=== PATIENT | male | born 1935 | race Caucasian/White ===

== ENCOUNTER → 2016-05-27 | Outpatient (CLI) | payer MEDICARE, OTHER ==
[2016-05-27 10:09] LABS: ABSOLUTE BASOPHILS # (AUTO) 0.1 10^3/uL (0.0-0.2); ABSOLUTE EOSINOPHILS # (AUTO) 0.2 10^3/uL (0.0-0.6); ABSOLUTE LYMPHOCYTES (AUTO) 1.8 10^3/uL (0.5-4.7); ABSOLUTE MONOCYTES (AUTO) 0.6 10^3/uL (0.1-1.4); ABSOLUTE NEUT (AUTO) 5.4 10^3/uL (1.7-8.2); BASOPHILS % (AUTO) 0.9 % (0-2); EOSINOPHILS % (AUTO) 2.8 % (0-6); HEMATOCRIT 51.5 % (37.9-51.0); HEMOGLOBIN 16.8 g/dL (13.5-17.0); HGB HCT DIFFERENCE -1.1; LYMPHOCYTES % (AUTO) 22.7 % (13-45); MEAN CORPUSCULAR HGB CONC 32.5 g/dL (32.0-36.0); MEAN CORPUSCULAR VOLUME 89 fl (80-97); MONOCYTES % (AUTO) 7.1 % (3-13); RED BLOOD COUNT 5.79 10^6/uL (4.35-5.55); RED CELL DISTRIBUTION WIDTH 16.8 % (11.5-14.0); SEGMENTED NEUTROPHILS % (AUTO) 66.5 % (42-78); WHITE BLOOD COUNT 8.1 10^3/uL (4.0-10.5)
[2016-05-27 10:13] LABS: APPEARANCE,URINE CLEAR; BILIRUBIN,URINE NEGATIVE (NEGATIVE); GLUCOSE, URINE NEGATIVE (NEGATIVE); KETONES,URINE NEGATIVE (NEGATIVE); LEUKOCYTE ESTERASE,URINE NEGATIVE (NEGATIVE); NITRITE,URINE NEGATIVE (NEGATIVE); PROTEIN,URINE NEGATIVE (NEGATIVE); URINE SPECIFIC GRAVITY 1.005; UROBILINOGEN,URINE NEGATIVE mg/dL (<2.0)
[2016-05-27 10:32] LABS: ALBUMIN 4.1 g/dL (3.5-5.0); ANION GAP 14 (5-19); BLOOD UREA NITROGEN 11 mg/dL (7-20); CALCIUM 9.7 mg/dL (8.4-10.2); CARBON DIOXIDE 23 mmol/L (22-30); CHLORIDE 101 mmol/L (98-107); CREATININE RESULT 1.17 mg/dL (0.52-1.25); GLUCOSE 161 mg/dL (75-110); PHOSPHORUS 3.8 mg/dL (2.5-4.5); POTASSIUM 4.3 mmol/L (3.6-5.0); SODIUM 138.3 mmol/L (137-145)
[2016-05-28 11:40] LABS: CREATININE URINE 42.6 mg/dL (Not Estab.); MICROALBUMIN URINE 31.2 ug/mL (Not Estab.)
== END ==
LOC: OD 09:24
PROVIDERS: ATTEND Internal Medicine Nephrology
DX: N18.3 Chronic kidney disease, stage 3 (moderate) (principal); R80.9 Proteinuria, unspecified
CPT/HCPCS: 36415; 80048; 81001; 82040; 82043; 82306; 82570; 83970; 84100; 85025

== ENCOUNTER 2016-08-13 01:16 | Inpatient (IN) | payer MEDICARE, OTHER ==
[2016-08-13] MEDS ORDERED: NITROGLYCERIN 0.4 MG/TAB 25 TAB/BOTTLE ONE (01:28)
[2016-08-13] MEDS: NITROGLYCERIN 0.4 MG/TAB 25 TAB/BOTTLE SL PRN ×4 (01:28→03:37)
[2016-08-13] MEDS ORDERED: IPRATROPIUM/ALBUTEROL 0.5-2.5 MG/3 ML AMPUL NEB ONE (01:30)
--- NOTE | 2016-08-13 01:35 | ER Document Report ---
ED Respiratory Problem - General Chief Complaint: Shortness Of Breath Stated Complaint: DIFFICULTY BREATHING Notes: The patient is a 80-year-old male, past medical history COPD, CHF, CAD status post three-vessel CABG in 2010, pacemaker defibrillator placement, presents with 2 hours of increasing shortness of breath and respiratory distress. He tried his CPAP mask for his sleep apnea, but it was not working. His room air O2 sat was 71% when EMS arrived. He says he wears oxygen at night, but not during the day. He was given 125 mg IV Solumedrol and a DuoNeb by EMS. Patient denies chest pain, fevers, edema, nausea, vomiting, abdominal pain or cough. TRAVEL OUTSIDE OF THE [place] IN LAST 30 DAYS: No - Related Data Allergies/Adverse Reactions: No Known Allergies Allergy (Verified 04/17/14 20:52) Past Medical History - General Information source: Patient - Social History Smoking Status: Former Smoker Family History: Reviewed & Not Pertinent - Past Medical History Cardiac Medical History: Reports: Hx Atrial Fibrillation, Hx Congestive Heart Failure, Hx Coronary Artery Disease, Hx Heart Attack, Hx Hypercholesterolemia, Hx Hypertension Denies: Hx Peripheral Vascular Disease, Hx Pulmonary Embolism, Hx Heart Murmur Pulmonary Medical History: Reports: Hx COPD, Hx Pneumonia Denies: Hx Asthma, Hx Bronchitis, Hx Respiratory Failure, Hx Sleep Apnea, Hx Tuberculosis Neurological Medical History: Denies: Hx Cerebrovascular Accident, Hx Seizures Endocrine Medical History: Denies: Hx Graves' Disease, Hx Hyperthyroidism, Hx Hypothyroidism Renal/ Medical History: Denies: Hx Benign Prostatic Hyperplasia, Hx End Stage Renal Disease, Hx Kidney Stones, Hx Peritoneal Dialysis Malignancy Medical History: Denies Hx Leukemia, Denies Hx Lung Cancer GI Medical History: Denies: Hx Crohn's Disease, Hx Gastroesophageal Reflux Disease, Hx Hiatal Hernia, Hx Irritable Bowel, Hx Liver Failure, Hx Ulcer Musculoskeltal Medical History: Reports Hx Arthritis, Denies Hx Fibromyalgia, Denies Hx Multiple Sclerosis, Denies Hx Muscular Dystrophy Psychiatric Medical History: Denies: Hx Bipolar Disorder, Hx Dementia, Hx Depression, Hx Post Traumatic Stress Disorder, Hx Schizophrenia Traumatic Medical History: Denies: Hx Fractures Infectious Medical History: Denies: Hx HIV Past Surgical History: Reports: Hx Abdominal Surgery - aaa stent, Hx Cardiac Catheterization, Hx Cholecystectomy, Hx Coronary Artery Bypass Graft - 3 ways. Denies: Hx Appendectomy, Hx Bowel Surgery, Hx Colostomy, Hx Gastric Bypass Surgery, Hx Herniorrhaphy, Hx Pacemaker, Hx Tonsillectomy - Immunizations Immunizations up to date: Yes Hx Diphtheria, Pertussis, Tetanus Vaccination: Yes Hx Pneumococcal Vaccination: 03/05/11 Review of Systems - Review of Systems Notes: REVIEW OF SYSTEMS: CONSTITUTIONAL: -fevers, -chills EENT: -eye pain, -difficulty swallowing, -nasal congestion CARDIOVASCULAR: -chest pain, -syncope. RESPIRATORY: -cough, +SOB GASTROINTESTINAL: -abdominal pain, -nausea, -vomiting, -diarrhea GENITOURINARY: -dysuria, -hematuria MUSCULOSKELETAL: -back pain, -neck pain SKIN: -rash or skin lesions. HEMATOLOGIC: -easy bruising or bleeding. LYMPHATIC: -swollen, enlarged glands. NEUROLOGICAL: -altered mental status or loss of consciousness, -headache, - neurologic symptoms ALL OTHER SYSTEMS REVIEWED AND NEGATIVE. Physical Exam - Vital signs Vitals: Resp 36 H 08/13/16 01:22 - Notes Notes: PHYSICAL EXAMINATION: GENERAL: Moderate respiratory distress, is nodding to answers, but unable to speak HEAD: Atraumatic, normocephalic. EYES: Pupils equal round and reactive to light, extraocular movements intact, sclera anicteric, conjunctiva are normal. ENT: nares patent, oropharynx clear without exudates. Moist mucous membranes. NECK: Normal range of motion, supple without lymphadenopathy LUNGS: Moderate respiratory distress, tachypnea, wheezing, B/L bibasilar rales HEART: Regular rate and irregular rhythm ABDOMEN: Soft, nontender, normoactive bowel sounds. No guarding, no rebound. No masses appreciated. EXTREMITIES: Normal range of motion, no pitting or edema. No cyanosis. NEUROLOGICAL: Cranial nerves grossly intact. Normal sensory and motor exams. SKIN: Warm, Dry, normal turgor, no rashes or lesions noted. Course - Re-evaluation Re-evalutation: Patient seen immediately on arrival and due to hypoxia and respiratory distress , patient placed on BiPAP. He has wheezes and rales at the bases. DuoNeb and steroids were given for COPD exacerbation and sublingual nitros for flash pulmonary edema. Patient much more comfortable on BiPAP. Chest x-ray shows worsening of his interstitial lung disease and possible pulmonary edema. Patient provided with IV Lasix. Rest of labs are unremarkable other than leukocytosis of 14 and a lactate of 2.4, which may be a stress response from his respiratory distress. No fevers and no signs of infection at this time. Patient requires inpatient admission for further evaluation and treatment of his hypoxic respiratory failure. 08/13/16 05:[address] Servin and will admit patient as Inpatient to [facility]. Patient resting comfortably on BiPAP and is in no respiratory distress at this time. - Vital Signs Vital signs: Temp Pulse Resp BP Pulse Ox 26 H 140/59 H 92 08/13/16 04:50 08/13/16 04:16 08/13/16 04:50 - Laboratory Result Diagrams: 08/13/16 01:27 08/13/16 01:27 Laboratory results interpreted by me: 08/13/16 08/13/16 08/13/16 01:27 01:27 01:27 WBC 14.7 H RBC 5.93 H Hgb 18.7 H Hct 54.9 H RDW 16.0 H Absolute Neutrophils 10.4 H PT 15.7 H APTT 59.7 H Carbonic Acid ABG pH ABG pCO2 ABG pO2 ABG O2 Saturation Carbon Dioxide 21 L Est GFR (Non-Af Amer) 59 L Glucose 137 H Lactic Acid Direct Bilirubin 0.6 H NT-Pro-B Natriuret Pep 08/13/16 08/13/16 08/13/16 01:27 01:27 01:33 WBC RBC Hgb Hct RDW Absolute Neutrophils PT APTT Carbonic Acid 1.37 H ABG pH 7.33 L ABG pCO2 45.6 H ABG pO2 135.2 H ABG O2 Saturation 98.5 H Carbon Dioxide Est GFR (Non-Af Amer) Glucose Lactic Acid 2.4 H Direct Bilirubin NT-Pro-B Natriuret Pep 5390 H - Diagnostic Test Radiology reviewed: Image reviewed, Reports reviewed - EKG Interpretation by Me EKG shows normal: Sinus rhythm, [place], Intervals, QRS Complexes, ST-T Waves Rhythm: Other - Ventricular Bigeminy When compared to previous EKG there are: Changes noted - Ventricular bigeminy Critical Care Note - Critical Care Note Total time excluding time spent on procedures (mins): 45 Discharge - Discharge Clinical Impression: Acute respiratory failure with hypoxia, Flash pulmonary edema, COPD exacerbation Condition: Serious Disposition: ADMITTED INPATIENT Admitting Provider: Terese Servin Unit Admitted: IMCU Referrals: DENIS ROWLAND MD [Primary Care Provider] - Follow up as needed
[2016-08-13 01:46] LABS: ABSOLUTE BASOPHILS # (AUTO) 0.1 10^3/uL (0.0-0.2); ABSOLUTE EOSINOPHILS # (AUTO) 0.2 10^3/uL (0.0-0.6); ABSOLUTE LYMPHOCYTES (AUTO) 2.8 10^3/uL (0.5-4.7); ABSOLUTE MONOCYTES (AUTO) 1.3 10^3/uL (0.1-1.4); ABSOLUTE NEUT (AUTO) 10.4 10^3/uL (1.7-8.2); BASOPHILS % (AUTO) 0.7 % (0-2); EOSINOPHILS % (AUTO) 1.5 % (0-6); HEMATOCRIT 54.9 % (37.9-51.0); HEMOGLOBIN 18.7 g/dL (13.5-17.0); HGB HCT DIFFERENCE 1.2; LYMPHOCYTES % (AUTO) 18.7 % (13-45); MEAN CORPUSCULAR HEMOGLOBIN 31.5 pg (27.0-33.4); MEAN CORPUSCULAR HGB CONC 34.1 g/dL (32.0-36.0); MEAN CORPUSCULAR VOLUME 93 fl (80-97); MONOCYTES % (AUTO) 8.7 % (3-13); RED BLOOD COUNT 5.93 10^6/uL (4.35-5.55); SEGMENTED NEUTROPHILS % (AUTO) 70.4 % (42-78); WHITE BLOOD COUNT 14.7 10^3/uL (4.0-10.5)
[2016-08-13 01:52] LABS: ARTERIAL BLOOD O2 SATURATION 98.5 % (94-98)
[2016-08-13 01:58] LABS: PROTHROMBIN TIME 15.7 SEC (11.4-15.4)
[2016-08-13 01:59] LABS: PARTIAL THROMBOPLASTIN TIME 59.7 SEC (23.5-35.8)
[2016-08-13 02:04] LABS: ALANINE AMINOTRANSFERASE 23 U/L (21-72); ALBUMIN 4.4 g/dL (3.5-5.0); ALKALINE PHOSPHATASE 78 U/L (38-126); ANION GAP 16 (5-19); ASPARTATE AMINO TRANSFERASE 30 U/L (17-59); BILIRUBIN,DIRECT 0.6 mg/dL (0.0-0.4); BILIRUBIN,TOTAL 1.2 mg/dL (0.2-1.3); BLOOD UREA NITROGEN 12 mg/dL (7-20); CALCIUM 9.9 mg/dL (8.4-10.2); CARBON DIOXIDE 21 mmol/L (22-30); CHLORIDE 104 mmol/L (98-107); CREATINE KINASE 68 U/L (55-170); CREATININE RESULT 1.19 mg/dL (0.52-1.25); GLUCOSE 137 mg/dL (75-110); POTASSIUM 4.5 mmol/L (3.6-5.0); SODIUM 141.3 mmol/L (137-145); TOTAL PROTEIN 7.9 g/dL (6.3-8.2)
[2016-08-13 02:20] LABS: TROPONIN I 0.026 ng/mL
[2016-08-13] MEDS ORDERED: FUROSEMIDE INJ/PF 40 MG/4 ML SDV IV ONE (03:10)
[2016-08-13] MEDS ORDERED: ASPIRIN 81 MG TABLET, CHEWABLE PO ONE (05:36)
[2016-08-13] MEDS ORDERED: ALBUTEROL SULFATE 0.083% NEB 2.5 MG/3 ML AMPUL NEB PRN (08:08)
[2016-08-13] MEDS ORDERED: ACETAMINOPHEN 325 MG TABLET PO PRN (08:08)
[2016-08-13] MEDS ORDERED: NORMAL SALINE 1000 ML 1,000 ML IV PRN (08:12)
[2016-08-13] MEDS ORDERED: GLUCAGON,HUMAN RECOMB 1 MG INJ IM PRN (08:16)
[2016-08-13] MEDS ORDERED: DEXTROSE 50%-WATER 25 GM/50 ML DISP.SYRIN IV PRN ×2 (08:16)
[2016-08-13] MEDS ORDERED: DEXTROSE 40% GEL 15 GM TUBE PO PRN ×2 (08:16)
[2016-08-13] MEDS ORDERED: INSULIN LISPRO 100 UNIT/ML 3 ML VIAL SUBCUT PRN (08:16)
[2016-08-13 09:06] LABS: VENOUS BLOOD BASE EXCESS -2.3 mmol/L; VENOUS BLOOD HCO3 21.6 mmol/L (20-32); VENOUS BLOOD PCO2 35.4 mmHg (35-63); VENOUS BLOOD PH 7.4 (7.30-7.42)
[2016-08-13] MEDS ORDERED: NICOTINE 14 MG/24 HR PATCH.TD24 TD PRN (09:24)
[2016-08-13] MEDS: CEFTRIAXONE 1 GM/D5W RTU 1 GM/50 ML RTUPB IV SCH (09:29)
--- NOTE | 2016-08-13 09:38 | PDOC H&P ---
History of Present Illness Admission Date/PCP: 08/13/16 05:26 DENIS ROWLAND MD Cards Dr. Kruger [place] History of Present Illness: EARNEST CASTELLANO is a 80 year old male with underlying severe systolic congestive heart failure, status post AICD implant, along with nonhome O2 dependent COPD who presents to the emergency room with a 2 hour history of increasing shortness of breath and respiratory distress. Was so short of breath that he could not tolerate his home CPAP mask which he normally wears at night. Shortness of breath worsened with any movement or activity. Room air saturation was 71% upon EMS arrival. Was given 125 mg of IV Solu-Medrol and a DuoNeb treatment en route by EMS. Currently is on BiPAP, breathing much more comfortably. Denies chest pain, fever or chills, nausea vomiting, chest or abdominal pain or cough. No ankle swelling. No subjective recent weight gain. Does not weigh himself very often. Denies dietary indiscretion. States he is compliant with his medications. Patient has been discussed with emergency room physician who evaluated the patient. Patient himself is somewhat fatigued, and appears to be a rather stoic individual. is present at his side with his approval, and both of them together to provide some history, although in general they are both poor historians concerning recent events. Possibly 2 new recent medications, but I can't be sure. No hospitalization for the past 3 months. No antibiotic use for the past 3 months. Hospitalized on our service August 29 through the 2013 with final diagnoses including basilar pneumonia, with COPD exacerbation. Ejection fraction at that time was 25%, systolic heart failure. Discharge summary reviewed. Laboratory results are listed in [address] and are reviewed. X-ray summary results are listed below, with full report(s) reviewed. . EKG reviewed. And compared to a tracing from 08/30/2013. Social history/personal habits: . 3 sons. On disability due to combination of pulmonary and cardiac disease. Half-pack of cigarettes per day. No alcohol or illicit drug use. Allergies/adverse reactions NKDA. Home medications Home medications initially autopopulated into [facility] may not accurately reflect patient's true medications, dosages, and/or frequencies. interactive video technician to reconcile medications. Unfortunately, patient uncertain of medications/dosages/frequencies. REVIEW OF SYSTEMS: Constitutional: No fever or chills. Eyes: Wears glasses. ENT: No swallowing problems or complaints. Partial hearing loss. Pulmonary: See history and present illness. Cardiovascular: No current complaints, including chest pain. Gastrointestinal: No current complaints, including nausea or vomiting. Skin: No current complaints, including rashes. Hematologic: No unusual easy bruising or bleeding. Neurologic: No current complaints, including numbness or tingling. Musculoskeletal: Joint pain from arthritis. Psychiatric: Mild depression; denies suicidal or homicidal ideation. Endocrine: No current complaints, including polyuria. Genitourinary: No current complaints, including dysuria. PHYSICAL EXAMINATION: 5 feet 11 inches tall. 82.6 kg. BMI 25.4 kg/m. Blood pressure 145/63. Pulse 81 and regular. 95% saturation on BiPAP 12/6, FiO2 50%. Respirations are 25 and unlabored. Temperature not recorded on the chart; skin feels normothermic. Slightly overweight otherwise well-nourished well-developed male appearing approximately his stated age. Somewhat fatigued. Rather stoic individual. Answers most questions with only one or 2 words, typically only yes or no. is present at his side; patient approves. Skin is warm and dry. No grossly obvious evidence of rash in areas of skin examined. No subcutaneous nodule palpated. ENT: Mildly hard of hearing to normal conversation. Tongue midline on protrusion pink and slightly tacky. Exam slightly limited by BiPAP mask with attaching straps. Eyes: No scleral icterus. Pupils equal and reactive to light at 4 mm. [place] conjunctivae. Neck is supple and nontender to gentle active range of motion and palpation. Midline trachea. No palpable thyroid nodule mass enlargement or tenderness. Lymphatic: No palpable cervical or clavicular nodes. Neck and lymphatic exams limited by patient body habitus. Exam slightly limited by BiPAP mask with attaching straps. Psychiatric: Fair to reasonable insight into acute and chronic medical issues. Somewhat of a poor historian; see history and present illness. Lungs: Auscultation reveals clear and equal breath sounds bilaterally. No use of accessory respiratory muscles. Cardiovascular: Heart regular rate and rhythm, without gallop murmur or rub. No abdominal aortic bruits. No ankle or pedal edema. Faintly palpable dorsalis pedis pulses. Difficult to evaluate for carotid bruit due to airway sounds from BiPAP device. Abdomen: soft, slightly distended nontender with positive bowel sounds. Unable to adequately evaluate abdomen for masses or organomegaly due to distention. Extremities: Feet are cool and dry, with quite acceptable capillary refill. states patient always has "cold feet." No calf tenderness to compression. No grossly obvious visual evidence of calf swelling. Gentle manipulation of lower extremities fails to reveal any obvious evidence of injury or instability to knees hips or ankles. Neurologic: Patellar reflexes absent. Absent Babinski. Light touch is intact at feet. Dorsiflexion and plantarflexion of feet 5 / 5 and symmetric. Past Medical History Cardiac Medical History: Reports: Atrial Fibrillation, Congestive Heart Failure - Systolic, Coronary Artery Disease, Myocardial Infarction, Hyperlipidema, Hypertension Denies: DVT, Peripheral Vascular Disease, Pulmonary Embolism Pulmonary Medical History: Reports: Chronic Obstructive Pulmonary Disease (COPD) , Pneumonia, Sleep Apnea - Uncertain settings for the CPAP. No home oxygen. Denies: Asthma, Bronchitis, Tuberculosis EENT Medical History: Reports: Ears - Partial hearing loss Neurological Medical History: Denies: Hemorrhagic CVA, Ischemic CVA, Seizures Endocrine Medical History: Denies: Diabetes Mellitus Type 1, Diabetes Mellitus Type 2, Hyperthyroidism, Hypothyroidism Renal/ Medical History: Denies: End Stage Renal Disease Malignancy Medical History: Denies: Leukemia, Lung Cancer GI Medical History: Denies: Cirrhosis, Crohn's Disease, Gastroesophageal Reflux Disease, Hepatitis, Hiatal Hernia, Peptic Ulcer Disease Musculoskeltal Medical History: Reports: Arthritis Denies: Fibromyalgia Skin Medical History: Reports: None Psychiatric Medical History: Reports: Depression - Mild, Tobacco Dependency Denies: Alcohol Dependency, General Anxiety Disorder, Substance Abuse Hematology: Denies: Anemia, Hemophilia, Sickle Cell Disease Infectious Medical History: Denies: Hepatitis B, Hepatitis C, HIV Past Surgical History Past Surgical History: Reports: Cardiac Catheterization, Cholecystectomy, Coronary Artery Bypass Graft - 3 ways, Pacemaker - Pacemaker defibrillator Denies: Appendectomy, Herniorrhaphy, Tonsillectomy Social History Information Source: Patient, Emergency Med Personnel, [facility] Records Smoking Status: Current Every Day Smoker Frequency of Alcohol Use: None Hx Recreational Drug Use: No Drugs: None Hx Prescription Drug Abuse: No - Advance Directive Resuscitation Status: Full Code Surrogate healthcare decision maker:: Family History Family History: Reviewed & Not Pertinent Parental Family History Reviewed: Yes - mother of dementia. Uncertain cause of father's . Children Family History Reviewed: Yes - Children are healthy Sibling(s) Family History Reviewed.: Yes - Sister with cancer. Medication/Allergy Home Medications: Budesonide/Formoterol Fumarate [Symbicort HFA 160-4.5 mcg Inhaler 6 gm] 2 puff IH BID 08/13/16 Calcium/Mag Oxide/Vitamin D3 [Coral Calcium Capsule] 1 tab PO DAILY 08/13/16 Dabigatran Etexilate Mesylate [Pradaxa] 150 mg PO Q12 08/13/16 Dofetilide [Tikosyn] 250 mg PO Q12 08/13/16 Multivit-Min/FA/Lycopen/Lutein [Centrum Silver Men Tablet] 1 tab PO DAILY RX: Aspirin [Ecotrin 81 mg EC Tablet] 81 mg PO DAILY 08/13/16 RX: Digoxin [Lanoxin 0.125 mg Tablet] 0.125 mg PO DAILY 08/13/16 RX: Furosemide [Lasix] 20 mg PO DAILY 08/13/16 RX: Metoprolol Succinate [Toprol Xl 25 mg Tab.sr] 25 mg PO QHS 08/13/16 RX: Metoprolol Succinate [Toprol Xl 25 mg Tab.sr] 50 mg PO QAM 08/13/16 RX: Montelukast Sodium [Singulair 10 mg Tablet] 10 mg PO DAILY 08/13/16 RX: Omeprazole 20 mg PO DAILY 08/13/16 RX: Simvastatin [Zocor 20 mg Tablet] 20 mg PO QPM 08/13/16 Sacubitril/Valsartan [Entresto 49 mg-51 mg Tablet] 1 tab PO DAILY 08/13/16 Tiotropium [place] [Spiriva Respimat] 2 puff IH DAILY 08/13/16 Allergies/Adverse Reactions: No Known Allergies Allergy (Verified 04/17/14 20:52) Physical Exam Vital Signs: Temp Pulse Resp BP Pulse Ox 60 24 H 143/61 H 94 08/13/16 01:20 08/13/16 07:31 08/13/16 07:31 08/13/16 07:31 Results Laboratory Results: 08/13/16 06:09 Lactic Acid 3.0 H Impressions: Chest X-Ray 08/13/16 01:30 IMPRESSION: Likely worsened chronic interstitial lung disease. Cannot exclude superimposed pulmonary edema. Assessment & Plan - Diagnosis (1) Acute on chronic respiratory failure with hypoxia and hypercapnia Is this a current diagnosis for this admission?: YesPlan: Patient will be admitted under COPD exacerbation protocol. Incentive spirometry twice a day. Scheduled DuoNeb's. PRN albuterol nebs daily prednisone. Prevacid for gastritis prophylaxis. Antibiotics will consist of Rocephin and intravenous doxycycline.. I strongly encouraged patient to notify staff should patient feel that his breathing is worsening. Patient is a full code. I have strongly encouraged patient not to get out of bed without notifying staff , , to avoid a fall with injury. Knee high SCDs for DVT prophylaxis; with patient on systemic anticoagulation, no need for Lovenox or heparin at this point in time. Impression and plans were discussed with patient, and , both of whom concur. Time spent in evaluation and management of patient: 68 minutes. (2) Acute on chronic systolic (congestive) heart failure Is this a current diagnosis for this admission?: YesPlan: Cardiology consult. Repeat troponin. Lipid panel. (3) COPD exacerbation Is this a current diagnosis for this admission?: Yes (4) Elevated troponin Is this a current diagnosis for this admission?: Yes (5) Anticoagulated Is this a current diagnosis for this admission?: YesPlan: Resume home medications as appropriate once these have been determined and reviewed. (6) Atrial fibrillation Qualifiers: Atrial fibrillation type: unspecified Qualified Code(s): I48.91 - Unspecified atrial fibrillation Is this a current diagnosis for this admission?: YesPlan: Hemodynamically stable. Resume home medications as appropriate once these have been determined and reviewed. (7) HLD (hyperlipidemia) Qualifiers: Hyperlipidemia type: unspecified Qualified Code(s): E78.5 - Hyperlipidemia, unspecified Is this a current diagnosis for this admission?: YesPlan: Resume home medications as appropriate once these have been determined and reviewed. (8) HECTOR (obstructive sleep apnea) Is this a current diagnosis for this admission?: YesPlan: Currently on BiPAP. - Inpatient Certification Based on my medical assessment, after consideration of the patient's comorbidities, presenting symptoms, or acuity I expect that the services needed warrant INPATIENT care.: Yes I certify that my determination is in accordance with my understanding of Medicare's requirements for reasonable and necessary INPATIENT services [42 CFR 412.3e].: Yes Medical Necessity: Significant Comorbidiites Make Outpatient Treatment Too Risky , Need Close Monitoring Due to Risk of Patient Decompensation, Need For Continuous Telemetry Monitoring, Need for Nebulizer Therapy and Monitoring of Response, Need for IV Antibiotics, Risk of Diagnosis Which Will Require Inpatient Eval/Care/Monitoring Post Hospital Care: D/C or Transfer Summary
[2016-08-13 10:06] LABS: ANION GAP 15 (5-19); BLOOD UREA NITROGEN 14 mg/dL (7-20); CALCIUM 9.4 mg/dL (8.4-10.2); CARBON DIOXIDE 21 mmol/L (22-30); CHLORIDE 103 mmol/L (98-107); CHOLESTEROL 101.83 mg/dL (0-200); CREATININE RESULT 1.21 mg/dL (0.52-1.25); Direct HDL 24 mg/dL (>40); GLUCOSE 172 mg/dL (75-110); MAGNESIUM 1.9 mg/dL (1.6-2.3); POTASSIUM 4.4 mmol/L (3.6-5.0); SODIUM 139.2 mmol/L (137-145); TRIGLYCERIDES 98 mg/dL (<150)
[2016-08-13] MEDS: PREDNISONE 20 MG TABLET PO SCH (10:10)
[2016-08-13 10:16] LABS: DIRECT LDL 57 mg/dL (<100)
--- NOTE | 2016-08-13 11:21 | EKG REPORT ---
SEVERITY:- ABNORMAL ECG - SINUS RHYTHM VENTRICULAR BIGEMINY LOW VOLTAGE IN FRONTAL LEADS CONSIDER ANTEROSEPTAL INFARCT NONSPECIFIC REPOL ABNORMALITY, DIFFUSE LEADS : Confirmed by: Major Encarnacion 13-Aug-2016 11:20:21
[2016-08-13] MEDS: DOXYCYCLINE HYCLATE 100 MG in DEXTROSE 5%-WATER 250 ML IV SCH ×2 (11:57→23:33)
[2016-08-13] MEDS: IPRATROPIUM/ALBUTEROL 0.5-2.5 MG/3 ML AMPUL NEB SCH ×2 (14:00→19:44)
--- NOTE | 2016-08-13 17:14 | XCELERA REPORT ---
[address] [address] Transthoracic Echocardiogram Report Name: EARNEST CASTELLANO Age: 80 yrs Gender: Male : 1935 Patient Status: Inpatient Patient Location: 3W\S\325\S\A Study Date: 08/13/2016 02:24 PM Height: 71 in Weight: 182 lb BSA: 2.0 m2 Procedure: A complete two-dimensional transthoracic echocardiogram was performed (2D, M-mode, spectral and color flow Doppler). The study was technically difficult with many images being suboptimal in quality. Reason For Study: CHF exacerbation Ordering Physician: MAJOR XIAO Performed By: Yenny Caraballo Interpretation Summary LV EF is 35% Doppler measurements suggest pseudonormalized left ventricular relaxation, which is associated with grade II/IV or mild to moderate diastolic dysfunction There is distal anterior wall akinesis There is apical wall akinesis There is moderate global hypokinesis of the left ventricle. The right ventricular systolic function is normal. The left atrium is mildly dilated. The right atrium is normal in size There is a trace amount of mitral regurgitation There is no mitral valve stenosis. No aortic regurgitation is present. There is no aortic valve stenosis There is a trace to mild amount of tricuspid regurgitation There is mild pulmonary hypertension by echo Right ventricular systolic pressure is estimated to be elevated at 30- 40mmHg. The aortic root is not well visualized but is probably normal size. The inferior vena cava was not visualized There is no pericardial effusion. MMode/2D Measurements \T\ Calculations RVDd: 1.2 cm LVIDd: 6.2 cm FS: 19.1 % Ao root diam: IVSd: 0.89 cm LVIDs: 5.1 cm EDV(Teich): 3.0 cm LVPWd: 0.93 cm 197.2 ml Ao root area: ESV(Teich): 121.2 ml 7.2 cm2 EF(Teich): 38.6 % LA dimension: 4.2 cm LVLd ap4: 9.6 cm SV(MOD-sp4): EDV(MOD-sp4): 81.0 ml 198.0 ml LVLs ap4: 8.7 cm ESV(MOD-sp4): 117.0 ml EF(MOD-sp4): 40.9 % Doppler Measurements \T\ Calculations MV E max bobby: MV P1/2t max bobby: Ao V2 max: LV V1 max P.9 cm/sec 84.4 cm/sec 213.3 cm/sec 4.9 mmHg MV A max bobby: MV P1/2t: 77.3 msec Ao max PG: LV V1 max: 52.3 cm/sec MVA(P1/2t): 2.8 cm2 18.2 mmHg 110.6 cm/sec MV E/A: 1.7 MV dec slope: 319.6 cm/sec2 MV dec time: 0.26 sec PA V2 max: TR max bobby: 143.1 cm/sec 282.2 cm/sec PA max PG: TR max P.8 mmHg 8.2 mmHg Left Ventricle The left ventricle is mildly dilated. There is mild concentric left ventricular hypertrophy. LV EF is 35%. Doppler measurements suggest pseudonormalized left ventricular relaxation, which is associated with grade II/IV or mild to moderate diastolic dysfunction. There is distal anterior wall akinesis. There is apical wall akinesis. There is moderate global hypokinesis of the left ventricle. Right Ventricle The right ventricle is grossly normal size. There is normal right ventricular wall thickness. The right ventricular systolic function is normal. Atria The right atrium is normal in size. The left atrium is mildly dilated. Interarterial septum not well visualized and not well dopplered. Cannot comment on ASD/PFO presence. Mitral Valve The mitral valve is grossly normal. There is no mitral valve stenosis. There is a trace amount of mitral regurgitation. Aortic Valve The aortic valve is not well visualized secondary to technical limitations. There is no aortic valve stenosis. No aortic regurgitation is present. Tricuspid Valve The tricuspid valve is not well visualized, but is grossly normal. There is no tricuspid stenosis. There is a trace to mild amount of tricuspid regurgitation. There is mild pulmonary hypertension by echo. Right ventricular systolic pressure is estimated to be elevated at 30-40mmHg. Pulmonic Valve The pulmonic valve is not well visualized. Great Vessels The aortic root is not well visualized but is probably normal size. The inferior vena cava was not visualized. Effusions There is no pericardial effusion. : MAJOR XIAO > Major Xiao
[2016-08-13] MEDS: LANSOPRAZOLE 30 MG TAB.RAP.DR PO SCH (18:33)
--- NOTE | 2016-08-13 19:11 | PDOC PROGRESS REPORT ---
Subjective Progress Note for:: 08/13/16 Subjective:: Patient was on a BiPAP and reports that his breathing is doing better than it was last night. Physical Exam Vital Signs: Temp Pulse Resp BP Pulse Ox 97.4 F 37 L 27 H 129/50 H 98 08/13/16 16:27 08/13/16 16:27 08/13/16 16:27 08/13/16 16:27 08/13/16 16:27 Intake & Output 08/12/16 08/13/16 08/14/16 06:59 06:59 06:59 Intake Total 950 Balance 950 General appearance: PRESENT: no acute distress Eye exam: PRESENT: conjunctiva pink. ABSENT: scleral icterus Mouth exam: PRESENT: moist, tongue midline Neck exam: ABSENT: carotid bruit, JVD, lymphadenopathy, thyromegaly Respiratory exam: PRESENT: rhonchi - Coarse rhonchi bilaterally.. ABSENT: rales , wheezes Cardiovascular exam: PRESENT: RRR. ABSENT: diastolic murmur, rubs, systolic murmur GI/Abdominal exam: PRESENT: normal bowel sounds, soft. ABSENT: distended, guarding, mass, organolmegaly, rebound, tenderness Extremities exam: ABSENT: calf tenderness, clubbing, pedal edema Neurological exam: PRESENT: alert, awake, oriented to person, oriented to place , oriented to time, oriented to situation, CN II-XII grossly intact. ABSENT: motor sensory deficit Psychiatric exam: PRESENT: appropriate affect Skin exam: PRESENT: dry, intact, warm. ABSENT: cyanosis, rash Results Laboratory Results: 08/13/16 08:52 08/13/16 08/13/16 08:52 08:52 VBG pH 7.40 VBG pCO2 35.4 VBG HCO3 21.6 VBG Base Excess -2.3 Sodium 139.2 Potassium 4.4 Chloride 103 Carbon Dioxide 21 L Anion Gap 15 BUN 14 Creatinine 1.21 Est GFR ( Amer) > 60 Est GFR (Non-Af Amer) 58 L Glucose 172 H Calcium 9.4 Magnesium 1.9 Triglycerides 98 Cholesterol 101.83 LDL Cholesterol Direct 57 VLDL Cholesterol 20.0 HDL Cholesterol 24 L 08/13/16 11:22 Troponin I 0.038 Impressions: Chest X-Ray 08/13/16 01:30 IMPRESSION: Likely worsened chronic interstitial lung disease. Cannot exclude superimposed pulmonary edema. Assessment & Plan - Diagnosis (1) Acute on chronic respiratory failure with hypoxia and hypercapnia Is this a current diagnosis for this admission?: YesPlan: Patient is improving with with BiPAP and Lasix. (2) Acute on chronic systolic (congestive) heart failure Is this a current diagnosis for this admission?: YesPlan: Continue BiPAP and IV Lasix. (3) COPD exacerbation Is this a current diagnosis for this admission?: YesPlan: Continue with nebulizers and BiPAP. (4) Elevated troponin Is this a current diagnosis for this admission?: YesPlan: Most likely secondary to underlying congestive heart failure. (5) Anticoagulated Is this a current diagnosis for this admission?: Yes (6) Atrial fibrillation Qualifiers: Atrial fibrillation type: unspecified Qualified Code(s): I48.91 - Unspecified atrial fibrillation Is this a current diagnosis for this admission?: YesPlan: Patient is rate control. (7) HLD (hyperlipidemia) Qualifiers: Hyperlipidemia type: unspecified Qualified Code(s): E78.5 - Hyperlipidemia, unspecified Is this a current diagnosis for this admission?: Yes (8) HECTOR (obstructive sleep apnea) Is this a current diagnosis for this admission?: YesPlan: Continue BiPAP. - Time Time Spent with patient: 25-34 minutes - Inpatient Certification Medical Necessity: Need Close Monitoring Due to Risk of Patient Decompensation - Plan Summary Plan Summary: Patient has diuresed well.
--- NOTE | 2016-08-13 21:06 | PDOC CONSULTATION ---
Consultation Consult Date: 08/13/16 Attending physician:: MARIANNA NEWMAN Consult reason:: Cardiomyopathy, CHF History of Present Illness Admission Date/PCP: 08/13/16 08:10 DENIS ROWLAND MD Patient complains of: Shortness of breath History of Present Illness: EARNEST CASTELLANO is a 80 year old male with underlying severe systolic congestive heart failure, status post AICD implant, along with home O2 dependent COPD who presents to the emergency room with a 2 hour history of increasing shortness of breath and respiratory distress. Was so short of breath that he could not tolerate his CPAP mask which he normally wears at night. Shortness of breath worsened with any movement or activity. Room air saturation was 71% upon EMS arrival. Was given 125 mg of IV Solu-Medrol and a DuoNeb treatment in route by EMS. Currently is on BiPAP, his breathing much more comfortably. Patient subsequently received IV Lasix. Patient has significant cardiac history and is status post CABG and also has a defibrillator placement. I was therefore asked to follow along. Patient did have a 2-D echocardiogram which showed severe LV systolic dysfunction with wall motion abnormalities but no significant valvular abnormalities noted. Patient is however noted to have moderate pulmonary hypertension. Past Medical History Cardiac Medical History: Reports: Atrial Fibrillation, Congestive Heart Failure - Systolic, Coronary Artery Disease, Myocardial Infarction, Hyperlipidema, Hypertension Denies: DVT, Peripheral Vascular Disease, Pulmonary Embolism, Heart Murmur Pulmonary Medical History: Reports: Chronic Obstructive Pulmonary Disease (COPD) , Pneumonia, Sleep Apnea - Uncertain settings for the CPAP. No home oxygen. Denies: Asthma, Bronchitis, Respiratory Failure, Tuberculosis EENT Medical History: Reports: Ears - Partial hearing loss Neurological Medical History: Denies: Hemorrhagic CVA, Ischemic CVA, Seizures Endocrine Medical History: Denies: Diabetes Mellitus Type 1, Diabetes Mellitus Type 2, Hyperthyroidism, Hypothyroidism Renal/ Medical History: Denies: End Stage Renal Disease Malignancy Medical History: Denies: Breast Cancer, Cervical Cancer, Leukemia, Lung Cancer, Ovarian Cancer GI Medical History: Denies: Cirrhosis, Crohn's Disease, Gastroesophageal Reflux Disease, Hepatitis, Hiatal Hernia, Peptic Ulcer Disease Musculoskeltal Medical History: Reports: Arthritis Denies: Fibromyalgia Skin Medical History: Reports: None Psychiatric Medical History: Reports: Depression - Mild, Tobacco Dependency Denies: Alcohol Dependency, Bipolar Disorder, Dementia, General Anxiety Disorder, Post Traumatic Stress Disorder, Substance Abuse Hematology: Denies: Anemia, Hemophilia, Sickle Cell Disease Infectious Medical History: Denies: Hepatitis B, Hepatitis C, HIV Past Surgical History Past Surgical History: Reports: Cardiac Catheterization, Cholecystectomy, Coronary Artery Bypass Graft - 3 ways, Internal Defibrillator, Pacemaker - Pacemaker defibrillator Denies: Appendectomy, Colostomy, Gastric Bypass Surgery, Herniorrhaphy, Tonsillectomy Social History Information Source: Patient Smoking Status: Current Every Day Smoker Cigarettes Packs Per Day: 6 Number of Years Smokin Frequency of Alcohol Use: Rare Hx Recreational Drug Use: No Drugs: None Hx Prescription Drug Abuse: No - Advance Directive Resuscitation Status: Full Code Surrogate healthcare decision maker:: Patient is the surrogate decision maker Family History Family History: CAD Parental Family History Reviewed: Yes Children Family History Reviewed: Yes Sibling(s) Family History Reviewed.: Yes Medication/Allergy Home Medications: Aspirin [Ecotrin 81 mg EC Tablet] 81 mg PO DAILY 08/13/16 Budesonide/Formoterol Fumarate [Symbicort HFA 160-4.5 mcg Inhaler 6 gm] 2 puff IH BID 08/13/16 Calcium/Mag Oxide/Vitamin D3 [Coral Calcium Capsule] 1 tab PO DAILY 08/13/16 Dabigatran Etexilate Mesylate [Pradaxa] 150 mg PO Q12 08/13/16 Digoxin [Lanoxin 0.125 mg Tablet] 0.125 mg PO DAILY 08/13/16 Dofetilide [Tikosyn] 250 mg PO Q12 08/13/16 Furosemide [Lasix] 20 mg PO DAILY 08/13/16 Metoprolol Succinate [Toprol Xl 25 mg Tab.sr] 25 mg PO QHS 08/13/16 Metoprolol Succinate [Toprol Xl 25 mg Tab.sr] 50 mg PO QAM 08/13/16 Montelukast Sodium [Singulair 10 mg Tablet] 10 mg PO DAILY 08/13/16 Multivit-Min/FA/Lycopen/Lutein [Centrum Silver Men Tablet] 1 tab PO DAILY Omeprazole 20 mg PO DAILY 08/13/16 Sacubitril/Valsartan [Entresto 49 mg-51 mg Tablet] 1 tab PO DAILY 08/13/16 Simvastatin [Zocor 20 mg Tablet] 20 mg PO QPM 08/13/16 Tiotropium [place] [Spiriva Respimat] 2 puff IH DAILY 08/13/16 Allergies/Adverse Reactions: No Known Allergies Allergy (Verified 04/17/14 20:52) Review of Systems Review of Systems: Please see history of present illness and past medical history as wall. Constitutional: No fever or chills reported. Head : No recent chronic headaches, recent head injury. Eyes: No recent eye pain, diplopia, redness, discharge, acute visual changes. Ears: No recent chronic ear pain, acute hearing loss, ear discharge. Oral cavity: No recent ulcerations, bleeding, oral cavity discomfort. Neck: No recent acute neck pain reported. Hematologic: No recent easy bruising or bleeding or hematologic malignancy reported. Lymphatic: No recent lymphatic malignancy, chronic lymphadenopathy reported yet Cardiovascular system review: See history of present illness. He denied any recent defibrillator discharges, sustained palpitations, syncope, near syncope. Respiratory system review: Recent cough noted but no recent hemoptysis, blood clots in the lungs reported. Mild Shortness of breath on exertion Gastrointestinal system review: Negative for any recent acute or chronic abdominal pain, hematemesis, melena, recent change in bowel habits. Genitourinary system review: No recent acute or chronic hematuria, flank pain, UTI etc. reported. Skin system review: Negative for any recent abnormal bruising, no rash, no pruritus reported. Neurologic: No prior history of strokes, mini strokes, seizure disorder. Psychologic: No history of major psychosis or major depression reported. Musculoskeletal: Minor aches and pains reported. No acute joint swelling reported. Endocrine: No recent polyuria, polydipsia, recent heat or cold intolerance. Physical Exam Vital Signs: Temp Pulse Resp BP Pulse Ox 97.4 F 37 L 27 H 129/50 H 98 08/13/16 16:27 08/13/16 16:27 08/13/16 16:27 08/13/16 16:27 08/13/16 16:27 Intake & Output 08/12/16 08/13/16 08/14/16 06:59 06:59 06:59 Intake Total 1622 Balance 1622 Exam: GENERAL: well-nourished and in no acute distress. Alert and oriented x3 HEAD: Atraumatic, normocephalic. EYES: Pupils equal round and reactive to light, extraocular movements intact, sclera anicteric, conjunctiva are normal. ENT: TMs normal, nares patent, oropharynx clear without exudates. Moist mucous membranes. No oral ulcerations or bleeding gums noted NECK: supple without lymphadenopathy. Trachea is central. No cervical or axillary lymphadenopathy noted. Carotids are 2+, JVD 8-10 CM LUNGS: Respiration seems nonlabored, no significant accessory muscle action noted. Breath sounds clear to auscultation bilaterally and equal noted. No wheezes rales or rhonchi noted. No significant dullness noted on percussion. CHEST: Palpation of the chest wall shows no significant chest wall tenderness. No other significant abnormalities noted. Defibrillator noted on the left side chest. 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 ABDOMEN: Soft, no significant tenderness appreciated, normoactive bowel sounds. No guarding, no rebound. No rigidity noted . No masses appreciated. EXTREMITIES: Pedal pulses are 1-2+, no calf tenderness noted. No clubbing or cyanosis.1-2 + pedal edema noted NEUROLOGICAL: Focused neurological exam showed no significant neurologic deficit. Normal speech, no focal weakness appreciated. PSYCH: Normal mood, normal affect. Judgment and insight within normal limits. SKIN: No significant ecchymosis, rash, ulcerations or signs of pruritus noted. MUSCULOSKELETAL EXAM: No significant joint swelling noted. Results Laboratory Results: 08/13/16 08:52 08/13/16 08/13/16 08:52 08:52 VBG pH 7.40 VBG pCO2 35.4 VBG HCO3 21.6 VBG Base Excess -2.3 Sodium 139.2 Potassium 4.4 Chloride 103 Carbon Dioxide 21 L Anion Gap 15 BUN 14 Creatinine 1.21 Est GFR ( Amer) > 60 Est GFR (Non-Af Amer) 58 L Glucose 172 H Calcium 9.4 Magnesium 1.9 Triglycerides 98 Cholesterol 101.83 LDL Cholesterol Direct 57 VLDL Cholesterol 20.0 HDL Cholesterol 24 L 08/13/16 11:22 Troponin I 0.038 EKG Comments: Showed sinus rhythm, ventricular bigeminy pattern. Nonspecific ST segment changes noted. Impressions: Chest X-Ray 08/13/16 01:30 IMPRESSION: Likely worsened chronic interstitial lung disease. Cannot exclude superimposed pulmonary edema. Assessment & Plan - Diagnosis (1) Acute on chronic respiratory failure with hypoxia and hypercapnia Is this a current diagnosis for this admission?: Yes (2) Acute on chronic systolic (congestive) heart failure Is this a current diagnosis for this admission?: Yes (3) COPD exacerbation Is this a current diagnosis for this admission?: Yes (4) Atrial fibrillation Qualifiers: Atrial fibrillation type: unspecified Qualified Code(s): I48.91 - Unspecified atrial fibrillation Is this a current diagnosis for this admission?: Yes (5) HLD (hyperlipidemia) Qualifiers: Hyperlipidemia type: unspecified Qualified Code(s): E78.5 - Hyperlipidemia, unspecified Is this a current diagnosis for this admission?: Yes (6) HECTOR (obstructive sleep apnea) Is this a current diagnosis for this admission?: Yes - Notes Notes: Acute on chronic respiratory failure: Related to COPD and CHF exacerbation. Continue with bronchodilator, steroid therapy and also diuretic therapy. Acute on chronic systolic heart failure: Will optimize therapy. Increase beta wilbert, Tong/ARB, his spironolactone therapy etc. COPD with exacerbation: Continue current management plan Atrial fibrillation: Patient currently in sinus rhythm. Most likely paroxysmal atrial fibrillation history. Continue with chronic anticoagulation and draped seems well controlled. Hyperlipidemia: Recommend high potency statin therapy. Sleep apnea syndrome: Patient to continue nightly bilevel therapy. Patient medications reviewed. Regimen is being optimized. - Time Time Spent: 30 to 50 Minutes - CODE STATUS was discussed, patient remains full code. Surrogate decision-maker unchanged. Multiple medical problems were addressed.More than 50% of the time spent coordinating care, discussing management plans with involved caregivers. Management plans discussed with involved personnels. Medical decision making was of moderate to high complexity , patient's has multiple severe comorbidities. Medications reviewed and adjusted accordingly: Yes
[2016-08-14] MEDS: LANSOPRAZOLE 30 MG TAB.RAP.DR PO SCH ×2 (05:27→19:06)
[2016-08-14] MEDS: GUAIFENESIN SYRP 200 MG/10 ML UDC PO PRN ×2 (05:30→22:58)
[2016-08-14 07:03] LABS: HEMATOCRIT 47.7 % (37.9-51.0); MEAN CORPUSCULAR HEMOGLOBIN 30.8 pg (27.0-33.4); MEAN CORPUSCULAR HGB CONC 33.4 g/dL (32.0-36.0); MEAN CORPUSCULAR VOLUME 92 fl (80-97); RED BLOOD COUNT 5.18 10^6/uL (4.35-5.55); RED CELL DISTRIBUTION WIDTH 15.9 % (11.5-14.0); WHITE BLOOD COUNT 21.7 10^3/uL (4.0-10.5)
[2016-08-14 07:22] LABS: ANION GAP 14 (5-19); BLOOD UREA NITROGEN 25 mg/dL (7-20); CALCIUM 9.1 mg/dL (8.4-10.2); CARBON DIOXIDE 22 mmol/L (22-30); CHLORIDE 102 mmol/L (98-107); CREATININE RESULT 1.26 mg/dL (0.52-1.25); GLUCOSE 132 mg/dL (75-110); POTASSIUM 4.3 mmol/L (3.6-5.0); SODIUM 137.8 mmol/L (137-145)
--- NOTE | 2016-08-14 07:48 | EKG REPORT ---
SEVERITY:- ABNORMAL ECG - SINUS RHYTHM VENTRICULAR BIGEMINY CONSIDER ANTEROSEPTAL INFARCT : Confirmed by: Major Encarnacion 14-Aug-2016 07:46:52
[2016-08-14] MEDS: IPRATROPIUM/ALBUTEROL 0.5-2.5 MG/3 ML AMPUL NEB SCH ×3 (07:55→20:26)
[2016-08-14 08:10] LABS: HEMOGLOBIN 15.9 g/dL (13.5-17.0)
[2016-08-14 08:12] LABS: BAND NEUTROPHILS % (MANUAL) 3 % (3-5); BASOPHILS % (MANUAL) 0 % (0-2); EOSINOPHILS % (MANUAL) 0 % (0-6); LYMPHOCYTES % (MANUAL) 1 % (13-45); TOTAL CELLS COUNTED 100
[2016-08-14 08:14] LABS: ANISOCYTOSIS SLIGHT
[2016-08-14] MEDS: TORSEMIDE 20 MG TABLET PO SCH (11:07)
[2016-08-14] MEDS: PREDNISONE 20 MG TABLET PO SCH (11:08)
[2016-08-14] MEDS: SPIRONOLACTONE 25 MG TABLET PO SCH (11:08)
[2016-08-14] MEDS: CEFTRIAXONE 1 GM/D5W RTU 1 GM/50 ML RTUPB IV SCH (12:25)
[2016-08-14] MEDS: DOXYCYCLINE HYCLATE 100 MG in DEXTROSE 5%-WATER 250 ML IV SCH ×2 (12:26→22:56)
--- NOTE | 2016-08-14 13:57 | PDOC PROGRESS REPORT ---
Subjective Progress Note for:: 08/14/16 Subjective:: Reports feeling much less short of breath. Physical Exam Vital Signs: Temp Pulse Resp BP Pulse Ox 98.0 F 51 L 16 138/56 H 92 08/14/16 11:58 08/14/16 11:58 08/14/16 11:58 08/14/16 11:58 08/14/16 11:58 Intake & Output 08/13/16 08/14/16 08/15/16 06:59 06:59 06:59 Intake Total 3222 880 Output Total 1100 Balance 3222 -220 Weight 87.4 kg General appearance: PRESENT: no acute distress Eye exam: PRESENT: conjunctiva pink. ABSENT: scleral icterus Ear exam: PRESENT: normal external ear exam Mouth exam: PRESENT: moist, tongue midline Neck exam: ABSENT: JVD Respiratory exam: PRESENT: clear to auscultation bruna. ABSENT: rales, rhonchi, wheezes Cardiovascular exam: PRESENT: RRR. ABSENT: diastolic murmur, rubs, systolic murmur GI/Abdominal exam: PRESENT: normal bowel sounds, soft. ABSENT: distended, guarding, mass, organolmegaly, rebound, tenderness Extremities exam: ABSENT: calf tenderness, clubbing, pedal edema Neurological exam: PRESENT: alert, awake, oriented to person, oriented to place , oriented to time, oriented to situation, CN II-XII grossly intact. ABSENT: motor sensory deficit Psychiatric exam: PRESENT: appropriate affect Skin exam: PRESENT: dry, intact, warm. ABSENT: cyanosis, rash Results Laboratory Results: 08/14/16 06:20 08/14/16 06:20 08/14/16 08/14/16 06:20 06:20 WBC 21.7 H RBC 5.18 Hgb 15.9 D Hct 47.7 MCV 92 MCH 30.8 MCHC 33.4 RDW 15.9 H Plt Count 186 Seg Neutrophils % Not Reportable Lymphocytes % Not Reportable Monocytes % Not Reportable Eosinophils % Not Reportable Basophils % Not Reportable Absolute Neutrophils Not Reportable Absolute Lymphocytes Not Reportable Absolute Monocytes Not Reportable Absolute Eosinophils Not Reportable Absolute Basophils Not Reportable Sodium 137.8 Potassium 4.3 Chloride 102 Carbon Dioxide 22 Anion Gap 14 BUN 25 H Creatinine 1.26 H Est GFR ( Amer) > 60 Est GFR (Non-Af Amer) 55 L Glucose 132 H Calcium 9.1 08/13/16 11:22 Troponin I 0.038 Impressions: Chest X-Ray 08/13/16 01:30 IMPRESSION: Likely worsened chronic interstitial lung disease. Cannot exclude superimposed pulmonary edema. Assessment & Plan - Diagnosis (1) Acute on chronic respiratory failure with hypoxia and hypercapnia Is this a current diagnosis for this admission?: YesPlan: Patient is improving with with BiPAP and Lasix. The patient had room air saturations 88% that decreased when he ambulated on room air. We'll continue with IV Lasix for one more day and hopefully discharge home tomorrow. (2) Acute on chronic systolic (congestive) heart failure Is this a current diagnosis for this admission?: YesPlan: Continue BiPAP and IV Lasix. (3) COPD exacerbation Is this a current diagnosis for this admission?: YesPlan: Continue with nebulizers, steroids and BiPAP when necessary. (4) Elevated troponin Is this a current diagnosis for this admission?: YesPlan: Most likely secondary to underlying congestive heart failure. (5) Anticoagulated Is this a current diagnosis for this admission?: Yes (6) Atrial fibrillation Qualifiers: Atrial fibrillation type: unspecified Qualified Code(s): I48.91 - Unspecified atrial fibrillation Is this a current diagnosis for this admission?: YesPlan: Patient is rate controlled. (7) HLD (hyperlipidemia) Qualifiers: Hyperlipidemia type: unspecified Qualified Code(s): E78.5 - Hyperlipidemia, unspecified Is this a current diagnosis for this admission?: Yes (8) HECTOR (obstructive sleep apnea) Is this a current diagnosis for this admission?: YesPlan: Continue BiPAP. - Time Time Spent with patient: 25-34 minutes - Inpatient Certification Medical Necessity: Need Close Monitoring Due to Risk of Patient Decompensation - Plan Summary Plan Summary: Continue IV Lasix for another day and hopefully discharge home tomorrow if he continues to improve.
[2016-08-14] MEDS ORDERED: FUROSEMIDE INJ/PF 20 MG/2 ML SDV IV ONE (14:00)
[2016-08-14] MEDS ORDERED: FUROSEMIDE INJ/PF 20 MG/2 ML SDV IV SCH (22:00)
--- NOTE | 2016-08-14 22:28 | PROGRESS NOTE E ---
Progress Note NAME: EARNEST CASTELLANO : 1935 AGE: 80Y DATE: 08/14/2016 ROOM: 325 SUBJECTIVE: Note the patient was seen from 8:10 a.m. to 8:40 a.m. His medications were reviewed. The patient denies any chest pain or discomfort. There is no PND, orthopnea. There is no leg edema. There is no firing of his AICD. The patient is in sinus rhythm with ventricular bigeminy. No recurrence of atrial fibrillation. Note that the patient at home was on Tikosyn and metoprolol and digoxin. These need to be restarted once COPD exacerbation is improved, which the patient has improved. OBJECTIVE: GENERAL: On examination the patient is well built and well nourished, in no acute distress. VITAL SIGNS: His pulse is 51 beats per minute. His temperature is 98 degrees Fahrenheit. His blood pressure 138/56. His respirations are 16 per minute on room air. His O2 saturation is 92%. HEENT: Head is atraumatic, normocephalic. Eyes: Pupils are equal, round and regular, reactive to light and accommodation. Extraocular movements are normal. There is no conjunctival pallor. There is no scleral icterus. Ears: Tympanic membranes are intact. External auditory canals are clear. Nose: There is no deviated nasal septum. No there is inflammation of the nasal mucous membrane. Mouth: Mucous membranes of the mouth are moist, tongue is moist. There are no ulcers. There is no bleeding from gums. Throat: There is no redness of the oropharynx. There are no exudates. SKIN: There are no skin rashes. There is no petechiae or ecchymosis. NECK: Supple. At present there is no JVD. There is no lymphadenopathy. There is no goiter. Carotids are equal. There is no bruit. LUNGS: Clear to auscultation and percussion. HEART: S1 and S2 is heard. There is no S3 gallop. There is no S4 gallop. There is a systolic murmur in the left sternal border and apex. There is no rub. ABDOMEN: Soft, nontender. There is no hepatosplenomegaly. Bowel sounds are well heard. There are no tender areas or masses. EXTREMITIES: Femorals are diminished. There are femoral bruits. Leg pulses are diminished. There is no pedal edema. There is no cyanosis or clubbing. CENTRAL NERVOUS SYSTEM: The patient is conscious, awake, alert and oriented x3 with no focal deficits. PSYCHIATRIC: The patient's judgment and insight are intact. His affect is normal. LABORATORY DATA: Shows a white count of 21,700; hemoglobin is 15.9; hematocrit is 47.7; platelet count is 186,000. The patient's sodium is 137.8, potassium 4.3, chloride is 102, CO2 is 22. The patient's BUN is 25, creatinine is 1.26, GFR is reduced to 25 which is chronic kidney disease stage 3. The patient's EKG shows sinus rhythm with ventricular bigeminy and poor R-wave progression. Lead test placement versus old anteroseptal VA. IMPRESSION: 1. ACUTE ON CHRONIC RESPIRATORY FAILURE WITH HYPOXEMIA, HYPERCAPNIA; THIS IS MUCH IMPROVED. The patient's o2 saturations are 92% on room air. 2. ACUTE ON CHRONIC SYSTOLIC HEART FAILURE. Continue Lasix, continue spironolactone. The patient once his congestive heart failure is controlled needs to be started on an MICHEAL inhibitor and metoprolol and digoxin and also Tikosyn. 3. ATRIAL FIBRILLATION. The patient at home was on Tikosyn and metoprolol and digoxin, these need to be restarted. 4. HYPERLIPIDEMIA. Continue Zocor. 5. CARDIOMYOPATHY. 6. CORONARY ARTERY DISEASE. The patient has no anginal symptoms. 7. HYPERTENSION. 8. MODERATE PULMONARY HYPERTENSION BY ECHOCARDIOGRAPHY AND LEFT VENTRICULAR EJECTION FRACTION OF 25%. Need to restart the patient on MICHEAL inhibitors, continue spironolactone and restart the patient on digoxin. We will give the digoxin every other day in view of the patient's *------* most likely. CODE STATUS: The patient is a full code. Surrogate healthcare decision maker is unchanged. TIME: Not 30 minutes spent on this patient with more than 50% of the time spent on direct patient care and also discussions with the other providers on the case. We will follow with you. Most likely the patient will be discharged in the a.m. Would *------* that the patient be started back on Tikosyn, metoprolol, and start an MICHEAL inhibitor in view of this patient's systolic dysfunction. DICTATING PHYSICIAN: TY CHANEL M.D. [id number] PHY#: [id number] ID: [id number] JOB#: [id number] ACCT: [id number] cc: >
[2016-08-15] MEDS: GUAIFENESIN SYRP 200 MG/10 ML UDC PO PRN ×3 (06:01→16:15)
[2016-08-15] MEDS: LANSOPRAZOLE 30 MG TAB.RAP.DR PO SCH ×2 (06:01→16:15)
[2016-08-15 06:04] LABS: HEMOGLOBIN 16.5 g/dL (13.5-17.0); HGB HCT DIFFERENCE 0.5; MEAN CORPUSCULAR HEMOGLOBIN 31.1 pg (27.0-33.4); MEAN CORPUSCULAR HGB CONC 33.6 g/dL (32.0-36.0); MEAN CORPUSCULAR VOLUME 93 fl (80-97); RED CELL DISTRIBUTION WIDTH 16.1 % (11.5-14.0); WHITE BLOOD COUNT 22.8 10^3/uL (4.0-10.5)
[2016-08-15 06:12] LABS: ANION GAP 15 (5-19); BLOOD UREA NITROGEN 37 mg/dL (7-20); CALCIUM 9.6 mg/dL (8.4-10.2); CARBON DIOXIDE 24 mmol/L (22-30); CHLORIDE 101 mmol/L (98-107); CREATININE RESULT 1.29 mg/dL (0.52-1.25); GLUCOSE 122 mg/dL (75-110); POTASSIUM 4.5 mmol/L (3.6-5.0)
[2016-08-15 06:45] LABS: BASOPHILS % (MANUAL) 0 % (0-2); EOSINOPHILS % (MANUAL) 0 % (0-6); LYMPHOCYTES % (MANUAL) 11 % (13-45); TOTAL CELLS COUNTED 100
[2016-08-15 06:47] LABS: ANISOCYTOSIS 1+; OVALOCYTES SLIGHT; TOXIC GRANULATION SLIGHT; TOXIC VACUOLATION PRESENT
[2016-08-15] MEDS: IPRATROPIUM/ALBUTEROL 0.5-2.5 MG/3 ML AMPUL NEB SCH ×3 (08:20→20:47)
[2016-08-15] MEDS: TORSEMIDE 20 MG TABLET PO SCH (09:00)
[2016-08-15] MEDS ORDERED: DIGOXIN INJ 0.5 MG/2 ML AMPULE IV ONE ×2 (09:45→10:00)
[2016-08-15] MEDS: PREDNISONE 20 MG TABLET PO SCH (09:56)
[2016-08-15] MEDS: SPIRONOLACTONE 25 MG TABLET PO SCH (10:00)
[2016-08-15] MEDS ORDERED: METOPROLOL TARTRATE PF/INJ 5 MG/5 ML SDV IV ONE ×5 (10:00→14:45)
[2016-08-15] MEDS: DOFETILIDE 125 MCG CAPSULE PO SCH ×2 (10:00→22:12)
[2016-08-15] MEDS: DABIGATRAN ETEXILATE 150 MG CAPSULE PO SCH ×2 (10:00→22:01)
[2016-08-15] MEDS: SACUBITRIL/VALSARTAN 49 MG/51 MG TABLET PO SCH (11:00)
[2016-08-15] MEDS: CEFTRIAXONE 1 GM/D5W RTU 1 GM/50 ML RTUPB IV SCH (11:06)
[2016-08-15] MEDS: DOXYCYCLINE HYCLATE 100 MG in DEXTROSE 5%-WATER 250 ML IV SCH ×2 (12:19→22:04)
--- NOTE | 2016-08-15 13:29 | PDOC PROGRESS REPORT ---
Subjective Progress Note for:: 08/15/16 Subjective:: Complains of a nonproductive cough. Physical Exam Vital Signs: Temp Pulse Resp BP Pulse Ox 97.5 F 99 18 119/65 96 08/15/16 10:00 08/15/16 10:00 08/15/16 10:00 08/15/16 10:00 08/15/16 10:00 Intake & Output 08/14/16 08/15/16 08/16/16 06:59 06:59 06:59 Intake Total 3222 2825 Output Total 7050 Balance 3222 -4225 Weight 87.4 kg 85.2 kg General appearance: PRESENT: no acute distress Eye exam: PRESENT: conjunctiva pink. ABSENT: scleral icterus Mouth exam: PRESENT: moist, tongue midline Neck exam: ABSENT: JVD Respiratory exam: PRESENT: clear to auscultation bruna. ABSENT: rales, rhonchi, wheezes Cardiovascular exam: PRESENT: RRR. ABSENT: diastolic murmur, rubs, systolic murmur GI/Abdominal exam: PRESENT: normal bowel sounds, soft. ABSENT: distended, guarding, mass, organolmegaly, rebound, tenderness Extremities exam: ABSENT: calf tenderness, clubbing, pedal edema Neurological exam: PRESENT: alert, awake, oriented to person, oriented to place , oriented to time, oriented to situation, CN II-XII grossly intact. ABSENT: motor sensory deficit Psychiatric exam: PRESENT: appropriate affect Results Laboratory Results: 08/15/16 05:23 08/15/16 05:23 08/15/16 08/15/16 05:23 05:23 WBC 22.8 H RBC 5.30 Hgb 16.5 Hct 49.0 MCV 93 MCH 31.1 MCHC 33.6 RDW 16.1 H Plt Count 206 Seg Neutrophils % Not Reportable Lymphocytes % Not Reportable Monocytes % Not Reportable Eosinophils % Not Reportable Basophils % Not Reportable Absolute Neutrophils Not Reportable Absolute Lymphocytes Not Reportable Absolute Monocytes Not Reportable Absolute Eosinophils Not Reportable Absolute Basophils Not Reportable Sodium 140.0 Potassium 4.5 Chloride 101 Carbon Dioxide 24 Anion Gap 15 BUN 37 H Creatinine 1.29 H Est GFR ( Amer) > 60 Est GFR (Non-Af Amer) 54 L Glucose 122 H Calcium 9.6 08/13/16 11:22 Troponin I 0.038 Impressions: Chest X-Ray 08/13/16 01:30 IMPRESSION: Likely worsened chronic interstitial lung disease. Cannot exclude superimposed pulmonary edema. Assessment & Plan - Diagnosis (1) Acute on chronic respiratory failure with hypoxia and hypercapnia Is this a current diagnosis for this admission?: YesPlan: Patient has had improvement however his creatinine has started to increase with diuresis. His Lasix has been stopped. (2) Acute on chronic systolic (congestive) heart failure Is this a current diagnosis for this admission?: YesPlan: The patient's Lasix has been stopped because of worsening renal function. (3) COPD exacerbation Is this a current diagnosis for this admission?: YesPlan: Continue with nebulizers, steroids and BiPAP when necessary. (4) Elevated troponin Is this a current diagnosis for this admission?: YesPlan: Most likely secondary to underlying congestive heart failure. (5) Anticoagulated Is this a current diagnosis for this admission?: Yes (6) Atrial fibrillation Qualifiers: Atrial fibrillation type: unspecified Qualified Code(s): I48.91 - Unspecified atrial fibrillation Is this a current diagnosis for this admission?: YesPlan: Patient is sinus tachycardia currently. Cardiology is recommending restarting the tikosyn (7) HLD (hyperlipidemia) Qualifiers: Hyperlipidemia type: unspecified Qualified Code(s): E78.5 - Hyperlipidemia, unspecified Is this a current diagnosis for this admission?: Yes (8) HECTOR (obstructive sleep apnea) Is this a current diagnosis for this admission?: YesPlan: Continue BiPAP. (9) Acute renal failure Is this a current diagnosis for this admission?: YesPlan: We'll stop the IV Lasix and monitor his creatinine. - Time Time Spent with patient: 25-34 minutes - Inpatient Certification Medical Necessity: Need Close Monitoring Due to Risk of Patient Decompensation - Plan Summary Plan Summary: Patient cannot be discharged because of the worsening creatinine. We'll need to make certain that it is stabilized prior to discharging.
--- NOTE | 2016-08-15 14:27 | EKG REPORT ---
SEVERITY:- ABNORMAL ECG - ATRIAL FLUTTER WITH VARIABLE CONDUCTION VENTRICULAR PREMATURE COMPLEXES INCOMPLETE LEFT BUNDLE BRANCH BLOCK : Confirmed by: Major Encarnacion 15-Aug-2016 14:26:04
--- NOTE | 2016-08-15 16:00 | Physician Advisory Note ---
Physician Advisor ProgressNote .: Pursuant to the plan for [facility], I have reviewed the medical record for this patient. Physician Advisor Statement: Possible documentation opportunities if attending agrees: 1. "____ type Afib" [paroxysmal? persistent?] 2. "Acute Kidney Injury likely due to " [ATN, Acute cortical necrosis, medullary necrosis, post-procedural, post-traumatic, SPECIFY other type ]" 3. "SIRS, present on admission, due to acute resp failure/ac syst HF/COPD exac " As always, if concerned about any unstable VS or abnormal labs, please comment on them & note what doing about them, & please document each day the potential clinical problems you are concerned could occur if pt not kept in hospital for tx at this time. Thanks for your help with documentation accuracy/specificity improvement! Brandi Kendall MD [facility] Physician Advisor, Fellow of Hospital Medicine
[2016-08-15] MEDS ORDERED: DILTIAZEM HCL/D5W 125 MG/125 ML RTUINJ IV PRN (16:15)
--- NOTE | 2016-08-15 23:28 | PROGRESS NOTE E ---
Progress Note NAME: EARNEST CASTELLANO : 1935 AGE: 80Y DATE: 08/15/2016 ROOM: 325 SUBJECTIVE: Note: I was with the patient from 9:50 to 10:45 due to the patient going back into atrial flutter with rapid ventricular response. The patient on questioning, denies palpitations. He denies any shortness of breath. There are no chest pain or discomfort. There is no PND or orthopnea. There are no TIA or CVA symptoms. Note that the patient's Tikosyn has been held, also his metoprolol and also his Pradaxa. He has no palpitations. On examination earlier, his heart rate was 136 beats per minute. After I gave him 0.125 digoxin and 2.5 metoprolol, his heart rate came down to 99. OBJECTIVE: GENERAL: On examination, he is well built and well nourished, in no acute distress. VITAL SIGNS: He is afebrile with a temperature of 97.5 degrees Fahrenheit. His pulse is 99 beats per minute. His blood pressure is 119/65. The patient is still in atrial flutter. HEENT: Head is atraumatic, normocephalic. Eyes: Pupils are equal, round and regular, reactive to light and accommodation. Extraocular movements are normal. There is no conjunctival pallor. There is no scleral icterus. Ears: Tympanic membranes are intact. External auditory canals are clear. Nose: There is no deviated nasal septum. There is no inflammation of the nasal mucous membrane. Mouth: Mucous membranes of the mouth are moist, tongue is moist. There are no ulcers. There is no bleeding from gums. Throat: There is no redness of the oropharynx. There are no exudates. SKIN: There are no skin rashes. There is no petechiae or ecchymosis. NECK: Supple. At present there is no JVD. There is no lymphadenopathy. There is no goiter. Carotids are equal. There is no bruit. LUNGS: Clear to auscultation and percussion. HEART: S1 and S2 heard. There is no S3 gallop. There is a variable S1 in intensity. There is a systolic murmur in the left sternal border and apex. There is no rub. ABDOMEN: Soft, nontender. There is no hepatosplenomegaly. Bowel sounds are well heard. There are no tender areas or masses. EXTREMITIES: Femorals are diminished. There are femoral bruits. Leg pulses are diminished. There is no pedal edema. There is no cyanosis or clubbing. CENTRAL NERVOUS SYSTEM: The patient is conscious, awake, alert and oriented x3 with no focal deficits. PSYCHIATRIC: The patient's judgment and insight are intact. His affect is normal. Note that the patient is slightly hard of hearing. LABORATORY DATA: The patient's EKG shows atrial flutter with variable conduction. Rate is 130 and premature complex is seen. Incomplete left bundle branch block pattern. The patient's white count is 22,800, hemoglobin is 16.5, hematocrit is 49, platelet count is 206,000. The patient's sodium is 140, potassium is 4.5, chloride is 101, CO2 is 24. The patient's BUN is 37 and creatinine is 1.29. GFR is reduced at 52, which is chronic kidney disease stage 3. His glucose is 122 and his calcium is 9.6. IMPRESSION: 1. RECURRENCE OF ATRIAL FLUTTER WITH RAPID VENTRICULAR RESPONSE. I have started him back on his Tikosyn and dabigatran. We will give boluses of metoprolol and if the heart rate still continues to be fast, we will start the patient on Cardizem drip. Also continue digoxin 0.125 mg every other day. 2. ACUTE ON CHRONIC SYSTOLIC HEART FAILURE. Continue Lasix, continue spironolactone. In view of the patient's cardiomyopathy, would start the patient back on Entresto. Later we will start the patient on metoprolol also. 3. RECURRENCE OF ATRIAL FLUTTER. No Tikosyn has been started and the patient also is on digoxin and also will get boluses of metoprolol until we control the heart rate and he can go back on p.o. metoprolol. The patient is already on chronic anticoagulation. 4. HYPERLIPIDEMIA. 5. CARDIOMYOPATHY WITH SEVERELY REDUCED LV EJECTION FRACTION. 6. CORONARY ARTERY DISEASE. The patient has no anginal symptoms. 7. HYPERTENSION. Well controlled. 8. MODERATE PULMONARY HYPERTENSION BY ECHOCARDIOGRAPHY AND LEFT VENTRICULAR EJECTION FRACTION OF 25%. The patient has been started on Entresto and will start the patient on beta-wilbert and continue Lasix. Will also start the patient on Tikosyn because it prevents ventricular arrhythmia and atrial arrhythmias. PLAN: Discussed with the patient and the patient's . Discussed with the hospitalist taking care of the patient. We will continue to monitor the patient's heart rate. TIME: Note: 35 minutes spent on this patient with more than 50% of the time spent on direct patient care and instructing the nurses to give medications and reviewing the patient's medications and discussion with the hospitalist taking care of the patient. We will follow with you. Thanking you. DICTATING PHYSICIAN: TY CHANEL M.D. [id number] PHY#: [id number] ID: [id number] JOB#: [id number] ACCT: [id number] cc: >
[2016-08-16 05:38] LABS: HEMATOCRIT 49.7 % (37.9-51.0); HEMOGLOBIN 16.6 g/dL (13.5-17.0); HGB HCT DIFFERENCE 0.1; MEAN CORPUSCULAR HGB CONC 33.4 g/dL (32.0-36.0); MEAN CORPUSCULAR VOLUME 93 fl (80-97); RED BLOOD COUNT 5.36 10^6/uL (4.35-5.55); RED CELL DISTRIBUTION WIDTH 16.3 % (11.5-14.0); WHITE BLOOD COUNT 20.2 10^3/uL (4.0-10.5)
[2016-08-16 05:49] LABS: ANION GAP 12 (5-19); BLOOD UREA NITROGEN 37 mg/dL (7-20); CALCIUM 9.3 mg/dL (8.4-10.2); CARBON DIOXIDE 25 mmol/L (22-30); CHLORIDE 101 mmol/L (98-107); CREATININE RESULT 1.22 mg/dL (0.52-1.25); GLUCOSE 113 mg/dL (75-110); POTASSIUM 4.8 mmol/L (3.6-5.0)
[2016-08-16 05:54] LABS: BASOPHILS % (MANUAL) 0 % (0-2); EOSINOPHILS % (MANUAL) 0 % (0-6); LYMPHOCYTES % (MANUAL) 7 % (13-45); TOTAL CELLS COUNTED 100
[2016-08-16 05:55] LABS: ANISOCYTOSIS 1+; TOXIC VACUOLATION PRESENT
[2016-08-16] MEDS: LANSOPRAZOLE 30 MG TAB.RAP.DR PO SCH ×2 (05:55→18:14)
[2016-08-16] MEDS: IPRATROPIUM/ALBUTEROL 0.5-2.5 MG/3 ML AMPUL NEB SCH ×3 (09:10→21:06)
[2016-08-16] MEDS: DOFETILIDE 125 MCG CAPSULE PO SCH ×2 (10:00→21:40)
[2016-08-16] MEDS: CEFTRIAXONE 1 GM/D5W RTU 1 GM/50 ML RTUPB IV SCH (10:47)
[2016-08-16] MEDS: DABIGATRAN ETEXILATE 150 MG CAPSULE PO SCH ×2 (10:48→21:30)
[2016-08-16] MEDS: TORSEMIDE 20 MG TABLET PO SCH (10:53)
[2016-08-16] MEDS: SACUBITRIL/VALSARTAN 49 MG/51 MG TABLET PO SCH (10:53)
[2016-08-16] MEDS: PREDNISONE 20 MG TABLET PO SCH (10:53)
[2016-08-16] MEDS: SPIRONOLACTONE 25 MG TABLET PO SCH (10:53)
[2016-08-16] MEDS: DOXYCYCLINE HYCLATE 100 MG in DEXTROSE 5%-WATER 250 ML IV SCH ×2 (11:36→21:34)
[2016-08-16] MEDS ORDERED: METOPROLOL SUCCINATE 25 MG TAB.SR.24H PO ONE (12:00)
--- NOTE | 2016-08-16 14:36 | PDOC PROGRESS REPORT ---
Subjective Progress Note for:: 08/16/16 Subjective:: Denies any complains. Was put on diltiazem drip yesterday. Physical Exam Vital Signs: Temp Pulse Resp BP Pulse Ox 97.6 F 45 L 22 H 118/59 L 94 08/16/16 12:11 08/16/16 12:11 08/16/16 12:11 08/16/16 12:11 08/16/16 12:11 Intake & Output 08/15/16 08/16/16 08/17/16 06:59 06:59 06:59 Intake Total 2825 2027 710 Output Total 7042 3400 450 Balance -4225 -1373 260 Weight 85.2 kg 85.6 kg General appearance: PRESENT: no acute distress Eye exam: PRESENT: conjunctiva pink. ABSENT: scleral icterus Ear exam: PRESENT: normal external ear exam Mouth exam: PRESENT: moist, tongue midline Neck exam: ABSENT: carotid bruit, JVD, lymphadenopathy, thyromegaly Respiratory exam: PRESENT: clear to auscultation bruna. ABSENT: rales, rhonchi, wheezes Cardiovascular exam: PRESENT: irregular rhythm. ABSENT: diastolic murmur, rubs , systolic murmur GI/Abdominal exam: PRESENT: normal bowel sounds, soft. ABSENT: distended, guarding, mass, organolmegaly, rebound, tenderness Extremities exam: ABSENT: calf tenderness, clubbing, pedal edema Neurological exam: PRESENT: alert, awake, oriented to person, oriented to place , oriented to time, oriented to situation, CN II-XII grossly intact. ABSENT: motor sensory deficit Psychiatric exam: PRESENT: appropriate affect Skin exam: PRESENT: dry, intact, warm. ABSENT: cyanosis, rash Results Laboratory Results: 08/16/16 04:42 08/16/16 04:42 08/16/16 08/16/16 04:42 04:42 WBC 20.2 H RBC 5.36 Hgb 16.6 Hct 49.7 MCV 93 MCH 31.0 MCHC 33.4 RDW 16.3 H Plt Count 211 Seg Neutrophils % Not Reportable Lymphocytes % Not Reportable Monocytes % Not Reportable Eosinophils % Not Reportable Basophils % Not Reportable Absolute Neutrophils Not Reportable Absolute Lymphocytes Not Reportable Absolute Monocytes Not Reportable Absolute Eosinophils Not Reportable Absolute Basophils Not Reportable Sodium 138.0 Potassium 4.8 Chloride 101 Carbon Dioxide 25 Anion Gap 12 BUN 37 H Creatinine 1.22 Est GFR ( Amer) > 60 Est GFR (Non-Af Amer) 57 L Glucose 113 H Calcium 9.3 08/13/16 11:22 Troponin I 0.038 Impressions: Chest X-Ray 08/13/16 01:30 IMPRESSION: Likely worsened chronic interstitial lung disease. Cannot exclude superimposed pulmonary edema. Assessment & Plan - Diagnosis (1) Acute on chronic respiratory failure with hypoxia and hypercapnia Is this a current diagnosis for this admission?: YesPlan: Patient has had improvement. We'll continue the BiPAP at night. (2) Acute on chronic systolic (congestive) heart failure Is this a current diagnosis for this admission?: YesPlan: Diuretics were held because of renal failure but they have improved after holding the diuretics since yesterday. He appears to be euvolemic at this time. (3) COPD exacerbation Is this a current diagnosis for this admission?: YesPlan: Continue with nebulizers, steroids and BiPAP when necessary. (4) Elevated troponin Is this a current diagnosis for this admission?: YesPlan: Most likely secondary to underlying congestive heart failure. (5) Anticoagulated Is this a current diagnosis for this admission?: Yes (6) Atrial fibrillation Qualifiers: Atrial fibrillation type: unspecified Qualified Code(s): I48.91 - Unspecified atrial fibrillation Is this a current diagnosis for this admission?: YesPlan: She was put on diltiazem drip yesterday. He is having atrial flutter at this time. Cardiology is following in their help is appreciated. (7) HLD (hyperlipidemia) Qualifiers: Hyperlipidemia type: unspecified Qualified Code(s): E78.5 - Hyperlipidemia, unspecified Is this a current diagnosis for this admission?: Yes (8) HECTOR (obstructive sleep apnea) Is this a current diagnosis for this admission?: YesPlan: Continue BiPAP. (9) Acute renal failure Is this a current diagnosis for this admission?: YesPlan: Diuretics were held yesterday and his creatinine has returned to normal. - Time Time Spent with patient: 25-34 minutes - Inpatient Certification Medical Necessity: Need Close Monitoring Due to Risk of Patient Decompensation
[2016-08-16] MEDS ORDERED: DILTIAZEM HCL/D5W 125 MG/125 ML RTUINJ IV PRN (17:05)
[2016-08-16] MEDS ORDERED: METOPROLOL SUCCINATE 25 MG TAB.SR.24H PO SCH (22:00)
--- NOTE | 2016-08-16 22:28 | PROGRESS NOTE E ---
Progress Note NAME: EARNEST CASTELLANO : 1935 AGE: 80Y DATE: 08/16/2016 ROOM: 325 SUBJECTIVE: The patient was seen from 11:35 a.m. to 12:05 p.m. A total of 30 minutes spent on this patient on 08/16/2016. The patient's heart rate is much better but the patient is still with atrial flutter with a ventricular response of 98 beats per minute. He denies any chest pain or discomfort. There is no PND. The patient has frequent PVCs. The patient denies any leg edema. There are no TIA or CVA symptoms. There is no bleeding dabigatran. OBJECTIVE: GENERAL: On examination, the patient is in no acute distress. He is well built and well nourished, in no acute distress. VITAL SIGNS: He is afebrile with a temperature of 97.6 degrees Fahrenheit. His pulse is 94 beats per minute. Respirations 18 per minute. O2 sats are 93% on 2 L nasal cannula. The patient's blood pressure is 113/57. HEENT: Head is atraumatic, normocephalic. Eyes: Pupils are equal, round and regular, reactive to light and accommodation. Extraocular movements are normal. There is no conjunctival pallor. There is no scleral icterus. ENT is negative. NECK: Supple. There is no JVD. Carotids are equal. There is no bruit. There is no lymphadenopathy. There is no goiter. Trachea is central. SKIN: There are no skin rashes. There is no petechiae or ecchymosis. LUNGS: There are a few scattered rhonchi. There is diminished air entry with prolonged expiration. There is no wheezing or rales. HEART: S1 and S2 heard. There is no S3 gallop. There is no S4 gallop. There is a variable S1 in intensity. There is a systolic murmur in the left sternal border and apex. There is no rub. ABDOMEN: Soft, nontender. There is no hepatosplenomegaly. Bowel sounds are well heard. EXTREMITIES: Femorals are diminished. There are femoral bruits. Leg pulses are diminished. There is no pedal edema. There is no cyanosis or clubbing. CENTRAL NERVOUS SYSTEM: The patient is conscious, awake, alert and oriented x3 with no focal deficits. PSYCHIATRIC: The patient's judgment and insight are intact. His affect is normal. Note that the patient is slightly hard of hearing. The patient's 24-hour oral intake is 2,027 mL, output is 3,400 mL. LABORATORY DATA: The patient's white count is 20,200, hemoglobin is 16.6, hematocrit is 49.7, platelet count is 211,000. The patient's sodium is 138, potassium 4.8, chloride is 101, CO2 is 25. The patient's BUN is 37 and creatinine is 1.22. GFR is slightly reduced at 57 but is much better than yesterday but still is stage 3 chronic kidney disease. Glucose is 118 and his calcium is 9.3. IMPRESSION: 1. RECURRENCE OF ATRIAL FLUTTER AT PRESENT VENTRICULAR RESPONSE SEEMS TO BE MUCH IMPROVED. The patient is back on Tikosyn and dabigatran. At present patient is on Cardizem drip. Will stop the Cardizem and start the patient on metoprolol extended release 25 mg p.o. b.i.d. 2. ACUTE ON CHRONIC SYSTOLIC HEART FAILURE. Continue Lasix, continue spironolactone. The patient was restarted on Entresto and also the patient is on a beta wilbert now. This seems to be compensated. 3. RECURRENCE OF ATRIAL FIBRILLATION. Note that the patient is also on digoxin and the patient's Cardizem drip has been stopped and the patient has been started on a beta wilbert. 4. HYPERLIPIDEMIA. 5. CARDIOMYOPATHY WITH SEVERELY REDUCED LV EJECTION FRACTION. The patient is on Entresto, Lasix and digoxin and beta wilbert. 6. CORONARY ARTERY DISEASE. The patient has no anginal symptoms. 7. HYPERTENSION. Well controlled. 8. MODERATE PULMONARY HYPERTENSION BY ECHOCARDIOGRAPHY AND LEFT VENTRICULAR EJECTION FRACTION OF 25%. As mentioned earlier, the patient is being appropriately treated for his cardiomyopathy. 9. HISTORY OF *------* new finding. PLAN: Discussed with the patient and the patient's . Will continue the patient on current treatment including dabigatran, beta wilbert, Entresto and Lasix and also digoxin. Will convert the patient to beta wilbert as mentioned earlier and stop the patient's Cardizem drip. If the patient reverts back into rapid atrial flutter, then will start him on the Cardizem drip in the a.m. Will increase the patient's Tikosyn. TIME: Note 30 minutes spent on this patient with more than 50% of the time spent on direct patient care and review of the patient's medication and adjusting the patient's medications and discussion with the patient and patient's and also with the hospitalist taking care of the patient. This is a highly complicated case with multiple comorbidities intermittent atrial flutter and frequent PVCs with danger of the patient having *------*. Will follow with you. Thanking you. DICTATING PHYSICIAN: TY CHANEL M.D. [id number] PHY#: [id number] ID: [id number] JOB#: [id number] ACCT: [id number] cc: >
[2016-08-16] MEDS ORDERED: LACTULOSE SYRUP 20 GM/30 ML UDCUP PO ONE (23:42)
[2016-08-16] MEDS ORDERED: SODIUM POLYSTYRENE SULFONATE 15 GM/60 ML PO ONE (23:42)
[2016-08-17 00:36] LABS: CREATINE KINASE MB 3.34 ng/mL (<4.55); TROPONIN I 0.031 ng/mL
[2016-08-17 01:01] LABS: ANION GAP 13 (5-19); BLOOD UREA NITROGEN 44 mg/dL (7-20); CALCIUM 9.2 mg/dL (8.4-10.2); CARBON DIOXIDE 24 mmol/L (22-30); CHLORIDE 99 mmol/L (98-107); CREATINE KINASE 210 U/L (55-170); CREATININE RESULT 1.34 mg/dL (0.52-1.25); GLUCOSE 155 mg/dL (75-110); POTASSIUM 4.7 mmol/L (3.6-5.0); SODIUM 135.8 mmol/L (137-145)
[2016-08-17] MEDS: LANSOPRAZOLE 30 MG TAB.RAP.DR PO SCH ×2 (05:03→18:29)
[2016-08-17 06:20] LABS: ABSOLUTE LYMPHOCYTES (AUTO) 1.5 10^3/uL (0.5-4.7); ABSOLUTE MONOCYTES (AUTO) 1.2 10^3/uL (0.1-1.4); ABSOLUTE NEUT (AUTO) 14.4 10^3/uL (1.7-8.2); BASOPHILS % (AUTO) 0.3 % (0-2); HEMATOCRIT 51.8 % (37.9-51.0); HGB HCT DIFFERENCE -0.8; LYMPHOCYTES % (AUTO) 8.9 % (13-45); MEAN CORPUSCULAR HEMOGLOBIN 30.5 pg (27.0-33.4); MEAN CORPUSCULAR HGB CONC 32.9 g/dL (32.0-36.0); MEAN CORPUSCULAR VOLUME 93 fl (80-97); MONOCYTES % (AUTO) 7.1 % (3-13); RED BLOOD COUNT 5.58 10^6/uL (4.35-5.55); RED CELL DISTRIBUTION WIDTH 15.8 % (11.5-14.0); SEGMENTED NEUTROPHILS % (AUTO) 83.7 % (42-78); WHITE BLOOD COUNT 17.2 10^3/uL (4.0-10.5)
[2016-08-17 07:01] LABS: ANION GAP 13 (5-19); BLOOD UREA NITROGEN 43 mg/dL (7-20); CALCIUM 9.3 mg/dL (8.4-10.2); CARBON DIOXIDE 23 mmol/L (22-30); CHLORIDE 102 mmol/L (98-107); CREATINE KINASE 209 U/L (55-170); CREATINE KINASE MB 3.17 ng/mL (<4.55); CREATININE RESULT 1.31 mg/dL (0.52-1.25); GLUCOSE 108 mg/dL (75-110); POTASSIUM 4.5 mmol/L (3.6-5.0); SODIUM 137.7 mmol/L (137-145); TROPONIN I 0.041 ng/mL
[2016-08-17] MEDS: IPRATROPIUM/ALBUTEROL 0.5-2.5 MG/3 ML AMPUL NEB SCH ×3 (08:01→20:39)
[2016-08-17] MEDS: DOFETILIDE 125 MCG CAPSULE PO SCH ×2 (10:00→21:19)
--- NOTE | 2016-08-17 10:54 | PDOC PROGRESS REPORT ---
Subjective Progress Note for:: 08/17/16 Subjective:: Denies any complains. Has been continued on the diltiazem drip. Physical Exam Vital Signs: Temp Pulse Resp BP Pulse Ox 97.5 F 69 20 118/63 100 08/17/16 08:37 08/17/16 06:00 08/17/16 08:37 08/17/16 08:14 08/17/16 08:37 Intake & Output 08/16/16 08/17/16 08/18/16 06:59 06:59 06:59 Intake Total 2026 1800 Output Total 3400 4050 Balance -1373 -2250 Weight 85.6 kg 81.9 kg General appearance: PRESENT: no acute distress Eye exam: PRESENT: conjunctiva pink. ABSENT: scleral icterus Ear exam: PRESENT: normal external ear exam Mouth exam: PRESENT: moist, tongue midline Neck exam: ABSENT: JVD Respiratory exam: PRESENT: rhonchi - Coarse rhonchi in the left base.. ABSENT: rales, wheezes Cardiovascular exam: PRESENT: irregular rhythm. ABSENT: diastolic murmur, rubs , systolic murmur GI/Abdominal exam: PRESENT: normal bowel sounds, soft. ABSENT: distended, guarding, mass, organolmegaly, rebound, tenderness Extremities exam: ABSENT: calf tenderness, clubbing, pedal edema Neurological exam: PRESENT: alert, awake, oriented to person, oriented to place , oriented to time, oriented to situation, CN II-XII grossly intact. ABSENT: motor sensory deficit Psychiatric exam: PRESENT: appropriate affect Skin exam: PRESENT: dry, intact, warm. ABSENT: cyanosis, rash Results Laboratory Results: 08/17/16 05:53 08/17/16 05:53 08/16/16 08/17/16 08/17/16 23:53 05:53 05:53 WBC 17.2 H RBC 5.58 H Hgb 17.0 Hct 51.8 H MCV 93 MCH 30.5 MCHC 32.9 RDW 15.8 H Plt Count 230 Seg Neutrophils % 83.7 H Lymphocytes % 8.9 L Monocytes % 7.1 Eosinophils % 0.0 Basophils % 0.3 Absolute Neutrophils 14.4 H Absolute Lymphocytes 1.5 Absolute Monocytes 1.2 Absolute Eosinophils 0.0 Absolute Basophils 0.0 Sodium 135.8 L 137.7 Potassium 4.7 4.5 Chloride 99 102 Carbon Dioxide 24 23 Anion Gap 13 13 BUN 44 H 43 H Creatinine 1.34 H 1.31 H Est GFR ( Amer) > 60 > 60 Est GFR (Non-Af Amer) 51 L 53 L Glucose 155 H 108 Calcium 9.2 9.3 08/13/16 08/16/16 08/16/16 11:22 23:53 23:53 Creatine Kinase 210 H CK-MB (CK-2) 3.34 Troponin I 0.038 0.031 08/17/16 08/17/16 05:53 05:53 Creatine Kinase 209 H CK-MB (CK-2) 3.17 Troponin I 0.041 Impressions: Chest X-Ray 08/13/16 01:30 IMPRESSION: Likely worsened chronic interstitial lung disease. Cannot exclude superimposed pulmonary edema. Assessment & Plan - Diagnosis (1) Acute on chronic respiratory failure with hypoxia and hypercapnia Is this a current diagnosis for this admission?: YesPlan: Patient has had improvement. We'll continue the BiPAP at night. (2) Acute on chronic systolic (congestive) heart failure Is this a current diagnosis for this admission?: YesPlan: He appears to be euvolemic at this time. (3) COPD exacerbation Is this a current diagnosis for this admission?: YesPlan: Continue with nebulizers, steroids and BiPAP when necessary. (4) Elevated troponin Is this a current diagnosis for this admission?: YesPlan: Most likely secondary to underlying congestive heart failure. (5) Anticoagulated Is this a current diagnosis for this admission?: Yes (6) Atrial fibrillation Qualifiers: Atrial fibrillation type: unspecified Qualified Code(s): I48.91 - Unspecified atrial fibrillation Is this a current diagnosis for this admission?: YesPlan: Patient is on a diltiazem drip. Cardiology is following. their help is appreciated. (7) HLD (hyperlipidemia) Qualifiers: Hyperlipidemia type: unspecified Qualified Code(s): E78.5 - Hyperlipidemia, unspecified Is this a current diagnosis for this admission?: Yes (8) HECTOR (obstructive sleep apnea) Is this a current diagnosis for this admission?: YesPlan: Continue BiPAP. (9) Acute renal failure Is this a current diagnosis for this admission?: YesPlan: Secondary to diuretic therapy. The patient's creatinine has increased slightly. - Time Time Spent with patient: 25-34 minutes - Inpatient Certification Medical Necessity: Need Close Monitoring Due to Risk of Patient Decompensation
[2016-08-17] MEDS: CEFTRIAXONE 1 GM/D5W RTU 1 GM/50 ML RTUPB IV SCH (10:57)
[2016-08-17] MEDS: DABIGATRAN ETEXILATE 150 MG CAPSULE PO SCH ×2 (10:58→21:18)
[2016-08-17] MEDS: PREDNISONE 20 MG TABLET PO SCH (10:59)
[2016-08-17] MEDS: SPIRONOLACTONE 25 MG TABLET PO SCH (10:59)
[2016-08-17] MEDS ORDERED: METOPROLOL SUCCINATE 50 MG TAB.SR.24H PO ONE (11:00)
[2016-08-17] MEDS: TORSEMIDE 20 MG TABLET PO SCH (11:03)
[2016-08-17] MEDS: SACUBITRIL/VALSARTAN 49 MG/51 MG TABLET PO SCH (11:07)
[2016-08-17] MEDS: DOXYCYCLINE HYCLATE 100 MG in DEXTROSE 5%-WATER 250 ML IV SCH ×2 (12:44→21:16)
[2016-08-17 17:07] LABS: CREATINE KINASE MB 3.07 ng/mL (<4.55); TROPONIN I 0.043 ng/mL
[2016-08-17] MEDS: METOPROLOL SUCCINATE 50 MG TAB.SR.24H PO SCH (21:18)
--- NOTE | 2016-08-18 00:33 | PROGRESS NOTE E ---
Progress Note NAME: EARNEST CASTELLANO : 1935 AGE: 80Y DATE: 08/17/2016 ROOM: 325 SUBJECTIVE: Note I was seeing the patient from 12:30 p.m. to 1 p.m. Note that his Cardizem last night was increased to 7.5 mg/hr and at present he is atrial paced with ventricular capture also frequent PVCs. The patient is asymptomatic from that. He denies any shortness of breath. There is no PND, orthopnea, or leg edema but his left lung still sounds a little junky with some rhonchi. There is no chest pain or discomfort. There is no firing of the AICD. There are no TIA or CVA symptoms. There is no bleeding on current Pradaxa. OBJECTIVE: GENERAL: On examination the patient is well built and well nourished, at present in no acute distress. He is slightly hard of hearing. VITAL SIGNS: He is afebrile with a temperature of 97.4 degrees Fahrenheit. Pulse is 85 beats per minute, as mentioned earlier on the monitor there is atrial paced and ventricular capture with frequent PVCs. The patient is asymptomatic from his PVCs. Blood pressure is 108/52. Respirations 20 per minute. O2 saturations are 96% on 3 L nasal cannula. HEENT: Head is atraumatic, normocephalic. Eyes: Pupils are equal, round and regular, reactive to light and accommodation. Extraocular movements are normal. There is no conjunctival pallor. There is no scleral icterus. ENT is negative. NECK: Supple. There is no JVD. Carotids are equal. There is no bruit. There is no lymphadenopathy. There is no goiter. Trachea is central. SKIN: There are no skin rashes. There is no petechiae or ecchymosis. LUNGS: There are a few scattered areas of rhonchi, especially on the left side. There is diminished air entry with prolonged expiration on auscultation on both sides of the lung. There is no wheezing or rales. On percussion there is hyperresonance throughout. HEART: S1 and S2 heard. There is no S3 gallop. There is no S4 gallop. S1 seems to be of normal intensity. There is a systolic murmur in the left sternal border and the apex. There is no rub. ABDOMEN: Soft, nontender. There is no hepatosplenomegaly. Bowel sounds are well heard. EXTREMITIES: Femorals are diminished. There are femoral bruits. Leg pulses are diminished. There is no pedal edema. There is no cyanosis or clubbing. There is no DVT or cellulitis. CENTRAL NERVOUS SYSTEM: The patient is conscious, awake, alert and oriented x3 with no focal deficits. PSYCHIATRIC: The patient's judgment and insight are intact. His affect is normal. INTAKE/OUTPUT: The patient's 24 hour intake is 1800 mL, output is 4050 mL. LABORATORY DATA: His white count is 17,200; hemoglobin is 17; hematocrit is 51.8; and his platelet count is 230,000. The patient's sodium is 137.7, potassium is 4.5, chloride is 102, CO2 is 23. The patient's BUN is 43, creatinine is 1.31, GFR is reduced at 53 which is still chronic kidney disease stage A. The GFR is improved compared to yesterday. The patient's CPK-MB is negative. His troponin I is 0.041. His glucose is 117. His calcium is 9.3. IMPRESSION: 1. AT PRESENT THE PATIENT'S ATRIAL FLUTTER HAS RESOLVED. THE PATIENT IS ATRIAL PACED WITH THE VENTRICULAR RESPONSE BEING MUCH IMPROVED. The patient is on Tikosyn and dabigatran. The patient is on a Tikosyn dose of 50 mcg p.o. q.12 hours which is the dosage for a creatinine clearance between 30-60, hence there is no room to increase his Tikosyn. The plan is to gradually every hour now reduce the dose of IV Cardizem and the patient's metoprolol will be increased to 50 mg p.o. b.i.d.. 2. ACUTE ON CHRONIC SYSTOLIC HEART FAILURE. Continue Lasix, continue spironolactone. The patient restarted on Entresto and also the patient is on a beta wlibert. It seems to be compensated. The kidney function improved with increase dialysis. 3. HYPERLIPIDEMIA. 4. CARDIOMYOPATHY WITH SEVERELY REDUCED LEFT VENTRICULAR EJECTION FRACTION. The patient as per Medicare and ACCP guidelines is on beta wilbert and a combination of MICHEAL inhibitor and ARB. He is also on digoxin and Lasix. 5. CORONARY ARTERY DISEASE. The patient has no anginal symptoms. 6. HYPERTENSION. Blood pressure well controlled. 7. MODERATE PULMONARY HYPERTENSION BY ECHOCARDIOGRAPHY AND SEVERE SYSTOLIC DYSFUNCTION BY LEFT VENTRICULAR EJECTION FRACTION OF 25%. PLAN: Medications were reviewed and medications have been adjusted as mentioned earlier. Discussed with the patient and patient's . We will continue the patient's current treatment on dabigatran, beta wilbert, Entresto, Lasix, and digoxin. Note that we will recheck the patient's digoxin level in the a.m. We will stop the patient's Cardizem drip in an empiric manner as mentioned earlier. Note 30 minutes spent on this patient, more than 50% of the time spent on patient's direct care, review of his medication, adjust of the medication, and discussions with the hospitalist taking care of the patient and also discussed with the nurse taking care of the patient. They will call me if the patient's heart rate gets higher. We will recheck the patient's EKG in the a.m. and also get a digoxin level in the a.m. We will follow with you. DICTATING PHYSICIAN: TY CHANEL M.D. [id number] DIANA#: [id number] ID: [id number] JOB#: [id number] ACCT: [id number] cc: >
[2016-08-18] MEDS: LANSOPRAZOLE 30 MG TAB.RAP.DR PO SCH (05:32)
[2016-08-18 06:45] LABS: ABSOLUTE MONOCYTES (AUTO) 1.1 10^3/uL (0.1-1.4); ABSOLUTE NEUT (AUTO) 16.1 10^3/uL (1.7-8.2); BASOPHILS % (AUTO) 0.2 % (0-2); EOSINOPHILS % (AUTO) 0.1 % (0-6); HEMATOCRIT 52.6 % (37.9-51.0); HEMOGLOBIN 17.8 g/dL (13.5-17.0); HGB HCT DIFFERENCE 0.8; LYMPHOCYTES % (AUTO) 5.7 % (13-45); MEAN CORPUSCULAR HEMOGLOBIN 31.6 pg (27.0-33.4); MEAN CORPUSCULAR HGB CONC 33.9 g/dL (32.0-36.0); MEAN CORPUSCULAR VOLUME 93 fl (80-97); MONOCYTES % (AUTO) 5.8 % (3-13); RED BLOOD COUNT 5.65 10^6/uL (4.35-5.55); SEGMENTED NEUTROPHILS % (AUTO) 88.2 % (42-78); WHITE BLOOD COUNT 18.3 10^3/uL (4.0-10.5)
[2016-08-18 07:00] LABS: ANION GAP 14 (5-19); BLOOD UREA NITROGEN 47 mg/dL (7-20); CALCIUM 9.2 mg/dL (8.4-10.2); CARBON DIOXIDE 23 mmol/L (22-30); CHLORIDE 101 mmol/L (98-107); CREATININE RESULT 1.34 mg/dL (0.52-1.25); DIGOXIN 0.75 ng/mL (0.8-2.0); GLUCOSE 110 mg/dL (75-110); POTASSIUM 4.5 mmol/L (3.6-5.0); SODIUM 137.8 mmol/L (137-145)
[2016-08-18] MEDS: IPRATROPIUM/ALBUTEROL 0.5-2.5 MG/3 ML AMPUL NEB SCH (08:32)
[2016-08-18 09:15] VITALS: BP 126/64
--- NOTE | 2016-08-18 10:21 | EKG REPORT ---
SEVERITY:- ABNORMAL ECG - ATRIAL-VENTRICULAR DUAL-PACED COMPLEXES FIRST DEGREE AV BLOCK PROLONGED QT INTERVAL VPC : Confirmed by: Major Encarnacion 18-Aug-2016 10:20:49
[2016-08-18] MEDS: METOPROLOL SUCCINATE 50 MG TAB.SR.24H PO SCH (10:41)
[2016-08-18] MEDS: SPIRONOLACTONE 25 MG TABLET PO SCH (10:43)
[2016-08-18] MEDS: TORSEMIDE 20 MG TABLET PO SCH (10:43)
[2016-08-18] MEDS: DABIGATRAN ETEXILATE 150 MG CAPSULE PO SCH (10:44)
[2016-08-18] MEDS: DOFETILIDE 125 MCG CAPSULE PO SCH (10:45)
[2016-08-18] MEDS: SACUBITRIL/VALSARTAN 49 MG/51 MG TABLET PO SCH (10:45)
[2016-08-18] MEDS: PREDNISONE 20 MG TABLET PO SCH (10:47)
[2016-08-18] MEDS: CEFTRIAXONE 1 GM/D5W RTU 1 GM/50 ML RTUPB IV SCH (11:09)
[2016-08-18] MEDS: DOXYCYCLINE HYCLATE 100 MG in DEXTROSE 5%-WATER 250 ML IV SCH (11:09)
--- NOTE | 2016-08-18 12:05 | PDOC DISCHARGE SUMMARY ---
General - Admit/Disc Date/PCP Admission Date/Primary Care Provider: 08/13/16 08:10 DENIS ROWLAND MD Discharge Date: 08/18/16 - Discharge Diagnosis (1) Acute on chronic respiratory failure with hypoxia and hypercapnia Is this a current diagnosis for this admission?: YesSummary: Secondary to COPD exacerbation as well as acute on chronic congestive heart failure. (2) Acute on chronic systolic (congestive) heart failure Is this a current diagnosis for this admission?: YesSummary: Treated with IV Lasix. (3) COPD exacerbation Is this a current diagnosis for this admission?: YesSummary: Treated with steroids and BiPAP. (4) Elevated troponin Is this a current diagnosis for this admission?: YesSummary: [place] to be secondary to underlying respiratory failure. Patient was seen by cardiology while hospitalized. (5) Anticoagulated Is this a current diagnosis for this admission?: Yes (6) Atrial fibrillation Is this a current diagnosis for this admission?: YesSummary: Agent had episodes of atrial fibrillation and flutter during this hospitalization and required IV diltiazem at one point. The patient's metoprolol dose has been increased. (7) HLD (hyperlipidemia) Is this a current diagnosis for this admission?: Yes (8) HECTOR (obstructive sleep apnea) Is this a current diagnosis for this admission?: Yes (9) Acute renal failure Is this a current diagnosis for this admission?: YesSummary: The patient had worsening of his renal failure with IV diuretic use. This was held and then restarted at a lower dose and his renal function has remained stable. - Additional Information Resuscitation Status: Full Code Discharge Diet: Cardiac Discharge Activity: Activity As Tolerated, Balance Activity w/Rest, Weigh Daily Home Medications: Aspirin [Ecotrin 81 mg EC Tablet] 81 mg PO DAILY 08/13/16 Budesonide/Formoterol Fumarate [Symbicort HFA 160-4.5 mcg Inhaler 6 gm] 2 puff IH BID 08/13/16 Calcium/Mag Oxide/Vitamin D3 [Coral Calcium Capsule] 1 tab PO DAILY 08/13/16 Dabigatran Etexilate Mesylate [Pradaxa] 150 mg PO Q12 08/13/16 Digoxin [Lanoxin 0.125 mg Tablet] 0.125 mg PO DAILY 08/13/16 Dofetilide [Tikosyn] 250 mg PO Q12 08/13/16 Montelukast Sodium [Singulair 10 mg Tablet] 10 mg PO DAILY 08/13/16 Multivit-Min/FA/Lycopen/Lutein [Centrum Silver Men Tablet] 1 tab PO DAILY Omeprazole 20 mg PO DAILY 08/13/16 Sacubitril/Valsartan [Entresto 49 mg-51 mg Tablet] 1 tab PO DAILY 08/13/16 Simvastatin [Zocor 20 mg Tablet] 20 mg PO QPM 08/13/16 Tiotropium [place] [Spiriva Respimat] 2 puff IH DAILY 08/13/16 Doxycycline Hyclate [Vibramycin Inj 100 mg Vial] 100 mg IV Q12 #10 vial Ipratropium/Albuterol Sulfate [Duoneb 3 ml Ampul] 3 ml NEB [id number] vial.neb Metoprolol Succinate [Toprol Xl 50 mg Tab.sr] 50 mg PO Q12 #60 tab.sr.24h Prednisone [Deltasone 20 mg Tablet] 10 mg PO DAILY #39 tablet 08/18/16 Spironolactone [Aldactone 25 mg Tablet] 25 mg PO DAILY #30 tablet 08/18/16 Torsemide [Demadex 20 mg Tablet] 20 mg PO DAILY #30 tablet 08/18/16 History of Present Illness History of Present Illness: EARNEST CASTELLANO is a 80 year old male who presented with acute shortness of breath. Patient has had orthopnea and PND as well as expiratory wheezes. Patient is admitted for an acute COPD exacerbation as well as acute congestive heart failure. Hospital Course Hospital Course: 80-year-old gentleman with history of COPD and congestive heart failure presented with an acute exacerbation of both COPD and CHF. Patient was treated with IV Lasix for treatment of the congestive heart failure and his lung status improved. Patient actually had worsening of his creatinine and his IV Lasix was held for 1 day and then he was restarted back on his oral diuretics. Patient had elevated cardiac enzymes however they were flat and was felt most likely secondary to his underlying congestive heart failure. The patient did require BiPAP initially [id number] however his respiratory status improved healing reported that night. The patient also had an acute COPD exacerbation treated with steroids. While hospitalized the patient did have problems with his cardiac rhythms. The patient has a pacemaker in place and this functioned appropriately. Patient developed both fibrillation and flutter that required IV diltiazem. Patient was seen by cardiology who increased the metoprolol dose. He was continued on with his tikosyn. The patient was rate controlled and it was felt that he was stable for discharge to home. Physical Exam Vital Signs: Temp Pulse Resp BP Pulse Ox 97.1 F 95 22 H 126/64 H 98 08/18/16 11:18 08/18/16 11:18 08/18/16 11:18 08/18/16 11:18 08/18/16 11:18 Intake & Output 08/17/16 08/18/16 08/19/16 06:59 06:59 06:59 Intake Total 1800 1830 Output Total 4050 4875 Balance -2250 -3045 Weight 81.9 kg 81.8 kg General appearance: PRESENT: no acute distress Eye exam: PRESENT: conjunctiva pink. ABSENT: scleral icterus Ear exam: PRESENT: normal external ear exam Mouth exam: PRESENT: moist, tongue midline Neck exam: ABSENT: JVD Respiratory exam: PRESENT: clear to auscultation bruna. ABSENT: rales, rhonchi, wheezes Cardiovascular exam: PRESENT: irregular rhythm. ABSENT: diastolic murmur, rubs , systolic murmur Vascular exam: PRESENT: normal capillary refill GI/Abdominal exam: PRESENT: normal bowel sounds, soft. ABSENT: distended, guarding, mass, organolmegaly, rebound, tenderness Extremities exam: ABSENT: calf tenderness, clubbing, pedal edema Neurological exam: PRESENT: alert, awake, oriented to person, oriented to place , oriented to time, oriented to situation, CN II-XII grossly intact. ABSENT: motor sensory deficit Psychiatric exam: PRESENT: appropriate affect Skin exam: PRESENT: dry, intact, warm. ABSENT: cyanosis, rash Results Laboratory Results: 08/18/16 05:35 08/18/16 05:35 08/18/16 08/18/16 05:35 05:35 WBC 18.3 H RBC 5.65 H Hgb 17.8 H Hct 52.6 H MCV 93 MCH 31.6 MCHC 33.9 RDW 16.0 H Plt Count 280 Seg Neutrophils % 88.2 H Lymphocytes % 5.7 L Monocytes % 5.8 Eosinophils % 0.1 Basophils % 0.2 Absolute Neutrophils 16.1 H Absolute Lymphocytes 1.0 Absolute Monocytes 1.1 Absolute Eosinophils 0.0 Absolute Basophils 0.0 Sodium 137.8 Potassium 4.5 Chloride 101 Carbon Dioxide 23 Anion Gap 14 BUN 47 H Creatinine 1.34 H Est GFR ( Amer) > 60 Est GFR (Non-Af Amer) 51 L Glucose 110 Calcium 9.2 08/13/16 08/16/16 08/16/16 11:22 23:53 23:53 Creatine Kinase 210 H CK-MB (CK-2) 3.34 Troponin I 0.038 0.031 08/17/16 08/17/16 08/17/16 05:53 05:53 16:10 Creatine Kinase 209 H 228 H CK-MB (CK-2) 3.17 Troponin I 0.041 08/17/16 16:10 Creatine Kinase CK-MB (CK-2) 3.07 Troponin I 0.043 Impressions: Chest X-Ray 08/13/16 01:30 IMPRESSION: Likely worsened chronic interstitial lung disease. Cannot exclude superimposed pulmonary edema. 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 Time Spent: Greater than 30 Minutes
--- NOTE | 2016-08-18 18:34 | PROGRESS NOTE E ---
Progress Note NAME: EARNEST CASTELLANO : 1935 AGE: 80Y DATE: 08/18/2016 ROOM: 325 SUBJECTIVE: The patient is seen between 8 and 8:30 a.m. Note, a little later yesterday his Cardizem was discontinued *------* and patient was put on Lopressor extended release 50 mg p.o. b.i.d. The patient is tolerating this well. He now remains in intermittent A pace *------* sinus rhythm with intermittent V paced and V capture and also PVCs. There are no runs of ventricular tachycardia on the monitor since the firing of the AICD. The patient denies any chest pain or discomfort. The patient has no shortness of breath. There is no cough or sputum production. There is no PND or orthopnea. There are no TIA or CVA symptoms. There is no firing of his AICD. There is no bleeding on Pradaxa. OBJECTIVE: GENERAL: On examination the patient is well built and well nourished, at present in no acute distress. VITAL SIGNS: He is afebrile with a temperature of 97.1 degrees Fahrenheit. Pulse is 66 beats per minute. Blood pressure is 126/64. Respirations are 20 per minute. O2 saturations are 95% on 3 L nasal cannula. HEENT: Head is atraumatic, normocephalic. Eyes: Pupils are equal, round and regular, reactive to light and accommodation. Extraocular movements are normal. There is no conjunctival pallor. There is no scleral icterus. ENT is negative. NECK: Supple. There is no JVD. Carotids are equal. There is no bruit. There is no lymphadenopathy. There is no goiter. Trachea is central. SKIN: There are no skin rashes. There is no petechia or ecchymosis. LUNGS: Show diminished air entry and prolonged expiration. There are no accessory muscles of respiration in use. There is no rhonchi, rales or wheezing. On percussion, there is hyperresonance throughout. HEART: S1 and S2 heard. There is no S3 gallop. There is no S4 gallop. S1 is of normal intensity. There is a systolic murmur in the left sternal border and the apex. There is no rub. ABDOMEN: Soft. There is no hepatosplenomegaly. Bowel sounds are well heard. There are no tender areas or masses. EXTREMITIES: Femorals are diminished. There are femoral bruits. Leg pulses are diminished. There is no pedal edema. There is no cyanosis or clubbing. There is no DVT or cellulitis. CENTRAL NERVOUS SYSTEM: The patient is conscious, awake, alert and oriented x3 with no focal deficits. PSYCHIATRIC: The patient's judgment and insight are intact. His affect is normal. LABORATORY DATA: The patient's EKG *------* intermittent A paced and V capture and also intermittent sinus rhythm *------* V paced and PVCs present. There are no acute changes. The patient's white count is 18,300, most likely secondary to him being on steroids; hemoglobin is 17.8, hematocrit is 52.6 and platelet count is 280,000. The patient's sodium is 137.8, potassium is 4.5, chloride is 101, CO2 is 23. The patient's BUN is 47, creatinine is 1.34, GFR is reduced at 51, which is still stage 3. His glucose is 110 and his calcium is 9.2. Yesterday afternoon around 1610, his troponin I was 0.043. IMPRESSION: 1. PAROXYSMAL ATRIAL FLUTTER/FIBRILLATION. At present in intermittent A paced and sinus rhythm as mentioned earlier. Note that patient is on Tikosyn at 250 mcg b.i.d. and dabigatran 150 mg p.o. b.i.d. His Cardizem yesterday was tapered off and the patient is tolerating metoprolol extended release 50 mg p.o. b.i.d. 2. ACUTE ON CHRONIC SYSTOLIC HEART FAILURE. Continue Lasix and spironolactone. The patient is on Entresto and also beta wilbert; it seems to be compensated. The patient's kidney function improved with increase in diuresis. 3. HYPERLIPIDEMIA. 4. CARDIOMYOPATHY WITH SEVERELY REDUCED LEFT VENTRICULAR EJECTION FRACTION. The patient as per Medicare and ACCP guidelines is on beta wilbert and a combination of MICHEAL inhibitor and ARB. He is also on digoxin and Lasix. 5. CORONARY ARTERY DISEASE. The patient has no anginal symptoms. 6. HYPERTENSION. Blood pressure well controlled. 7. MODERATE PULMONARY HYPERTENSION BY ECHOCARDIOGRAPHY AND SEVERE SYSTOLIC DYSFUNCTION WITH LEFT VENTRICULAR EJECTION FRACTION OF 25%. 8. DEFIBRILLATOR *------* firing. PLAN: The patient is stable and he wants to go home. Would recommend discharging him on the current medications including antibiotics and tapering steroids. Continue his dabigatran, *------*, Entresto, Lasix and digoxin. The patient's digoxin level was 0.75, but I believe will continue to rise with him taking digoxin every day. The patient is stable for discharge. He will follow up with Dr. Kruger from [facility]. Discussed all this with patient and patient's and also with the *------* taking care of the patient. I agree with the patient's discharge. I reviewed the patient's discharge medications. Note: All this involved more than 50% of the time with direct patient care. Will sign off. Thank you for allowing me to see this patient. DICTATING PHYSICIAN: TY CHANEL M.D. [id number] DT: [id number] PHY#: [id number] ID: [id number] JOB#: [id number] ACCT: [id number] cc: >
== END 2016-08-18 12:57 | disposition home or self-care (01) | DRG 291 ==
LOC: ER 01:16 → EH 05:26 → UNDOADMIN 05:26 → EH 08:10 → 3W 10:28
PROVIDERS: ADMIT Family Medicine; ATTEND Family Medicine
PROC: 5A09457 Assistance with Respiratory Ventilation, 24-96 Consecutive Hours, Continuous Positive Airway Pressure (ICD-10-PCS; principal; 2016-08-13)
DX: I50.23 Acute on chronic systolic (congestive) heart failure (principal); J96.21 Acute and chronic respiratory failure with hypoxia; J96.22 Acute and chronic respiratory failure with hypercapnia; J44.1 Chronic obstructive pulmonary disease with (acute) exacerbation; I48.92 Unspecified atrial flutter; N17.9 Acute kidney failure, unspecified; I42.9 Cardiomyopathy, unspecified; I48.0 Paroxysmal atrial fibrillation; R74.8 Abnormal levels of other serum enzymes; E78.5 Hyperlipidemia, unspecified; I27.2 Other secondary pulmonary hypertension; G47.33 Obstructive sleep apnea (adult) (pediatric); F17.210 Nicotine dependence, cigarettes, uncomplicated; M19.90 Unspecified osteoarthritis, unspecified site; I25.10 Atherosclerotic heart disease of native coronary artery without angina pectoris; Z79.52 Long term (current) use of systemic steroids; Z99.81 Dependence on supplemental oxygen; Z90.49 Acquired absence of other specified parts of digestive tract; Z95.1 Presence of aortocoronary bypass graft; Z95.810 Presence of automatic (implantable) cardiac defibrillator; Z82.49 Family history of ischemic heart disease and other diseases of the circulatory system; Z79.899 Other long term (current) drug therapy; Z80.9 Family history of malignant neoplasm, unspecified
CPT/HCPCS: 36415; 71010; 80048; 80061; 80076; 80162; 82550; 82553; 82803; 82962; 83605; 83690; 83735; 83880; 84484; 85025; 85610; 85730; 87040; 93005; 93010; 93306; 94640; 94660; 94799; 96374; 99291; J0696; J1160; J1940; J3490; J7030; J7060; J7512; J7620

== ENCOUNTER → 2016-11-25 | Outpatient (CLI) | payer MEDICARE, OTHER ==
[2016-11-25 09:36] LABS: ANION GAP 12 (5-19); BLOOD UREA NITROGEN 11 mg/dL (7-20); CALCIUM 8.9 mg/dL (8.4-10.2); CARBON DIOXIDE 21 mmol/L (22-30); CHLORIDE 106 mmol/L (98-107); CREATININE RESULT 1.03 mg/dL (0.52-1.25); GLUCOSE 115 mg/dL (75-110); POTASSIUM 4.1 mmol/L (3.6-5.0); SODIUM 138.9 mmol/L (137-145)
[2016-11-26 12:38] LABS: CREATININE URINE 56.7 mg/dL (Not Estab.); MICROALBUMIN URINE 74.9 ug/mL (Not Estab.)
== END ==
LOC: OD 08:19
PROVIDERS: ATTEND Internal Medicine Nephrology
DX: N18.3 Chronic kidney disease, stage 3 (moderate) (principal); R80.9 Proteinuria, unspecified
CPT/HCPCS: 36415; 80048; 82043; 82570

== ENCOUNTER 2016-12-29 22:14 | Inpatient (IN) | payer MEDICARE, OTHER ==
[2016-12-29] MEDS ORDERED: ASPIRIN 81 MG TABLET, CHEWABLE PO ONE (22:29)
--- NOTE | 2016-12-29 22:36 | ER Document Report ---
ED Respiratory Problem - General Chief Complaint: Shortness Of Breath Stated Complaint: SHORTNESS OF BREATH Time Seen by Provider: 12/29/16 22:19 Notes: The patient is an 81-year-old male, past medical history COPD, CHF w/ defibrillator, CAD, HECTOR (on nighttime CPAP), presents with several hours of worsening shortness of breath. He was given 3 DuoNeb's and 125 mg Solu-Medrol by EMS prior to arrival because his oxygen was 80% on room air. He does not wear oxygen at home, other than at night on his CPAP machine. Patient denies fevers, chest pain, leg swelling, abdominal pain, nausea, vomiting, numbness, tingling, cough or new back pain. His PMD is Dr. Sheppard and his Safety Professional is Dr. Miranda at [place]. TRAVEL OUTSIDE OF THE [place] IN LAST 30 DAYS: No - Related Data Allergies/Adverse Reactions: No Known Allergies Allergy (Verified 12/29/16 23:09) Home Medications: Current Home Medications Furosemide [Lasix 40 mg Tablet] 40 mg PO DAILY 12/29/16 [History] Sacubitril/Valsartan [Entresto 97 mg-103 mg Tablet] 1 tab PO BID 12/29/16 [ History] Past Medical History - General Information source: Patient, Relative, Emergency Med Personnel - Social History Smoking Status: Former Smoker Family History: Reviewed & Not Pertinent - Past Medical History Cardiac Medical History: Reports: Hx Atrial Fibrillation, Hx Congestive Heart Failure - Systolic, Hx Coronary Artery Disease, Hx Heart Attack, Hx Hypercholesterolemia, Hx Hypertension Denies: Hx DVT, Hx Peripheral Vascular Disease, Hx Pulmonary Embolism, Hx Heart Murmur Pulmonary Medical History: Reports: Hx COPD, Hx Pneumonia, Hx Sleep Apnea - Uncertain settings for the CPAP. No home oxygen. Denies: Hx Asthma, Hx Bronchitis, Hx Respiratory Failure, Hx Tuberculosis Neurological Medical History: Denies: Hx Cerebrovascular Accident, Hx Seizures Endocrine Medical History: Denies: Hx Diabetes Mellitus Type 1, Hx Diabetes Mellitus Type 2, Hx Graves' Disease, Hx Hyperthyroidism, Hx Hypothyroidism Renal/ Medical History: Denies: Hx Benign Prostatic Hyperplasia, Hx End Stage Renal Disease, Hx Kidney Stones, Hx Peritoneal Dialysis Malignancy Medical History: Denies Hx Leukemia, Denies Hx Lung Cancer GI Medical History: Denies: Hx Cirrhosis, Hx Crohn's Disease, Hx Gastroesophageal Reflux Disease, Hx Hepatitis, Hx Hiatal Hernia, Hx Irritable Bowel, Hx Liver Failure, Hx Ulcer Musculoskeltal Medical History: Reports Hx Arthritis, Denies Hx Fibromyalgia, Denies Hx Multiple Sclerosis, Denies Hx Muscular Dystrophy Psychiatric Medical History: Reports: Hx Depression - Mild Denies: Hx Bipolar Disorder, Hx Dementia, Hx Post Traumatic Stress Disorder, Hx Schizophrenia Traumatic Medical History: Denies: Hx Fractures Infectious Medical History: Denies: Hx Hepatitis, Hx HIV Past Surgical History: Reports: Hx Abdominal Surgery - aaa stent, Hx Cardiac Catheterization, Hx Cholecystectomy, Hx Coronary Artery Bypass Graft - 3 ways, Hx Internal Defibrillator, Hx Pacemaker - Pacemaker defibrillator. Denies: Hx Appendectomy, Hx Bowel Surgery, Hx Colostomy, Hx Gastric Bypass Surgery, Hx Herniorrhaphy, Hx Tonsillectomy - Immunizations Immunizations up to date: Yes Hx Diphtheria, Pertussis, Tetanus Vaccination: Yes Hx Pneumococcal Vaccination: 03/05/11 Review of Systems - Review of Systems Notes: REVIEW OF SYSTEMS: CONSTITUTIONAL: -fevers, -chills EENT: -eye pain, -difficulty swallowing, -nasal congestion CARDIOVASCULAR: -chest pain, -syncope. RESPIRATORY: -cough, +SOB GASTROINTESTINAL: -abdominal pain, -nausea, -vomiting, -diarrhea GENITOURINARY: -dysuria, -hematuria MUSCULOSKELETAL: -back pain, -neck pain SKIN: -rash or skin lesions. HEMATOLOGIC: -easy bruising or bleeding. LYMPHATIC: -swollen, enlarged glands. NEUROLOGICAL: -altered mental status or loss of consciousness, -headache, - neurologic symptoms PSYCHIATRIC: -anxiety, -depression. ALL OTHER SYSTEMS REVIEWED AND NEGATIVE. Physical Exam - Vital signs Vitals: BP Pulse Ox 162/92 H 83 L 12/29/16 22:18 12/29/16 22:18 - Notes Notes: PHYSICAL EXAMINATION: GENERAL: Well-appearing, well-nourished. In moderate respiratory distress. HEAD: Atraumatic, normocephalic. EYES: Pupils equal round and reactive to light, extraocular movements intact, sclera anicteric, conjunctiva are normal. ENT: nares patent, oropharynx clear without exudates. Moist mucous membranes. NECK: Normal range of motion, supple without lymphadenopathy LUNGS: Tachypnea. Mild end-expiratory wheezing. HEART: Regular rate and rhythm without murmurs ABDOMEN: Soft, nontender, normoactive bowel sounds. No guarding, no rebound. No masses appreciated. EXTREMITIES: Normal range of motion, no pitting or edema. No cyanosis. NEUROLOGICAL: Cranial nerves grossly intact. Normal speech, normal gait. Normal sensory and motor exams. PSYCH: Normal mood, normal affect. SKIN: Warm, Dry, normal turgor, no rashes or lesions noted. Course - Re-evaluation Re-evalutation: On arrival to the ER, the patient is hypoxic to 80% on room air (no home O2) and tachypneic. He was placed on 4 L nasal cannula with improvement of his oxygen sats to 92%, but he remained tachypneic. At night, he wears CPAP, so the decision was made to start patient on BiPAP to help with work of breathing. Patient already received Solu-Medrol and duo nebs by EMS, but slight wheeze is still present. Chest x-ray does not show any acute findings. EKG shows ventricular bigeminy without ST changes, which he has had in the past and has an AICD in place. His troponin is 0.03, which is below his prior values and he is not having any chest pain to suggest ACS. He does not appear to be fluid overloaded and has no rales on exam or pulmonary edema on chest x-ray. Due to the hypoxia and normal lung exam, other than a slight wheeze, decision was made to obtain CTA for possible PE. CTA does not show any PEs. It does show evidence of small bibasilar atelectasis/pneumonia with moderate bilateral pleural effusions and moderate mediastinal lymphadenopathy. With a leukocytosis and hypoxia, will begin CAP antibiotics (last hospitalization 5 months ago). Pt requires inpatient admission for further monitoring and treatment of his hypoxia and tachypnea. 12/30/16 01:[address] Servin and he will admit patient as Inpatient to [facility]. - Vital Signs Vital signs: Temp Pulse Resp BP Pulse Ox 25 H 138/93 H 91 L 12/30/16 01:31 12/30/16 01:31 12/30/16 01:31 - Laboratory Result Diagrams: 12/29/16 22:25 12/29/16 22:25 Laboratory results interpreted by me: 12/29/16 12/29/16 12/29/16 22:25 22:25 22:25 WBC 12.3 H Absolute Neutrophils 9.0 H VBG pCO2 Potassium 3.3 L Glucose 133 H ALT 20 L NT-Pro-B Natriuret Pep 5480 H 12/29/16 22:25 WBC Absolute Neutrophils VBG pCO2 33.9 L Potassium Glucose ALT NT-Pro-B Natriuret Pep - Diagnostic Test Radiology reviewed: Image reviewed, Reports reviewed Radiology results interpreted by me: CXR: NAD CTA: small bibasilar atelectasis/pneumonia. Moderate pleural effusions, moderate lymphadenopathy in the mediastinum. No pulmonary embolism. - EKG Interpretation by Me EKG shows normal: ST-T Waves Rate: Normal Rhythm: NSR, Other - Ventricular Bigeminy When compared to previous EKG there are: No significant change Critical Care Note - Critical Care Note Total time excluding time spent on procedures (mins): 35 Discharge - Discharge Clinical Impression: COPD exacerbation Respiratory failure with hypoxia Qualifiers: Chronicity: acute Qualified Code(s): J96.01 - Acute respiratory failure with hypoxia Pneumonia Qualifiers: Pneumonia type: due to unspecified organism Laterality: bilateral Lung location : unspecified part of lung Qualified Code(s): J18.9 - Pneumonia, unspecified organism Condition: Stable Disposition: ADMITTED INPATIENT Admitting Provider: [facility] Admitted: [facility]
[2016-12-29 22:48] LABS: ABSOLUTE BASOPHILS # (AUTO) 0.1 10^3/uL (0.0-0.2); ABSOLUTE EOSINOPHILS # (AUTO) 0.1 10^3/uL (0.0-0.6); ABSOLUTE LYMPHOCYTES (AUTO) 2.2 10^3/uL (0.5-4.7); ABSOLUTE MONOCYTES (AUTO) 0.9 10^3/uL (0.1-1.4); BASOPHILS % (AUTO) 0.9 % (0-2); EOSINOPHILS % (AUTO) 1.2 % (0-6); HEMATOCRIT 50.1 % (37.9-51.0); HEMOGLOBIN 16.8 g/dL (13.5-17.0); HGB HCT DIFFERENCE 0.3; LYMPHOCYTES % (AUTO) 17.5 % (13-45); MEAN CORPUSCULAR HEMOGLOBIN 32.6 pg (27.0-33.4); MEAN CORPUSCULAR HGB CONC 33.6 g/dL (32.0-36.0); MEAN CORPUSCULAR VOLUME 97 fl (80-97); MONOCYTES % (AUTO) 7.6 % (3-13); RED BLOOD COUNT 5.16 10^6/uL (4.35-5.55); SEGMENTED NEUTROPHILS % (AUTO) 72.8 % (42-78); VENOUS BLOOD BASE EXCESS -2.9 mmol/L; VENOUS BLOOD HCO3 20.8 mmol/L (20-32); VENOUS BLOOD PCO2 33.9 mmHg (35-63); VENOUS BLOOD PH 7.41 (7.30-7.42); WHITE BLOOD COUNT 12.3 10^3/uL (4.0-10.5)
[2016-12-29 23:02] LABS: ALANINE AMINOTRANSFERASE 20 U/L (21-72); ALBUMIN 3.8 g/dL (3.5-5.0); ALKALINE PHOSPHATASE 81 U/L (38-126); ANION GAP 13 (5-19); ASPARTATE AMINO TRANSFERASE 19 U/L (17-59); BILIRUBIN,DIRECT 0.4 mg/dL (0.0-0.4); BILIRUBIN,TOTAL 0.7 mg/dL (0.2-1.3); BLOOD UREA NITROGEN 9 mg/dL (7-20); CALCIUM 9.5 mg/dL (8.4-10.2); CARBON DIOXIDE 24 mmol/L (22-30); CHLORIDE 101 mmol/L (98-107); CREATINE KINASE 60 U/L (55-170); GLUCOSE 133 mg/dL (75-110); LIPASE 71.9 U/L (23-300); POTASSIUM 3.3 mmol/L (3.6-5.0); SODIUM 138.4 mmol/L (137-145); TOTAL PROTEIN 6.5 g/dL (6.3-8.2)
[2016-12-29 23:17] LABS: TROPONIN I 0.033 ng/mL
--- NOTE | 2016-12-29 23:53 | RADIOLOGY REPORT (SQ) ---
EXAM DESCRIPTION: CHEST SINGLE VIEW COMPLETED DATE/TIME: 12/29/2016 11:34 pm REASON FOR STUDY: SOB COMPARISON: 08/13/2016 EXAM PARAMETERS: NUMBER OF VIEWS: One view. TECHNIQUE: Single frontal radiographic view of the chest acquired. RADIATION DOSE: NA LIMITATIONS: None. FINDINGS: LUNGS AND PLEURA: No acute opacities, masses or pneumothorax. Similar chronic interstitia l changes. No significant pleural effusion. Similar chronic scarring at the left costophrenic angle . MEDIASTINUM AND HILAR STRUCTURES: Stable. HEART AND VASCULAR STRUCTURES: Stable. BONES: No acute findings. HARDWARE: CABG. Cardiac defibrillator. OTHER: No other significant finding. IMPRESSION: NO ACUTE RADIOGRAPHIC FINDING IN THE CHEST. TECHNICAL DOCUMENTATION: JOB ID: [id number]
[2016-12-30] MEDS ORDERED: IPRATROPIUM/ALBUTEROL 0.5-2.5 MG/3 ML AMPUL NEB ONE (01:01)
--- NOTE | 2016-12-30 01:13 | RADIOLOGY REPORT (SQ) ---
EXAM DESCRIPTION: CTA CHEST COMPLETED DATE/TIME: 12/30/2016 12:18 am REASON FOR STUDY: SOB, hypoxia, lungs clear COMPARISON: None. TECHNIQUE: CT scan of the chest performed using helical scanning technique with dynamic intravenous contrast injection. Images reviewed with lung, soft tissue and bone windows. Reconstructed coronal and sagittal MPR images reviewed. Additional 3 dimensional post-processing performed to develop Maximal Intensity Projection images (GA P). All images stored on PACS. All CT scanners at this facility use dose modulation, iterative reconstruction, and/or weight based d osing when appropriate to reduce radiation dose to as low as reasonably achievable (ALARA). [facility]: Dose Right [facility]: CareDose [facility]: Dose Right [facility]: Teradose 4D [facility]: SDI-Solution CONTRAST TYPE AND DOSE: contrast/concentration: Isovue 370.00 mg/ml; Total Contrast Delivered: 73.0 ml; Total Saline Delivered: 110.0 ml Contrast bolus optimized for the pulmonary arteries. Not diagnostic for the aorta. RENAL FUNCTION: Creatinine 1.0 RADIATION DOSE: Up-to-date CT equipment and radiation dose reduction techniques were employed. CTDIv ol: 16.5 - 16.5 mGy. DLP: 637 mGy-cm. . LIMITATIONS: None. FINDINGS: LUNGS AND PLEURA: Small -minimal bilateral basilar atelectasis/consolidation, right more t souza left. Moderate bilateral all pleural effusion. AORTA AND GREAT VESSELS: No aneurysm. Contrast bolus not optimized for the aorta. HEART: No pericardial effusion. No significant coronary artery calcifications. Mild left atrial enla rgement. No right ventricular strain. Moderate to severe coronary arterial calcification. Moderate dilation of the left ventricle. PULMONARY ARTERIES: No emboli visualized in the main pulmonary arteries or the segmental branches. HILAR AND MEDIASTINAL STRUCTURES: Moderate mediastinal lymphadenopathy measures up to 2.2 cm, image 4 3 of 135. Mild right perihilar lymphadenopathy. HARDWARE: Abdominal aortic graft repair partially imaged. Sternotomy. Left cardiac stimulation sarah ce/leads. UPPER ABDOMEN: Small intra biliary gas predominately of the left hepatic lobe. Cholecystectomy clips . Gas distention of the common duct measuring up to 1.1 cm. With moderate left renal volume loss. Likely benign 1.1 cm low-attenuation left renal lesion not definitively characterized. THYROID AND OTHER SOFT TISSUES: No masses. No adenopathy. BONES: [id number] disc desiccation. Mild deformity of left anterior ribs. 3D MIPS: Confirm above findings. OTHER: Possible 2.8 cm lesion of the right thyroid lobe partially imaged. IMPRESSION: 1. Small bi basilar atelectasis/pneumonia. Moderate bilateral pleural effusions. Mode rate mediastinal lymphadenopathy. 2. No evidence of pulmonary embolus. COMMENT: Quality ID # [id number]: Final reports with documentation of one or more dose reduction techniques (e.g., Automated exposure control, adjustment of the mA and/or kV according to patient size, use of iterative reconstruction technique) TECHNICAL DOCUMENTATION: JOB ID: [id number] [employer]- All Rights Reserved
[2016-12-30] MEDS ORDERED: CEFTRIAXONE 1 GM/D5W RTU 1 GM/50 ML RTUPB IV ONE (01:18)
[2016-12-30] MEDS ORDERED: AZITHROMYCIN INJ 500 MG VIAL IV ONE (01:18)
[2016-12-30] MEDS ORDERED: POTASSI CL 20 MEQ/50 ML RIDER 20 MEQ/50 ML RTUPB IV SCH (01:47)
[2016-12-30] MEDS ORDERED: ASPIRIN 81 MG TABLET, CHEWABLE ONE (01:55)
[2016-12-30 03:34] LABS: ADD ON TESTING BLD IN LAB ACKNOWLEDGE
[2016-12-30] MEDS ORDERED: GLUCAGON,HUMAN RECOMB 1 MG INJ IM PRN (03:34)
[2016-12-30] MEDS ORDERED: ACETAMINOPHEN 325 MG TABLET PO PRN (03:34)
[2016-12-30] MEDS ORDERED: INSULIN LISPRO 100 UNIT/ML 3 ML VIAL SUBCUT PRN (03:34)
[2016-12-30] MEDS ORDERED: NORMAL SALINE 1000 ML 1,000 ML IV PRN (03:34)
[2016-12-30] MEDS ORDERED: DEXTROSE 50%-WATER 25 GM/50 ML DISP.SYRIN IV PRN ×2 (03:34)
[2016-12-30] MEDS ORDERED: ALBUTEROL SULFATE 0.083% NEB 2.5 MG/3 ML AMPUL NEB PRN (03:34)
[2016-12-30] MEDS ORDERED: DEXTROSE 40% GEL 15 GM TUBE PO PRN ×2 (03:34)
[2016-12-30] MEDS ORDERED: GUAIFENESIN SYRP 200 MG/10 ML UDC PO PRN (03:34)
[2016-12-30 04:05] LABS: DIGOXIN 0.97 ng/mL (0.8-2.0); MAGNESIUM 1.9 mg/dL (1.6-2.3)
[2016-12-30] MEDS: POTASSIUM CHLORIDE 20 MEQ/15 ML UDCUP PO SCH ×2 (04:05→06:31)
[2016-12-30 04:08] LABS: VENOUS BLOOD HCO3 26.3 mmol/L (20-32); VENOUS BLOOD PCO2 43.9 mmHg (35-63); VENOUS BLOOD PH 7.4 (7.30-7.42)
[2016-12-30] MEDS ORDERED: NICOTINE 14 MG/24 HR PATCH.TD24 TD PRN (04:08)
--- NOTE | 2016-12-30 04:10 | PDOC H&P ---
History of Present Illness Admission Date/PCP: 12/30/16 03:[address] Re[address] Miranda Pulmonology Patient complains of: Difficulty breathing History of Present Illness: EARNEST CASTELLANO is a 81 year old male with known known home O2 dependent COPD, also with obstructive sleep apnea, on CPAP at night, wearing oxygen only at that time, and with ongoing tobacco use, one half pack a day, who presents to the emergency room for evaluation of a several hour history of worsening shortness of breath. Subjective fever. However, no abdominal or chest pain, diarrhea or dysuria. No nausea vomiting. Upon EMS arrival, 80% saturation on room air. Received 3 DuoNeb's in the 125 mg of Solu-Medrol in route to the emergency room. Was still hypoxic upon arrival in the emergency room, but improved nicely with continued further treatment, including application of BiPAP. Currently resting quietly, without specific complaint. Patient has been discussed with emergency room physician who evaluated the patient. Hospitalized on our service August 13- of this year with final diagnoses including COPD exacerbation, and acute on chronic respiratory failure with hypoxia and hypercapnia. Problems during that hospital stay with atrial fibrillation and flutter with rapid ventricular response, requiring intravenous diltiazem. Metoprolol dose was increased. History and physical and discharge summary have been reviewed. No hospital stay since then. Dictation via voice recognition software. Laboratory results are listed in [employer] and are reviewed. X-ray summary results are listed below, with full report(s) reviewed. . EKG reviewed and compared to prior tracing from August 18 of this year. Social history/personal habits: . 3 sons. On disability due to combination of pulmonary and cardiac disease. Half pack of cigarettes a day. No alcohol or illicit drug use. No known drug allergies. Home medications initially autopopulated into [employer] may not accurately reflect patient's true medications, dosages, and/or frequencies. mri technologist has reconciled medications. REVIEW OF SYSTEMS: Constitutional: See history and present illness. Eyes: Wears glasses ENT: No swallowing problems or complaints. Partial hearing loss. Pulmonary: See history and present illness. Cardiovascular: No current complaints, including chest pain. Gastrointestinal: No current complaints, including nausea or vomiting. Skin: No current complaints, including rashes. Hematologic: Easy bruising. Neurologic: No current complaints, including numbness or tingling. Musculoskeletal: Joint pain from arthritis. Psychiatric: Mild depression. Denies suicidal or homicidal ideation. Endocrine: No current complaints, including polyuria. Genitourinary: No current complaints, including dysuria. PHYSICAL EXAMINATION: 5 feet 11 inches tall. 81.6 kg. BMI 25.1 kg/m. Blood pressure 136/61. Pulse 73 and regular. 92% saturation on BiPAP 10/5, 30% FiO2. Temperature listed as 96.9; skin feels warmer than that. Well-nourished well-developed elderly male appearing approximately his stated age. Slightly fatigued, but otherwise awake alert and cooperative. No other obvious distress other than mildly anxious. No agitation. Skin is warm and dry. No grossly obvious evidence of rash in areas of skin examined. No subcutaneous nodules palpated. ENT: Slightly hard of hearing to normal conversation. Tongue midline on protrusion pink and slightly tacky. Exam slightly limited by BiPAP mask with attaching straps. Eyes: No scleral icterus. Pupils equal and reactive to light at 4 mm. [place] conjunctivae. Neck is nontender to palpation. Midline trachea. No palpable thyroid nodule mass enlargement or tenderness. Lymphatic: No palpable cervical or clavicular nodes. Neck and lymphatic exams limited by patient body habitus. Exam slightly limited by BiPAP mask with attaching straps. Psychiatric: Reasonable insight into acute and chronic medical issues. Oriented to time location and why here. Lungs: Auscultation reveals clear and equal breath sounds bilaterally. No use of accessory respiratory muscles. Cardiovascular: Heart regular rate and rhythm, without gallop murmur or rub. No abdominal aortic bruits. No ankle or pedal edema. Faintly palpable dorsalis pedis pulses. Difficult to evaluate for carotid bruit due to airway sounds from BiPAP device. Abdomen:soft slightly distended nontender with positive bowel sounds. Unable to adequately evaluate abdomen for masses or organomegaly due to distention. Extremities: Feet are warm and dry. No calf tenderness to compression. No grossly obvious visual evidence of calf swelling. Gentle manipulation of lower extremities fails to reveal any obvious evidence of injury or instability to knees hips or ankles. Neurologic: Moves upper extremities grossly normally. Patellar reflexes absent. Absent Babinski. Light touch is intact at feet. Dorsiflexion and plantarflexion of feet 5 / 5 and symmetric. Past Medical History Cardiac Medical History: Reports: Atrial Fibrillation, Congestive Heart Failure - Systolic, Coronary Artery Disease, Myocardial Infarction, Hyperlipidema, Hypertension Denies: DVT, Peripheral Vascular Disease, Pulmonary Embolism, Heart Murmur Pulmonary Medical History: Reports: Chronic Obstructive Pulmonary Disease (COPD) , Pneumonia, Sleep Apnea - Uncertain settings for the CPAP. No home oxygen. Denies: Asthma, Bronchitis, Respiratory Failure, Tuberculosis Neurological Medical History: Denies: Hemorrhagic CVA, Ischemic CVA, Seizures Endocrine Medical History: Denies: Diabetes Mellitus Type 1, Diabetes Mellitus Type 2, Hyperthyroidism, Hypothyroidism Renal/ Medical History: Denies: End Stage Renal Disease Malignancy Medical History: Denies: Breast Cancer, Cervical Cancer, Leukemia, Lung Cancer, Ovarian Cancer GI Medical History: Denies: Cirrhosis, Crohn's Disease, Gastroesophageal Reflux Disease, Hepatitis, Hiatal Hernia Musculoskeltal Medical History: Reports: Arthritis Skin Medical History: Reports: None Psychiatric Medical History: Reports: Depression - Mild, Tobacco Dependency Denies: Alcohol Dependency, Bipolar Disorder, Dementia, General Anxiety Disorder, Post Traumatic Stress Disorder, Substance Abuse Infectious Medical History: Denies: Hepatitis B, Hepatitis C Past Surgical History Past Surgical History: Reports: Cardiac Catheterization, Cholecystectomy, Coronary Artery Bypass Graft - Three-vessel, Internal Defibrillator Social History Information Source: Patient, Emergency Med Personnel, [facility] Records Lives with: Spouse/Significant other Smoking Status: Current Every Day Smoker Frequency of Alcohol Use: None Hx Recreational Drug Use: No Drugs: None Hx Prescription Drug Abuse: No - Advance Directive Resuscitation Status: Full Code Surrogate healthcare decision maker:: Family History Family History: Reviewed & Not Pertinent Parental Family History Reviewed: Yes - Mother of dementia. Uncertain cause of father's . Children Family History Reviewed: Yes - Healthy Sibling(s) Family History Reviewed.: Yes - Sister with cancer Medication/Allergy Home Medications: Aspirin [Ecotrin 81 mg EC Tablet] 81 mg PO DAILY 08/13/16 Budesonide/Formoterol Fumarate [Symbicort HFA 160-4.5 mcg Inhaler 6 gm] 2 puff IH BID 08/13/16 Calcium/Mag Oxide/Vitamin D3 [Coral Calcium Capsule] 1 tab PO DAILY 08/13/16 Dabigatran Etexilate Mesylate [Pradaxa] 150 mg PO Q12 08/13/16 Digoxin [Lanoxin 0.125 mg Tablet] 0.125 mg PO DAILY 08/13/16 Dofetilide [Tikosyn] 250 mg PO Q12 08/13/16 Montelukast Sodium [Singulair 10 mg Tablet] 10 mg PO DAILY 08/13/16 Multivit-Min/FA/Lycopen/Lutein [Centrum Silver Men Tablet] 1 tab PO DAILY Omeprazole 20 mg PO DAILY 08/13/16 Simvastatin [Zocor 20 mg Tablet] 20 mg PO QPM 08/13/16 Ipratropium/Albuterol Sulfate [Duoneb 3 ml Ampul] 3 ml [facility] [id number] vial.neb Metoprolol Succinate [Toprol Xl 50 mg Tab.sr] 50 mg PO Q12 #60 tab.sr.24h Furosemide [Lasix 40 mg Tablet] 40 mg PO DAILY 12/29/16 Sacubitril/Valsartan [Entresto 97 mg-103 mg Tablet] 1 tab PO BID 12/29/16 Allergies/Adverse Reactions: No Known Allergies Allergy (Verified 12/29/16 23:09) Physical Exam Vital Signs: Temp Pulse Resp BP Pulse Ox 96.9 F L 29 H 132/65 H 93 12/30/16 03:01 12/30/16 03:02 12/30/16 03:02 12/30/16 03:02 Results Impressions: Chest X-Ray 12/29/16 22:20 IMPRESSION: NO ACUTE RADIOGRAPHIC FINDING IN THE CHEST. Chest/Abdomen CTA 12/29/16 23:26 IMPRESSION: 1. Small bi basilar atelectasis/pneumonia. Moderate bilateral pleural effusions. Moderate mediastinal lymphadenopathy. 2. No evidence of pulmonary embolus. Assessment & Plan - Diagnosis (1) Abnormal CT of the abdomen Is this a current diagnosis for this admission?: Yes Plan: Gas in biliary tree. Status post cholecystectomy 40+ years ago. Uncertain significance of CT findings. Abdomen soft and completely nontender. Follow clinically at this point in time. (2) Abnormal CT scan, kidney Is this a current diagnosis for this admission?: Yes Plan: Radiology report suggest benign lesion. Strongly encouraged patient to follow- up with this as outpatient with primary care provider, to ensure this is not cancer. Discussed in layperson's terms. (3) Acute on chronic respiratory failure with hypoxemia Is this a current diagnosis for this admission?: Yes Plan: Patient will be admitted under COPD exacerbation and pneumonia protocol. Incentive spirometry twice a day. Scheduled DuoNeb's. As needed albuterol nebs. Prednisone. Antibiotics will consist of Rocephin and intravenous doxycycline. We will forego Zithromax due to interaction with Tikosyn. I strongly encouraged patient to notify staff should patient feel that breathing is worsening. Patient is a full code. I have strongly encouraged patient not to get out of bed without notifying staff , to avoid a fall with injury. Knee high SCDs for DVT prophylaxis; with patient on Pradaxa, no need for Lovenox or heparin. Impression and plans were discussed with patient who concurs. Time spent in evaluation and management of patient: 80 critical-care minutes. (4) Basal pneumonia of both lungs Is this a current diagnosis for this admission?: Yes (5) COPD exacerbation Is this a current diagnosis for this admission?: Yes (6) Hypokalemia Is this a current diagnosis for this admission?: Yes Plan: Potassium replacement with follow-up chemistry. (7) Mediastinal lymphadenopathy Is this a current diagnosis for this admission?: Yes Plan: Strongly encouraged patient to follow-up with this as outpatient with primary care provider, to ensure this is not cancer. Discussed in layperson's terms. (8) Tobacco dependency Is this a current diagnosis for this admission?: Yes Plan: As needed nicotine patch. (9) Anticoagulated Is this a current diagnosis for this admission?: Yes Plan: Resume home medications as appropriate once these have been determined and reviewed. (10) Atrial fibrillation Qualifiers: Atrial fibrillation type: unspecified Qualified Code(s): I48.91 - Unspecified atrial fibrillation Is this a current diagnosis for this admission?: Yes Plan: Resume home medications as appropriate once these have been determined and reviewed. 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 (12) HLD (hyperlipidemia) Qualifiers: Hyperlipidemia type: unspecified Qualified Code(s): E78.5 - Hyperlipidemia , unspecified Is this a current diagnosis for this admission?: Yes Plan: Resume home medications as appropriate once these have been determined and reviewed. (13) HECTOR (obstructive sleep apnea) Is this a current diagnosis for this admission?: Yes Plan: CPAP nightly once the acute component of his respiratory issues have resolved or improved. - Time Critical Time spent with patient: 35 or more minutes Medications reviewed and adjusted accordingly: Yes Anticipated discharge: Home Within: Other - Inpatient Certification Based on my medical assessment, after consideration of the patient's comorbidities, presenting symptoms, or acuity I expect that the services needed warrant INPATIENT care.: Yes I certify that my determination is in accordance with my understanding of Medicare's requirements for reasonable and necessary INPATIENT services [42 CFR 412.3e].: Yes Medical Necessity: Need Close Monitoring Due to Risk of Patient Decompensation, Need For IV Fluids, Need For Continuous Telemetry Monitoring, Need for Nebulizer Therapy and Monitoring of Response, Need for IV Antibiotics, Risk of Diagnosis Which Will Require Inpatient Eval/Care/Monitoring Post Hospital Care: D/C or Transfer Summary
[2016-12-30 04:13] LABS: PROTHROMBIN TIME 16.5 SEC (11.4-15.4)
[2016-12-30 04:14] LABS: PARTIAL THROMBOPLASTIN TIME 58.9 SEC (23.5-35.8)
[2016-12-30] MEDS ORDERED: DOXYCYCLINE HYCLATE INJ 100 MG VIAL ONE (06:34)
[2016-12-30] MEDS: DOXYCYCLINE HYCLATE 100 MG in DEXTROSE 5%-WATER 250 ML IV SCH ×2 (06:37→18:31)
--- NOTE | 2016-12-30 07:01 | EKG REPORT ---
SEVERITY:- ABNORMAL ECG - SINUS RHYTHM VENTRICULAR BIGEMINY BIATRIAL ABNORMALITIES INFERIOR INFARCT, AGE INDETERMINATE CONSIDER ANTEROSEPTAL INFARCT LATERAL LEADS ARE ALSO INVOLVED : Confirmed by: Major Encarnacion 30-Dec-2016 07:00:51
[2016-12-30 07:40] LABS: VENOUS BLOOD BASE EXCESS 1.9 mmol/L; VENOUS BLOOD HCO3 26.9 mmol/L (20-32); VENOUS BLOOD PCO2 43.1 mmHg (35-63); VENOUS BLOOD PH 7.41 (7.30-7.42)
[2016-12-30] MEDS: IPRATROPIUM/ALBUTEROL 0.5-2.5 MG/3 ML AMPUL NEB SCH ×3 (07:56→20:19)
[2016-12-30 08:03] LABS: ANION GAP 12 (5-19); BLOOD UREA NITROGEN 9 mg/dL (7-20); CALCIUM 9.2 mg/dL (8.4-10.2); CARBON DIOXIDE 24 mmol/L (22-30); CHLORIDE 103 mmol/L (98-107); CREATININE RESULT 0.96 mg/dL (0.52-1.25); GLUCOSE 180 mg/dL (75-110); POTASSIUM 3.7 mmol/L (3.6-5.0); SODIUM 138.8 mmol/L (137-145)
[2016-12-30 08:06] LABS: ABSOLUTE LYMPHOCYTES (AUTO) 0.5 10^3/uL (0.5-4.7); ABSOLUTE NEUT (AUTO) 4.5 10^3/uL (1.7-8.2); BASOPHILS % (AUTO) 0.1 % (0-2); HEMATOCRIT 49.1 % (37.9-51.0); HEMOGLOBIN 16.2 g/dL (13.5-17.0); HGB HCT DIFFERENCE -0.5; LYMPHOCYTES % (AUTO) 9.8 % (13-45); MEAN CORPUSCULAR HEMOGLOBIN 32.2 pg (27.0-33.4); MEAN CORPUSCULAR HGB CONC 33.1 g/dL (32.0-36.0); MEAN CORPUSCULAR VOLUME 98 fl (80-97); MONOCYTES % (AUTO) 0.9 % (3-13); RED BLOOD COUNT 5.04 10^6/uL (4.35-5.55); SEGMENTED NEUTROPHILS % (AUTO) 89.2 % (42-78); WHITE BLOOD COUNT 5.1 10^3/uL (4.0-10.5)
[2016-12-30] MEDS ORDERED: PREDNISONE 20 MG TABLET PO SCH (10:00)
[2016-12-30] MEDS ORDERED: (PENDING PHARMACY ID) (Multivit-Min/Fa/Lycopen/Lutein [Centrum Silver Men Tablet] 1 TAB) PO SCH (10:00)
[2016-12-30] MEDS ORDERED: FUROSEMIDE 40 MG TABLET PO SCH (10:00)
[2016-12-30] MEDS ORDERED: DABIGATRAN ETEXILATE 150 MG CAPSULE PO SCH (10:00)
[2016-12-30] MEDS ORDERED: DOFETILIDE 250 MG PO SCH (10:00)
[2016-12-30] MEDS: DOFETILIDE 125 MCG CAPSULE PO SCH ×2 (10:13→21:43)
[2016-12-30] MEDS: METOPROLOL SUCCINATE 50 MG TAB.SR.24H PO SCH ×2 (10:16→21:43)
[2016-12-30] MEDS: BUDESONIDE/FORMOTEROL 160-4.5 MCG 60 PUFF/6 GM MDI IH SCH ×2 (10:16→21:43)
[2016-12-30] MEDS: DIGOXIN 0.125 MG TABLET PO SCH (10:18)
[2016-12-30] MEDS: MULTIVITAMIN TABLET PO SCH (10:19)
[2016-12-30] MEDS: ASPIRIN 81 MG TABLET, ENT COATED PO SCH (10:19)
[2016-12-30] MEDS: MONTELUKAST SODIUM 10 MG TABLET PO SCH (10:19)
[2016-12-30] MEDS: SACUBITRIL/VALSARTAN 97 MG/103 MG TABLET PO SCH ×2 (10:20→18:31)
--- NOTE | 2016-12-30 16:39 | PDOC PROGRESS REPORT ---
Subjective Progress Note for:: 12/30/16 Subjective:: Patient states that he has been short of breath for the last few days. states that patient has been not very active at home due to shortness of breath. states that patient was told that he had fluid on his lungs in the past and he was given Lasix to diurese fluid off. States that she has noticed that patient has become more short of breath with light activities. reports that patient normally just sits around. Patient denies wheezing at time of presentation. Patient states that he just noted that he was short of breath and that is what brought him to the hospital. Physical Exam Vital Signs: Temp Pulse Resp BP Pulse Ox 97.6 F 68 16 130/67 H 94 12/30/16 08:39 12/30/16 13:45 12/30/16 13:45 12/30/16 08:39 12/30/16 08:39 Intake & Output 12/29/16 12/30/16 12/31/16 06:59 06:59 06:59 Intake Total 375 Balance 375 Weight 84.3 kg General appearance: PRESENT: no acute distress, well-developed, well-nourished Head exam: PRESENT: atraumatic, normocephalic Eye exam: PRESENT: conjunctiva pink, EOMI, PERRLA. ABSENT: scleral icterus Ear exam: PRESENT: normal external ear exam Mouth exam: PRESENT: moist, tongue midline Neck exam: ABSENT: carotid bruit, JVD, lymphadenopathy, thyromegaly Respiratory exam: PRESENT: other - Bilateral crackles, fair air movement Cardiovascular exam: PRESENT: RRR. ABSENT: diastolic murmur, rubs, systolic murmur Pulses: PRESENT: normal dorsalis pedis pul Vascular exam: PRESENT: normal capillary refill GI/Abdominal exam: PRESENT: normal bowel sounds, soft. ABSENT: distended, guarding, mass, organolmegaly, rebound, tenderness Rectal exam: PRESENT: deferred Extremities exam: PRESENT: full ROM. ABSENT: calf tenderness, clubbing, pedal edema Neurological exam: PRESENT: alert, awake, oriented to person, oriented to place , oriented to time, oriented to situation, CN II-XII grossly intact. ABSENT: motor sensory deficit Psychiatric exam: PRESENT: appropriate affect, normal mood. ABSENT: homicidal ideation, suicidal ideation Skin exam: PRESENT: dry, intact, warm. ABSENT: cyanosis, rash Results Laboratory Results: 12/30/16 07:27 12/30/16 07:27 12/30/16 12/30/16 12/30/16 03:53 07:27 07:27 WBC 5.1 RBC 5.04 Hgb 16.2 Hct 49.1 MCV 98 H MCH 32.2 MCHC 33.1 RDW 14.0 Plt Count 219 Seg Neutrophils % 89.2 H Lymphocytes % 9.8 L Monocytes % 0.9 L Eosinophils % 0.0 Basophils % 0.1 Absolute Neutrophils 4.5 Absolute Lymphocytes 0.5 Absolute Monocytes 0.0 L Absolute Eosinophils 0.0 Absolute Basophils 0.0 VBG pH 7.40 VBG pCO2 43.9 VBG HCO3 26.3 VBG Base Excess 1.0 Sodium 138.8 Potassium 3.7 Chloride 103 Carbon Dioxide 24 Anion Gap 12 BUN 9 Creatinine 0.96 Est GFR ( Amer) > 60 Est GFR (Non-Af Amer) > 60 Glucose 180 H Calcium 9.2 12/30/16 07:27 WBC RBC Hgb Hct MCV MCH MCHC RDW Plt Count Seg Neutrophils % Lymphocytes % Monocytes % Eosinophils % Basophils % Absolute Neutrophils Absolute Lymphocytes Absolute Monocytes Absolute Eosinophils Absolute Basophils VBG pH 7.41 VBG pCO2 43.1 VBG HCO3 26.9 VBG Base Excess 1.9 Sodium Potassium Chloride Carbon Dioxide Anion Gap BUN Creatinine Est GFR ( Amer) Est GFR (Non-Af Amer) Glucose Calcium 12/30/16 03:53 Troponin I 0.043 Impressions: Chest X-Ray 12/29/16 22:20 IMPRESSION: NO ACUTE RADIOGRAPHIC FINDING IN THE CHEST. Chest/Abdomen CTA 12/29/16 23:26 IMPRESSION: 1. Small bi basilar atelectasis/pneumonia. Moderate bilateral pleural effusions. Moderate mediastinal lymphadenopathy. 2. No evidence of pulmonary embolus. Assessment & Plan - Diagnosis (1) Acute on chronic systolic and diastolic heart failure, NYHA class 3 Is this a current diagnosis for this admission?: Yes Plan: Patient noted on CT to have bilateral moderate pleural effusions which I believe is the cause of patient's shortness of breath. Will place patient on IV Lasix for diuresis. Will obtain 2D echo to evaluate if patient's heart function has changed. (2) Pleural effusion, bilateral Is this a current diagnosis for this admission?: Yes Plan: Secondary to systolic and diastolic congestive heart failure: We will place patient on IV Lasix for diuresis. Will obtain 2D echo. We will place consult for paracentesis. Patient's Pradaxa will most likely need to be held for at least 48 hours. (3) Acute on chronic respiratory failure with hypoxemia Is this a current diagnosis for this admission?: Yes Plan: We will give IV Lasix for diuresis. We will see if patient's respiratory function improves. Orders have been placed for paracentesis. (4) Atrial fibrillation Qualifiers: Atrial fibrillation type: unspecified Qualified Code(s): I48.91 - Unspecified atrial fibrillation Is this a current diagnosis for this admission?: Yes Plan: Continue home medications.. (5) HLD (hyperlipidemia) Qualifiers: Hyperlipidemia type: unspecified Qualified Code(s): E78.5 - Hyperlipidemia , unspecified Is this a current diagnosis for this admission?: Yes Plan: Statin (6) COPD exacerbation Is this a current diagnosis for this admission?: Yes Plan: Patient not wheezing on exam. Patient CTA demonstrates moderate bilateral pleural effusions which most likely explains patient's shortness of breath. Will continue breathing treatments but stop steroids. Feel that patient's breathing will improve once pleural effusions have decreased in size. (7) HECTOR (obstructive sleep apnea) Is this a current diagnosis for this admission?: Yes Plan: CPAP - Time Time Spent with patient: 15-24 minutes
[2016-12-30] MEDS: SIMVASTATIN 10 MG TABLET PO SCH (21:43)
[2016-12-30] MEDS ORDERED: CEFTRIAXONE 1 GM/D5W RTU 1 GM/50 ML RTUPB IV SCH (22:00)
[2016-12-30] MEDS ORDERED: FUROSEMIDE INJ/PF 40 MG/4 ML SDV IV SCH (22:00)
[2016-12-31 05:01] LABS: HEMATOCRIT 46.7 % (37.9-51.0); HEMOGLOBIN 15.8 g/dL (13.5-17.0); HGB HCT DIFFERENCE 0.7; MEAN CORPUSCULAR HEMOGLOBIN 32.8 pg (27.0-33.4); MEAN CORPUSCULAR HGB CONC 33.7 g/dL (32.0-36.0); MEAN CORPUSCULAR VOLUME 97 fl (80-97); RED CELL DISTRIBUTION WIDTH 13.9 % (11.5-14.0)
[2016-12-31 05:03] LABS: PROTHROMBIN TIME 15.5 SEC (11.4-15.4)
[2016-12-31 05:09] LABS: BLOOD UREA NITROGEN 16 mg/dL (7-20); CALCIUM 9.1 mg/dL (8.4-10.2); CARBON DIOXIDE 26 mmol/L (22-30); CREATININE RESULT 1.11 mg/dL (0.52-1.25); GLUCOSE 154 mg/dL (75-110); POTASSIUM 3.4 mmol/L (3.6-5.0)
[2016-12-31 05:12] LABS: ANION GAP 12 (5-19); CHLORIDE 101 mmol/L (98-107)
[2016-12-31 05:29] LABS: BAND NEUTROPHILS % (MANUAL) 3 % (3-5); BASOPHILS % (MANUAL) 0 % (0-2); EOSINOPHILS % (MANUAL) 0 % (0-6); LYMPHOCYTES % (MANUAL) 6 % (13-45); TOTAL CELLS COUNTED 100
[2016-12-31] MEDS: DOXYCYCLINE HYCLATE 100 MG in DEXTROSE 5%-WATER 250 ML IV SCH (05:29)
[2016-12-31 05:31] LABS: OVALOCYTES SLIGHT; POIKILOCYTOSIS SLIGHT; SCHISTOCYTES SLIGHT; TEAR DROP CELLS SLIGHT; TOXIC GRANULATION SLIGHT
[2016-12-31 05:32] LABS: WHITE BLOOD COUNT 19.1 10^3/uL (4.0-10.5)
[2016-12-31] MEDS ORDERED: POTASSIUM CHLORIDE 10 MEQ TABLET.SA PO ONE (07:59)
[2016-12-31] MEDS: IPRATROPIUM/ALBUTEROL 0.5-2.5 MG/3 ML AMPUL NEB SCH ×3 (08:22→19:54)
[2016-12-31] MEDS ORDERED: BENZONATATE 100 MG CAPSULE PO PRN (10:27)
[2016-12-31] MEDS ORDERED: PHARMACY COMMUNICATION ORDER MC NR (10:30)
[2016-12-31] MEDS: BUDESONIDE/FORMOTEROL 160-4.5 MCG 60 PUFF/6 GM MDI IH SCH ×2 (11:50→21:38)
[2016-12-31] MEDS: DIGOXIN 0.125 MG TABLET PO SCH (11:51)
[2016-12-31] MEDS: MONTELUKAST SODIUM 10 MG TABLET PO SCH (11:51)
[2016-12-31] MEDS: SACUBITRIL/VALSARTAN 97 MG/103 MG TABLET PO SCH ×2 (11:52→17:17)
[2016-12-31] MEDS: MULTIVITAMIN TABLET PO SCH (11:53)
[2016-12-31] MEDS: METOPROLOL SUCCINATE 50 MG TAB.SR.24H PO SCH ×2 (11:53→21:38)
[2016-12-31] MEDS: DOFETILIDE 125 MCG CAPSULE PO SCH ×2 (11:54→21:38)
[2016-12-31] MEDS: ASPIRIN 81 MG TABLET, ENT COATED PO SCH (11:57)
[2016-12-31] MEDS: FUROSEMIDE INJ/PF 40 MG/4 ML SDV IV SCH ×2 (14:09→21:38)
[2016-12-31] MEDS: LACTOBACILLUS ACIDOPHILUS 250 MG TAB PO SCH (17:17)
[2016-12-31] MEDS: PREDNISONE 20 MG TABLET PO SCH (17:17)
--- NOTE | 2016-12-31 19:22 | PDOC PROGRESS REPORT ---
Subjective Progress Note for:: 12/31/16 Subjective:: Patient is still significantly short of breath with exertion. Patient denies any purulent sputum or fevers prior to admission. His reports that he continues to smoke and does not follow salt restriction. Patient denies chest pain, abdominal pain, nausea, vomiting, fevers, chills, diarrhea, constipation, headache, new onset weakness. Physical Exam Vital Signs: Temp Pulse Resp BP Pulse Ox 97.6 F 78 18 127/82 H 91 L 12/31/16 11:59 12/31/16 14:00 12/31/16 14:00 12/31/16 11:59 12/31/16 11:59 Intake & Output 12/30/16 12/31/16 01/01/17 06:59 06:59 06:59 Intake Total 375 1968 Output Total 0 Balance 375 1967 Weight 84.3 kg 83.5 kg Exam: General: Awake alert and oriented x3, mild respiratory distress HEENT: AT/NC, PERRL, EOMI, oropharynx is moist, pink, no scleral icterus, no conjunctival injection Neck: + JVD, trachea midline Chest: Significant tachypnea with moving, decreased right middle lobe CV: Regular rate and rhythm, normal S1 and S2, no murmur, rub Abdomen: Soft, nontender to palpation, nondistended, active bowel sounds; no rebound, rigidity, or guarding Extremities: No cyanosis: +clubbing; trace edema Neuro: Cranial nerves II through XII are grossly intact without focal deficits; awake alert and oriented x3 Psych: Normal mood and affect Results Laboratory Results: 12/31/16 04:22 12/31/16 04:22 12/31/16 12/31/16 12/31/16 04:22 04:22 11:22 WBC 19.1 H D RBC 4.80 Hgb 15.8 Hct 46.7 MCV 97 MCH 32.8 MCHC 33.7 RDW 13.9 Plt Count 222 Seg Neutrophils % Not Reportable Lymphocytes % Not Reportable Monocytes % Not Reportable Eosinophils % Not Reportable Basophils % Not Reportable Absolute Neutrophils Not Reportable Absolute Lymphocytes Not Reportable Absolute Monocytes Not Reportable Absolute Eosinophils Not Reportable Absolute Basophils Not Reportable Sodium 139.0 Potassium 3.4 L Chloride 101 Carbon Dioxide 26 Anion Gap 12 BUN 16 Creatinine 1.11 Est GFR ( Amer) > 60 Est GFR (Non-Af Amer) > 60 Glucose 154 H Calcium 9.1 Magnesium 1.9 12/30/16 03:53 Troponin I 0.043 Impressions: Chest X-Ray 12/29/16 22:20 IMPRESSION: NO ACUTE RADIOGRAPHIC FINDING IN THE CHEST. Chest/Abdomen CTA 12/29/16 23:26 IMPRESSION: 1. Small bi basilar atelectasis/pneumonia. Moderate bilateral pleural effusions. Moderate mediastinal lymphadenopathy. 2. No evidence of pulmonary embolus. Assessment & Plan - Diagnosis (1) Acute on chronic respiratory failure with hypoxemia Is this a current diagnosis for this admission?: Yes (2) Acute on chronic systolic and diastolic heart failure, NYHA class 3 Is this a current diagnosis for this admission?: Yes (3) COPD exacerbation Is this a current diagnosis for this admission?: Yes (4) Hypokalemia Is this a current diagnosis for this admission?: Yes (5) Mediastinal lymphadenopathy Is this a current diagnosis for this admission?: Yes (6) Pleural effusion, bilateral Is this a current diagnosis for this admission?: Yes (7) Tobacco dependency Is this a current diagnosis for this admission?: Yes (8) Anticoagulated Is this a current diagnosis for this admission?: Yes (9) Atrial fibrillation Qualifiers: Atrial fibrillation type: unspecified Qualified Code(s): I48.91 - Unspecified atrial fibrillation Is this a current diagnosis for this admission?: Yes (10) Combined systolic and diastolic congestive heart failure Qualifiers: Congestive heart failure chronicity: acute Qualified Code(s): I50.41 - Acute combined systolic (congestive) and diastolic (congestive) heart failure Is this a current diagnosis for this admission?: Yes (11) HLD (hyperlipidemia) Qualifiers: Hyperlipidemia type: unspecified Qualified Code(s): E78.5 - Hyperlipidemia , unspecified Is this a current diagnosis for this admission?: Yes (12) History of prostate cancer Is this a current diagnosis for this admission?: Yes (13) HECTOR (obstructive sleep apnea) Is this a current diagnosis for this admission?: Yes - Time Time Spent with patient: 35 or more minutes Medications reviewed and adjusted accordingly: Yes Anticipated discharge: Home with Homehealth Within: within 72 hours - Plan Summary Plan Summary: Continue diuresis for his acute on chronic congestive heart failure. Patient had an echo done on 08/05 which revealed an EF of 35%, grade 2 diastolic dysfunction, moderate mild to moderate pulmonary hypertension. Continue steroids for COPD exacerbation. Sputum culture pending. Have encouraged compliance with diet and to stop smoking. reports recent shock from AICD. Will check and replete electrolytes as needed.
[2016-12-31] MEDS: MAGNESIUM SULFATE/D5W 1 GM/100 ML RTUPB IV SCH ×2 (20:01→21:40)
[2016-12-31] MEDS: SIMVASTATIN 10 MG TABLET PO SCH (21:39)
[2016-12-31] MEDS: DOXYCYCLINE HYCLATE 100 MG TABLET PO SCH (21:39)
[2017-01-01] MEDS: FUROSEMIDE INJ/PF 40 MG/4 ML SDV IV SCH (06:18)
[2017-01-01] MEDS: IPRATROPIUM/ALBUTEROL 0.5-2.5 MG/3 ML AMPUL NEB SCH ×3 (08:14→20:13)
[2017-01-01 08:58] LABS: ABSOLUTE LYMPHOCYTES (AUTO) 1.6 10^3/uL (0.5-4.7); ABSOLUTE MONOCYTES (AUTO) 0.8 10^3/uL (0.1-1.4); ABSOLUTE NEUT (AUTO) 15.6 10^3/uL (1.7-8.2); BASOPHILS % (AUTO) 0.2 % (0-2); HEMATOCRIT 53.6 % (37.9-51.0); HEMOGLOBIN 17.4 g/dL (13.5-17.0); HGB HCT DIFFERENCE -1.4; LYMPHOCYTES % (AUTO) 9.1 % (13-45); MEAN CORPUSCULAR HGB CONC 32.5 g/dL (32.0-36.0); MEAN CORPUSCULAR VOLUME 99 fl (80-97); MONOCYTES % (AUTO) 4.4 % (3-13); RED BLOOD COUNT 5.44 10^6/uL (4.35-5.55); RED CELL DISTRIBUTION WIDTH 14.5 % (11.5-14.0); SEGMENTED NEUTROPHILS % (AUTO) 86.3 % (42-78)
[2017-01-01 09:23] LABS: ANION GAP 15 (5-19); BLOOD UREA NITROGEN 25 mg/dL (7-20); CALCIUM 9.8 mg/dL (8.4-10.2); CARBON DIOXIDE 29 mmol/L (22-30); CHLORIDE 100 mmol/L (98-107); CREATININE RESULT 1.21 mg/dL (0.52-1.25); GLUCOSE 134 mg/dL (75-110); POTASSIUM 4.2 mmol/L (3.6-5.0); SODIUM 144.2 mmol/L (137-145)
--- NOTE | 2017-01-01 09:31 | RADIOLOGY REPORT (SQ) ---
EXAM DESCRIPTION: CHEST PA/LAT COMPLETED DATE/TIME: 01/01/2017 8:42 am REASON FOR STUDY: chf, copd COMPARISON: Chest films 04/17/2014, 12/03/2014, 08/13/2016, 12/29/2016 CT angio chest 12/30/2016 EXAM PARAMETERS: NUMBER OF VIEWS: two views TECHNIQUE: Digital Frontal and Lateral radiographic views of the chest acquired. RADIATION DOSE: NA LIMITATIONS: none FINDINGS: LUNGS AND PLEURA: Trace bilateral pleural effusions, new compared to July 2016, decreased compared to CT 12/30/2016. There are alveolar and interstitial opacities in the mid and lower lungs, likely residual pulmonary e bakari. Pneumonia could not entirely be excluded. This is improved compared to 12/29/2016 No pneumothorax. MEDIASTINUM AND HILAR STRUCTURES: No masses or contour abnormalities. HEART AND VASCULAR STRUCTURES: Heart normal size. Old sternotomy and CABG. BONES: No acute findings. HARDWARE: Left-sided dual lead pacemaker OTHER: No other significant finding. IMPRESSION: Trace bilateral pleural effusions. Mild persistent alveolar and interstitial opacities likely resolving pulmonary edema. This is improv ed compared to 12/29/2016 TECHNICAL DOCUMENTATION: JOB ID: [id number] [employer]- All Rights Reserved
[2017-01-01] MEDS ORDERED: FUROSEMIDE 40 MG TABLET PO SCH (10:00)
[2017-01-01] MEDS ORDERED: CEFEPIME 2 GM/D5W RTU 2 GM/50 ML RTUPB IV SCH (10:00)
[2017-01-01] MEDS: DIGOXIN 0.125 MG TABLET PO SCH (10:49)
[2017-01-01] MEDS: PREDNISONE 20 MG TABLET PO SCH ×2 (10:51→18:01)
[2017-01-01] MEDS: METOPROLOL SUCCINATE 50 MG TAB.SR.24H PO SCH ×2 (10:51→21:54)
[2017-01-01] MEDS: ASPIRIN 81 MG TABLET, ENT COATED PO SCH (10:52)
[2017-01-01] MEDS: LACTOBACILLUS ACIDOPHILUS 250 MG TAB PO SCH ×2 (10:52→18:02)
[2017-01-01] MEDS: DOFETILIDE 125 MCG CAPSULE PO SCH ×2 (10:52→21:53)
[2017-01-01] MEDS: DOXYCYCLINE HYCLATE 100 MG TABLET PO SCH ×2 (10:52→21:55)
[2017-01-01] MEDS: SACUBITRIL/VALSARTAN 97 MG/103 MG TABLET PO SCH ×2 (10:53→18:01)
[2017-01-01] MEDS: MONTELUKAST SODIUM 10 MG TABLET PO SCH (10:53)
[2017-01-01] MEDS: MULTIVITAMIN TABLET PO SCH (10:53)
[2017-01-01] MEDS ORDERED: PREDNISONE 20 MG TABLET PO ONE (11:26)
[2017-01-01] MEDS: FUROSEMIDE 40 MG TABLET PO SCH ×2 (14:50→18:01)
--- NOTE | 2017-01-01 17:13 | PDOC PROGRESS REPORT ---
Subjective Progress Note for:: 01/01/17 Subjective:: Patient reports that his breathing is much better. He feels like he is nearing his baseline. Patient is however still requiring approximately 3 L of oxygen. Patient denies chest pain, abdominal pain, nausea, vomiting, fevers, chills, diarrhea, constipation, headache, new onset weakness. Physical Exam Vital Signs: Temp Pulse Resp BP Pulse Ox 97.5 F 40 L 22 H 150/69 H 90 L 01/01/17 04:02 01/01/17 04:02 01/01/17 04:02 01/01/17 04:02 01/01/17 04:02 Intake & Output 12/31/16 01/01/17 01/02/17 06:59 06:59 06:59 Intake Total 1967 1324 Output Total 0 Balance 1967 1324 Weight 83.5 kg 80.7 kg Exam: General: Awake alert and oriented x3, no acute respiratory distress HEENT: AT/NC, PERRL, EOMI, oropharynx is moist, pink, no scleral icterus, no conjunctival injection Neck: no JVD, trachea midline Chest: Occasional end expiratory wheezing, mild tachypnea CV: Regular rate and rhythm, normal S1 and S2, no rub, gallop; 2/6 sm rusb Abdomen: Soft, nontender to palpation, nondistended, active bowel sounds; no rebound, rigidity, or guarding Extremities: No cyanosis: +clubbing; no edema Neuro: Cranial nerves II through XII are grossly intact without focal deficits; awake alert and oriented x3 Psych: Normal mood and affect Results Laboratory Results: 12/31/16 04:22 12/31/16 04:22 12/31/16 11:22 Magnesium 1.9 12/30/16 03:53 Troponin I 0.043 Impressions: Chest X-Ray 12/29/16 22:20 IMPRESSION: NO ACUTE RADIOGRAPHIC FINDING IN THE CHEST. Chest/Abdomen CTA 12/29/16 23:26 IMPRESSION: 1. Small bi basilar atelectasis/pneumonia. Moderate bilateral pleural effusions. Moderate mediastinal lymphadenopathy. 2. No evidence of pulmonary embolus. Assessment & Plan - Diagnosis (1) Acute on chronic respiratory failure with hypoxemia Is this a current diagnosis for this admission?: Yes Plan: ambulate and see if pt meets criteria for home o2 has been on this in the past (2) Acute on chronic systolic and diastolic heart failure, NYHA class 3 Is this a current diagnosis for this admission?: Yes Plan: Patient had an echo done on 08/05 which revealed an EF of 35%, grade 2 diastolic dysfunction, moderate mild to moderate pulmonary hypertension. Generic Name Dose Route Start Last Admin Trade Name Freq PRN Reason Stop Dose Admin Furosemide 40 mg 01/01/17 14:00 01/01/17 14:50 Lasix 40 Mg Tablet PO 01/31/17 13:59 40 mg TID BRY Digoxin 0.125 mg 12/30/16 10:00 01/01/17 10:49 Lanoxin 0.125 Mg Tablet PO 01/29/17 09:59 0.125 mg DAILY BRY Metoprolol Succinate 50 mg 12/30/16 10:00 01/01/17 10:51 Toprol Xl 50 Mg Tab.Sr PO 01/29/17 09:59 50 mg Q12 BRY Simvastatin 20 mg 12/30/16 22:00 12/31/16 21:39 Zocor 10 Mg Tablet PO 01/29/17 21:59 20 mg QHS BRY Sacubitril/Valsartan 1 tab 12/30/16 10:00 01/01/17 10:53 Entresto 97 Mg/103 Mg Tablet PO 01/29/17 09:59 1 tab BID [facility] (3) COPD exacerbation Is this a current diagnosis for this admission?: Yes Plan: Increase patient's oral prednisone today and continue doxycycline Generic Name Dose Route Start Last Admin Trade Name Freq PRN Reason Stop Dose Admin Prednisone 40 mg 01/01/17 18:00 Deltasone 20 Mg Tablet PO 01/31/17 17:59 BID [facility] Nicotine 1 each 12/30/16 04:08 Nicoderm 14 Mg/24 Hr Transdermal Patch TD 01/29/17 04:07 DAILYP PRN Budesonide/Formoterol Fumarate 2 puff 12/30/16 10:00 12/31/16 21:38 Symbicort Hfa 160-4.5 Mcg Inhaler 6 Gm IH 01/29/17 09:59 2 puff Q12 BRY Benzonatate 100 mg 12/31/16 10:27 Tessalon Perles 100 Mg Capsule PO 01/30/17 10:26 Q8HP PRN Albuterol 2.5 mg 12/30/16 03:34 Ventolin 0.083% Neb 2.5 Mg/3 Ml Ampul NEB 01/29/17 03:33 RTQ4HP PRN SHORTNESS OF BREATH Albuterol/Ipratropium 3 ml 12/30/16 08:00 01/01/17 14:02 Duoneb 3 Ml Ampul NEB 01/29/17 07:59 3 ml [id number] BRY (4) Hypokalemia Is this a current diagnosis for this admission?: Yes Plan: Repleted and recheck patient's magnesium (5) Mediastinal lymphadenopathy Is this a current diagnosis for this admission?: Yes (6) Pleural effusion, bilateral Is this a current diagnosis for this admission?: Yes Plan: Improved with diuresis. Will hold on pleural effusion (7) Tobacco dependency Is this a current diagnosis for this admission?: Yes Plan: Strongly encouraged to stop and offered nicotine patch (8) Anticoagulated Is this a current diagnosis for this admission?: Yes Plan: Continue Pradaxa (9) Atrial fibrillation Qualifiers: Atrial fibrillation type: unspecified Qualified Code(s): I48.91 - Unspecified atrial fibrillation Is this a current diagnosis for this admission?: Yes (10) HLD (hyperlipidemia) Qualifiers: Hyperlipidemia type: unspecified Qualified Code(s): E78.5 - Hyperlipidemia , unspecified Is this a current diagnosis for this admission?: Yes (11) History of prostate cancer Is this a current diagnosis for this admission?: Yes (12) HECOTR (obstructive sleep apnea) Is this a current diagnosis for this admission?: Yes Plan: May use home CPAP - Time Time Spent with patient: 25-34 minutes Medications reviewed and adjusted accordingly: Yes Anticipated discharge: Home with Homehealth Within: within 24 hours - Inpatient Certification Based on my medical assessment, after consideration of the patient's comorbidities, presenting symptoms, or acuity I expect that the services needed warrant INPATIENT care.: Yes I certify that my determination is in accordance with my understanding of Medicare's requirements for reasonable and necessary INPATIENT services [42 CFR 412.3e].: Yes Medical Necessity: Need For Continuous Telemetry Monitoring, Need for Nebulizer Therapy and Monitoring of Response Post Hospital Care: D/C Assembly Technician Documentation
[2017-01-01] MEDS: BUDESONIDE/FORMOTEROL 160-4.5 MCG 60 PUFF/6 GM MDI IH SCH ×2 (18:03→21:52)
[2017-01-01] MEDS: SIMVASTATIN 10 MG TABLET PO SCH (21:55)
[2017-01-01] MEDS: DABIGATRAN ETEXILATE 75 MG CAPSULE PO SCH (21:56)
--- NOTE | 2017-01-01 22:54 | EKG REPORT ---
SEVERITY:- ABNORMAL ECG - ATRIAL-PACED COMPLEXES VENTRICULAR BIGEMINY PROBABLE INFERIOR INFARCT, AGE INDETERMINATE CONSIDER ANTEROSEPTAL INFARCT : Confirmed by: Major Encarnacion 01-Jan-2017 22:53:54
[2017-01-02] MEDS: IPRATROPIUM/ALBUTEROL 0.5-2.5 MG/3 ML AMPUL NEB SCH (08:24)
[2017-01-02 09:55] VITALS: BP 144/69
[2017-01-02] MEDS: DABIGATRAN ETEXILATE 75 MG CAPSULE PO SCH (10:11)
[2017-01-02] MEDS: DIGOXIN 0.125 MG TABLET PO SCH (10:12)
[2017-01-02] MEDS: MONTELUKAST SODIUM 10 MG TABLET PO SCH (10:13)
[2017-01-02] MEDS: DOFETILIDE 125 MCG CAPSULE PO SCH (10:13)
[2017-01-02] MEDS: MULTIVITAMIN TABLET PO SCH (10:14)
[2017-01-02] MEDS: METOPROLOL SUCCINATE 50 MG TAB.SR.24H PO SCH (10:14)
[2017-01-02] MEDS: SACUBITRIL/VALSARTAN 97 MG/103 MG TABLET PO SCH (10:14)
[2017-01-02] MEDS: PREDNISONE 20 MG TABLET PO SCH (10:14)
[2017-01-02] MEDS: DOXYCYCLINE HYCLATE 100 MG TABLET PO SCH (10:14)
[2017-01-02] MEDS: FUROSEMIDE 40 MG TABLET PO SCH (10:14)
[2017-01-02] MEDS: BUDESONIDE/FORMOTEROL 160-4.5 MCG 60 PUFF/6 GM MDI IH SCH (10:15)
[2017-01-02] MEDS: LACTOBACILLUS ACIDOPHILUS 250 MG TAB PO SCH (10:15)
[2017-01-02] MEDS: ASPIRIN 81 MG TABLET, ENT COATED PO SCH (10:15)
--- NOTE | 2017-01-02 20:19 | PDOC DISCHARGE SUMMARY ---
General - Admit/Disc Date/PCP Admission Date/Primary Care Provider: 12/30/16 03:34 Discharge Date: 01/02/17 - Discharge Diagnosis (1) Acute on chronic respiratory failure with hypoxemia Is this a current diagnosis for this admission?: Yes (2) Acute on chronic systolic and diastolic heart failure, NYHA class 3 Is this a current diagnosis for this admission?: Yes (3) COPD exacerbation Is this a current diagnosis for this admission?: Yes (4) Hypokalemia Is this a current diagnosis for this admission?: Yes (5) Mediastinal lymphadenopathy Is this a current diagnosis for this admission?: Yes (6) Pleural effusion, bilateral Is this a current diagnosis for this admission?: Yes (7) Tobacco dependency Is this a current diagnosis for this admission?: Yes (8) Anticoagulated Is this a current diagnosis for this admission?: Yes (9) Atrial fibrillation Is this a current diagnosis for this admission?: Yes (10) HLD (hyperlipidemia) Is this a current diagnosis for this admission?: Yes (11) History of prostate cancer Is this a current diagnosis for this admission?: Yes (12) HECTOR (obstructive sleep apnea) Is this a current diagnosis for this admission?: Yes - Additional Information Resuscitation Status: Full Code Discharge Diet: Cardiac, Diabetic Discharge Activity: Activity As Tolerated, Balance Activity w/Rest, Slowly Increase Activity, Weigh Daily Home Medications: Aspirin [Ecotrin 81 mg EC Tablet] 81 mg PO DAILY 08/13/16 Budesonide/Formoterol Fumarate [Symbicort HFA 160-4.5 mcg Inhaler 6 gm] 2 puff IH BID 08/13/16 Calcium/Mag Oxide/Vitamin D3 [Coral Calcium Capsule] 1 tab PO DAILY 08/13/16 Dabigatran Etexilate Mesylate [Pradaxa] 150 mg PO Q12 08/13/16 Digoxin [Lanoxin 0.125 mg Tablet] 0.125 mg PO DAILY 08/13/16 Dofetilide [Tikosyn] 250 mg PO Q12 08/13/16 Montelukast Sodium [Singulair 10 mg Tablet] 10 mg PO DAILY 08/13/16 Multivit-Min/FA/Lycopen/Lutein [Centrum Silver Men Tablet] 1 tab PO DAILY Simvastatin [Zocor 20 mg Tablet] 20 mg PO QPM 08/13/16 Sacubitril/Valsartan [Entresto 97 mg-103 mg Tablet] 1 tab PO BID 12/29/16 Fluticasone Propionate [Flonase Nasal [place] 50 Mcg/[place] 16 gm] 2 spray NASL DAILY 12/30/16 Metoprolol Succinate [Toprol Xl 25 mg Tab.sr] 50 mg PO DAILY 12/30/16 Doxycycline Hyclate [Vibramycin 100 mg Tablet] 100 mg PO Q12 #14 tablet Furosemide [Lasix 40 mg Tablet] 40 mg PO BID #60 tablet 01/02/17 Prednisone [Deltasone 20 mg Tablet] 40 mg PO BID #30 tablet 01/02/17 History of Present Illness History of Present Illness: EARNEST CASTELLANO is a 81 year old male with known known home O2 dependent COPD, also with obstructive sleep apnea, on CPAP at night, wearing oxygen only at that time, and with ongoing tobacco use, one half pack a day, who presents to the emergency room for evaluation of a several hour history of worsening shortness of breath. Subjective fever. However, no abdominal or chest pain, diarrhea or dysuria. No nausea vomiting. Upon EMS arrival, 80% saturation on room air. Received 3 DuoNeb's in the 125 mg of Solu-Medrol in route to the emergency room. Was still hypoxic upon arrival in the emergency room, but improved nicely with continued further treatment, including application of BiPAP. Currently resting quietly, without specific complaint. Patient has been discussed with emergency room physician who evaluated the patient. Hospitalized on our service August 13- of this year with final diagnoses including COPD exacerbation, and acute on chronic respiratory failure with hypoxia and hypercapnia. Problems during that hospital stay with atrial fibrillation and flutter with rapid ventricular response, requiring intravenous diltiazem. Metoprolol dose was increased. History and physical and discharge summary have been reviewed. No hospital stay since then. Hospital Course Hospital Course: Patient improved significantly with diuresis and BiPAP. Patient also significantly improved with steroids and doxycycline. Patient was felt to have an exacerbation of acute on chronic congestive heart failure which is systolic and diastolic in nature due to his noncompliance. His reports that he will only eat salted food. He does report that his weight had stayed the same. Patient also continues to smoke despite admonitions against this. His breathing did improve significantly with steroids and his need for oxygen was absent at the time of discharge. Although currently documented to be bradycardic, patient was in fact not bradycardic during his stay with his heart rate being in the 50s-70s. Patient is advised to keep his follow-up appointment tomorrow with his car conditioner. Physical Exam Vital Signs: Temp Pulse Resp BP Pulse Ox 97.4 F 39 L 18 144/69 H 92 01/02/17 09:50 01/02/17 09:50 01/02/17 09:50 01/02/17 09:50 01/02/17 09:50 Intake & Output 01/01/17 01/02/17 01/03/17 06:59 06:59 06:59 Intake Total 1325 1705 Balance 1325 1705 Weight 80.7 kg Exam: General: Awake alert and oriented x3, no acute respiratory distress HEENT: AT/NC, PERRL, EOMI, oropharynx is moist, pink, no scleral icterus, no conjunctival injection Neck: no JVD, trachea midline Chest: Occasional end expiratory wheezing, mild tachypnea CV: Regular rate and rhythm, normal S1 and S2, no rub, gallop; 2/6 sm rusb Abdomen: Soft, nontender to palpation, nondistended, active bowel sounds; no rebound, rigidity, or guarding Extremities: No cyanosis: +clubbing; no edema Neuro: Cranial nerves II through XII are grossly intact without focal deficits; awake alert and oriented x3 Psych: Normal mood and affect Results Laboratory Results: 01/01/17 08:45 01/01/17 08:45 12/30/16 03:53 Troponin I 0.043 Impressions: Chest/Abdomen CTA 12/29/16 23:26 IMPRESSION: 1. Small bi basilar atelectasis/pneumonia. Moderate bilateral pleural effusions. Moderate mediastinal lymphadenopathy. 2. No evidence of pulmonary embolus. Chest X-Ray 01/01/17 00:00 IMPRESSION: Trace bilateral pleural effusions. Mild persistent alveolar and interstitial opacities likely resolving pulmonary edema. This is improved compared to 12/29/2016 Qualifiers PATEINT BEING DISCHARGED WITH ANY OF THE FOLLOWING DIAGNOSIS?: Heart Failure HF Pt being discharged on ACEI for LVEF less than 40%?: Yes HF Pt being discharged on ARBS for LVEF less than 40%?: No Reason(s) for not prescribing ARBS:: Not indicated - on matt HF Pt with Afib discharged with Warfarin?: No Reason(s) for not prescribing Warfarin:: Not indicated - on pradaxa HF Pt discharged on evidence-based Beta Murtaza:: Yes
== END 2017-01-02 10:43 | disposition home or self-care (01) | DRG 189 ==
LOC: ER 22:14 → EH 12-30 01:55 → UNDOADMIN 12-30 01:55 → EH 12-30 03:34 → 3W 12-30 03:47 → EH 12-30 03:47
PROVIDERS: ADMIT Family Medicine; ATTEND Family Medicine
PROC: 5A09357 Assistance with Respiratory Ventilation, Less than 24 Consecutive Hours, Continuous Positive Airway Pressure (ICD-10-PCS; principal; 2016-12-30)
DX: J96.21 Acute and chronic respiratory failure with hypoxia (principal); I50.43 Acute on chronic combined systolic (congestive) and diastolic (congestive) heart failure; J44.1 Chronic obstructive pulmonary disease with (acute) exacerbation; E87.6 Hypokalemia; R59.1 Generalized enlarged lymph nodes; I48.91 Unspecified atrial fibrillation; E78.5 Hyperlipidemia, unspecified; G47.33 Obstructive sleep apnea (adult) (pediatric); Z79.82 Long term (current) use of aspirin; Z79.01 Long term (current) use of anticoagulants; Z79.899 Other long term (current) drug therapy; Z85.46 Personal history of malignant neoplasm of prostate; Z99.81 Dependence on supplemental oxygen; F17.210 Nicotine dependence, cigarettes, uncomplicated; Z95.810 Presence of automatic (implantable) cardiac defibrillator
CPT/HCPCS: 36415; 71010; 71020; 71275; 80048; 80053; 80162; 82550; 82803; 82962; 83605; 83690; 83735; 83880; 84484; 85025; 85610; 85730; 87040; 93005; 93010; 94640; 94660; 94799; 99291; J0456; J0696; J1815; J1940; J3475; J3490; J7030; J7060; J7512; J7620

== ENCOUNTER 2017-04-23 00:46 | Inpatient (IN) | payer MEDICARE, OTHER ==
[2017-04-23] MEDS ORDERED: METHYLPREDNISOLONE INJ 125 MG/2 ML SDV IV ONE (01:02)
[2017-04-23] MEDS: MAGNESIUM SULFATE/D5W 1 GM/100 ML RTUPB IV SCH ×2 (01:17→02:16)
[2017-04-23 01:21] LABS: ABSOLUTE BASOPHILS # (AUTO) 0.1 10^3/uL (0.0-0.2); ABSOLUTE EOSINOPHILS # (AUTO) 0.2 10^3/uL (0.0-0.6); ABSOLUTE LYMPHOCYTES (AUTO) 1.2 10^3/uL (0.5-4.7); ABSOLUTE NEUT (AUTO) 7.1 10^3/uL (1.7-8.2); BASOPHILS % (AUTO) 0.8 % (0-2); EOSINOPHILS % (AUTO) 1.8 % (0-6); HEMATOCRIT 49.2 % (37.9-51.0); HEMOGLOBIN 16.7 g/dL (13.5-17.0); LYMPHOCYTES % (AUTO) 12.6 % (13-45); MEAN CORPUSCULAR HEMOGLOBIN 31.5 pg (27.0-33.4); MEAN CORPUSCULAR HGB CONC 33.9 g/dL (32.0-36.0); MEAN CORPUSCULAR VOLUME 93 fl (80-97); MONOCYTES % (AUTO) 10.1 % (3-13); PLATELET COUNT 210 10^3/uL (150-450); RED BLOOD COUNT 5.28 10^6/uL (4.35-5.55); RED CELL DISTRIBUTION WIDTH 14.6 % (11.5-14.0); SEGMENTED NEUTROPHILS % (AUTO) 74.7 % (42-78); TOTAL CELLS COUNTED % (AUTO) 100 %; WHITE BLOOD COUNT 9.5 10^3/uL (4.0-10.5)
[2017-04-23 01:35] LABS: ALANINE AMINOTRANSFERASE 27 U/L (21-72); ALBUMIN 3.9 g/dL (3.5-5.0); ALKALINE PHOSPHATASE 82 U/L (38-126); ANION GAP 13 (5-19); ASPARTATE AMINO TRANSFERASE 27 U/L (17-59); BILIRUBIN,DIRECT 0.3 mg/dL (0.0-0.4); BILIRUBIN,TOTAL 0.6 mg/dL (0.2-1.3); BLOOD UREA NITROGEN 10 mg/dL (7-20); CALCIUM 9.5 mg/dL (8.4-10.2); CARBON DIOXIDE 23 mmol/L (22-30); CHLORIDE 102 mmol/L (98-107); GLUCOSE 107 mg/dL (75-110); POTASSIUM 3.7 mmol/L (3.6-5.0); SODIUM 138.1 mmol/L (137-145); TOTAL PROTEIN 6.6 g/dL (6.3-8.2)
--- NOTE | 2017-04-23 02:05 | RADIOLOGY REPORT (SQ) ---
EXAM DESCRIPTION: CHEST SINGLE VIEW CLINICAL HISTORY: 81 years, Male, dyspnea COMPARISON: 9.13.17 NUMBER OF VIEWS: 1 LIMITATIONS: None. FINDINGS: Mild-moderate interstitial markings, normal cardiac silhouette, left cardiac stimulation device and leads, and sternotomy. IMPRESSION: Moderate interstitial markings. Interval improvement. 2011 [facility] [employer]- All Rights Reserved
--- NOTE | 2017-04-23 02:31 | ER Document Report ---
ED General - General Chief Complaint: Shortness Of Breath Stated Complaint: SHORTNESS OF BREATH Time Seen by Provider: 04/23/17 00:57 Notes: Patient is a 81-year-old male presents with complaint of difficulty breathing. His history of COPD and continues to smoke. No chest pain. He says only pain he has is when he coughs. No vomiting. No diarrhea. No fevers. No other complaints this time. He said he started feeling bad 3 days ago but became much worse tonight. He has been admitted several times in the past for COPD exacerbations. He also has a pacemaker for bladder complaints. He has not been shocked by his defibrillator recently. TRAVEL OUTSIDE OF THE [place] IN LAST 30 DAYS: No - Related Data Allergies/Adverse Reactions: No Known Allergies Allergy (Verified 12/29/16 23:09) Past Medical History - Social History Smoking Status: Current Every Day Smoker Frequency of alcohol use: None Drug Abuse: None Family History: Reviewed & Not Pertinent Patient has suicidal ideation: No Patient has homicidal ideation: No - Past Medical History Cardiac Medical History: Reports: Hx Atrial Fibrillation, Hx Congestive Heart Failure - Systolic, Hx Coronary Artery Disease, Hx Heart Attack, Hx Hypercholesterolemia, Hx Hypertension Denies: Hx DVT, Hx Peripheral Vascular Disease, Hx Pulmonary Embolism, Hx Heart Murmur Pulmonary Medical History: Reports: Hx COPD, Hx Pneumonia, Hx Sleep Apnea - Uncertain settings for the CPAP. No home oxygen. Denies: Hx Asthma, Hx Bronchitis, Hx Respiratory Failure, Hx Tuberculosis Neurological Medical History: Denies: Hx Cerebrovascular Accident, Hx Seizures Endocrine Medical History: Denies: Hx Diabetes Mellitus Type 1, Hx Diabetes Mellitus Type 2, Hx Graves' Disease, Hx Hyperthyroidism, Hx Hypothyroidism Renal/ Medical History: Denies: Hx Benign Prostatic Hyperplasia, Hx End Stage Renal Disease, Hx Kidney Stones, Hx Peritoneal Dialysis Malignancy Medical History: Denies Hx Leukemia, Denies Hx Lung Cancer GI Medical History: Denies: Hx Cirrhosis, Hx Crohn's Disease, Hx Gastroesophageal Reflux Disease, Hx Hepatitis, Hx Hiatal Hernia, Hx Irritable Bowel, Hx Liver Failure, Hx Pancreatitis, Hx Ulcer Musculoskeltal Medical History: Reports Hx Arthritis, Denies Hx Fibromyalgia, Denies Hx Multiple Sclerosis, Denies Hx Muscular Dystrophy Psychiatric Medical History: Reports: Hx Depression - Mild Denies: Hx Bipolar Disorder, Hx Dementia, Hx Post Traumatic Stress Disorder, Hx Schizophrenia Traumatic Medical History: Denies: Hx Fractures Infectious Medical History: Denies: Hx Hepatitis, Hx HIV Past Surgical History: Reports: Hx Abdominal Surgery - aaa stent, Hx Cardiac Catheterization, Hx Cardiac Surgery - AICD, Hx Cholecystectomy, Hx Coronary Artery Bypass Graft - Three-vessel, Hx Internal Defibrillator, Hx Pacemaker - Pacemaker defibrillator. Denies: Hx Appendectomy, Hx Bowel Surgery, Hx Colostomy, Hx Gastric Bypass Surgery, Hx Herniorrhaphy, Hx Tonsillectomy - Immunizations Immunizations up to date: Yes Hx Diphtheria, Pertussis, Tetanus Vaccination: Yes Hx Pneumococcal Vaccination: 03/05/11 Review of Systems - Review of Systems Notes: My Normal Review Basic REVIEW OF SYSTEMS: CONSTITUTIONAL : Denies fever, chills, or sweats. Denies recent illness. EENT: Denies eye, ear, throat, or mouth pain or symptoms. Denies nasal or sinus congestion. CARDIOVASCULAR: Denies chest pain. RESPIRATORY: Wheezing and difficulty breathing. GASTROINTESTINAL: Denies abdominal pain. Denies nausea, vomiting, or diarrhea. Denies constipation. Last BM: MUSCULOSKELETAL: Denies neck or back pain or joint pain or swelling. SKIN: Denies rash or skin lesions. NEUROLOGICAL: Denies altered mental status or loss of consciousness. Denies headache. Denies weakness or paralysis or loss of use of either side. Denies problems with gait or speech. Denies sensory or motor loss. ALL OTHER SYSTEMS REVIEWED AND NEGATIVE. Physical Exam - Vital signs Vitals: Resp Pulse Ox 19 92 04/23/17 01:01 18 01:01 - Notes Notes: General Appearance: Well nourished, alert, cooperative, moderate acute distress , no obvious discomfort. Vitals: reviewed, See vital signs table. Head: no swelling or tenderness to the head Eyes: PERRL, EOMI, Conjuctiva clear Mouth: No decreasd moisture Neck: Supple, no neck tenderness Lungs: Diffuse wheezing, No rales, No rhonci, mild to moderate accessory muscle use, fair air exchange bilaterally. Heart: Normal rate, Regular rythm, No murmur, no rub Abdomen: Normal BS, soft, No rigidity, No abdominal tenderness, No guarding, no rebound, no abdominal masses, no organomegaly Extremities: strength 5/5 in all extremities, good pulses in all extremities, no swelling or tenderness in the extremities, no edema. Skin: warm, dry, appropriate color, no rash Neuro: speech clear, oriented x 3, normal affect, responds appropriately to questions. Course - Re-evaluation Re-evalutation: 04/23/17 03:02 She looks and feels much improved. With the BiPAP he is feeling better. His lung zhang still have some wheezing but are improved comparison when he first arrives. His work of breathing is much improved. He seems very relaxed. With the BiPAP at 45% his oxygen saturation was 91-92%. I have increase it to 50% and his oxygen saturation is now holding steady around 94%. Due to him still requiring significant supplemental oxygen I think is appropriate to admit him for at least observation. I have attempted to contact the hospitalist but he is unable to answer his phone at this time. We will try to call him again later. 04/23/17 03:31 I did speak with the hospitalist, Krzysztof Linda, he agrees to accept the patient for admission. Dictation of this chart was performed using voice recognition software; therefore, there may be some unintended grammatical errors. - Vital Signs Vital signs: Temp Pulse Resp BP Pulse Ox 98.0 F 88 20 122/57 L 92 04/23/17 02:45 04/23/17 02:45 04/23/17 02:41 04/23/17 02:41 04/23/17 02:41 - Laboratory Result Diagrams: 04/23/17 01:05 04/23/17 01:05 Laboratory results interpreted by me: 04/23/17 01:05 RDW 14.6 H Lymphocytes % 12.6 L - EKG Interpretation by Me Additional EKG results interpreted by me: 04/23/17 02:31 EKG is reviewed and interpreted by me. EKG shows sinus rhythm with a rate of [address] segment depression in lateral precordial leads which is chronic in comparison to his old EKG from January 01, 2017. Occasional PVC. There are interval, QRS duration are within normal range. QTc interval slightly prolonged. 04/23/17 02:31 Discharge - Discharge Clinical Impression: COPD exacerbation Condition: Stable Disposition: ADMITTED OBSERVATION Admitting Provider: Hospitalist Unit Admitted: Telemetry
[2017-04-23 03:17] LABS: VENOUS BLOOD BASE EXCESS 1.3 mmol/L; VENOUS BLOOD HCO3 25.9 mmol/L (20-32); VENOUS BLOOD PCO2 41.3 mmHg (35-63); VENOUS BLOOD PH 7.42 (7.30-7.42)
[2017-04-23] MEDS ORDERED: ACETAMINOPHEN 325 MG TABLET PO PRN (03:34)
[2017-04-23] MEDS ORDERED: MAG HYDROX/AL HYDROX/SIMETH SUSP 30 ML UDCUP PO PRN (03:34)
[2017-04-23] MEDS ORDERED: IPRATROPIUM/ALBUTEROL 0.5-2.5 MG/3 ML AMPUL NEB PRN (03:34)
[2017-04-23] MEDS ORDERED: FUROSEMIDE 40 MG TABLET PO ONE (03:45)
[2017-04-23 03:59] LABS: ANION GAP 11 (5-19); BLOOD UREA NITROGEN 10 mg/dL (7-20); CALCIUM 9.4 mg/dL (8.4-10.2); CARBON DIOXIDE 26 mmol/L (22-30); CHLORIDE 101 mmol/L (98-107); GLUCOSE 140 mg/dL (75-110); POTASSIUM 3.8 mmol/L (3.6-5.0); SODIUM 138.4 mmol/L (137-145)
[2017-04-23 04:11] LABS: CREATINE KINASE MB 1.59 ng/mL (<4.55)
[2017-04-23 04:15] LABS: TROPONIN I 0.034 ng/mL
[2017-04-23 05:18] LABS: HEMATOCRIT 48.5 % (37.9-51.0); HEMOGLOBIN 16.4 g/dL (13.5-17.0); MEAN CORPUSCULAR HEMOGLOBIN 31.5 pg (27.0-33.4); MEAN CORPUSCULAR HGB CONC 33.8 g/dL (32.0-36.0); MEAN CORPUSCULAR VOLUME 93 fl (80-97); PLATELET COUNT 205 10^3/uL (150-450); RED CELL DISTRIBUTION WIDTH 14.4 % (11.5-14.0); WHITE BLOOD COUNT 8.7 10^3/uL (4.0-10.5)
[2017-04-23] MEDS: LANSOPRAZOLE 30 MG TAB.RAP.DR PO SCH ×2 (05:31→17:34)
[2017-04-23] MEDS: HEPARIN SOD (PORCINE) 5,000 UNIT/ML 1 ML SYRINGE SUBCUT SCH ×3 (05:31→22:10)
[2017-04-23 05:42] LABS: ABSOLUTE LYMPHOCYTES# (MANUAL) 0.1 10^3/uL (0.5-4.7); ABSOLUTE MONOCYTES # (MANUAL) 0.2 10^3/uL (0.1-1.4); ABSOLUTE NEUTROPHILS# (MANUAL) 8.4 10^3/uL (1.7-8.2); BAND NEUTROPHILS % (MANUAL) 3 % (3-5); BASOPHILS % (MANUAL) 0 % (0-2); EOSINOPHILS % (MANUAL) 0 % (0-6); LYMPHOCYTES % (MANUAL) 1 % (13-45); MONOCYTES % (MANUAL) 2 % (3-13); SEGMENTED NEUTROPHILS % (MAN) 94 % (42-78); TOTAL CELLS COUNTED 100
[2017-04-23 05:44] LABS: ANISOCYTOSIS SLIGHT; OVALOCYTES SLIGHT; PLATELET COMMENT ADEQUATE; POIKILOCYTOSIS SLIGHT; TEAR DROP CELLS SLIGHT
[2017-04-23] MEDS ORDERED: BUDESONIDE/FORMOTEROL 160-4.5 MCG 60 PUFF/6 GM MDI IH SCH ×2 (06:00→08:00)
--- NOTE | 2017-04-23 07:38 | PDOC H&P ---
History of Present Illness Admission Date/PCP: 04/23/17 03:34 DENIS ROWLAND MD Patient complains of: Shortness of breath nonproductive cough History of Present Illness: EARNEST CASTELLANO is a 81 year old male with past medical history of atrial fibrillation, diastolic heart failure, permanent pacemaker, obstructive sleep apnea, prostate cancer, COPD and ongoing tobacco dependence. Patient presents with 72 hours of nonproductive cough and shortness of breath in the emergency room is found to be hypoxic with pulse oximetry of 88% and referred to the hospitalist for admission. Patient denies recent antibiotic use Past Medical History Cardiac Medical History: Reports: Atrial Fibrillation, Congestive Heart Failure - Systolic, Coronary Artery Disease, Myocardial Infarction, Hyperlipidema, Hypertension Denies: DVT, Peripheral Vascular Disease, Pulmonary Embolism, Heart Murmur Pulmonary Medical History: Reports: Chronic Obstructive Pulmonary Disease (COPD) , Pneumonia, Sleep Apnea - Uncertain settings for the CPAP. No home oxygen. Denies: Asthma, Bronchitis, Respiratory Failure, Tuberculosis Neurological Medical History: Denies: Seizures Endocrine Medical History: Denies: Diabetes Mellitus Type 1, Diabetes Mellitus Type 2, Hyperthyroidism, Hypothyroidism Renal/ Medical History: Denies: End Stage Renal Disease Malignancy Medical History: Denies: Breast Cancer, Cervical Cancer, Leukemia, Lung Cancer, Ovarian Cancer GI Medical History: Denies: Cirrhosis, Crohn's Disease, Gastroesophageal Reflux Disease, Hepatitis, Hiatal Hernia Musculoskeltal Medical History: Reports: Arthritis Denies: Fibromyalgia Psychiatric Medical History: Reports: Depression - Mild, Tobacco Dependency Denies: Bipolar Disorder, Dementia, Post Traumatic Stress Disorder Hematology: Denies: Anemia, Hemophilia, Sickle Cell Disease Infectious Medical History: Denies: HIV Past Surgical History Past Surgical History: Reports: Cardiac Catheterization, Cholecystectomy, Coronary Artery Bypass Graft - Three-vessel, Internal Defibrillator, Pacemaker - Pacemaker defibrillator Denies: Appendectomy, Colostomy, Gastric Bypass Surgery, Herniorrhaphy, Tonsillectomy Social History Information Source: Patient, Relative Smoking Status: Current Every Day Smoker Frequency of Alcohol Use: None Hx Recreational Drug Use: No Drugs: None Hx Prescription Drug Abuse: No - Advance Directive Resuscitation Status: Full Code Family History Family History: COPD Parental Family History Reviewed: Yes Children Family History Reviewed: Yes Sibling(s) Family History Reviewed.: Yes Medication/Allergy Home Medications: Aspirin [Ecotrin 81 mg EC Tablet] 81 mg PO DAILY 08/13/16 Budesonide/Formoterol Fumarate [Symbicort HFA 160-4.5 mcg Inhaler 6 gm] 2 puff IH BID 08/13/16 Calcium/Mag Oxide/Vitamin D3 [Coral Calcium Capsule] 1 tab PO DAILY 08/13/16 Dabigatran Etexilate Mesylate [Pradaxa] 150 mg PO Q12 08/13/16 Digoxin [Lanoxin 0.125 mg Tablet] 0.125 mg PO DAILY 08/13/16 Dofetilide [Tikosyn] 250 mg PO Q12 08/13/16 Montelukast Sodium [Singulair 10 mg Tablet] 10 mg PO DAILY 08/13/16 Multivit-Min/FA/Lycopen/Lutein [Centrum Silver Men Tablet] 1 tab PO DAILY Simvastatin [Zocor 20 mg Tablet] 20 mg PO QPM 08/13/16 Sacubitril/Valsartan [Entresto 97 mg-103 mg Tablet] 1 tab PO BID 12/29/16 Fluticasone Propionate [Flonase Nasal [place] 50 Mcg/[place] 16 gm] 2 spray NASL DAILY 12/30/16 Metoprolol Succinate [Toprol Xl 25 mg Tab.sr] 50 mg PO DAILY 12/30/16 Doxycycline Hyclate [Vibramycin 100 mg Tablet] 100 mg PO Q12 #14 tablet Furosemide [Lasix 40 mg Tablet] 40 mg PO BID #60 tablet 01/02/17 Prednisone [Deltasone 20 mg Tablet] 40 mg PO BID #30 tablet 01/02/17 Allergies/Adverse Reactions: No Known Allergies Allergy (Verified 12/29/16 23:09) Review of Systems Constitutional: ABSENT: chills, fever(s), headache(s), weight gain, weight loss Eyes: ABSENT: visual disturbances Ears: ABSENT: hearing changes Cardiovascular: ABSENT: chest pain, dyspnea on exertion, edema, orthropnea, palpitations Respiratory: ABSENT: cough, hemoptysis Gastrointestinal: ABSENT: abdominal pain, constipation, diarrhea, hematemesis, hematochezia, nausea, vomiting Genitourinary: ABSENT: dysuria, hematuria Musculoskeletal: ABSENT: joint swelling Integumentary: ABSENT: rash, wounds Neurological: ABSENT: abnormal gait, abnormal speech, confusion, dizziness, focal weakness, syncope Psychiatric: ABSENT: anxiety, depression, homidical ideation, suicidal ideation Endocrine: ABSENT: cold intolerance, heat intolerance, polydipsia, polyuria Hematologic/Lymphatic: ABSENT: easy bleeding, easy bruising Physical Exam Vital Signs: Temp Pulse Resp BP Pulse Ox 98.0 F 88 27 H 106/55 L 94 04/23/17 02:45 04/23/17 02:45 04/23/17 07:01 04/23/17 07:01 04/23/17 07:01 General appearance: PRESENT: cooperative, mild distress Head exam: PRESENT: atraumatic, normocephalic Eye exam: PRESENT: conjunctiva pink, EOMI, PERRLA. ABSENT: scleral icterus Ear exam: PRESENT: normal external ear exam Mouth exam: PRESENT: moist, tongue midline Neck exam: ABSENT: carotid bruit, JVD, lymphadenopathy, thyromegaly Respiratory exam: PRESENT: accessory muscle use, crackles, decreased breath sounds, prolonged expiratory phas, symmetrical, tachypnea. ABSENT: rhonchi, wheezes Cardiovascular exam: PRESENT: RRR. ABSENT: diastolic murmur, rubs, systolic murmur Pulses: PRESENT: normal dorsalis pedis pul Vascular exam: PRESENT: normal capillary refill GI/Abdominal exam: PRESENT: normal bowel sounds, soft. ABSENT: distended, guarding, mass, organolmegaly, rebound, tenderness Rectal exam: PRESENT: deferred Extremities exam: PRESENT: full ROM. ABSENT: calf tenderness, clubbing, pedal edema Neurological exam: PRESENT: alert, awake, oriented to person, oriented to place , oriented to time, oriented to situation, CN II-XII grossly intact. ABSENT: motor sensory deficit Psychiatric exam: PRESENT: appropriate affect, normal mood. ABSENT: homicidal ideation, suicidal ideation Skin exam: PRESENT: dry, intact, warm. ABSENT: cyanosis, rash Results Laboratory Results: 04/23/17 04:55 04/23/17 04:55 WBC 8.7 RBC 5.20 Hgb 16.4 Hct 48.5 MCV 93 MCH 31.5 MCHC 33.8 RDW 14.4 H Plt Count 205 Seg Neutrophils % Not Reportable Lymphocytes % Not Reportable Monocytes % Not Reportable Eosinophils % Not Reportable Basophils % Not Reportable Absolute Neutrophils Not Reportable Absolute Lymphocytes Not Reportable Absolute Monocytes Not Reportable Absolute Eosinophils Not Reportable Absolute Basophils Not Reportable Impressions: Chest X-Ray 04/23/17 01:03 IMPRESSION: Moderate interstitial markings. Interval improvement. 2010 [employer]- All Rights Reserved Assessment & Plan - Diagnosis (1) COPD exacerbation Is this a current diagnosis for this admission?: Yes Plan: Secondary to acute bronchitis, albuterol and Atrovent, tobacco cessation, flutter valve and supplemental oxygen. (2) Acute bronchitis Is this a current diagnosis for this admission?: Yes Plan: Empiric antibiotics, flutter valve and incentive spirometry (3) HECTOR (obstructive sleep apnea) Is this a current diagnosis for this admission?: Yes Plan: BiPAP (4) Tobacco dependency Is this a current diagnosis for this admission?: Yes Plan: Tobacco Dependence patient received tobacco cessation counseling and offered nicotine replacement options - Time Time Spent: 30 to 50 Minutes
[2017-04-23] MEDS ORDERED: SACUBITRIL/VALSARTAN 97 MG/103 MG TABLET PO SCH ×2 (10:00)
[2017-04-23] MEDS ORDERED: DOFETILIDE 250 MG PO SCH (10:00)
[2017-04-23] MEDS ORDERED: PREDNISONE 20 MG TABLET PO SCH (10:00)
[2017-04-23] MEDS: DIGOXIN 0.125 MG TABLET PO SCH (10:01)
[2017-04-23] MEDS: DOCUSATE SODIUM 100 MG CAPSULE PO SCH ×2 (10:02→17:42)
[2017-04-23] MEDS: MONTELUKAST SODIUM 10 MG TABLET PO SCH (10:02)
[2017-04-23] MEDS: ASPIRIN 81 MG TABLET, ENT COATED PO SCH (10:03)
[2017-04-23] MEDS: FUROSEMIDE 40 MG TABLET PO SCH ×2 (10:03→17:34)
[2017-04-23] MEDS: METOPROLOL SUCCINATE 25 MG TAB.SR.24H PO SCH (10:04)
[2017-04-23 10:11] LABS: CREATINE KINASE MB 1.45 ng/mL (<4.55); TROPONIN I 0.023 ng/mL
[2017-04-23] MEDS: DABIGATRAN ETEXILATE 150 MG CAPSULE PO SCH ×2 (10:27→22:10)
[2017-04-23] MEDS: DOFETILIDE 125 MCG CAPSULE PO SCH ×2 (10:28→22:10)
[2017-04-23] MEDS: FLUTICASONE NASAL SPRAY 50 MCG/SPRY 120 SPRAY/16 GM NASL SCH (10:29)
[2017-04-23] MEDS: BUDESONIDE/FORMOTEROL 160-4.5 MCG 60 PUFF/6 GM MDI IH SCH ×2 (10:29→22:10)
--- NOTE | 2017-04-23 10:34 | EKG REPORT ---
SEVERITY:- ABNORMAL ECG - SINUS RHYTHM VENTRICULAR PREMATURE COMPLEX LOW VOLTAGE IN FRONTAL LEADS CONSIDER ANTEROSEPTAL INFARCT BORDERLINE PROLONGED QT INTERVAL : Confirmed by: Major Encarnacion 23-Apr-2017 10:33:33
[2017-04-23] MEDS ORDERED: SACUBITRIL/VALSARTAN 97 MG/103 MG TABLET PO ONE (12:00)
[2017-04-23 15:59] LABS: CREATINE KINASE MB 1.66 ng/mL (<4.55); TROPONIN I 0.019 ng/mL
--- NOTE | 2017-04-23 16:31 | PDOC PROGRESS REPORT ---
Subjective Progress Note for:: 04/23/17 Reason For Visit: COPD EXACERBATION HECTOR AFIB CAD DCHF The patient is an 81-year-old male with past medical history of Atrial fibrillation Diastolic CHF Permanent pacemaker Obstructive sleep apnea Prostate cancer COPD Ongoing tobacco use He presented to the hospital with 4 day history of shortness of breath and nonproductive cough and was found to be hypoxic with sats in the 80s in the emergency room. Patient was diagnosed with acute bronchitis and COPD exacerbation and started on duo nebs, steroids antibiotics flutter valve incentive spirometry. Physical Exam Vital Signs: Temp Pulse Resp BP Pulse Ox 98.0 F 88 26 H 105/71 96 04/23/17 02:45 04/23/17 02:45 04/23/17 07:21 04/23/17 07:21 04/23/17 07:21 Intake & Output 04/22/17 04/23/17 04/24/17 06:59 06:59 06:59 Output Total 200 Balance -200 General appearance: PRESENT: no acute distress Eye exam: PRESENT: EOMI Ear exam: PRESENT: normal external ear exam Mouth exam: PRESENT: moist Throat exam: ABSENT: post pharyngeal erythema Respiratory exam: PRESENT: accessory muscle use, rhonchi, symmetrical, wheezes Cardiovascular exam: PRESENT: RRR GI/Abdominal exam: PRESENT: normal bowel sounds, soft. ABSENT: tenderness Rectal exam: PRESENT: deferred Extremities exam: ABSENT: calf tenderness, pedal edema Neurological exam: PRESENT: alert, awake, oriented to person, oriented to time Results Laboratory Results: 04/23/17 04:55 04/23/17 04:55 WBC 8.7 RBC 5.20 Hgb 16.4 Hct 48.5 MCV 93 MCH 31.5 MCHC 33.8 RDW 14.4 H Plt Count 205 Seg Neutrophils % Not Reportable Lymphocytes % Not Reportable Monocytes % Not Reportable Eosinophils % Not Reportable Basophils % Not Reportable Absolute Neutrophils Not Reportable Absolute Lymphocytes Not Reportable Absolute Monocytes Not Reportable Absolute Eosinophils Not Reportable Absolute Basophils Not Reportable Impressions: Chest X-Ray 04/23/17 01:03 IMPRESSION: Moderate interstitial markings. Interval improvement. 2010 [employer]- All Rights Reserved Assessment & Plan - Diagnosis (1) Acute bronchitis Is this a current diagnosis for this admission?: Yes Plan: Continue antibiotics neb treatments steroids. (2) COPD exacerbation Is this a current diagnosis for this admission?: Yes Plan: As above (3) Acute respiratory failure with hypoxia Is this a current diagnosis for this admission?: Yes Plan: As above (4) Atrial fibrillation Qualifiers: Atrial fibrillation type: unspecified Qualified Code(s): I48.91 - Unspecified atrial fibrillation Is this a current diagnosis for this admission?: Yes Plan: On Tikosyn, digoxin, Pradaxa. (5) HLD (hyperlipidemia) Qualifiers: Hyperlipidemia type: unspecified Qualified Code(s): E78.5 - Hyperlipidemia , unspecified (6) HECTOR (obstructive sleep apnea) Is this a current diagnosis for this admission?: Yes (7) Tobacco dependency Is this a current diagnosis for this admission?: Yes (8) Diastolic CHF Qualifiers: Congestive heart failure chronicity: chronic Qualified Code(s): I50.32 - Chronic diastolic (congestive) heart failure Plan: Continue outpatient doses of metoprolol, Entresto, simvastatin, furosemide. - Time Time Spent with patient: 25-34 minutes - Plan Summary Plan Summary: Cont meds for Afib and hypertension Cont nebs. Add Doxycycline, change PO steroids to IV Solumedrol since he has extensive wheezing Cont O2 and nebs Smoking cessation was advised
[2017-04-23] MEDS: SIMVASTATIN 10 MG TABLET PO SCH (17:34)
[2017-04-23] MEDS: METHYLPREDNISOLONE INJ 125 MG/2 ML SDV IV SCH (17:57)
[2017-04-23] MEDS ORDERED: METOPROLOL TARTRATE PF/INJ 5 MG/5 ML SDV IV ONE (17:58)
[2017-04-23] MEDS ORDERED: METHYLPREDNISOLONE INJ 125 MG/2 ML SDV IV SCH (18:00)
[2017-04-23] MEDS ORDERED: DILTIAZEM HCL 60 MG TABLET ONE (19:50)
[2017-04-24] MEDS: LEVALBUTEROL HCL NEB 1.25 MG/3 ML AMPUL NEB SCH ×3 (00:25→16:00)
[2017-04-24] MEDS: DOXYCYCLINE HYCLATE 100 MG TABLET PO SCH ×3 (02:13→19:56)
[2017-04-24] MEDS: METHYLPREDNISOLONE INJ 125 MG/2 ML SDV IV SCH ×3 (02:13→17:55)
[2017-04-24] MEDS ORDERED: LEVALBUTEROL HCL NEB 1.25 MG/3 ML AMPUL NEB PRN (04:49)
[2017-04-24] MEDS ORDERED: IPRATROPIUM BROMIDE 0.02% NEB 0.5 MG/2.5 ML AMPUL NEB PRN (04:53)
[2017-04-24 05:58] LABS: HEMATOCRIT 47.5 % (37.9-51.0); MEAN CORPUSCULAR HEMOGLOBIN 31.4 pg (27.0-33.4); MEAN CORPUSCULAR HGB CONC 33.6 g/dL (32.0-36.0); MEAN CORPUSCULAR VOLUME 93 fl (80-97); PLATELET COUNT 181 10^3/uL (150-450); RED BLOOD COUNT 5.08 10^6/uL (4.35-5.55); RED CELL DISTRIBUTION WIDTH 14.5 % (11.5-14.0)
[2017-04-24] MEDS: LANSOPRAZOLE 30 MG TAB.RAP.DR PO SCH ×2 (05:59→17:56)
[2017-04-24] MEDS: HEPARIN SOD (PORCINE) 5,000 UNIT/ML 1 ML SYRINGE SUBCUT SCH (05:59)
[2017-04-24 06:06] LABS: ANION GAP 14 (5-19); BLOOD UREA NITROGEN 29 mg/dL (7-20); CALCIUM 9.4 mg/dL (8.4-10.2); CARBON DIOXIDE 22 mmol/L (22-30); CHLORIDE 97 mmol/L (98-107); GLUCOSE 171 mg/dL (75-110); POTASSIUM 4.3 mmol/L (3.6-5.0)
[2017-04-24 06:20] LABS: ABSOLUTE LYMPHOCYTES# (MANUAL) 1.1 10^3/uL (0.5-4.7); ABSOLUTE MONOCYTES # (MANUAL) 0.2 10^3/uL (0.1-1.4); ABSOLUTE NEUTROPHILS# (MANUAL) 17.7 10^3/uL (1.7-8.2); BASOPHILS % (MANUAL) 0 % (0-2); EOSINOPHILS % (MANUAL) 0 % (0-6); LYMPHOCYTES % (MANUAL) 6 % (13-45); MONOCYTES % (MANUAL) 1 % (3-13); SEGMENTED NEUTROPHILS % (MAN) 93 % (42-78); TOTAL CELLS COUNTED 100
[2017-04-24 06:22] LABS: ANISOCYTOSIS SLIGHT; PLATELET COMMENT ADEQUATE; TOXIC VACUOLATION PRESENT
[2017-04-24] MEDS: DABIGATRAN ETEXILATE 150 MG CAPSULE PO SCH ×2 (10:35→22:01)
[2017-04-24] MEDS: MONTELUKAST SODIUM 10 MG TABLET PO SCH (10:35)
[2017-04-24] MEDS: ASPIRIN 81 MG TABLET, ENT COATED PO SCH (10:35)
[2017-04-24] MEDS: METOPROLOL SUCCINATE 25 MG TAB.SR.24H PO SCH (10:35)
[2017-04-24] MEDS: FUROSEMIDE 40 MG TABLET PO SCH ×2 (10:35→17:56)
[2017-04-24] MEDS: DOFETILIDE 125 MCG CAPSULE PO SCH ×2 (10:36→22:00)
[2017-04-24] MEDS: BUDESONIDE/FORMOTEROL 160-4.5 MCG 60 PUFF/6 GM MDI IH SCH ×2 (10:36→21:59)
[2017-04-24] MEDS: DIGOXIN 0.125 MG TABLET PO SCH (10:36)
[2017-04-24] MEDS: DOCUSATE SODIUM 100 MG CAPSULE PO SCH ×2 (10:36→17:56)
[2017-04-24] MEDS: FLUTICASONE NASAL SPRAY 50 MCG/SPRY 120 SPRAY/16 GM NASL SCH (10:43)
[2017-04-24] MEDS ORDERED: LACTOBACILLUS ACIDOPHILUS 250 MG TAB PO ONE (12:30)
[2017-04-24] MEDS ORDERED: GUAIFENESIN 600 MG TABLET.SA PO ONE (12:30)
[2017-04-24] MEDS: SIMVASTATIN 10 MG TABLET PO SCH (17:55)
[2017-04-24] MEDS: LACTOBACILLUS ACIDOPHILUS 250 MG TAB PO SCH (17:56)
--- NOTE | 2017-04-24 18:01 | PDOC PROGRESS REPORT ---
Subjective Progress Note for:: 04/24/17 Reason For Visit: COPD EXACERBATION HECTOR AFIB CAD DCHF The patient is an 81-year-old male with past medical history of Atrial fibrillation Diastolic CHF Permanent pacemaker Obstructive sleep apnea Prostate cancer COPD Ongoing tobacco use He presented to the hospital with 4 day history of shortness of breath and nonproductive cough and was found to be hypoxic with sats in the 80s in the emergency room and was diagnosed with acute bronchitis and COPD exacerbation and started on duo nebs, steroids antibiotics flutter valve incentive spirometry. He continues to be short of breath and require BiPAP Physical Exam Vital Signs: Temp Pulse Resp BP Pulse Ox 97.7 F 74 20 115/59 L 96 04/24/17 15:14 04/24/17 16:00 04/24/17 16:00 04/24/17 15:14 04/24/17 16:00 Intake & Output 04/23/17 04/24/17 04/25/17 06:59 06:59 06:59 Intake Total 250 Output Total 675 Balance -425 Weight 80.2 kg 80.2 kg Additional comments: Elderly gentleman sitting up in bed not in acute distress BiPAP is in place Pupils equal reactive to light no icterus no conjunctival discharge normal external ears and nose Lungs: Extensive wheezing bilaterally positive use of accessory muscles Cardiac: S1-S2 regular, no peripheral edema no cyanosis no calf tenderness Abdomen: Soft, no focal tenderness normal bowel sounds Skin: Warm and dry Results Laboratory Results: 04/24/17 05:11 04/24/17 05:11 04/23/17 04/24/17 04/24/17 14:47 05:11 05:11 WBC 19.0 H D RBC 5.08 Hgb 16.0 Hct 47.5 MCV 93 MCH 31.4 MCHC 33.6 RDW 14.5 H Plt Count 181 Seg Neutrophils % Not Reportable Lymphocytes % Not Reportable Monocytes % Not Reportable Eosinophils % Not Reportable Basophils % Not Reportable Absolute Neutrophils Not Reportable Absolute Lymphocytes Not Reportable Absolute Monocytes Not Reportable Absolute Eosinophils Not Reportable Absolute Basophils Not Reportable Sodium 133.0 L Potassium 4.3 Chloride 97 L Carbon Dioxide 22 Anion Gap 14 BUN 29 H Creatinine 1.54 H Est GFR ( Amer) 53 L Est GFR (Non-Af Amer) 44 L Glucose 171 H Calcium 9.4 Magnesium 2.2 04/23/17 04/23/17 04/23/17 09:13 09:13 14:47 Creatine Kinase 61 60 CK-MB (CK-2) 1.45 Troponin I 0.023 04/23/17 14:47 Creatine Kinase CK-MB (CK-2) 1.66 Troponin I 0.019 Impressions: Chest X-Ray 04/23/17 01:03 IMPRESSION: Moderate interstitial markings. Interval improvement. 2010 [employer]- All Rights Reserved Assessment & Plan - Diagnosis (1) Acute bronchitis Is this a current diagnosis for this admission?: Yes (2) COPD exacerbation Is this a current diagnosis for this admission?: Yes (3) Acute respiratory failure with hypoxia Is this a current diagnosis for this admission?: Yes (4) Atrial fibrillation Qualifiers: Atrial fibrillation type: unspecified Qualified Code(s): I48.91 - Unspecified atrial fibrillation Is this a current diagnosis for this admission?: Yes (5) HLD (hyperlipidemia) Qualifiers: Hyperlipidemia type: unspecified Qualified Code(s): E78.5 - Hyperlipidemia , unspecified (6) HECTOR (obstructive sleep apnea) Is this a current diagnosis for this admission?: Yes (7) Tobacco dependency Is this a current diagnosis for this admission?: Yes (8) Diastolic CHF Qualifiers: Congestive heart failure chronicity: chronic Qualified Code(s): I50.32 - Chronic diastolic (congestive) heart failure - Plan Summary Plan Summary: Cont meds for Afib and hypertension Cont nebs. Continue Doxycycline, IV Solumedrol, nebs and BiPAP support.
[2017-04-24] MEDS: GUAIFENESIN 600 MG TABLET.SA PO SCH (22:00)
[2017-04-25] MEDS: LEVALBUTEROL HCL NEB 1.25 MG/3 ML AMPUL NEB SCH ×4 (00:22→23:55)
[2017-04-25] MEDS: METHYLPREDNISOLONE INJ 125 MG/2 ML SDV IV SCH ×3 (01:21→17:26)
[2017-04-25] MEDS: DOXYCYCLINE HYCLATE 100 MG TABLET PO SCH ×2 (05:07→17:25)
[2017-04-25] MEDS: LANSOPRAZOLE 30 MG TAB.RAP.DR PO SCH ×2 (05:07→17:25)
[2017-04-25] MEDS ORDERED: METOPROLOL TARTRATE 25 MG TABLET PO ONE (10:15)
[2017-04-25] MEDS: FLUTICASONE NASAL SPRAY 50 MCG/SPRY 120 SPRAY/16 GM NASL SCH (11:36)
[2017-04-25] MEDS: BUDESONIDE/FORMOTEROL 160-4.5 MCG 60 PUFF/6 GM MDI IH SCH ×2 (11:36→21:37)
[2017-04-25] MEDS: DOCUSATE SODIUM 100 MG CAPSULE PO SCH ×2 (11:37→17:25)
[2017-04-25] MEDS: DOFETILIDE 125 MCG CAPSULE PO SCH ×2 (11:37→21:37)
[2017-04-25] MEDS: DIGOXIN 0.125 MG TABLET PO SCH (11:38)
[2017-04-25] MEDS: GUAIFENESIN 600 MG TABLET.SA PO SCH ×2 (11:39→21:37)
[2017-04-25] MEDS: ASPIRIN 81 MG TABLET, ENT COATED PO SCH (11:39)
[2017-04-25] MEDS: LACTOBACILLUS ACIDOPHILUS 250 MG TAB PO SCH ×2 (11:40→17:25)
[2017-04-25] MEDS: DABIGATRAN ETEXILATE 150 MG CAPSULE PO SCH ×2 (11:40→21:37)
[2017-04-25] MEDS: MONTELUKAST SODIUM 10 MG TABLET PO SCH (11:40)
[2017-04-25] MEDS: METOPROLOL SUCCINATE 25 MG TAB.SR.24H PO SCH (11:59)
[2017-04-25] MEDS: FUROSEMIDE 40 MG TABLET PO SCH (12:01)
[2017-04-25 12:45] LABS: ANION GAP 15 (5-19); BLOOD UREA NITROGEN 45 mg/dL (7-20); CALCIUM 10.1 mg/dL (8.4-10.2); CARBON DIOXIDE 21 mmol/L (22-30); CHLORIDE 99 mmol/L (98-107); GLUCOSE 140 mg/dL (75-110); MAGNESIUM 2.3 mg/dL (1.6-2.3); PHOSPHORUS 4.5 mg/dL (2.5-4.5); POTASSIUM 4.3 mmol/L (3.6-5.0); SODIUM 134.8 mmol/L (137-145)
--- NOTE | 2017-04-25 12:49 | RADIOLOGY REPORT (SQ) ---
EXAM DESCRIPTION: CHEST SINGLE VIEW COMPLETED DATE/TIME: 04/25/2017 12:05 pm REASON FOR STUDY: Hypoxia COMPARISON: Chest films 04/23/2017, 01/01/2017, 12/29/2016 CT angio chest 12/30/2016 EXAM PARAMETERS: NUMBER OF VIEWS: One view. TECHNIQUE: Single frontal radiographic view of the chest acquired. RADIATION DOSE: NA LIMITATIONS: None. FINDINGS: LUNGS AND PLEURA: Lungs are hyperinflated and hyperlucent from obstructive disease. In the right mid and lower lung there are Tracey lines with mild pulmonary vascular prominence. Ques tion mild pulmonary edema superimposed on obstructive disease. Pneumonia could not be excluded. No pleural effusions. No pneumothorax MEDIASTINUM AND HILAR STRUCTURES: No masses. Contour normal. HEART AND VASCULAR STRUCTURES: No cardiomegaly. Old sternotomy and CABG BONES: No acute findings. HARDWARE: Aortic stent graft below the hemidiaphragms. Left-sided pacemaker/defibrillator OTHER: No other significant finding. IMPRESSION: Obstructive lung disease Few Tracey lines at the right lung base, question fluid overload or congestive failure superimposed o n obstructive lung disease TECHNICAL DOCUMENTATION: JOB ID: [id number]- All Rights Reserved
[2017-04-25] MEDS ORDERED: FUROSEMIDE INJ/PF 20 MG/2 ML SDV IV ONE (14:46)
--- NOTE | 2017-04-25 14:53 | PDOC PROGRESS REPORT ---
Subjective Progress Note for:: 04/25/17 Subjective:: The patient is an 81-year-old male with past medical history of Atrial fibrillation Diastolic CHF Permanent pacemaker Obstructive sleep apnea Prostate cancer COPD Ongoing tobacco use He presented to the hospital with 4 day history of shortness of breath and nonproductive cough and was found to be hypoxic with sats in the 80s in the emergency room and was diagnosed with acute bronchitis and COPD exacerbation and started on duo nebs, steroids antibiotics flutter valve incentive spirometry. Echocardiogram done in July 2016 showed a left ventricular ejection fraction of 35% with mild to moderate diastolic dysfunction, apical wall akinesis with moderate global hypokinesis of the left ventricle. Significant valvular abnormalities noted. He feels somewhat better today. He is off BiPAP. He uses CPAP at night. He is satting in the low 90s on 6 L but does become tachycardic and dyspneic when he gets up and moves. Reason For Visit: ACUTE HYPOXIC RESPIRATORY FAILURE DUE TO COPD Physical Exam Vital Signs: Temp Pulse Resp BP Pulse Ox 97.4 F 99 18 92/69 L 96 04/25/17 12:48 04/25/17 12:48 04/25/17 12:48 04/25/17 12:48 04/25/17 12:48 Intake & Output 04/24/17 04/25/17 04/26/17 06:59 06:59 06:59 Intake Total 250 636 Output Total 675 500 Balance -425 136 Weight 80.2 kg 79.9 kg Additional comments: Elderly gentleman sitting up in bed not in acute distress Pupils equal reactive to light no icterus no conjunctival discharge normal external ears and nose Lungs: positive use of accessory muscles, decreased air movement, wheezing and rhonchi present Cardiac: S1-S2 regular, no peripheral edema no cyanosis no calf tenderness Abdomen: Soft, no focal tenderness normal bowel sounds Skin: Warm and dry Results Laboratory Results: 04/24/17 05:11 04/25/17 12:15 04/25/17 12:15 Sodium 134.8 L Potassium 4.3 Chloride 99 Carbon Dioxide 21 L Anion Gap 15 BUN 45 H Creatinine 1.38 H Est GFR ( Amer) > 60 Est GFR (Non-Af Amer) 50 L Glucose 140 H Calcium 10.1 Phosphorus 4.5 Magnesium 2.3 04/23/17 04/23/17 04/23/17 09:13 09:13 14:47 Creatine Kinase 61 60 CK-MB (CK-2) 1.45 Troponin I 0.023 NT-Pro-B Natriuret Pep 04/23/17 04/25/17 14:47 12:15 Creatine Kinase CK-MB (CK-2) 1.66 Troponin I 0.019 NT-Pro-B Natriuret Pep 4440 H Impressions: Chest X-Ray 04/25/17 00:00 IMPRESSION: Obstructive lung disease Few Tracey lines at the right lung base, question fluid overload or congestive failure superimposed on obstructive lung disease Assessment & Plan - Diagnosis (1) Acute bronchitis Is this a current diagnosis for this admission?: Yes Plan: Continue antibiotics neb treatments steroids. (2) COPD exacerbation Is this a current diagnosis for this admission?: Yes (3) Acute respiratory failure with hypoxia Is this a current diagnosis for this admission?: Yes (4) Atrial fibrillation Qualifiers: Atrial fibrillation type: unspecified Qualified Code(s): I48.91 - Unspecified atrial fibrillation Is this a current diagnosis for this admission?: Yes (5) HLD (hyperlipidemia) Qualifiers: Hyperlipidemia type: unspecified Qualified Code(s): E78.5 - Hyperlipidemia , unspecified (6) HECTOR (obstructive sleep apnea) Is this a current diagnosis for this admission?: Yes (7) Tobacco dependency Is this a current diagnosis for this admission?: Yes (8) Systolic CHF, chronic Is this a current diagnosis for this admission?: Yes - Time Time Spent with patient: 25-34 minutes - Plan Summary Plan Summary: Slowly improving. Cont meds for Afib and hypertension Cont nebs. Continue Doxycycline, IV Solumedrol, nebs and BiPAP support as needed.
[2017-04-25] MEDS: SIMVASTATIN 10 MG TABLET PO SCH (17:25)
[2017-04-25] MEDS: METOPROLOL TARTRATE 25 MG TABLET PO SCH (21:38)
[2017-04-26] MEDS: METHYLPREDNISOLONE INJ 125 MG/2 ML SDV IV SCH ×3 (02:11→17:41)
[2017-04-26] MEDS: LANSOPRAZOLE 30 MG TAB.RAP.DR PO SCH ×2 (05:03→17:42)
[2017-04-26] MEDS: DOXYCYCLINE HYCLATE 100 MG TABLET PO SCH ×2 (05:03→17:41)
[2017-04-26] MEDS: BUDESONIDE/FORMOTEROL 160-4.5 MCG 60 PUFF/6 GM MDI IH SCH ×2 (09:09→21:46)
[2017-04-26] MEDS: ASPIRIN 81 MG TABLET, ENT COATED PO SCH (09:10)
[2017-04-26] MEDS: FLUTICASONE NASAL SPRAY 50 MCG/SPRY 120 SPRAY/16 GM NASL SCH (09:10)
[2017-04-26] MEDS: LACTOBACILLUS ACIDOPHILUS 250 MG TAB PO SCH ×2 (09:11→17:41)
[2017-04-26] MEDS: DIGOXIN 0.125 MG TABLET PO SCH (09:11)
[2017-04-26] MEDS: GUAIFENESIN 600 MG TABLET.SA PO SCH ×2 (09:12→21:46)
[2017-04-26] MEDS: DABIGATRAN ETEXILATE 150 MG CAPSULE PO SCH ×2 (09:19→21:45)
[2017-04-26] MEDS: METOPROLOL TARTRATE 25 MG TABLET PO SCH ×2 (09:19→21:45)
[2017-04-26] MEDS: DOFETILIDE 125 MCG CAPSULE PO SCH ×2 (09:19→21:46)
[2017-04-26] MEDS: MONTELUKAST SODIUM 10 MG TABLET PO SCH (09:19)
[2017-04-26] MEDS: DOCUSATE SODIUM 100 MG CAPSULE PO SCH ×2 (09:21→17:43)
[2017-04-26] MEDS: LEVALBUTEROL HCL NEB 1.25 MG/3 ML AMPUL NEB SCH ×2 (09:39→15:47)
[2017-04-26 09:56] LABS: ANION GAP 13 (5-19); BLOOD UREA NITROGEN 45 mg/dL (7-20); CALCIUM 9.6 mg/dL (8.4-10.2); CARBON DIOXIDE 21 mmol/L (22-30); CHLORIDE 102 mmol/L (98-107); GLUCOSE 196 mg/dL (75-110); MAGNESIUM 2.1 mg/dL (1.6-2.3); POTASSIUM 4.1 mmol/L (3.6-5.0); SODIUM 135.7 mmol/L (137-145)
--- NOTE | 2017-04-26 15:01 | PDOC PROGRESS REPORT ---
Subjective Progress Note for:: 04/26/17 Subjective:: The patient is an 81-year-old male with past medical history of Atrial fibrillation Diastolic CHF Permanent pacemaker Obstructive sleep apnea Prostate cancer COPD Ongoing tobacco use He presented to the hospital with 4 day history of shortness of breath and nonproductive cough and was found to be hypoxic with sats in the 80s in the emergency room and was diagnosed with acute bronchitis and COPD exacerbation and started on duo nebs, steroids antibiotics flutter valve incentive spirometry. Echocardiogram done in July 2016 showed a left ventricular ejection fraction of 35% with mild to moderate diastolic dysfunction, apical wall akinesis with moderate global hypokinesis of the left ventricle. No significant valvular abnormalities noted. Feels much better today. Continues to require oxygen at 5 L. Reason For Visit: ACUTE HYPOXIC RESPIRATORY FAILURE DUE TO COPD Physical Exam Vital Signs: Temp Pulse Resp BP Pulse Ox 97.7 F 65 23 H 114/84 96 04/26/17 11:43 04/26/17 12:32 04/26/17 12:32 04/26/17 11:43 04/26/17 12:32 Intake & Output 04/25/17 04/26/17 04/27/17 06:59 06:59 06:59 Intake Total 1290 483 Output Total 1700 Balance -410 483 Weight 79.6 kg Additional comments: Elderly gentleman sitting up in bed not in acute distress Pupils equal reactive to light no icterus no conjunctival discharge normal external ears and nose Lungs: Coarse breath sounds bilaterally, positive wheezing, no use of accessory muscles of respiration. Cardiac: S1-S2 regular, no peripheral edema no cyanosis no calf tenderness Abdomen: Soft, no focal tenderness normal bowel sounds Skin: Warm and dry Results Laboratory Results: 04/26/17 09:31 04/26/17 09:31 Sodium 135.7 L Potassium 4.1 Chloride 102 Carbon Dioxide 21 L Anion Gap 13 BUN 45 H Creatinine 1.27 H Est GFR ( Amer) > 60 Est GFR (Non-Af Amer) 55 L Glucose 196 H Calcium 9.6 Magnesium 2.1 04/25/17 04/26/17 12:15 09:31 NT-Pro-B Natriuret Pep 4440 H 5270 H Impressions: Chest X-Ray 04/25/17 00:00 IMPRESSION: Obstructive lung disease Few Tracey lines at the right lung base, question fluid overload or congestive failure superimposed on obstructive lung disease Assessment & Plan - Diagnosis (1) Acute bronchitis Is this a current diagnosis for this admission?: Yes (2) COPD exacerbation Is this a current diagnosis for this admission?: Yes (3) Acute respiratory failure with hypoxia Is this a current diagnosis for this admission?: Yes (4) Atrial fibrillation Qualifiers: Atrial fibrillation type: unspecified Qualified Code(s): I48.91 - Unspecified atrial fibrillation Is this a current diagnosis for this admission?: Yes (5) HLD (hyperlipidemia) Qualifiers: Hyperlipidemia type: unspecified Qualified Code(s): E78.5 - Hyperlipidemia , unspecified (6) HECTOR (obstructive sleep apnea) Is this a current diagnosis for this admission?: Yes (7) Tobacco dependency Is this a current diagnosis for this admission?: Yes (8) Systolic CHF, chronic Is this a current diagnosis for this admission?: Yes - Time Time Spent with patient: 25-34 minutes - Plan Summary Plan Summary: He is slowly making improve meant. Feels better today. Cont meds for Afib and hypertension Cont nebs. Continue Doxycycline, IV Solumedrol, nebs and BiPAP support as needed.
[2017-04-26] MEDS: SIMVASTATIN 10 MG TABLET PO SCH (17:42)
[2017-04-27] MEDS: LEVALBUTEROL HCL NEB 1.25 MG/3 ML AMPUL NEB SCH ×3 (00:38→15:59)
[2017-04-27] MEDS: METHYLPREDNISOLONE INJ 125 MG/2 ML SDV IV SCH ×3 (01:36→17:35)
[2017-04-27] MEDS ORDERED: METOPROLOL TARTRATE 25 MG TABLET PO ONE (02:45)
[2017-04-27] MEDS: LANSOPRAZOLE 30 MG TAB.RAP.DR PO SCH ×2 (05:24→17:34)
[2017-04-27] MEDS: DOXYCYCLINE HYCLATE 100 MG TABLET PO SCH ×2 (05:25→17:34)
[2017-04-27] MEDS ORDERED: FUROSEMIDE 40 MG TABLET PO SCH (10:00)
[2017-04-27] MEDS: METOPROLOL TARTRATE 25 MG TABLET PO SCH ×2 (10:20→21:26)
[2017-04-27] MEDS: MONTELUKAST SODIUM 10 MG TABLET PO SCH (10:21)
[2017-04-27] MEDS: ASPIRIN 81 MG TABLET, ENT COATED PO SCH (10:21)
[2017-04-27] MEDS: DOCUSATE SODIUM 100 MG CAPSULE PO SCH ×2 (10:21→17:34)
[2017-04-27] MEDS: DIGOXIN 0.125 MG TABLET PO SCH (10:21)
[2017-04-27] MEDS: BUDESONIDE/FORMOTEROL 160-4.5 MCG 60 PUFF/6 GM MDI IH SCH ×2 (10:22→21:28)
[2017-04-27] MEDS: LACTOBACILLUS ACIDOPHILUS 250 MG TAB PO SCH ×2 (10:22→17:34)
[2017-04-27] MEDS: GUAIFENESIN 600 MG TABLET.SA PO SCH ×2 (10:22→21:27)
[2017-04-27] MEDS: FLUTICASONE NASAL SPRAY 50 MCG/SPRY 120 SPRAY/16 GM NASL SCH (10:23)
[2017-04-27] MEDS: DOFETILIDE 125 MCG CAPSULE PO SCH ×2 (10:23→21:28)
[2017-04-27] MEDS: DABIGATRAN ETEXILATE 150 MG CAPSULE PO SCH ×2 (10:23→21:27)
[2017-04-27] MEDS ORDERED: DILTIAZEM HCL INJ 25 MG/5 ML VIAL ONE (16:33)
[2017-04-27] MEDS: SIMVASTATIN 10 MG TABLET PO SCH (17:34)
--- NOTE | 2017-04-27 20:04 | PROGRESS NOTE E ---
Progress Note NAME: EARNEST CASTELLANO : 1935 AGE: 81Y DATE: 04/27/2017 ROOM: 314 SUBJECTIVE: The patient is an 81-year-old gentleman with a history of atrial fibrillation on Pradaxa for anticoagulation. He also has COPD and continues to smoke. He presented to the hospital with shortness of breath, was found to have COPD exacerbation, and was started on IV steroids, antibiotics, supplemental oxygen, and boydr-lts-dqnys neb treatments. He was initially on BiPAP but has been slowly weaned and is currently on nasal cannula. He has had frequent PVCs and this afternoon, went into AFIB with heart rate in the 140s. OBJECTIVE: VITAL SIGNS: Latest heart rate per nursing report was in the 140s, blood pressure 137/76. He was afebrile this morning and was satting in the mid 90s on 2 L by nasal cannula. LUNGS: He has faint wheezing bilaterally in all lung zhang. CARDIAC: S1, S2 was regular this morning with no murmurs heard. No peripheral edema. No cyanosis. No calf tenderness. ABDOMEN: Soft, no focal tenderness, normal bowel sounds. SKIN: Warm and dry. ASSESSMENT/PLAN: 1. Acute hypoxic respiratory failure due to COPD exacerbation. Continue supplemental oxygen, antibiotics, steroids, and [id number] neb treatments. 2. Atrial fibrillation with RVR. Continue Pradaxa. He is also digoxin and metoprolol at home, which we shall continue. He was given 1 dose of 10 mg IV Cardizem push with plans to start a Cardizem drip if his heart rate remains high. DICTATING PHYSICIAN: JANA ADDISON M.D. [id number] PHY#: [id number] ID: [id number] JOB#: [id number] ACCT: [id number] cc: >
[2017-04-27] MEDS ORDERED: DILTIAZEM HCL 60 MG TABLET ONE (20:54)
[2017-04-27] MEDS ORDERED: NORMAL SALINE 1000 ML 1,000 ML IV PRN (22:30)
[2017-04-28] MEDS: LEVALBUTEROL HCL NEB 1.25 MG/3 ML AMPUL NEB SCH ×4 (00:09→23:58)
[2017-04-28] MEDS: METHYLPREDNISOLONE INJ 125 MG/2 ML SDV IV SCH (01:24)
[2017-04-28] MEDS ORDERED: LORAZEPAM INJ 2 MG/1 ML VIAL ONE ×2 (02:03→03:30)
[2017-04-28] MEDS ORDERED: LORAZEPAM INJ 2 MG/1 ML VIAL IV ONE ×2 (02:15→04:45)
[2017-04-28] MEDS ORDERED: DILTIAZEM HCL 60 MG TABLET PO ONE (02:15)
[2017-04-28] MEDS ORDERED: HALOPERIDOL LACTATE INJ 5 MG/1 ML VIAL ONE (03:44)
[2017-04-28] MEDS ORDERED: HALOPERIDOL LACTATE INJ 5 MG/1 ML VIAL IM ONE (04:45)
[2017-04-28] MEDS: LANSOPRAZOLE 30 MG TAB.RAP.DR PO SCH ×2 (05:39→17:18)
[2017-04-28] MEDS: DOXYCYCLINE HYCLATE 100 MG TABLET PO SCH ×2 (05:39→17:20)
[2017-04-28 08:38] LABS: ANION GAP 9 (5-19); BLOOD UREA NITROGEN 47 mg/dL (7-20); CALCIUM 9.1 mg/dL (8.4-10.2); CARBON DIOXIDE 25 mmol/L (22-30); CHLORIDE 102 mmol/L (98-107); GLUCOSE 141 mg/dL (75-110); MAGNESIUM 2.1 mg/dL (1.6-2.3); PHOSPHORUS 5.2 mg/dL (2.5-4.5); POTASSIUM 4.4 mmol/L (3.6-5.0); SODIUM 135.7 mmol/L (137-145)
[2017-04-28] MEDS: DOFETILIDE 125 MCG CAPSULE PO SCH ×2 (10:31→22:33)
[2017-04-28] MEDS: MONTELUKAST SODIUM 10 MG TABLET PO SCH (10:31)
[2017-04-28] MEDS: BUDESONIDE/FORMOTEROL 160-4.5 MCG 60 PUFF/6 GM MDI IH SCH ×2 (10:31→22:33)
[2017-04-28] MEDS: ASPIRIN 81 MG TABLET, ENT COATED PO SCH (10:31)
[2017-04-28] MEDS: DABIGATRAN ETEXILATE 150 MG CAPSULE PO SCH ×2 (10:31→22:27)
[2017-04-28] MEDS: GUAIFENESIN 600 MG TABLET.SA PO SCH ×2 (10:31→22:34)
[2017-04-28] MEDS: LACTOBACILLUS ACIDOPHILUS 250 MG TAB PO SCH ×2 (10:31→17:17)
[2017-04-28] MEDS: DOCUSATE SODIUM 100 MG CAPSULE PO SCH ×2 (10:31→17:17)
[2017-04-28] MEDS: FLUTICASONE NASAL SPRAY 50 MCG/SPRY 120 SPRAY/16 GM NASL SCH (10:31)
[2017-04-28] MEDS: DIGOXIN 0.125 MG TABLET PO SCH (10:33)
[2017-04-28] MEDS: METOPROLOL TARTRATE 25 MG TABLET PO SCH (10:33)
[2017-04-28] MEDS ORDERED: DIGOXIN INJ 0.5 MG/2 ML AMPULE IV ONE (11:30)
[2017-04-28] MEDS ORDERED: ACETAMINOPHEN 325 MG TABLET PO PRN (11:30)
[2017-04-28] MEDS ORDERED: MAG HYDROX/AL HYDROX/SIMETH SUSP 30 ML UDCUP PO PRN (12:00)
[2017-04-28] MEDS: METOPROLOL TARTRATE PF/INJ 5 MG/5 ML SDV IV SCH ×3 (12:05→23:35)
[2017-04-28] MEDS: SIMVASTATIN 10 MG TABLET PO SCH (17:17)
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
[2017-04-29] MEDS: LANSOPRAZOLE 30 MG TAB.RAP.DR PO SCH ×2 (05:34→18:37)
[2017-04-29] MEDS: METOPROLOL TARTRATE PF/INJ 5 MG/5 ML SDV IV SCH ×4 (05:34→23:33)
[2017-04-29] MEDS: DOXYCYCLINE HYCLATE 100 MG TABLET PO SCH ×2 (05:37→18:37)
[2017-04-29] MEDS: LEVALBUTEROL HCL NEB 1.25 MG/3 ML AMPUL NEB SCH ×2 (08:17→16:18)
[2017-04-29] MEDS: PREDNISONE 20 MG TABLET PO SCH (11:12)
[2017-04-29] MEDS: ASPIRIN 81 MG TABLET, ENT COATED PO SCH (11:12)
[2017-04-29] MEDS: MONTELUKAST SODIUM 10 MG TABLET PO SCH (11:12)
[2017-04-29] MEDS: LACTOBACILLUS ACIDOPHILUS 250 MG TAB PO SCH ×2 (11:12→18:37)
[2017-04-29] MEDS: DOCUSATE SODIUM 100 MG CAPSULE PO SCH ×2 (11:13→18:37)
[2017-04-29] MEDS: GUAIFENESIN 600 MG TABLET.SA PO SCH ×2 (11:13→21:24)
[2017-04-29] MEDS: DOFETILIDE 125 MCG CAPSULE PO SCH ×2 (11:14→21:26)
[2017-04-29] MEDS: BUDESONIDE/FORMOTEROL 160-4.5 MCG 60 PUFF/6 GM MDI IH SCH ×2 (11:14→21:26)
[2017-04-29] MEDS: FLUTICASONE NASAL SPRAY 50 MCG/SPRY 120 SPRAY/16 GM NASL SCH (11:15)
[2017-04-29] MEDS: DABIGATRAN ETEXILATE 150 MG CAPSULE PO SCH ×2 (11:19→21:25)
[2017-04-29] MEDS: DIGOXIN 0.125 MG TABLET PO SCH (12:00)
[2017-04-29] MEDS: METOPROLOL TARTRATE 25 MG TABLET PO SCH ×2 (12:00→21:25)
[2017-04-29] MEDS ORDERED: METOPROLOL TARTRATE 50 MG TABLET PO ONE (16:30)
--- NOTE | 2017-04-29 17:24 | PDOC PROGRESS REPORT ---
Subjective Progress Note for:: 04/29/17 Subjective:: Pt was trying to go home today. Pt stated that he wanted to walk outside. Pt' s states he remembers the events of the Apr. Pt states that his breathing is much better. Reason For Visit: ACUTE HYPOXIC RESPIRATORY FAILURE DUE TO COPD Physical Exam Vital Signs: Temp Pulse Resp BP Pulse Ox 97.7 F 146 H 18 128/87 H 93 04/29/17 12:14 04/29/17 14:00 04/29/17 12:14 04/29/17 12:14 04/29/17 12:14 Intake & Output 04/28/17 04/29/17 04/30/17 06:59 06:59 06:59 Intake Total 600 280 300 Output Total 3000 Balance 600 -9910 300 Weight 81.6 kg 80.1 kg General appearance: PRESENT: no acute distress, well-developed, well-nourished Head exam: PRESENT: atraumatic, normocephalic Eye exam: PRESENT: conjunctiva pink, EOMI, PERRLA. ABSENT: scleral icterus Ear exam: PRESENT: normal external ear exam Mouth exam: PRESENT: moist, tongue midline Neck exam: ABSENT: carotid bruit, JVD, lymphadenopathy, thyromegaly Respiratory exam: PRESENT: other - + Coarse breath sound but improving. Cardiovascular exam: PRESENT: RRR. ABSENT: diastolic murmur, rubs, systolic murmur Pulses: PRESENT: normal dorsalis pedis pul Vascular exam: PRESENT: normal capillary refill GI/Abdominal exam: PRESENT: normal bowel sounds, soft. ABSENT: distended, guarding, mass, organolmegaly, rebound, tenderness Rectal exam: PRESENT: deferred Extremities exam: PRESENT: full ROM. ABSENT: calf tenderness, clubbing, pedal edema Neurological exam: PRESENT: alert, awake, oriented to person, oriented to place. ABSENT: motor sensory deficit Psychiatric exam: PRESENT: agitated. ABSENT: homicidal ideation, suicidal ideation Skin exam: PRESENT: dry, intact, warm. ABSENT: cyanosis, rash Results Laboratory Results: 04/28/17 07:59 04/25/17 04/26/17 12:15 09:31 NT-Pro-B Natriuret Pep 4440 H 5270 H Impressions: Chest X-Ray 04/25/17 00:00 IMPRESSION: Obstructive lung disease Few Tracey lines at the right lung base, question fluid overload or congestive failure superimposed on obstructive lung disease Assessment & Plan - Diagnosis (1) Acute bronchitis Is this a current diagnosis for this admission?: Yes Plan: Pt placed on Doxycycline 100 PO Q12. Xopenex Q8 and prednisone. (2) COPD exacerbation Is this a current diagnosis for this admission?: Yes Plan: Will continue current treatment. (3) Systolic CHF, chronic Is this a current diagnosis for this admission?: Yes Plan: Will continue to monitor. (4) Acute on chronic respiratory failure with hypoxemia Is this a current diagnosis for this admission?: Yes Plan: Resolved. Pt on room air. Will increase Metoprolol 50mg PO BID, Tikosyn 125mcg Q12, and Digoxin 0.125 mg PO daily. (5) Atrial fibrillation Qualifiers: Atrial fibrillation type: unspecified Qualified Code(s): I48.91 - Unspecified atrial fibrillation Is this a current diagnosis for this admission?: Yes Plan: Dabigatran, digoxin, tikosyn, and increase metoprolol. (6) HLD (hyperlipidemia) Qualifiers: Hyperlipidemia type: unspecified Qualified Code(s): E78.5 - Hyperlipidemia , unspecified Is this a current diagnosis for this admission?: Yes Plan: Simvastatin (7) HECTOR (obstructive sleep apnea) Is this a current diagnosis for this admission?: Yes Plan: BiPAP whenever sleeping. (8) Tobacco dependency Is this a current diagnosis for this admission?: Yes Plan: Encourage discontinuation of Tobacco. (9) Delirium Is this a current diagnosis for this admission?: Yes Plan: Secondary to Steroids: Will use Ativan PRN. - Time Time Spent with patient: 15-24 minutes Anticipated discharge: Home
[2017-04-29] MEDS: SIMVASTATIN 10 MG TABLET PO SCH (18:37)
[2017-04-29] MEDS: LORAZEPAM INJ 2 MG/1 ML VIAL IV PRN (18:38)
[2017-04-29] MEDS ORDERED: METOPROLOL TARTRATE 25 MG TABLET PO SCH (22:00)
[2017-04-29] MEDS ORDERED: HALOPERIDOL LACTATE INJ 5 MG/1 ML VIAL ONE (22:34)
[2017-04-30] MEDS: LEVALBUTEROL HCL NEB 1.25 MG/3 ML AMPUL NEB SCH ×3 (00:15→19:57)
[2017-04-30] MEDS ORDERED: PREDNISONE 20 MG TABLET PO ONE (00:38)
[2017-04-30] MEDS ORDERED: LEVALBUTEROL HCL NEB 1.25 MG/3 ML AMPUL NEB ONE (00:40)
[2017-04-30] MEDS ORDERED: HALOPERIDOL LACTATE INJ 5 MG/1 ML VIAL IV PRN (00:41)
[2017-04-30] MEDS ORDERED: LORAZEPAM INJ 2 MG/1 ML VIAL IV ONE (00:42)
[2017-04-30 00:56] LABS: ARTERIAL BLOOD BASE EXCESS -1.6 mmol/L; ARTERIAL BLOOD H2CO3 1.03 mmol/L (1.05-1.35); ARTERIAL BLOOD HCO3 21.9 mmol/L (20-26); ARTERIAL BLOOD O2 SATURATION 92.9 % (94-98); ARTERIAL BLOOD PCO2 34.3 mmHg (35-45); ARTERIAL BLOOD PH 7.42 (7.35-7.45); ARTERIAL BLOOD PO2 63.4 mmHg (80-100)
[2017-04-30 00:57] LABS: ARTERIAL BLOOD FIO2 ROOM AIR
[2017-04-30] MEDS: METOPROLOL TARTRATE PF/INJ 5 MG/5 ML SDV IV SCH (05:16)
[2017-04-30] MEDS: LANSOPRAZOLE 30 MG TAB.RAP.DR PO SCH ×2 (05:16→17:32)
[2017-04-30] MEDS: DOXYCYCLINE HYCLATE 100 MG TABLET PO SCH (05:16)
[2017-04-30 06:53] LABS: HEMATOCRIT 52.3 % (37.9-51.0); HEMOGLOBIN 17.4 g/dL (13.5-17.0); MEAN CORPUSCULAR HEMOGLOBIN 31.1 pg (27.0-33.4); MEAN CORPUSCULAR HGB CONC 33.2 g/dL (32.0-36.0); MEAN CORPUSCULAR VOLUME 94 fl (80-97); PLATELET COUNT 263 10^3/uL (150-450); RED BLOOD COUNT 5.58 10^6/uL (4.35-5.55); RED CELL DISTRIBUTION WIDTH 14.6 % (11.5-14.0); WHITE BLOOD COUNT 20.3 10^3/uL (4.0-10.5)
[2017-04-30 07:06] LABS: ALANINE AMINOTRANSFERASE 55 U/L (21-72); ALBUMIN 3.5 g/dL (3.5-5.0); ALKALINE PHOSPHATASE 66 U/L (38-126); ANION GAP 13 (5-19); ASPARTATE AMINO TRANSFERASE 40 U/L (17-59); BILIRUBIN,DIRECT 0.5 mg/dL (0.0-0.4); BLOOD UREA NITROGEN 41 mg/dL (7-20); CALCIUM 9.7 mg/dL (8.4-10.2); CARBON DIOXIDE 21 mmol/L (22-30); CHLORIDE 106 mmol/L (98-107); GLUCOSE 117 mg/dL (75-110); POTASSIUM 4.6 mmol/L (3.6-5.0); SODIUM 140.1 mmol/L (137-145)
[2017-04-30 08:08] LABS: ABSOLUTE LYMPHOCYTES# (MANUAL) 0.2 10^3/uL (0.5-4.7); ABSOLUTE MONOCYTES # (MANUAL) 0.8 10^3/uL (0.1-1.4); ABSOLUTE NEUTROPHILS# (MANUAL) 19.3 10^3/uL (1.7-8.2); BASOPHILS % (MANUAL) 0 % (0-2); EOSINOPHILS % (MANUAL) 0 % (0-6); LYMPHOCYTES % (MANUAL) 1 % (13-45); MONOCYTES % (MANUAL) 4 % (3-13); PLATELET COMMENT ADEQUATE; RBC MORPHOLOGY COMMENT NORMO-CYTIC/CHROMIC; SEGMENTED NEUTROPHILS % (MAN) 95 % (42-78); TOTAL CELLS COUNTED 100; TOXIC GRANULATION SLIGHT; TOXIC VACUOLATION PRESENT
[2017-04-30] MEDS: DOFETILIDE 125 MCG CAPSULE PO SCH ×2 (10:07→22:51)
[2017-04-30] MEDS: LACTOBACILLUS ACIDOPHILUS 250 MG TAB PO SCH ×2 (10:08→17:32)
[2017-04-30] MEDS: METOPROLOL TARTRATE 25 MG TABLET PO SCH ×2 (10:08→22:51)
[2017-04-30] MEDS: PREDNISONE 20 MG TABLET PO SCH (10:08)
[2017-04-30] MEDS: DIGOXIN 0.125 MG TABLET PO SCH (10:08)
[2017-04-30] MEDS: MONTELUKAST SODIUM 10 MG TABLET PO SCH (10:08)
[2017-04-30] MEDS: DOCUSATE SODIUM 100 MG CAPSULE PO SCH ×2 (10:08→17:32)
[2017-04-30] MEDS: GUAIFENESIN 600 MG TABLET.SA PO SCH ×2 (10:08→22:51)
[2017-04-30] MEDS: BUDESONIDE/FORMOTEROL 160-4.5 MCG 60 PUFF/6 GM MDI IH SCH ×2 (10:09→22:51)
[2017-04-30] MEDS: ASPIRIN 81 MG TABLET, ENT COATED PO SCH (10:09)
[2017-04-30] MEDS: FLUTICASONE NASAL SPRAY 50 MCG/SPRY 120 SPRAY/16 GM NASL SCH (10:09)
[2017-04-30] MEDS: LORAZEPAM INJ 2 MG/1 ML VIAL IV PRN (10:09)
[2017-04-30] MEDS: DABIGATRAN ETEXILATE 150 MG CAPSULE PO SCH ×2 (10:09→22:51)
[2017-04-30] MEDS ORDERED: LORAZEPAM INJ 2 MG/1 ML VIAL IV PRN (14:12)
--- NOTE | 2017-04-30 14:12 | PDOC PROGRESS REPORT ---
Subjective Progress Note for:: 04/30/17 Subjective:: Pt was agitated overnight and was given Haldol and ativan. Family this afternoon upset about pt receiving Haldol. Family states the patient does have issues with being confused at home. also reports that the last time the patient acted this way was doing a prior hospitalization. Reason For Visit: ACUTE HYPOXIC RESPIRATORY FAILURE DUE TO COPD Physical Exam Vital Signs: Temp Pulse Resp BP Pulse Ox 97.7 F 32 L 18 147/65 H 94 04/30/17 10:51 04/30/17 10:51 04/30/17 10:51 04/30/17 10:51 04/30/17 10:51 Intake & Output 04/29/17 04/30/17 05/01/17 06:59 06:59 06:59 Intake Total 280 320 250 Output Total 3000 Balance -2720 320 250 Weight 80.1 kg 77.1 kg General appearance: PRESENT: no acute distress, other - sedated Head exam: PRESENT: atraumatic, normocephalic Eye exam: PRESENT: other - eyelids closed Ear exam: PRESENT: normal external ear exam Mouth exam: PRESENT: moist, tongue midline Neck exam: ABSENT: carotid bruit, JVD, lymphadenopathy, thyromegaly Respiratory exam: PRESENT: accessory muscle use, rhonchi, wheezes - scant wheezing. ABSENT: rales Cardiovascular exam: PRESENT: RRR. ABSENT: diastolic murmur, rubs, systolic murmur Pulses: PRESENT: normal dorsalis pedis pul Vascular exam: PRESENT: normal capillary refill GI/Abdominal exam: PRESENT: normal bowel sounds, soft. ABSENT: distended, guarding, mass, organolmegaly, rebound, tenderness Rectal exam: PRESENT: deferred Extremities exam: PRESENT: full ROM. ABSENT: calf tenderness, clubbing, pedal edema Neurological exam: PRESENT: alert, other - sedated. ABSENT: motor sensory deficit Psychiatric exam: PRESENT: appropriate affect, normal mood. ABSENT: homicidal ideation, suicidal ideation Skin exam: PRESENT: dry, intact, warm. ABSENT: cyanosis, rash Results Laboratory Results: 04/30/17 06:15 04/30/17 06:15 04/30/17 04/30/17 04/30/17 00:50 06:15 06:15 WBC 20.3 H RBC 5.58 H Hgb 17.4 H Hct 52.3 H MCV 94 MCH 31.1 MCHC 33.2 RDW 14.6 H Plt Count 263 Seg Neutrophils % Not Reportable Lymphocytes % Not Reportable Monocytes % Not Reportable Eosinophils % Not Reportable Basophils % Not Reportable Absolute Neutrophils Not Reportable Absolute Lymphocytes Not Reportable Absolute Monocytes Not Reportable Absolute Eosinophils Not Reportable Absolute Basophils Not Reportable Carbonic Acid 1.03 L HCO3/H2CO3 Ratio 21:1 ABG pH 7.42 ABG pCO2 34.3 L ABG pO2 63.4 L ABG HCO3 21.9 ABG O2 Saturation 92.9 L ABG Base Excess -1.6 FiO2 ROOM AIR Sodium 140.1 Potassium 4.6 Chloride 106 Carbon Dioxide 21 L Anion Gap 13 BUN 41 H Creatinine 1.31 H Est GFR ( Amer) > 60 Est GFR (Non-Af Amer) 53 L Glucose 117 H Calcium 9.7 Total Bilirubin 1.0 AST 40 ALT 55 Alkaline Phosphatase 66 Total Protein 6.0 L Albumin 3.5 04/25/17 04/26/17 12:15 09:31 NT-Pro-B Natriuret Pep 4440 H 5270 H Impressions: Chest X-Ray 04/25/17 00:00 IMPRESSION: Obstructive lung disease Few Tracey lines at the right lung base, question fluid overload or congestive failure superimposed on obstructive lung disease Assessment & Plan - Diagnosis (1) Acute bronchitis Is this a current diagnosis for this admission?: Yes Plan: Pt placed on Doxycycline 100 PO Q12. Xopenex Q6 and prednisone. (2) COPD exacerbation Is this a current diagnosis for this admission?: Yes Plan: Will change Xopenex to every 6 hours and continue prednisone at 40 mg daily (3) Systolic CHF, chronic Is this a current diagnosis for this admission?: Yes Plan: Will continue to monitor. (4) Acute on chronic respiratory failure with hypoxemia Is this a current diagnosis for this admission?: Yes Plan: Resolved. We will continue metoprolol 50mg PO BID, Tikosyn 125mcg Q12, and Digoxin 0.125 mg PO daily. (5) Atrial fibrillation Qualifiers: Atrial fibrillation type: unspecified Qualified Code(s): I48.91 - Unspecified atrial fibrillation Is this a current diagnosis for this admission?: Yes Plan: Dabigatran, digoxin, tikosyn, and metoprolol. Heart rate under better control with adjustment of metoprolol. (6) HLD (hyperlipidemia) Qualifiers: Hyperlipidemia type: unspecified Qualified Code(s): E78.5 - Hyperlipidemia , unspecified Is this a current diagnosis for this admission?: Yes Plan: Simvastatin (7) HECTOR (obstructive sleep apnea) Is this a current diagnosis for this admission?: Yes Plan: BiPAP whenever sleeping. (8) Tobacco dependency Is this a current diagnosis for this admission?: Yes Plan: Encourage discontinuation of Tobacco. Will write for nicotine patch (9) Delirium Is this a current diagnosis for this admission?: Yes Plan: Secondary to Steroids and suspected mild cognitive impairment: Will use Ativan PRN. Will increase Ativan to 2 mg as needed for agitation. Will try to avoid using Haldol - Time Time Spent with patient: 15-24 minutes Anticipated discharge: Home
[2017-04-30] MEDS: SIMVASTATIN 10 MG TABLET PO SCH (17:32)
[2017-04-30] MEDS: NICOTINE 21 MG/24 HR PATCH.TD24 TD SCH (17:32)
[2017-05-01] MEDS: LEVALBUTEROL HCL NEB 1.25 MG/3 ML AMPUL NEB SCH ×3 (01:58→13:57)
[2017-05-01 06:34] LABS: ABSOLUTE LYMPHOCYTES (AUTO) 1.5 10^3/uL (0.5-4.7); ABSOLUTE MONOCYTES (AUTO) 0.9 10^3/uL (0.1-1.4); ABSOLUTE NEUT (AUTO) 11.3 10^3/uL (1.7-8.2); BASOPHILS % (AUTO) 0.1 % (0-2); EOSINOPHILS % (AUTO) 0.1 % (0-6); HEMOGLOBIN 15.8 g/dL (13.5-17.0); LYMPHOCYTES % (AUTO) 10.8 % (13-45); MEAN CORPUSCULAR HEMOGLOBIN 30.7 pg (27.0-33.4); MEAN CORPUSCULAR VOLUME 93 fl (80-97); MONOCYTES % (AUTO) 6.3 % (3-13); PLATELET COUNT 221 10^3/uL (150-450); RED BLOOD COUNT 5.16 10^6/uL (4.35-5.55); RED CELL DISTRIBUTION WIDTH 14.7 % (11.5-14.0); SEGMENTED NEUTROPHILS % (AUTO) 82.7 % (42-78); TOTAL CELLS COUNTED % (AUTO) 100 %; WHITE BLOOD COUNT 13.7 10^3/uL (4.0-10.5)
[2017-05-01] MEDS: LANSOPRAZOLE 30 MG TAB.RAP.DR PO SCH ×2 (06:44→17:44)
[2017-05-01 06:54] LABS: ALANINE AMINOTRANSFERASE 46 U/L (21-72); ALKALINE PHOSPHATASE 49 U/L (38-126); ANION GAP 8 (5-19); ASPARTATE AMINO TRANSFERASE 29 U/L (17-59); BILIRUBIN,DIRECT 0.4 mg/dL (0.0-0.4); BILIRUBIN,TOTAL 0.7 mg/dL (0.2-1.3); BLOOD UREA NITROGEN 38 mg/dL (7-20); CALCIUM 9.1 mg/dL (8.4-10.2); CARBON DIOXIDE 26 mmol/L (22-30); CHLORIDE 105 mmol/L (98-107); GLUCOSE 92 mg/dL (75-110); MAGNESIUM 2.5 mg/dL (1.6-2.3); POTASSIUM 4.2 mmol/L (3.6-5.0); SODIUM 139.4 mmol/L (137-145); TOTAL PROTEIN 5.2 g/dL (6.3-8.2)
[2017-05-01] MEDS: BUDESONIDE/FORMOTEROL 160-4.5 MCG 60 PUFF/6 GM MDI IH SCH (09:10)
[2017-05-01] MEDS: PREDNISONE 20 MG TABLET PO SCH (09:10)
[2017-05-01] MEDS: FLUTICASONE NASAL SPRAY 50 MCG/SPRY 120 SPRAY/16 GM NASL SCH (09:10)
[2017-05-01] MEDS: ASPIRIN 81 MG TABLET, ENT COATED PO SCH (09:11)
[2017-05-01] MEDS: METOPROLOL TARTRATE 25 MG TABLET PO SCH (09:11)
[2017-05-01] MEDS: DIGOXIN 0.125 MG TABLET PO SCH (09:12)
[2017-05-01] MEDS: GUAIFENESIN 600 MG TABLET.SA PO SCH (09:12)
[2017-05-01] MEDS: LACTOBACILLUS ACIDOPHILUS 250 MG TAB PO SCH ×2 (09:12→17:44)
[2017-05-01] MEDS: DOCUSATE SODIUM 100 MG CAPSULE PO SCH ×2 (09:12→17:44)
[2017-05-01] MEDS: MONTELUKAST SODIUM 10 MG TABLET PO SCH (09:12)
[2017-05-01] MEDS: DOFETILIDE 125 MCG CAPSULE PO SCH (09:13)
[2017-05-01] MEDS: DABIGATRAN ETEXILATE 150 MG CAPSULE PO SCH (09:13)
--- NOTE | 2017-05-01 15:55 | PDOC DISCHARGE SUMMARY ---
General - Admit/Disc Date/PCP Admission Date/Primary Care Provider: 04/25/17 11:29 DENIS ROWLAND MD Discharge Date: 05/01/17 - Discharge Diagnosis (1) Acute bronchitis Is this a current diagnosis for this admission?: Yes Summary: Patient was on antibiotics here during hospitalization and completed treatment. (2) COPD exacerbation Is this a current diagnosis for this admission?: Yes Summary: Patient was placed on steroids breathing treatments and antibiotics. Patient's breathing has improved. Patient will go home with nebulizer machine and steroids. Patient completed antibiotic treatment here in hospital. (3) Systolic CHF, chronic Is this a current diagnosis for this admission?: Yes Summary: Supportive care (4) Acute on chronic respiratory failure with hypoxemia Is this a current diagnosis for this admission?: Yes Summary: Secondary to COPD exacerbation: Patient was placed on steroids breathing treatment and antibiotics. Patient currently doing much better. Patient will go home with home oxygen. (5) Atrial fibrillation Is this a current diagnosis for this admission?: Yes Summary: Patient placed on Tikosyn, dig and metoprolol. Heart rate has been under good control (6) HLD (hyperlipidemia) Is this a current diagnosis for this admission?: Yes Summary: Continue statin (7) HECTOR (obstructive sleep apnea) Is this a current diagnosis for this admission?: Yes Summary: CPAP (8) Tobacco dependency Is this a current diagnosis for this admission?: Yes Summary: Encourage discontinuation of tobacco use (9) Delirium Is this a current diagnosis for this admission?: Yes Summary: In setting of mild cognitive impairment: Supportive care - Additional Information Resuscitation Status: Full Code Home Medications: Dabigatran Etexilate Mesylate [Pradaxa 150 mg Capsule] 150 mg PO BID 04/23/17 Furosemide [Lasix 40 mg Tablet] 40 mg PO DAILY 04/23/17 Ipratropium/Albuterol Sulfate [Duoneb 3 ml Ampul] 1 vial NEB Q12 04/23/17 Lisinopril [Prinivil 5 mg Tablet] 5 mg PO DAILY 04/23/17 Metoprolol Succinate [Toprol Xl 50 mg Tab.sr] 50 mg PO Q12 04/23/17 Montelukast Sodium [Singulair 10 mg Tablet] 10 mg PO DAILY 04/23/17 Simvastatin [Zocor 40 mg Tablet] 40 mg PO QHS 04/23/17 Aspirin [Ecotrin 81 mg EC Tablet] 81 mg PO DAILY tabec 05/01/17 Budesonide/Formoterol Fumarate [Symbicort HFA 160-4.5 mcg Inhaler 6 gm] 2 puff IH Q12 inhaler 05/01/17 Dabigatran Etexilate Mesylate [Pradaxa 150 mg Capsule] 150 mg PO Q12 #0 capsule 05/01/17 Digoxin [Lanoxin 0.125 mg Tablet] 0.125 mg PO DAILY #30 tablet 05/01/17 Dofetilide [Tikosyn 125 Mcg Capsule] 250 mcg PO Q12 #60 capsule 05/01/17 Fluticasone Propionate [Flonase Nasal [place] 50 Mcg/[place] 16 gm] 2 spray NASL DAILY #1 spray.pump 05/01/17 Levalbuterol HCl [Xopenex Neb 1.25 mg/3 ml Ampul] 1.25 mg NEB RTQ6 #100 vial.neb 05/01/17 Metoprolol Tartrate [Lopressor 25 mg Tablet] 50 mg PO Q12 tablet 05/01/17 Montelukast Sodium [Singulair 10 mg Tablet] 10 mg PO DAILY tablet 05/01/17 Nicotine [Nicoderm 21 mg/24 Hr Transderm Patch] 1 each TD DAILY@1800 patch.td24 05/01/17 Prednisone 40 mg PO DAILY #8 tablet 05/01/17 History of Present Illness Patient complains of: Shortness of breath History of Present Illness: EARNEST CASTELLANO is a 81 year old male resented with complaint of shortness of breath. Patient was found to be hypoxic at time of admission and admitted to the hospital for COPD exacerbation Hospital Course Hospital Course: She is a 81-year-old gentleman was admitted to the hospital due to COPD exacerbation. Patient was placed on steroids breathing treatments and antibiotics. Patient did develop delirium during hospital stay but had improved at time of discharge. Patient did develop A. fib with RVR and therefore patient's home medications had been adjusted. Patient was started on Tikosyn and digoxin. Patient's heart rate has been under good control. Physical Exam Vital Signs: Temp Pulse Resp BP Pulse Ox 97.8 F 66 16 130/80 H 98 05/01/17 12:00 05/01/17 14:00 05/01/17 13:58 05/01/17 12:00 05/01/17 13:58 Intake & Output 04/30/17 05/01/17 05/02/17 06:59 06:59 06:59 Intake Total 320 450 Output Total 400 Balance 320 50 Weight 77.1 kg 77.5 kg General appearance: PRESENT: no acute distress, well-developed, well-nourished Head exam: PRESENT: atraumatic, normocephalic Eye exam: PRESENT: conjunctiva pink, EOMI. ABSENT: scleral icterus Ear exam: PRESENT: normal external ear exam Mouth exam: PRESENT: moist, tongue midline Neck exam: ABSENT: carotid bruit, JVD, lymphadenopathy, thyromegaly Respiratory exam: PRESENT: accessory muscle use, wheezes - Scant wheezing Cardiovascular exam: PRESENT: RRR. ABSENT: diastolic murmur, rubs, systolic murmur Pulses: PRESENT: normal dorsalis pedis pul Vascular exam: PRESENT: normal capillary refill GI/Abdominal exam: PRESENT: normal bowel sounds, soft. ABSENT: distended, guarding, mass, organolmegaly, rebound, tenderness Rectal exam: PRESENT: deferred Extremities exam: PRESENT: full ROM. ABSENT: calf tenderness, clubbing, pedal edema Neurological exam: PRESENT: alert, awake, oriented to person, CN II-XII grossly intact. ABSENT: motor sensory deficit Psychiatric exam: PRESENT: appropriate affect, normal mood. ABSENT: homicidal ideation, suicidal ideation Skin exam: PRESENT: dry, intact, warm. ABSENT: cyanosis, rash Results Laboratory Results: 05/01/17 05:27 05/01/17 05:27 05/01/17 05/01/17 05:27 05:27 WBC 13.7 H RBC 5.16 Hgb 15.8 Hct 48.0 MCV 93 MCH 30.7 MCHC 33.0 RDW 14.7 H Plt Count 221 Seg Neutrophils % 82.7 H Lymphocytes % 10.8 L Monocytes % 6.3 Eosinophils % 0.1 Basophils % 0.1 Absolute Neutrophils 11.3 H Absolute Lymphocytes 1.5 Absolute Monocytes 0.9 Absolute Eosinophils 0.0 Absolute Basophils 0.0 Sodium 139.4 Potassium 4.2 Chloride 105 Carbon Dioxide 26 Anion Gap 8 BUN 38 H Creatinine 1.22 Est GFR ( Amer) > 60 Est GFR (Non-Af Amer) 57 L Glucose 92 Calcium 9.1 Magnesium 2.5 H Total Bilirubin 0.7 AST 29 ALT 46 Alkaline Phosphatase 49 Total Protein 5.2 L Albumin 3.0 L 04/25/17 04/26/17 12:15 09:31 NT-Pro-B Natriuret Pep 4440 H 5270 H Impressions: Chest X-Ray 04/25/17 00:00 IMPRESSION: Obstructive lung disease Few Tracey lines at the right lung base, question fluid overload or congestive failure superimposed on obstructive lung disease Plan Time Spent: Greater than 30 Minutes
[2017-05-01 15:56] VITALS: BP 128/75
[2017-05-01] MEDS: SIMVASTATIN 10 MG TABLET PO SCH (17:44)
[2017-05-01] MEDS: NICOTINE 21 MG/24 HR PATCH.TD24 TD SCH (17:44)
== END 2017-05-01 18:19 | disposition home health service (06) | DRG 189 ==
LOC: ER 00:46 → EH 03:34 → 3W 13:51 → OBSVTOIN 04-25 11:29
PROVIDERS: ADMIT Internal Medicine; ATTEND Internal Medicine
DX: J96.21 Acute and chronic respiratory failure with hypoxia (principal); J44.0 Chronic obstructive pulmonary disease with (acute) lower respiratory infection; J44.1 Chronic obstructive pulmonary disease with (acute) exacerbation; I50.22 Chronic systolic (congestive) heart failure; I11.0 Hypertensive heart disease with heart failure; J20.9 Acute bronchitis, unspecified; I48.91 Unspecified atrial fibrillation; R41.0 Disorientation, unspecified; T38.0X5A Adverse effect of glucocorticoids and synthetic analogues, initial encounter; Y92.239 Unspecified place in hospital as the place of occurrence of the external cause; I25.10 Atherosclerotic heart disease of native coronary artery without angina pectoris; E78.5 Hyperlipidemia, unspecified; G47.33 Obstructive sleep apnea (adult) (pediatric); M19.90 Unspecified osteoarthritis, unspecified site; F32.9 Major depressive disorder, single episode, unspecified; Z79.82 Long term (current) use of aspirin; Z79.899 Other long term (current) drug therapy; Z95.1 Presence of aortocoronary bypass graft; Z90.49 Acquired absence of other specified parts of digestive tract; Z95.810 Presence of automatic (implantable) cardiac defibrillator; F17.200 Nicotine dependence, unspecified, uncomplicated; Z85.46 Personal history of malignant neoplasm of prostate; Z78.1 Physical restraint status
CPT/HCPCS: 36415; 71045; 80048; 80053; 80162; 82550; 82553; 82803; 83735; 83880; 84100; 84484; 85025; 93005; 93010; 94640; 94660; 94667; 94668; 94799; 96365; 96366; 96372; 99285; G0378; J1160; J1630; J1644; J1940; J2060; J2930; J3475; J3490; J7030; J7512; J7620

== ENCOUNTER → 2017-05-29 | Outpatient (CLI) | payer MEDICARE, OTHER ==
[2017-05-29 13:00] LABS: APPEARANCE,URINE CLEAR; BILIRUBIN,URINE NEGATIVE (NEGATIVE); COLOR,URINE STRAW; GLUCOSE, URINE NEGATIVE (NEGATIVE); KETONES,URINE NEGATIVE (NEGATIVE); LEUKOCYTE ESTERASE,URINE NEGATIVE (NEGATIVE); NITRITE,URINE NEGATIVE (NEGATIVE); PROTEIN,URINE NEGATIVE (NEGATIVE); URINE SPECIFIC GRAVITY 1.002; UROBILINOGEN,URINE NEGATIVE mg/dL (<2.0)
[2017-05-29 13:37] LABS: ANION GAP 11 (5-19); BLOOD UREA NITROGEN 8 mg/dL (7-20); CALCIUM 10.2 mg/dL (8.4-10.2); CARBON DIOXIDE 29 mmol/L (22-30); CHLORIDE 97 mmol/L (98-107); GLUCOSE 115 mg/dL (75-110); POTASSIUM 4.7 mmol/L (3.6-5.0); SODIUM 137.2 mmol/L (137-145)
[2017-05-30 09:39] LABS: CREATININE URINE 18.2 mg/dL (Not Estab.); MICROALBUMIN URINE 6.2 ug/mL (Not Estab.)
== END ==
LOC: OD 11:57
PROVIDERS: ATTEND Internal Medicine Nephrology
DX: N18.2 Chronic kidney disease, stage 2 (mild) (principal); R80.9 Proteinuria, unspecified
CPT/HCPCS: 36415; 80048; 81001; 82043; 82570

== ENCOUNTER → 2017-11-26 | Outpatient (CLI) | payer MEDICARE, OTHER ==
[2017-11-26 11:10] LABS: APPEARANCE,URINE CLEAR; BILIRUBIN,URINE NEGATIVE (NEGATIVE); COLOR,URINE YELLOW; GLUCOSE, URINE NEGATIVE (NEGATIVE); KETONES,URINE NEGATIVE (NEGATIVE); LEUKOCYTE ESTERASE,URINE NEGATIVE (NEGATIVE); NITRITE,URINE NEGATIVE (NEGATIVE); PROTEIN,URINE NEGATIVE (NEGATIVE); URINE SPECIFIC GRAVITY 1.006; UROBILINOGEN,URINE NEGATIVE mg/dL (<2.0)
[2017-11-26 11:48] LABS: ANION GAP 15 (5-19); BLOOD UREA NITROGEN 12 mg/dL (7-20); CALCIUM 9.7 mg/dL (8.4-10.2); CARBON DIOXIDE 25 mmol/L (22-30); CHLORIDE 99 mmol/L (98-107); GLUCOSE 99 mg/dL (75-110); POTASSIUM 4.3 mmol/L (3.6-5.0); SODIUM 139.2 mmol/L (137-145)
[2017-11-27 14:41] LABS: CREATININE URINE 59.4 mg/dL (Not Estab.)
== END ==
LOC: OD 10:05
PROVIDERS: ATTEND Internal Medicine Nephrology
DX: N18.2 Chronic kidney disease, stage 2 (mild) (principal); R80.9 Proteinuria, unspecified
CPT/HCPCS: 36415; 80048; 81001; 82043; 82570

== ENCOUNTER 2018-05-13 08:25 | Inpatient (IN) | payer MEDICARE, OTHER ==
[2018-05-13] MEDS ORDERED: VALACYCLOVIR HCL 500 MG TABLET PO ONE (09:54)
--- NOTE | 2018-05-13 09:58 | ER Document Report ---
ED Medical Screen (RME) - General Chief Complaint: Rash Stated Complaint: RASH Time Seen by Provider: 05/13/18 09:30 Primary Care Provider: AMARA MOCK MD [Primary Care Provider] - Follow up as needed Mode of Arrival: Ambulatory Information source: Patient Notes: Patient is an 82-year-old male presenting to the emergency department with an initial chief complaint of rash. He states he has had a rash to the left side of his chest from the sternum wrapping around to his spine, states this rash has been present for approximately 2-3 days and is painful and itchy. Patient denies history of shingles and has not had the shingles vaccine. Upon my interview patient is notably short of breath. Patient reports he has a history of shortness of breath, CHF and COPD. He states that his shortness of breath has been worsening significantly over the last several days. He states he wears home oxygen at 2.5 L nasal cannula on an as-needed basis. He states he has been using his oxygen much more lately. His primary care provider is Dr. Reaves. Exam: Vesicular rash noted to left chest wall from the sternum extending around the left flank to the thoracic spine. Patient tachypneic with a respiratory rate of 24 and notable shortness of breath, lung sounds clear but diminished. Patient upgraded from [facility] for to [facility] 3H. Orders placed. I have greeted and performed a rapid initial assessment of this patient. A comprehensive ED assessment and evaluation of the patient, analysis of test results and completion of the medical decision making process will be conducted by additional ED providers. Dictation of this chart was performed using voice recognition software; therefore, there may be some unintended grammatical errors. TRAVEL OUTSIDE OF THE [place] IN LAST 30 DAYS: No - Related Data Allergies/Adverse Reactions: No Known Allergies Allergy (Verified 05/13/18 08:27) Past Medical History - Past Medical History Cardiac Medical History: Reports: Hx Atrial Fibrillation, Hx Congestive Heart Failure - Systolic, Hx Coronary Artery Disease, Hx Heart Attack - 1 stent. triple bypass surgery, Hx Hypercholesterolemia, Hx Hypertension Denies: Hx DVT, Hx Peripheral Vascular Disease, Hx Pulmonary Embolism, Hx Heart Murmur Pulmonary Medical History: Reports: Hx COPD, Hx Pneumonia, Hx Sleep Apnea - Uncertain settings for the CPAP. No home oxygen. Denies: Hx Asthma, Hx Bronchitis, Hx Respiratory Failure, Hx Tuberculosis Neurological Medical History: Denies: Hx Cerebrovascular Accident, Hx Seizures Endocrine Medical History: Denies: Hx Diabetes Mellitus Type 1, Hx Diabetes Mellitus Type 2, Hx Graves' Disease, Hx Hyperthyroidism, Hx Hypothyroidism Renal/ Medical History: Denies: Hx Benign Prostatic Hyperplasia, Hx End Stage Renal Disease, Hx Kidney Stones, Hx Peritoneal Dialysis Malignancy Medical History: Denies Hx Leukemia, Denies Hx Lung Cancer GI Medical History: Denies: Hx Cirrhosis, Hx Crohn's Disease, Hx Gastroesophageal Reflux Disease, Hx Hepatitis, Hx Hiatal Hernia, Hx Irritable Bowel, Hx Liver Failure, Hx Pancreatitis, Hx Ulcer Musculoskeltal Medical History: Denies Hx Arthritis, Denies Hx Fibromyalgia, Denies Hx Multiple Sclerosis, Denies Hx Muscular Dystrophy Psychiatric Medical History: Reports: Hx Depression - Mild Denies: Hx Bipolar Disorder, Hx Dementia, Hx Post Traumatic Stress Disorder, Hx Schizophrenia Traumatic Medical History: Denies: Hx Fractures Infectious Medical History: Denies: Hx Hepatitis, Hx HIV Past Surgical History: Reports: Hx Abdominal Surgery - aaa stent, Hx Cardiac Catheterization, Hx Cardiac Surgery - AICD, Hx Cholecystectomy, Hx Coronary Artery Bypass Graft - Three-vessel, Hx Internal Defibrillator, Hx Pacemaker - Pacemaker defibrillator. Denies: Hx Appendectomy, Hx Bowel Surgery, Hx Colostomy, Hx Gastric Bypass Surgery, Hx Herniorrhaphy, Hx Tonsillectomy - Immunizations Immunizations up to date: Yes Hx Diphtheria, Pertussis, Tetanus Vaccination: Yes History of Influenza Vaccine for 01/2017 - 06/2017 Season: Yes Influenza Administration Date for 01/2017 - 06/2017 Season: 01/19/17 Physical Exam - Vital signs Vitals: Temp Pulse Resp BP Pulse Ox 97.9 F 81 16 126/71 H 90 L 05/13/18 08:33 05/13/18 08:33 05/13/18 08:33 05/13/18 08:33 05/13/18 08:33 Course - Vital Signs Vital signs: Temp Pulse Resp BP Pulse Ox 97.9 F 81 16 126/71 H 90 L 05/13/18 08:33 05/13/18 08:33 05/13/18 08:33 05/13/18 08:33 05/13/18 08:33 Doctor's Discharge - Discharge Referrals: AMARA MOCK MD [Primary Care Provider] - Follow up as needed
[2018-05-13] MEDS ORDERED: METHYLPREDNISOLONE INJ 125 MG/2 ML SDV IV ONE (10:25)
[2018-05-13] MEDS ORDERED: IPRATROPIUM/ALBUTEROL 0.5-2.5 MG/3 ML AMPUL NEB ONE (10:25)
--- NOTE | 2018-05-13 10:38 | ER Document Report ---
Addendum entered and electronically signed by CHIQUIS PERERA PA-C 05/13/18 14:10: Course - Re-evaluation Re-evalutation: 05/13/18 14:10 Pt does have shingles T5 as well. - Vital Signs Vital signs: Temp Pulse Resp BP Pulse Ox 97.9 F 81 35 H 125/75 89 L 05/13/18 08:33 05/13/18 08:33 05/13/18 12:01 05/13/18 12:01 05/13/18 12:01 - Laboratory Result Diagrams: 05/13/18 11:36 05/13/18 12:57 Laboratory results interpreted by me: 05/13/18 05/13/18 05/13/18 11:01 11:36 12:57 WBC 12.3 H Hgb 17.4 H RDW 14.1 H Seg Neutrophils % 79.4 H Lymphocytes % 7.8 L Absolute Neutrophils 9.8 H Absolute Monocytes 1.5 H Sodium 129.9 L Chloride 96 L Est GFR (Non-Af Amer) 58 L Glucose 120 H NT-Pro-B Natriuret Pep 93603 H Discharge - Discharge Clinical Impression: Hypoxia Shingles Qualifiers: Herpes zoster complications: without complications Qualified Code(s): B02.9 - Z jessi without complications Condition: Stable Disposition: ADMITTED INPATIENT Referrals: AMARA MOCK MD [Primary Care Provider] - Follow up as needed Original Note: ED General - General Chief Complaint: Rash Stated Complaint: RASH Time Seen by Provider: 05/13/18 09:30 Primary Care Provider: AMARA MOCK MD [Primary Care Provider] - Follow up as needed Mode of Arrival: Ambulatory TRAVEL OUTSIDE OF THE [place] IN LAST 30 DAYS: No - HPI Notes: Patient is an 82-year-old male with a history of hypertension, COPD, CHF, HECTOR and on CPAP, coronary artery disease with 1 stent placement and triple bypass performed, A. fib and on Pradaxa who presents to the emergency department primarily for complaint of a rash to the left side of his chest that wraps claudette und to his left mid back. Patient states that the rash started over the last 2- 3 days. Patient states that he has pain associated and some of the lesions are vesicular with clear fluid. Patient does not recall if he had chickenpox as a child. Patient states that he has had chronic issues with shortness of breath since he had his PR 5-6 years ago. Patient states that she began having a cough over the last several days which is exacerbated his shortness of breath. Patient states that on occasion he will feel wheezy as well. He is continuing to use his inhalers and medicines as directed at home. Patient states that he does have dyspnea on exertion, but that is not uncommon for him. He does not have any other chest pain. Denies drug allergies. Patient does continue to smoke. Denies any headache, fever, neck pain, changes in vision/speech/mentation/hearing, sore throat, chest pain, palpitations, syncope, abdominal pain, nausea/vomiting/diarrhea, urinary retention, dysuria, hematuria, back pain. - Related Data Allergies/Adverse Reactions: No Known Allergies Allergy (Verified 05/13/18 08:27) Past Medical History - General Information source: Patient - Social History Smoking Status: Current Every Day Smoker Family History: COPD - Past Medical History Cardiac Medical History: Reports: Hx Atrial Fibrillation, Hx Congestive Heart Failure - Systolic, Hx Coronary Artery Disease, Hx Heart Attack - 1 stent. triple bypass surgery, Hx Hypercholesterolemia, Hx Hypertension Denies: Hx DVT, Hx Peripheral Vascular Disease, Hx Pulmonary Embolism, Hx Heart Murmur Pulmonary Medical History: Reports: Hx COPD, Hx Pneumonia, Hx Sleep Apnea - Unc ertain settings for the CPAP. No home oxygen. Denies: Hx Asthma, Hx Bronchitis, Hx Respiratory Failure, Hx Tuberculosis Neurological Medical History: Denies: Hx Cerebrovascular Accident, Hx Seizures Endocrine Medical History: Denies: Hx Diabetes Mellitus Type 1, Hx Diabetes Mellitus Type 2, Hx Graves' Disease, Hx Hyperthyroidism, Hx Hypothyroidism Renal/ Medical History: Denies: Hx Benign Prostatic Hyperplasia, Hx End Stage Renal Disease, Hx Kidney Stones, Hx Peritoneal Dialysis Malignancy Medical History: Denies Hx Leukemia, Denies Hx Lung Cancer GI Medical History: Denies: Hx Cirrhosis, Hx Crohn's Disease, Hx Gastroesophageal Reflux Disease, Hx Hepatitis, Hx Hiatal Hernia, Hx Irritable Bowel, Hx Liver Failure, Hx Pancreatitis, Hx Ulcer Musculoskeletal Medical History: Denies Hx Arthritis, Denies Hx Fibromyalgia, Denies Hx Multiple Sclerosis, Denies Hx Muscular Dystrophy Psychiatric Medical History: Reports: Hx Depression - Mild Denies: Hx Bipolar Disorder, Hx Dementia, Hx Post Traumatic Stress Disorder, Hx Schizophrenia Traumatic Medical History: Denies: Hx Fractures Infectious Medical History: Denies: Hx Hepatitis, Hx HIV Past Surgical History: Reports: Hx Abdominal Surgery - aaa stent, Hx Cardiac Catheterization, Hx Cardiac Surgery - AICD, Hx Cholecystectomy, Hx Coronary Artery Bypass Graft - Three-vessel, Hx Internal Defibrillator, Hx Pacemaker - Pacemaker defibrillator. Denies: Hx Appendectomy, Hx Bowel Surgery, Hx Colostomy, Hx Gastric Bypass Surgery, Hx Herniorrhaphy, Hx Tonsillectomy - Immunizations Immunizations up to date: Yes Hx Diphtheria, Pertussis, Tetanus Vaccination: Yes Hx Pneumococcal Vaccination: 03/05/11 Review of Systems - Review of Systems -: Yes All other systems reviewed and negative Physical Exam - Vital signs Vitals: Temp Pulse Resp BP Pulse Ox 97.9 F 81 16 126/71 H 90 L 05/13/18 08:33 05/13/18 08:33 05/13/18 08:33 05/13/18 08:33 05/13/18 08:33 - Notes Notes: PHYSICAL EXAMINATION: GENERAL: Well-appearing, well-nourished and in no acute distress. A&Ox4. Answers questions appropriately. HEAD: Atraumatic, normocephalic. EYES: Pupils equal round and reactive to light, extraocular movements intact, sclera anicteric, conjunctiva are normal. ENT: Nares patent and without discharge. oropharynx clear without exudates. No tonsilar hypertrophy or erythema. Moist mucous membranes. NECK: Normal range of motion, supple without lymphadenopathy LUNGS: Scant wheezing primarily on the Rt side. No retractions or pursed lip breathing. No distress. HEART: Regular rate and rhythm without murmurs, rubs, gallops. ABDOMEN: Soft, nontender, nondistended abdomen. No guarding, no rebound. No masses appreciated. Normal bowel sounds present. No CVA tenderness bilaterally. Musculoskeletal: FROM to passive/active. Strength 5+/5. Rey neg. No asymmetry to LE's. Extremities: No cyanosis, clubbing, or edema b/l. Peripheral pulses 2+. Capillary refill less than 3 seconds. NEUROLOGICAL: Normal speech, normal gait. PSYCH: Normal mood, normal affect. SKIN: erythemic vesicular unilateral rash in the T5 (approx) dermatome. + tenderness. No purulence, abscess, or streaks otherwise. Course - Re-evaluation Re-evalutation: 05/13/18 12:06 Reevaluation of patient shows that he is currently tachypneic at 30 with an oxygen saturation at 89-90% on 3 L via nasal cannula. On room air he was at 85% approximately when the nurse called me to reevaluate. Patient has already received breathing treatments, steroid, and magnesium. Patient states that he is feeling somewhat better overall. Most of his labs hemolyzed, but his CBC shows elevated white count, troponin within normal limits, and an elevated BNP from baseline. Bipap has been called. 05/13/18 14:04 Patient is an afebrile, well-hydrated, 82-year-old male who presents the emergency department with hypoxia most likely in the setting of COPD. Vitals ar e currently acceptable on BiPAP. Pulse ox has improved to greater than 95% and patient's tachypnea has improved. PE is otherwise unremarkable. Labs were reviewed with the hospitalist. Chest x-ray unremarkable. Patient does not appear to be fluid overloaded at this time so no Lasix was given. Hospitalist, Dr. Sparrow, accepted patient for admission. - Vital Signs Vital signs: Temp Pulse Resp BP Pulse Ox 97.9 F 81 35 H 125/75 89 L 05/13/18 08:33 05/13/18 08:33 05/13/18 12:01 05/13/18 12:01 05/13/18 12:01 - Laboratory Result Diagrams: 05/13/18 11:36 05/13/18 12:57 Laboratory results interpreted by me: 05/13/18 05/13/18 05/13/18 11:01 11:36 12:57 WBC 12.3 H Hgb 17.4 H RDW 14.1 H Seg Neutrophils % 79.4 H Lymphocytes % 7.8 L Absolute Neutrophils 9.8 H Absolute Monocytes 1.5 H Sodium 129.9 L Chloride 96 L Est GFR (Non-Af Amer) 58 L Glucose 120 H NT-Pro-B Natriuret Pep 40121 H Discharge - Discharge Clinical Impression: Hypoxia Condition: Stable Disposition: ADMITTED INPATIENT Admitting Provider: Hospitalist - Dr. Sparrow Unit Admitted: Telemetry Referrals: AMARA MOCK MD [Primary Care Provider] - Follow up as needed
[2018-05-13] MEDS ORDERED: MAGNESIUM SULFATE/D5W 1 GM/100 ML RTUPB IV PRN (10:41)
[2018-05-13] MEDS ORDERED: MAGNESIUM SULFATE/D5W 1 GM/100 ML RTUPB IV ONE (10:42)
[2018-05-13 11:20] LABS: VENOUS BLOOD BASE EXCESS 4.5 mmol/L; VENOUS BLOOD HCO3 31.1 mmol/L (20-32); VENOUS BLOOD PCO2 52.5 mmHg (35-63); VENOUS BLOOD PH 7.39 (7.30-7.42)
[2018-05-13 11:47] LABS: ABSOLUTE BASOPHILS # (AUTO) 0.1 10^3/uL (0.0-0.2); ABSOLUTE MONOCYTES (AUTO) 1.5 10^3/uL (0.1-1.4); ABSOLUTE NEUT (AUTO) 9.8 10^3/uL (1.7-8.2); BASOPHILS % (AUTO) 0.4 % (0-2); EOSINOPHILS % (AUTO) 0.2 % (0-6); HEMATOCRIT 49.8 % (37.9-51.0); HEMOGLOBIN 17.4 g/dL (13.5-17.0); LYMPHOCYTES % (AUTO) 7.8 % (13-45); MEAN CORPUSCULAR HEMOGLOBIN 32.8 pg (27.0-33.4); MEAN CORPUSCULAR VOLUME 94 fl (80-97); MONOCYTES % (AUTO) 12.2 % (3-13); PLATELET COUNT 187 10^3/uL (150-450); RED BLOOD COUNT 5.32 10^6/uL (4.35-5.55); RED CELL DISTRIBUTION WIDTH 14.1 % (11.5-14.0); SEGMENTED NEUTROPHILS % (AUTO) 79.4 % (42-78); TOTAL CELLS COUNTED % (AUTO) 100 %; WHITE BLOOD COUNT 12.3 10^3/uL (4.0-10.5)
[2018-05-13 11:53] LABS: TROPONIN I 0.061 ng/mL
--- NOTE | 2018-05-13 12:17 | RADIOLOGY REPORT (SQ) ---
EXAM DESCRIPTION: CHEST SINGLE VIEW COMPLETED DATE/TIME: 05/13/2018 11:48 am REASON FOR STUDY: shortness of breath COMPARISON: CT chest 12/30/2016 chest films 04/25/2017, 04/23/2017, 08/13/2016 EXAM PARAMETERS: NUMBER OF VIEWS: One view. TECHNIQUE: Single frontal radiographic view of the chest acquired. RADIATION DOSE: NA LIMITATIONS: None. FINDINGS: LUNGS AND PLEURA: Upper lobes are hyperlucent from obstructive disease. Mild crowding of vascular structures in the mid and lower lungs. No acute infiltrates. No pleural effusion. No pneu mothorax. MEDIASTINUM AND HILAR STRUCTURES: No masses. Contour normal. HEART AND VASCULAR STRUCTURES: Post sternotomy and CABG without cardiomegaly. BONES: No acute findings. HARDWARE: Left-sided dual lead pacemaker OTHER: No other significant finding. IMPRESSION: NO ACUTE RADIOGRAPHIC FINDING IN THE CHEST. TECHNICAL DOCUMENTATION: JOB ID: [id number] [employer]- All Rights Reserved Reading location - IP/workstation name: [email or web address]
[2018-05-13 13:42] LABS: ALANINE AMINOTRANSFERASE 23 U/L (21-72); ALBUMIN 4.1 g/dL (3.5-5.0); ALKALINE PHOSPHATASE 77 U/L (38-126); ANION GAP 10 (5-19); ASPARTATE AMINO TRANSFERASE 38 U/L (17-59); BILIRUBIN,DIRECT 0.3 mg/dL (0.0-0.4); BLOOD UREA NITROGEN 13 mg/dL (7-20); CALCIUM 9.2 mg/dL (8.4-10.2); CARBON DIOXIDE 24 mmol/L (22-30); CHLORIDE 96 mmol/L (98-107); GLUCOSE 120 mg/dL (75-110); POTASSIUM 4.4 mmol/L (3.6-5.0); SODIUM 129.9 mmol/L (137-145); TOTAL PROTEIN 6.7 g/dL (6.3-8.2)
[2018-05-13] MEDS ORDERED: ACETAMINOPHEN 325 MG TABLET PO PRN (15:18)
[2018-05-13] MEDS ORDERED: PROMETHAZINE HCL 25 MG TABLET PO PRN (15:18)
[2018-05-13] MEDS ORDERED: HEPARIN SOD (PORCINE) 5,000 UNIT/ML 1 ML SYRINGE SUBCUT SCH (15:30)
[2018-05-13] MEDS: FAMOTIDINE 20 MG TABLET PO SCH ×2 (16:51→21:52)
[2018-05-13] MEDS: GABAPENTIN 100 MG CAPSULE PO SCH ×2 (16:52→21:51)
[2018-05-13] MEDS: IPRATROPIUM/ALBUTEROL 0.5-2.5 MG/3 ML AMPUL NEB SCH ×2 (17:25→21:02)
[2018-05-13] MEDS: NICOTINE 21 MG/24 HR PATCH.TD24 TD SCH (17:55)
[2018-05-13] MEDS: DABIGATRAN ETEXILATE 150 MG CAPSULE PO SCH (18:32)
--- NOTE | 2018-05-13 19:17 | PDOC H&P ---
History of Present Illness Admission Date/PCP: 05/13/18 15:29 AMARA MOCK MD History of Present Illness: EARNEST CASTELLANO is a 82 year old male past medical history of hypertension, COPD, CHF, CAD status post remote CABG and stent placement, obstructive sleep apnea who presented to ED complaining of painful vesicular rash on the left side of his torso for the last 3 days. Start on the left posterior torso extending to anterior chest. Denies any recent acute illness,, travel or sick contacts. Does not recall if he had chickenpox as a child or if he had shingles vaccine. Denies any headache, fever, neck pain, sore throat, chest pain, palpitation, syncope abdominal pain, nausea, vomiting, diarrhea or any urinary symptoms. Past Medical History Cardiac Medical History: Reports: Atrial Fibrillation, Congestive Heart Failure - Systolic, Coronary Artery Disease, Myocardial Infarction - 1 stent. triple bypass surgery, Hyperlipidema, Hypertension Denies: DVT, Peripheral Vascular Disease, Pulmonary Embolism, Heart Murmur Pulmonary Medical History: Reports: Chronic Obstructive Pulmonary Disease (COPD), Pneumonia, Sleep Apnea - Uncertain settings for the CPAP. No home oxygen. Denies: Asthma, Bronchitis, Respiratory Failure, Tuberculosis Neurological Medical History: Denies: Seizures Endocrine Medical History: Denies: Diabetes Mellitus Type 1, Diabetes Mellitus Type 2, Hyperthyroidism, Hypothyroidism Renal/ Medical History: Denies: End Stage Renal Disease Malignancy Medical History: Denies: Breast Cancer, Cervical Cancer, Leukemia, Lung Cancer, Ovarian Cancer GI Medical History: Denies: Cirrhosis, Crohn's Disease, Gastroesophageal Reflux Disease, Hepatitis, Hiatal Hernia Musculoskeltal Medical History: Denies: Arthritis, Fibromyalgia Psychiatric Medical History: Reports: Depression - Mild Denies: Bipolar Disorder, Dementia, Post Traumatic Stress Disorder Hematology: Denies: Anemia, Hemophilia, Sickle Cell Disease, Bleeding Tendencies Infectious Medical History: Denies: HIV Past Surgical History Past Surgical History: Reports: Cardiac Catheterization, Cholecystectomy, Coronary Artery Bypass Graft - Three-vessel, Internal Defibrillator, Pacemaker - Pacemaker defibrillator Denies: Appendectomy, Colostomy, Gastric Bypass Surgery, Herniorrhaphy, Tonsillectomy Social History Smoking Status: Unknown if Ever Smoked Frequency of Alcohol Use: None Hx Recreational Drug Use: No Drugs: None Hx Prescription Drug Abuse: No Family History Family History: COPD Parental Family History Reviewed: Yes Children Family History Reviewed: Yes Sibling(s) Family History Reviewed.: Yes Medication/Allergy Home Medications: Furosemide [Lasix 40 mg Tablet] 40 mg PO DAILY 04/23/17 Ipratropium/Albuterol Sulfate [Duoneb 3 ml Ampul] 1 vial NEB Q12 04/23/17 Aspirin [Ecotrin 81 mg EC Tablet] 81 mg PO DAILY tabec 05/01/17 Digoxin [Lanoxin 0.125 mg Tablet] 0.125 mg PO DAILY #30 tablet 05/01/17 Montelukast Sodium [Singulair 10 mg Tablet] 10 mg PO DAILY tablet 05/01/17 Lisinopril [Prinivil 10 mg Tablet] 10 mg PO DAILY 05/13/18 Simvastatin [Zocor 20 mg Tablet] 20 mg PO QHS 05/13/18 Allergies/Adverse Reactions: No Known Allergies Allergy (Verified 05/13/18 08:27) Review of Systems Review of Systems: As per HPI. Physical Exam Vital Signs: Temp Pulse Resp BP Pulse Ox 97.9 F 81 23 H 131/67 H 95 05/13/18 08:33 05/13/18 08:33 05/13/18 19:01 05/13/18 19:01 05/13/18 19:01 Intake & Output 05/12/18 05/13/18 05/14/18 06:59 06:59 06:59 Intake Total 200 Balance 200 Weight 80 kg General appearance: PRESENT: no acute distress, mild distress, well-developed, well-nourished Head exam: PRESENT: atraumatic, normocephalic Neck exam: ABSENT: carotid bruit, JVD, lymphadenopathy, thyromegaly Respiratory exam: PRESENT: clear to auscultation bruna. ABSENT: rales, rhonchi, wheezes Cardiovascular exam: PRESENT: RRR. ABSENT: diastolic murmur, rubs, systolic murmur Pulses: PRESENT: normal dorsalis pedis pul GI/Abdominal exam: PRESENT: normal bowel sounds, soft. ABSENT: distended, guarding, mass, organolmegaly, rebound, tenderness Extremities exam: PRESENT: full ROM. ABSENT: calf tenderness, clubbing, pedal edema Neurological exam: PRESENT: alert, awake, oriented to person, oriented to place, oriented to time, oriented to situation, CN II-XII grossly intact. ABSENT: motor sensory deficit Skin exam: PRESENT: rash, vesicles, other - Painful, erythematous, vesicular rash from left metatarsal at T5-T6 dermatomes extending anteriorly to mid chest. Results Laboratory Results: 05/13/18 11:36 05/13/18 12:57 05/13/18 05/13/18 05/13/18 11:01 11:01 11:01 WBC RBC Hgb Hct MCV MCH MCHC RDW Plt Count Seg Neutrophils % Lymphocytes % Monocytes % Eosinophils % Basophils % Absolute Neutrophils Absolute Lymphocytes Absolute Monocytes Absolute Eosinophils Absolute Basophils VBG pH 7.39 VBG pCO2 52.5 VBG HCO3 31.1 VBG Base Excess 4.5 Sodium Cancelled Potassium Cancelled Chloride Cancelled Carbon Dioxide Cancelled Anion Gap Cancelled BUN Cancelled Creatinine Cancelled Est GFR ( Amer) Cancelled Est GFR (Non-Af Amer) Cancelled Glucose Cancelled Lactic Acid 1.9 Calcium Cancelled Total Bilirubin Cancelled AST Cancelled ALT Cancelled Alkaline Phosphatase Cancelled Total Protein Cancelled Albumin Cancelled 05/13/18 05/13/18 11:36 12:57 WBC 12.3 H RBC 5.32 Hgb 17.4 H Hct 49.8 MCV 94 MCH 32.8 MCHC 35.0 RDW 14.1 H Plt Count 187 Seg Neutrophils % 79.4 H Lymphocytes % 7.8 L Monocytes % 12.2 Eosinophils % 0.2 Basophils % 0.4 Absolute Neutrophils 9.8 H Absolute Lymphocytes 1.0 Absolute Monocytes 1.5 H Absolute Eosinophils 0.0 Absolute Basophils 0.1 VBG pH VBG pCO2 VBG HCO3 VBG Base Excess Sodium 129.9 L Potassium 4.4 Chloride 96 L Carbon Dioxide 24 Anion Gap 10 BUN 13 Creatinine 1.20 Est GFR ( Amer) > 60 Est GFR (Non-Af Amer) 58 L Glucose 120 H Lactic Acid Calcium 9.2 Total Bilirubin 1.0 AST 38 ALT 23 Alkaline Phosphatase 77 Total Protein 6.7 Albumin 4.1 05/13/18 11:01 Troponin I 0.061 NT-Pro-B Natriuret Pep [id number] H Impressions: Chest X-Ray 05/13/18 09:53 IMPRESSION: NO ACUTE RADIOGRAPHIC FINDING IN THE CHEST. Assessment & Plan - Diagnosis (1) Shingles Qualifiers: Herpes zoster complications: without complications Qualified Code(s): B02.9 - Zoster without complications Is this a current diagnosis for this admission?: Yes Plan: Contact precaution, valacyclovir 1 g 3 times daily for 5-7 days. Follow-up PCP for possible shingles vaccine. Gabapentin for pain management. Titrate dosage up as tolerated. (2) Acute on chronic systolic and diastolic heart failure, NYHA class 3 Is this a current diagnosis for this admission?: Yes Plan: Monitor volume status. Restart home meds. (3) COPD exacerbation Is this a current diagnosis for this admission?: Yes Plan: BiPAP, DuoNeb. Monitor vitals. (4) Atrial fibrillation Qualifiers: Atrial fibrillation type: unspecified Qualified Code(s): I48.91 - Unspecified atrial fibrillation Is this a current diagnosis for this admission?: No Plan: Rate control. Restart home meds. (5) HLD (hyperlipidemia) Qualifiers: Hyperlipidemia type: unspecified Qualified Code(s): E78.5 - Hyperlipidemia, unspecified Is this a current diagnosis for this admission?: Yes Plan: Restart home meds. (6) HECTOR (obstructive sleep apnea) Is this a current diagnosis for this admission?: Yes Plan: Nocturnal CPAP.
[2018-05-13] MEDS: BUDESONIDE/FORMOTEROL 160-4.5 MCG 60 PUFF/6 GM MDI IH SCH (23:08)
[2018-05-13] MEDS: DOFETILIDE 125 MCG CAPSULE PO SCH (23:08)
[2018-05-13] MEDS ORDERED: VALACYCLOVIR HCL 500 MG TABLET ONE (23:10)
[2018-05-13] MEDS: SIMVASTATIN 40 MG TABLET PO SCH (23:11)
[2018-05-13] MEDS: METOPROLOL SUCCINATE 50 MG TAB.SR.24H PO SCH (23:11)
[2018-05-13] MEDS: VALACYCLOVIR HCL 500 MG TABLET PO SCH (23:12)
[2018-05-13] MEDS: NORMAL SALINE 1000 ML 1,000 ML IV PRN (23:31)
[2018-05-14] MEDS: IPRATROPIUM/ALBUTEROL 0.5-2.5 MG/3 ML AMPUL NEB SCH ×4 (02:26→20:41)
[2018-05-14 06:24] LABS: HEMATOCRIT 46.8 % (37.9-51.0); HEMOGLOBIN 16.2 g/dL (13.5-17.0); MEAN CORPUSCULAR HEMOGLOBIN 31.9 pg (27.0-33.4); MEAN CORPUSCULAR HGB CONC 34.6 g/dL (32.0-36.0); MEAN CORPUSCULAR VOLUME 92 fl (80-97); PLATELET COUNT 175 10^3/uL (150-450); RED BLOOD COUNT 5.07 10^6/uL (4.35-5.55); RED CELL DISTRIBUTION WIDTH 13.9 % (11.5-14.0); WHITE BLOOD COUNT 14.7 10^3/uL (4.0-10.5)
[2018-05-14 06:48] LABS: ALANINE AMINOTRANSFERASE 28 U/L (21-72); ALBUMIN 3.5 g/dL (3.5-5.0); ALKALINE PHOSPHATASE 67 U/L (38-126); ANION GAP 10 (5-19); ASPARTATE AMINO TRANSFERASE 27 U/L (17-59); BILIRUBIN,DIRECT 0.4 mg/dL (0.0-0.4); BILIRUBIN,TOTAL 0.9 mg/dL (0.2-1.3); BLOOD UREA NITROGEN 23 mg/dL (7-20); CALCIUM 8.9 mg/dL (8.4-10.2); CARBON DIOXIDE 24 mmol/L (22-30); CHLORIDE 96 mmol/L (98-107); GLUCOSE 160 mg/dL (75-110); POTASSIUM 4.1 mmol/L (3.6-5.0); SODIUM 130.1 mmol/L (137-145); TOTAL PROTEIN 5.7 g/dL (6.3-8.2)
[2018-05-14] MEDS: GABAPENTIN 100 MG CAPSULE PO SCH ×4 (06:53→21:41)
[2018-05-14 06:54] LABS: ABSOLUTE MONOCYTES # (MANUAL) 0.7 10^3/uL (0.1-1.4); ABSOLUTE NEUTROPHILS# (MANUAL) 12.9 10^3/uL (1.7-8.2); BAND NEUTROPHILS % (MANUAL) 2 % (3-5); BASOPHILS % (MANUAL) 0 % (0-2); EOSINOPHILS % (MANUAL) 0 % (0-6); LYMPHOCYTES % (MANUAL) 5 % (13-45); MONOCYTES % (MANUAL) 5 % (3-13); SEGMENTED NEUTROPHILS % (MAN) 86 % (42-78); TOTAL CELLS COUNTED 100
[2018-05-14 06:55] LABS: ANISOCYTOSIS SLIGHT; PLATELET COMMENT ADEQUATE; SCHISTOCYTES SLIGHT; TOXIC GRANULATION SLIGHT
[2018-05-14] MEDS ORDERED: VALACYCLOVIR HCL 500 MG TABLET ONE (06:57)
[2018-05-14] MEDS: VALACYCLOVIR HCL 500 MG TABLET PO SCH ×3 (07:02→21:40)
--- NOTE | 2018-05-14 08:07 | EKG REPORT ---
SEVERITY:- ABNORMAL ECG - SINUS RHYTHM BORDERLINE LEFT AXIS DEVIATION LOW VOLTAGE IN FRONTAL LEADS ABNORMAL T, CONSIDER ISCHEMIA, LATERAL LEADS : Confirmed by: Jennifer Bunn MD 14-May-2018 08:06:35
[2018-05-14] MEDS: BUDESONIDE/FORMOTEROL 160-4.5 MCG 60 PUFF/6 GM MDI IH SCH ×2 (09:22→21:40)
[2018-05-14] MEDS: LISINOPRIL 5 MG TABLET PO SCH (09:22)
[2018-05-14] MEDS: FLUTICASONE NASAL SPRAY 50 MCG/SPRY 120 SPRAY/16 GM NASL SCH (09:22)
[2018-05-14] MEDS: METOPROLOL SUCCINATE 50 MG TAB.SR.24H PO SCH ×2 (09:22→21:41)
[2018-05-14] MEDS: ASPIRIN 81 MG TABLET, ENT COATED PO SCH (09:23)
[2018-05-14] MEDS: DOFETILIDE 125 MCG CAPSULE PO SCH ×2 (09:23→21:41)
[2018-05-14] MEDS: FAMOTIDINE 20 MG TABLET PO SCH ×2 (09:23→21:41)
[2018-05-14] MEDS: DIGOXIN 0.125 MG TABLET PO SCH (09:23)
[2018-05-14] MEDS: DABIGATRAN ETEXILATE 150 MG CAPSULE PO SCH ×2 (09:24→17:03)
[2018-05-14] MEDS ORDERED: FUROSEMIDE 40 MG TABLET PO SCH (10:00)
[2018-05-14] MEDS: NORMAL SALINE 1000 ML 1,000 ML IV PRN ×2 (11:05→23:00)
[2018-05-14] MEDS: GUAIFENESIN SYRP 200 MG/10 ML UDC PO PRN (11:05)
[2018-05-14] MEDS: GUAIFENESIN 600 MG TABLET.SA PO PRN (12:39)
--- NOTE | 2018-05-14 15:21 | Progress Note ---
Provider Note Provider Note: ID Consult - Brief Note Spoke with Dr Sparrow via telephone. Mr Oglesby is a 82 year old man who was admitted with painful vesicular lesions in a thoracic dermatomal distribution c/w shingles, and he also has comorbid HECTOR, CAD s/p CABG, COPD and CHF. I agree with Dr. Sparrow's plan for the patient to receive 7 days of Valtrex. If the patient requires steroid therapy for a COPD exacerbation, there should not be a contraindication from the standpoint of his shingles to corticosteroid therapy. Agree with plan for pt to receive Shingrix (the recombinant shingles vaccine) as it appears to retain efficacy even in elderly patients. It can be pursued as an outpatient. It is a two dose vaccine series, by at least 2 months. There is no specific length of time to wait between shingles episode and Shingrix vaccine, but generally awaiting resolution of the active shingles lesions would be appropriate. Hayder Marie MD [facility] Infectious Diseases pager [phone]
[2018-05-14] MEDS: NICOTINE 21 MG/24 HR PATCH.TD24 TD SCH (17:03)
[2018-05-14] MEDS: METHYLPREDNISOLONE INJ 125 MG/2 ML SDV IV SCH (17:03)
--- NOTE | 2018-05-14 19:44 | PDOC PROGRESS REPORT ---
Subjective Progress Note for:: 05/14/18 Subjective:: EARNEST CASTELLANO is a 82 year old male past medical history of hypertension, COPD, CHF, CAD status post remote CABG and stent placement, obstructive sleep apnea who presented to ED complaining of painful vesicular rash on the left side of his torso for the last 3 days. Start on the left posterior torso extending to anterior chest. Denies any recent acute illness,, travel or sick contacts. Does not recall if he had chickenpox as a child or if he had shingles vaccine. Denies any headache, fever, neck pain, sore throat, chest pain, palpitation, syncope abdominal pain, nausea, vomiting, diarrhea or any urinary symptoms 05/14/2018. No acute events overnight. Patient has been having nonproductive cough chronically which has been worsened since admission. On my encounter patient is comfortably resting in his bed in no apparent distress. He is stating that his left thoracic pain is controlled with gabapentin. Denies having any fever, chills, nausea, vomiting, diarrhea, constipation, chest pain or any urinary symptoms. Reason For Visit: COPD EXACERBATION, SHINGLES Physical Exam Vital Signs: Temp Pulse Resp BP Pulse Ox 97.9 F 87 20 125/74 97 05/14/18 16:00 05/14/18 16:00 05/14/18 16:00 05/14/18 16:00 05/14/18 16:00 Intake & Output 05/13/18 05/14/18 05/15/18 06:59 06:59 06:59 Intake Total 200 2005 Output Total 0 1800 Balance 200 205 Weight 80 kg General appearance: PRESENT: no acute distress, well-developed, well-nourished Head exam: PRESENT: atraumatic, normocephalic Cardiovascular exam: PRESENT: RRR. ABSENT: diastolic murmur, rubs, systolic murmur GI/Abdominal exam: PRESENT: normal bowel sounds, soft. ABSENT: distended, guarding, mass, organolmegaly, rebound, tenderness Extremities exam: PRESENT: full ROM. ABSENT: calf tenderness, clubbing, pedal edema Neurological exam: PRESENT: alert, awake, oriented to person, oriented to place, oriented to time, oriented to situation, CN II-XII grossly intact. ABSENT: motor sensory deficit Skin exam: PRESENT: rash - Vesicular rash on the T5-T6 dermatomal region. Rash shows signs of crusting. Results Laboratory Results: 05/14/18 05:28 05/14/18 05:28 05/14/18 05/14/18 05:28 05:28 WBC 14.7 H RBC 5.07 Hgb 16.2 Hct 46.8 MCV 92 MCH 31.9 MCHC 34.6 RDW 13.9 Plt Count 175 Seg Neutrophils % Not Reportable Lymphocytes % Not Reportable Monocytes % Not Reportable Eosinophils % Not Reportable Basophils % Not Reportable Absolute Neutrophils Not Reportable Absolute Lymphocytes Not Reportable Absolute Monocytes Not Reportable Absolute Eosinophils Not Reportable Absolute Basophils Not Reportable Sodium 130.1 L Potassium 4.1 Chloride 96 L Carbon Dioxide 24 Anion Gap 10 BUN 23 H Creatinine 1.28 H Est GFR ( Amer) > 60 Est GFR (Non-Af Amer) 54 L Glucose 160 H Calcium 8.9 Total Bilirubin 0.9 AST 27 ALT 28 Alkaline Phosphatase 67 Total Protein 5.7 L Albumin 3.5 05/13/18 11:01 Troponin I 0.061 NT-Pro-B Natriuret Pep 39611 H Impressions: Chest X-Ray 05/13/18 09:53 IMPRESSION: NO ACUTE RADIOGRAPHIC FINDING IN THE CHEST. Assessment & Plan - Diagnosis (1) Shingles Qualifiers: Herpes zoster complications: without complications Qualified Code(s): B02.9 - Zoster without complications Is this a current diagnosis for this admission?: Yes Plan: Contact precaution, valacyclovir 1 g 3 times daily. Day 2/7 of valacyclovir. Follow-up PCP for possible shingles vaccine. Gabapentin for pain management. Titrate dosage up as tolerated. (2) Acute on chronic systolic and diastolic heart failure, NYHA class 3 Is this a current diagnosis for this admission?: Yes Plan: Does seem not to be on acute exacerbation. Monitor volume status. Restart home meds. (3) COPD exacerbation Is this a current diagnosis for this admission?: Yes Plan: BiPAP, DuoNeb. Had a conversation with Dr. Frank ORTEGA specialist from [facility]. As per her recommendation is safe to start him on IV steroids. Will start IV steroids, BiPAP, DuoNeb. (4) Atrial fibrillation Qualifiers: Atrial fibrillation type: unspecified Qualified Code(s): I48.91 - Unspecified atrial fibrillation Is this a current diagnosis for this admission?: No Plan: Rate control. Restart home meds. (5) HLD (hyperlipidemia) Qualifiers: Hyperlipidemia type: unspecified Qualified Code(s): E78.5 - Hyperlipidemia, unspecified Is this a current diagnosis for this admission?: Yes Plan: Restart home meds. (6) HECTOR (obstructive sleep apnea) Is this a current diagnosis for this admission?: Yes Plan: Nocturnal CPAP. (7) Hyponatremia Is this a current diagnosis for this admission?: Yes Plan: Likely due to diuretics. Continue normal saline guided by volume status. BMP t omorrow. Hold furosemide today.
[2018-05-14] MEDS: SIMVASTATIN 40 MG TABLET PO SCH (21:42)
[2018-05-15] MEDS: IPRATROPIUM/ALBUTEROL 0.5-2.5 MG/3 ML AMPUL NEB SCH ×4 (02:21→19:29)
[2018-05-15] MEDS: METHYLPREDNISOLONE INJ 125 MG/2 ML SDV IV SCH ×3 (04:23→19:32)
[2018-05-15] MEDS: GABAPENTIN 100 MG CAPSULE PO SCH ×3 (05:10→21:53)
[2018-05-15] MEDS: VALACYCLOVIR HCL 500 MG TABLET PO SCH ×3 (05:10→21:55)
[2018-05-15 06:02] LABS: HEMATOCRIT 45.3 % (37.9-51.0); HEMOGLOBIN 15.5 g/dL (13.5-17.0); MEAN CORPUSCULAR HGB CONC 34.3 g/dL (32.0-36.0); MEAN CORPUSCULAR VOLUME 93 fl (80-97); PLATELET COUNT 182 10^3/uL (150-450); RED BLOOD COUNT 4.86 10^6/uL (4.35-5.55); WHITE BLOOD COUNT 18.9 10^3/uL (4.0-10.5)
[2018-05-15 06:23] LABS: ALANINE AMINOTRANSFERASE 29 U/L (21-72); ALBUMIN 3.4 g/dL (3.5-5.0); ALKALINE PHOSPHATASE 58 U/L (38-126); ANION GAP 9 (5-19); ASPARTATE AMINO TRANSFERASE 43 U/L (17-59); BILIRUBIN,DIRECT 0.4 mg/dL (0.0-0.4); BILIRUBIN,TOTAL 0.6 mg/dL (0.2-1.3); BLOOD UREA NITROGEN 31 mg/dL (7-20); CALCIUM 8.6 mg/dL (8.4-10.2); CARBON DIOXIDE 23 mmol/L (22-30); CHLORIDE 101 mmol/L (98-107); GLUCOSE 133 mg/dL (75-110); SODIUM 132.7 mmol/L (137-145); TOTAL PROTEIN 5.8 g/dL (6.3-8.2)
[2018-05-15 06:36] LABS: ABSOLUTE LYMPHOCYTES# (MANUAL) 0.2 10^3/uL (0.5-4.7); ABSOLUTE MONOCYTES # (MANUAL) 0.6 10^3/uL (0.1-1.4); ABSOLUTE NEUTROPHILS# (MANUAL) 18.1 10^3/uL (1.7-8.2); BAND NEUTROPHILS % (MANUAL) 1 % (3-5); BASOPHILS % (MANUAL) 0 % (0-2); EOSINOPHILS % (MANUAL) 0 % (0-6); LYMPHOCYTES % (MANUAL) 1 % (13-45); MONOCYTES % (MANUAL) 3 % (3-13); SEGMENTED NEUTROPHILS % (MAN) 95 % (42-78); TOTAL CELLS COUNTED 100
[2018-05-15 06:37] LABS: PLATELET COMMENT ADEQUATE; RBC MORPHOLOGY COMMENT NORMO-CYTIC/CHROMIC
[2018-05-15] MEDS: GUAIFENESIN SYRP 200 MG/10 ML UDC PO PRN (08:52)
[2018-05-15] MEDS: GUAIFENESIN 600 MG TABLET.SA PO PRN (08:52)
[2018-05-15] MEDS: FLUTICASONE NASAL SPRAY 50 MCG/SPRY 120 SPRAY/16 GM NASL SCH (09:41)
[2018-05-15] MEDS: DABIGATRAN ETEXILATE 150 MG CAPSULE PO SCH ×2 (09:42→19:32)
[2018-05-15] MEDS: FAMOTIDINE 20 MG TABLET PO SCH ×2 (09:42→21:53)
[2018-05-15] MEDS: DOFETILIDE 125 MCG CAPSULE PO SCH ×2 (09:42→21:54)
[2018-05-15] MEDS: METOPROLOL SUCCINATE 50 MG TAB.SR.24H PO SCH ×2 (09:42→21:53)
[2018-05-15] MEDS: ASPIRIN 81 MG TABLET, ENT COATED PO SCH (09:42)
[2018-05-15] MEDS: DIGOXIN 0.125 MG TABLET PO SCH (09:42)
[2018-05-15] MEDS: BUDESONIDE/FORMOTEROL 160-4.5 MCG 60 PUFF/6 GM MDI IH SCH ×2 (09:43→21:54)
[2018-05-15] MEDS: LISINOPRIL 5 MG TABLET PO SCH (09:43)
[2018-05-15] MEDS: LEVOFLOXACIN 500 MG TABLET PO SCH (10:33)
--- NOTE | 2018-05-15 19:05 | PDOC PROGRESS REPORT ---
Subjective Progress Note for:: 05/15/18 Subjective:: EARNEST CASTELLANO is a 82 year old male past medical history of hypertension, COPD, CHF, CAD status post remote CABG and stent placement, obstructive sleep apnea who presented to ED complaining of painful vesicular rash on the left side of his torso for the last 3 days. Start on the left posterior torso extending to anterior chest. Denies any recent acute illness,, travel or sick contacts. Does not recall if he had chickenpox as a child or if he had shingles vaccine. Denies any headache, fever, neck pain, sore throat, chest pain, palpitation, syncope abdominal pain, nausea, vomiting, diarrhea or any urinary symptoms 05/14/2018. No acute events overnight. Patient has been having nonproductive cough chronically which has been worsened since admission. On my encounter patient is comfortably resting in his bed in no apparent distress. He is stating that his left thoracic pain is controlled with gabapentin. Denies having any fever, chills, nausea, vomiting, diarrhea, constipation, chest pain or any urinary symptoms. 05/15/2017. No acute events overnight. Patient has had significant improvement of his persistent cough since being started on IV steroids. His rash is also improving and crusting over. Patient has been afebrile and his pain is managed with gabapentin. Denies any fever, chills, nausea, vomiting, diarrhea, constipation, shortness of breath or any urinary symptoms. PT is still waiting for his pacemaker to be interrogated. Reason For Visit: COPD EXACERBATION, SHINGLES Physical Exam Vital Signs: Temp Pulse Resp BP Pulse Ox 97.8 F 48 L 18 138/72 H 91 L 05/15/18 16:48 05/15/18 16:48 05/15/18 16:48 05/15/18 16:48 05/15/18 16:48 Intake & Output 05/14/18 05/15/18 05/16/18 06:59 06:59 06:59 Intake Total 200 3005 800 Output Total 0 1800 Balance 200 1205 800 Weight 80 kg 86.8 kg General appearance: PRESENT: no acute distress, well-developed, well-nourished Head exam: PRESENT: atraumatic, normocephalic Respiratory exam: PRESENT: clear to auscultation bruna. ABSENT: rales, rhonchi, wheezes Cardiovascular exam: PRESENT: RRR. ABSENT: diastolic murmur, rubs, systolic murmur GI/Abdominal exam: PRESENT: normal bowel sounds, soft. ABSENT: distended, guarding, mass, organolmegaly, rebound, tenderness Extremities exam: PRESENT: full ROM. ABSENT: calf tenderness, clubbing, pedal edema Neurological exam: PRESENT: alert, awake, oriented to person, oriented to place, oriented to time, oriented to situation, CN II-XII grossly intact. ABSENT: motor sensory deficit Skin exam: PRESENT: other - Crusted vesicular rash and left T5-T6 dermatomal region. Tender to palpation. Results Laboratory Results: 05/15/18 04:38 05/15/18 14:20 05/15/18 05/15/18 05/15/18 04:38 04:38 14:20 WBC 18.9 H RBC 4.86 Hgb 15.5 Hct 45.3 MCV 93 MCH 32.0 MCHC 34.3 RDW 14.0 Plt Count 182 Seg Neutrophils % Not Reportable Lymphocytes % Not Reportable Monocytes % Not Reportable Eosinophils % Not Reportable Basophils % Not Reportable Absolute Neutrophils Not Reportable Absolute Lymphocytes Not Reportable Absolute Monocytes Not Reportable Absolute Eosinophils Not Reportable Absolute Basophils Not Reportable Sodium 132.7 L Cancelled Potassium 5.0 Cancelled Chloride 101 Cancelled Carbon Dioxide 23 Cancelled Anion Gap 9 Cancelled BUN 31 H Cancelled Creatinine 1.30 H Cancelled Est GFR ( Amer) > 60 Cancelled Est GFR (Non-Af Amer) 53 L Cancelled Glucose 133 H Cancelled Calcium 8.6 Cancelled Magnesium 2.4 H Total Bilirubin 0.6 AST 43 ALT 29 Alkaline Phosphatase 58 Total Protein 5.8 L Albumin 3.4 L 05/13/18 11:01 Troponin I 0.061 NT-Pro-B Natriuret Pep [id number] H Impressions: Chest X-Ray 05/13/18 09:53 IMPRESSION: NO ACUTE RADIOGRAPHIC FINDING IN THE CHEST. Assessment & Plan - Diagnosis (1) Shingles Qualifiers: Herpes zoster complications: without complications Qualified Code(s): B02.9 - Zoster without complications Is this a current diagnosis for this admission?: Yes Plan: Improving. Continue contact precaution, valacyclovir 1 g 3 times daily. Day 3/7 of valacyclovir. Follow-up PCP for possible shingles vaccine. Gabapentin for pain management. Titrate dosage up as tolerated. (2) Acute on chronic systolic and diastolic heart failure, NYHA class 3 Is this a current diagnosis for this admission?: Yes Plan: Does seem not to be on acute exacerbation. Monitor volume status. Restart home meds. (3) COPD exacerbation Is this a current diagnosis for this admission?: Yes Plan: Improving. BiPAP, DuoNeb. Had a conversation with Dr. Frank ORTEGA specialist from [facility]. As per her recommendation is safe to start him on IV steroids. Will start IV steroids, BiPAP, DuoNeb. (4) Atrial fibrillation Qualifiers: Atrial fibrillation type: unspecified Qualified Code(s): I48.91 - Unspecified atrial fibrillation Is this a current diagnosis for this admission?: No Plan: Rate controlled continue current meds (5) HLD (hyperlipidemia) Qualifiers: Hyperlipidemia type: unspecified Qualified Code(s): E78.5 - Hyperlipidemia, unspecified Is this a current diagnosis for this admission?: Yes Plan: Restart home meds. (6) HECTOR (obstructive sleep apnea) Is this a current diagnosis for this admission?: Yes Plan: Nocturnal CPAP. (7) Hyponatremia Is this a current diagnosis for this admission?: Yes Plan: Improving. CMP tomorrow.
[2018-05-15] MEDS: NICOTINE 21 MG/24 HR PATCH.TD24 TD SCH (19:27)
[2018-05-15 21:38] LABS: ANION GAP 8 (5-19); BLOOD UREA NITROGEN 35 mg/dL (7-20); CALCIUM 9.5 mg/dL (8.4-10.2); CARBON DIOXIDE 23 mmol/L (22-30); CHLORIDE 101 mmol/L (98-107); GLUCOSE 151 mg/dL (75-110); POTASSIUM 5.3 mmol/L (3.6-5.0); SODIUM 131.6 mmol/L (137-145)
[2018-05-15] MEDS: SIMVASTATIN 40 MG TABLET PO SCH (21:53)
[2018-05-16] MEDS: IPRATROPIUM/ALBUTEROL 0.5-2.5 MG/3 ML AMPUL NEB SCH ×4 (01:50→19:57)
[2018-05-16] MEDS: METHYLPREDNISOLONE INJ 125 MG/2 ML SDV IV SCH ×3 (03:16→17:58)
[2018-05-16] MEDS: VALACYCLOVIR HCL 500 MG TABLET PO SCH ×3 (06:03→21:55)
[2018-05-16] MEDS: GABAPENTIN 100 MG CAPSULE PO SCH ×3 (06:03→21:55)
[2018-05-16 07:11] LABS: HEMATOCRIT 46.8 % (37.9-51.0); HEMOGLOBIN 16.1 g/dL (13.5-17.0); MEAN CORPUSCULAR HEMOGLOBIN 32.1 pg (27.0-33.4); MEAN CORPUSCULAR HGB CONC 34.3 g/dL (32.0-36.0); MEAN CORPUSCULAR VOLUME 93 fl (80-97); PLATELET COUNT 224 10^3/uL (150-450); RED BLOOD COUNT 5.01 10^6/uL (4.35-5.55); RED CELL DISTRIBUTION WIDTH 14.4 % (11.5-14.0); WHITE BLOOD COUNT 19.3 10^3/uL (4.0-10.5)
[2018-05-16 07:26] LABS: ALANINE AMINOTRANSFERASE 51 U/L (21-72); ALBUMIN 3.6 g/dL (3.5-5.0); ALKALINE PHOSPHATASE 66 U/L (38-126); ANION GAP 9 (5-19); ASPARTATE AMINO TRANSFERASE 56 U/L (17-59); BILIRUBIN,DIRECT 0.2 mg/dL (0.0-0.4); BILIRUBIN,TOTAL 0.5 mg/dL (0.2-1.3); BLOOD UREA NITROGEN 34 mg/dL (7-20); CALCIUM 9.2 mg/dL (8.4-10.2); CARBON DIOXIDE 21 mmol/L (22-30); CHLORIDE 102 mmol/L (98-107); GLUCOSE 148 mg/dL (75-110); POTASSIUM 5.2 mmol/L (3.6-5.0); SODIUM 131.7 mmol/L (137-145); TOTAL PROTEIN 5.9 g/dL (6.3-8.2)
[2018-05-16 08:18] LABS: ABSOLUTE LYMPHOCYTES# (MANUAL) 1.2 10^3/uL (0.5-4.7); ABSOLUTE MONOCYTES # (MANUAL) 0.6 10^3/uL (0.1-1.4); ABSOLUTE NEUTROPHILS# (MANUAL) 17.6 10^3/uL (1.7-8.2); ANISOCYTOSIS SLIGHT; BASOPHILS % (MANUAL) 0 % (0-2); EOSINOPHILS % (MANUAL) 0 % (0-6); LYMPHOCYTES % (MANUAL) 6 % (13-45); MONOCYTES % (MANUAL) 3 % (3-13); PLATELET COMMENT ADEQUATE; SEGMENTED NEUTROPHILS % (MAN) 91 % (42-78); TOTAL CELLS COUNTED 100; TOXIC GRANULATION 1+
[2018-05-16] MEDS: DABIGATRAN ETEXILATE 150 MG CAPSULE PO SCH ×2 (09:15→17:58)
[2018-05-16] MEDS: LISINOPRIL 5 MG TABLET PO SCH (09:15)
[2018-05-16] MEDS: ASPIRIN 81 MG TABLET, ENT COATED PO SCH (09:15)
[2018-05-16] MEDS: DOFETILIDE 125 MCG CAPSULE PO SCH ×2 (09:15→21:55)
[2018-05-16] MEDS: FAMOTIDINE 20 MG TABLET PO SCH ×2 (09:16→21:55)
[2018-05-16] MEDS: METOPROLOL SUCCINATE 50 MG TAB.SR.24H PO SCH ×2 (09:16→21:55)
[2018-05-16] MEDS: BUDESONIDE/FORMOTEROL 160-4.5 MCG 60 PUFF/6 GM MDI IH SCH ×2 (09:16→21:57)
[2018-05-16] MEDS: DIGOXIN 0.125 MG TABLET PO SCH (09:16)
[2018-05-16] MEDS: FLUTICASONE NASAL SPRAY 50 MCG/SPRY 120 SPRAY/16 GM NASL SCH (09:17)
[2018-05-16] MEDS: GUAIFENESIN SYRP 200 MG/10 ML UDC PO PRN (09:26)
[2018-05-16] MEDS: GUAIFENESIN 600 MG TABLET.SA PO PRN (09:26)
[2018-05-16] MEDS ORDERED: CALCIUM GLUCONATE 1000 MG/10 ML INJ IV ONE (11:30)
[2018-05-16] MEDS: LEVOFLOXACIN 500 MG TABLET PO SCH (12:32)
[2018-05-16] MEDS: FUROSEMIDE 40 MG TABLET PO SCH (13:40)
--- NOTE | 2018-05-16 17:00 | PDOC PROGRESS REPORT ---
Subjective Progress Note for:: 05/16/18 Subjective:: EARNEST CASTELLANO is a 82 year old male past medical history of hypertension, COPD, CHF, CAD status post remote CABG and stent placement, obstructive sleep apnea who presented to ED complaining of painful vesicular rash on the left side of his torso for the last 3 days. Start on the left posterior torso extending to anterior chest. Denies any recent acute illness,, travel or sick contacts. Does not recall if he had chickenpox as a child or if he had shingles vaccine. Denies any headache, fever, neck pain, sore throat, chest pain, palpitation, syncope abdominal pain, nausea, vomiting, diarrhea or any urinary symptoms 05/14/2018. No acute events overnight. Patient has been having nonproductive cough chronically which has been worsened since admission. On my encounter patient is comfortably resting in his bed in no apparent distress. He is stating that his left thoracic pain is controlled with gabapentin. Denies having any fever, chills, nausea, vomiting, diarrhea, constipation, chest pain or any urinary symptoms. 05/15/2018. No acute events overnight. Patient has had significant improvement of his persistent cough since being started on IV steroids. His rash is also improving and crusting over. Patient has been afebrile and his pain is managed with gabapentin. Denies any fever, chills, nausea, vomiting, diarrhea, constipation, shortness of breath or any urinary symptoms. PT is still waiting for his pacemaker to be interrogated. 05/16/2018. No acute events overnight. Patient's cough has improved. His rash is improving and he is having minimal pain. Pacemaker was interrogated yesterday and was reported to the nurse that it was functioning normally. Patient is denying any fever, chills, nausea, vomiting, diarrhea, constipation or any urinary symptoms. Reason For Visit: COPD EXACERBATION, SHINGLES Physical Exam Vital Signs: Temp Pulse Resp BP Pulse Ox 98.2 F 100 16 143/116 H 93 05/16/18 11:39 05/16/18 14:00 05/16/18 13:45 05/16/18 11:39 05/16/18 13:45 Intake & Output 05/15/18 05/16/18 05/17/18 06:59 06:59 06:59 Intake Total 3005 1386 Output Total 1800 Balance 1205 1386 Weight 86.8 kg 85.2 kg General appearance: PRESENT: no acute distress, well-developed, well-nourished Head exam: PRESENT: atraumatic, normocephalic Respiratory exam: PRESENT: clear to auscultation bruna. ABSENT: rales, rhonchi, wheezes Cardiovascular exam: PRESENT: RRR. ABSENT: diastolic murmur, rubs, systolic murmur Neurological exam: PRESENT: alert, awake, oriented to person, oriented to place, oriented to time, oriented to situation, CN II-XII grossly intact. ABSENT: motor sensory deficit Skin exam: PRESENT: rash, other - Left T5-T6 distribution angles rash which has now crusted over. Results Laboratory Results: 05/16/18 06:47 05/16/18 06:47 05/15/18 05/16/18 05/16/18 20:45 06:47 06:47 WBC 19.3 H RBC 5.01 Hgb 16.1 Hct 46.8 MCV 93 MCH 32.1 MCHC 34.3 RDW 14.4 H Plt Count 224 Seg Neutrophils % Not Reportable Lymphocytes % Not Reportable Monocytes % Not Reportable Eosinophils % Not Reportable Basophils % Not Reportable Absolute Neutrophils Not Reportable Absolute Lymphocytes Not Reportable Absolute Monocytes Not Reportable Absolute Eosinophils Not Reportable Absolute Basophils Not Reportable Sodium 131.6 L 131.7 L Potassium 5.3 H 5.2 H Chloride 101 102 Carbon Dioxide 23 21 L Anion Gap 8 9 BUN 35 H 34 H Creatinine 1.31 H 1.16 Est GFR ( Amer) > 60 > 60 Est GFR (Non-Af Amer) 53 L > 60 Glucose 151 H 148 H Calcium 9.5 9.2 Magnesium 2.4 H Total Bilirubin 0.5 AST 56 ALT 51 Alkaline Phosphatase 66 Total Protein 5.9 L Albumin 3.6 05/13/18 11:01 Troponin I 0.061 NT-Pro-B Natriuret Pep [id number] H Impressions: Chest X-Ray 05/13/18 09:53 IMPRESSION: NO ACUTE RADIOGRAPHIC FINDING IN THE CHEST. Assessment & Plan - Diagnosis (1) Shingles Qualifiers: Herpes zoster complications: without complications Qualified Code(s): B02.9 - Zoster without complications Is this a current diagnosis for this admission?: Yes Plan: Improving. Continue contact precaution, valacyclovir 1 g 3 times daily. Day 4/7 of valacyclovir. Follow-up PCP for possible shingles vaccine. Gabapentin for pain management. Titrate dosage up as tolerated. (2) Acute on chronic systolic and diastolic heart failure, NYHA class 3 Is this a current diagnosis for this admission?: Yes Plan: Does seem not to be on acute exacerbation. Monitor volume status. Restart home meds. (3) COPD exacerbation Is this a current diagnosis for this admission?: Yes Plan: Improving. BiPAP, DuoNeb. Had a conversation with Dr. Frank ORTEGA specialist from [facility]. Continue IV steroids, BiPAP, DuoNeb and antibiotics. (4) Atrial fibrillation Qualifiers: Atrial fibrillation type: unspecified Qualified Code(s): I48.91 - Unspecified atrial fibrillation Is this a current diagnosis for this admission?: No Plan: Rate controlled and anticoagulated. Continue current meds (5) HLD (hyperlipidemia) Qualifiers: Hyperlipidemia type: unspecified Qualified Code(s): E78.5 - Hyperlipidemia, unspecified Is this a current diagnosis for this admission?: Yes Plan: Restart home meds. (6) HECTOR (obstructive sleep apnea) Is this a current diagnosis for this admission?: Yes Plan: Nocturnal CPAP. (7) Hyponatremia Is this a current diagnosis for this admission?: Yes Plan: Improving. Patient not adherent with fluid restriction. As per nurse patient gets upset when his fluid restricted. Was advised on fluid restriction. CMP tomorrow. (8) Hyperkalemia Is this a current diagnosis for this admission?: Yes Plan: Hyperkalemia protocol. BMP tomorrow. Digitalis level within normal limits.
[2018-05-16] MEDS: NICOTINE 21 MG/24 HR PATCH.TD24 TD SCH (17:57)
[2018-05-16] MEDS: SIMVASTATIN 40 MG TABLET PO SCH (21:55)
[2018-05-17] MEDS: IPRATROPIUM/ALBUTEROL 0.5-2.5 MG/3 ML AMPUL NEB SCH ×4 (02:24→20:04)
[2018-05-17] MEDS: METHYLPREDNISOLONE INJ 125 MG/2 ML SDV IV SCH ×3 (02:56→17:56)
[2018-05-17 03:57] LABS: HEMATOCRIT 50.9 % (37.9-51.0); HEMOGLOBIN 17.1 g/dL (13.5-17.0); MEAN CORPUSCULAR HEMOGLOBIN 31.3 pg (27.0-33.4); MEAN CORPUSCULAR HGB CONC 33.5 g/dL (32.0-36.0); MEAN CORPUSCULAR VOLUME 94 fl (80-97); PLATELET COUNT 239 10^3/uL (150-450); RED BLOOD COUNT 5.45 10^6/uL (4.35-5.55); RED CELL DISTRIBUTION WIDTH 13.7 % (11.5-14.0); WHITE BLOOD COUNT 21.3 10^3/uL (4.0-10.5)
[2018-05-17 04:13] LABS: ABSOLUTE LYMPHOCYTES# (MANUAL) 2.8 10^3/uL (0.5-4.7); ABSOLUTE MONOCYTES # (MANUAL) 0.6 10^3/uL (0.1-1.4); ABSOLUTE NEUTROPHILS# (MANUAL) 17.9 10^3/uL (1.7-8.2); BASOPHILS % (MANUAL) 0 % (0-2); EOSINOPHILS % (MANUAL) 0 % (0-6); LYMPHOCYTES % (MANUAL) 11 % (13-45); MONOCYTES % (MANUAL) 3 % (3-13); SEGMENTED NEUTROPHILS % (MAN) 84 % (42-78); TOTAL CELLS COUNTED 100
[2018-05-17 04:14] LABS: ANISOCYTOSIS SLIGHT; BURR CELLS SLIGHT; PLATELET COMMENT ADEQUATE; SCHISTOCYTES SLIGHT
[2018-05-17 04:34] LABS: ALANINE AMINOTRANSFERASE 54 U/L (21-72); ALBUMIN 3.9 g/dL (3.5-5.0); ALKALINE PHOSPHATASE 74 U/L (38-126); ANION GAP 11 (5-19); ASPARTATE AMINO TRANSFERASE 56 U/L (17-59); BILIRUBIN,DIRECT 0.4 mg/dL (0.0-0.4); BILIRUBIN,TOTAL 0.7 mg/dL (0.2-1.3); BLOOD UREA NITROGEN 37 mg/dL (7-20); CALCIUM 9.4 mg/dL (8.4-10.2); CARBON DIOXIDE 21 mmol/L (22-30); CHLORIDE 103 mmol/L (98-107); GLUCOSE 167 mg/dL (75-110); POTASSIUM 4.6 mmol/L (3.6-5.0); SODIUM 134.6 mmol/L (137-145); TOTAL PROTEIN 6.4 g/dL (6.3-8.2)
[2018-05-17] MEDS: VALACYCLOVIR HCL 500 MG TABLET PO SCH ×3 (06:04→22:00)
[2018-05-17] MEDS: GABAPENTIN 100 MG CAPSULE PO SCH ×3 (06:04→22:00)
[2018-05-17] MEDS: GUAIFENESIN 600 MG TABLET.SA PO PRN (08:57)
[2018-05-17] MEDS: GUAIFENESIN SYRP 200 MG/10 ML UDC PO PRN (08:57)
[2018-05-17] MEDS ORDERED: FUROSEMIDE 40 MG TABLET PO SCH (10:00)
[2018-05-17] MEDS: FLUTICASONE NASAL SPRAY 50 MCG/SPRY 120 SPRAY/16 GM NASL SCH (10:41)
[2018-05-17] MEDS: BUDESONIDE/FORMOTEROL 160-4.5 MCG 60 PUFF/6 GM MDI IH SCH ×2 (10:41→22:02)
[2018-05-17] MEDS: ASPIRIN 81 MG TABLET, ENT COATED PO SCH (10:42)
[2018-05-17] MEDS: DIGOXIN 0.125 MG TABLET PO SCH (10:42)
[2018-05-17] MEDS: METOPROLOL SUCCINATE 50 MG TAB.SR.24H PO SCH ×2 (10:42→22:00)
[2018-05-17] MEDS: DOFETILIDE 125 MCG CAPSULE PO SCH ×2 (10:42→22:01)
[2018-05-17] MEDS: DABIGATRAN ETEXILATE 150 MG CAPSULE PO SCH ×2 (10:42→17:57)
[2018-05-17] MEDS: FUROSEMIDE 40 MG TABLET PO SCH (10:42)
[2018-05-17] MEDS: FAMOTIDINE 20 MG TABLET PO SCH ×2 (10:42→22:00)
[2018-05-17] MEDS: LISINOPRIL 5 MG TABLET PO SCH (10:43)
[2018-05-17] MEDS: LEVOFLOXACIN 500 MG TABLET PO SCH (10:51)
--- NOTE | 2018-05-17 15:57 | PDOC PROGRESS REPORT ---
Subjective Progress Note for:: 05/17/18 Subjective:: EARNEST CASTELLANO is a 82 year old male past medical history of hypertension, COPD, CHF, CAD status post remote CABG and stent placement, obstructive sleep apnea who presented to ED complaining of painful vesicular rash on the left side of his torso for the last 3 days. Start on the left posterior torso extending to anterior chest. Denies any recent acute illness,, travel or sick contacts. Does not recall if he had chickenpox as a child or if he had shingles vaccine. Denies any headache, fever, neck pain, sore throat, chest pain, palpitation, syncope abdominal pain, nausea, vomiting, diarrhea or any urinary symptoms 05/14/2018. No acute events overnight. Patient has been having nonproductive cough chronically which has been worsened since admission. On my encounter patient is comfortably resting in his bed in no apparent distress. He is stating that his left thoracic pain is controlled with gabapentin. Denies having any fever, chills, nausea, vomiting, diarrhea, constipation, chest pain or any urinary symptoms. 05/15/2018. No acute events overnight. Patient has had significant improvement of his persistent cough since being started on IV steroids. His rash is also improving and crusting over. Patient has been afebrile and his pain is managed with gabapentin. Denies any fever, chills, nausea, vomiting, diarrhea, constipation, shortness of breath or any urinary symptoms. PT is still waiting for his pacemaker to be interrogated. 05/16/2018. No acute events overnight. Patient's cough has improved. His rash is improving and he is having minimal pain. Pacemaker was interrogated yesterday and was reported to the nurse that it was functioning normally. Patient is denying any fever, chills, nausea, vomiting, diarrhea, constipation or any urinary symptoms. 05/17/2018. No acute events overnight. Patient cough has improved. His shingles rash crusting over. Denies having any fever, chills, nausea, vomiting, diarrhea, constipation or any urinary symptoms. Reason For Visit: COPD EXACERBATION, SHINGLES Physical Exam Vital Signs: Temp Pulse Resp BP Pulse Ox 97.4 F 88 24 H 144/110 H 90 L 05/17/18 12:56 05/17/18 12:56 05/17/18 12:56 05/17/18 12:56 05/17/18 12:56 Intake & Output 05/16/18 05/17/18 05/18/18 06:59 06:59 06:59 Intake Total 1386 1154 Balance 1386 1154 Weight 85.2 kg 82.6 kg General appearance: PRESENT: no acute distress, well-developed, well-nourished Head exam: PRESENT: atraumatic, normocephalic Respiratory exam: PRESENT: decreased breath sounds, prolonged expiratory phas, wheezes. ABSENT: rales, rhonchi GI/Abdominal exam: PRESENT: normal bowel sounds, soft. ABSENT: distended, guarding, mass, organolmegaly, rebound, tenderness Neurological exam: PRESENT: alert, awake, oriented to person, oriented to place, oriented to time, oriented to situation, CN II-XII grossly intact. ABSENT: motor sensory deficit Results Laboratory Results: 05/17/18 03:33 05/17/18 03:33 05/17/18 05/17/18 03:33 03:33 WBC 21.3 H RBC 5.45 Hgb 17.1 H Hct 50.9 MCV 94 MCH 31.3 MCHC 33.5 RDW 13.7 Plt Count 239 Seg Neutrophils % Not Reportable Lymphocytes % Not Reportable Monocytes % Not Reportable Eosinophils % Not Reportable Basophils % Not Reportable Absolute Neutrophils Not Reportable Absolute Lymphocytes Not Reportable Absolute Monocytes Not Reportable Absolute Eosinophils Not Reportable Absolute Basophils Not Reportable Sodium 134.6 L Potassium 4.6 Chloride 103 Carbon Dioxide 21 L Anion Gap 11 BUN 37 H Creatinine 1.29 H Est GFR ( Amer) > 60 Est GFR (Non-Af Amer) 53 L Glucose 167 H Calcium 9.4 Magnesium 2.5 H Total Bilirubin 0.7 AST 56 ALT 54 Alkaline Phosphatase 74 Total Protein 6.4 Albumin 3.9 05/13/18 11:01 Troponin I 0.061 NT-Pro-B Natriuret Pep 12228 H Impressions: Chest X-Ray 05/13/18 09:53 IMPRESSION: NO ACUTE RADIOGRAPHIC FINDING IN THE CHEST. Assessment & Plan - Diagnosis (1) Shingles Qualifiers: Herpes zoster complications: without complications Qualified Code(s): B02.9 - Zoster without complications Is this a current diagnosis for this admission?: Yes Plan: Improving. Continue contact precaution, valacyclovir 1 g 3 times daily. Day 5/7 of valacyclovir. Follow-up PCP for possible shingles vaccine. Gabapentin for pain management. Titrate dosage up as tolerated. (2) Acute on chronic systolic and diastolic heart failure, NYHA class 3 Is this a current diagnosis for this admission?: Yes Plan: Does seem not to be on acute exacerbation. Monitor volume status. Restart home meds. (3) COPD exacerbation Is this a current diagnosis for this admission?: Yes Plan: Improving. BiPAP, DuoNeb. Had a conversation with Dr. Frank ORTEGA specialist from [facility]. Continue IV steroids, BiPAP, DuoNeb and antibiotics. (4) Atrial fibrillation Qualifiers: Atrial fibrillation type: unspecified Qualified Code(s): I48.91 - Unspecified atrial fibrillation Is this a current diagnosis for this admission?: No Plan: Rate controlled and anticoagulated. Continue current meds (5) HLD (hyperlipidemia) Qualifiers: Hyperlipidemia type: unspecified Qualified Code(s): E78.5 - Hyperlipidemia, unspecified Is this a current diagnosis for this admission?: Yes Plan: Restart home meds. (6) HECTOR (obstructive sleep apnea) Is this a current diagnosis for this admission?: Yes Plan: Nocturnal CPAP. Patient not compliant with wearing his CPAP. (7) Hyponatremia Is this a current diagnosis for this admission?: Yes Plan: Improving. Patient not adherent with fluid restriction. As per nurse patient gets upset when his fluid restricted. Was advised on fluid restriction. CMP tomorrow. (8) Hyperkalemia Is this a current diagnosis for this admission?: Yes Plan: Resolved.
[2018-05-17] MEDS ORDERED: GUAIFENESIN SYRP 200 MG/10 ML UDC PO SCH (16:00)
[2018-05-17] MEDS: NICOTINE 21 MG/24 HR PATCH.TD24 TD SCH (17:56)
[2018-05-17] MEDS: GUAIFENESIN SYRP 200 MG/10 ML UDC PO SCH ×2 (17:56→23:30)
[2018-05-17] MEDS: SIMVASTATIN 40 MG TABLET PO SCH (22:00)
[2018-05-18] MEDS: IPRATROPIUM/ALBUTEROL 0.5-2.5 MG/3 ML AMPUL NEB SCH ×4 (01:56→21:59)
[2018-05-18] MEDS: METHYLPREDNISOLONE INJ 125 MG/2 ML SDV IV SCH ×3 (01:58→17:51)
[2018-05-18] MEDS: GUAIFENESIN SYRP 200 MG/10 ML UDC PO SCH ×3 (05:04→17:51)
[2018-05-18] MEDS: VALACYCLOVIR HCL 500 MG TABLET PO SCH ×3 (05:04→21:56)
[2018-05-18] MEDS: GABAPENTIN 100 MG CAPSULE PO SCH ×3 (05:05→21:55)
[2018-05-18 06:03] LABS: HEMATOCRIT 48.3 % (37.9-51.0); HEMOGLOBIN 16.7 g/dL (13.5-17.0); MEAN CORPUSCULAR HEMOGLOBIN 31.9 pg (27.0-33.4); MEAN CORPUSCULAR HGB CONC 34.7 g/dL (32.0-36.0); MEAN CORPUSCULAR VOLUME 92 fl (80-97); PLATELET COUNT 238 10^3/uL (150-450); RED BLOOD COUNT 5.24 10^6/uL (4.35-5.55); RED CELL DISTRIBUTION WIDTH 14.3 % (11.5-14.0); WHITE BLOOD COUNT 19.9 10^3/uL (4.0-10.5)
[2018-05-18 06:23] LABS: ALANINE AMINOTRANSFERASE 66 U/L (21-72); ALBUMIN 3.6 g/dL (3.5-5.0); ALKALINE PHOSPHATASE 64 U/L (38-126); ANION GAP 13 (5-19); ASPARTATE AMINO TRANSFERASE 60 U/L (17-59); BILIRUBIN,DIRECT 0.4 mg/dL (0.0-0.4); BILIRUBIN,TOTAL 0.8 mg/dL (0.2-1.3); BLOOD UREA NITROGEN 40 mg/dL (7-20); CALCIUM 8.8 mg/dL (8.4-10.2); CARBON DIOXIDE 21 mmol/L (22-30); CHLORIDE 101 mmol/L (98-107); GLUCOSE 161 mg/dL (75-110); POTASSIUM 4.2 mmol/L (3.6-5.0); SODIUM 134.8 mmol/L (137-145); TOTAL PROTEIN 5.9 g/dL (6.3-8.2)
[2018-05-18 06:59] LABS: ABSOLUTE LYMPHOCYTES# (MANUAL) 1.8 10^3/uL (0.5-4.7); ABSOLUTE MONOCYTES # (MANUAL) 0.6 10^3/uL (0.1-1.4); ABSOLUTE NEUTROPHILS# (MANUAL) 17.5 10^3/uL (1.7-8.2); ANISOCYTOSIS SLIGHT; BASOPHILS % (MANUAL) 0 % (0-2); EOSINOPHILS % (MANUAL) 0 % (0-6); LYMPHOCYTES % (MANUAL) 9 % (13-45); MONOCYTES % (MANUAL) 3 % (3-13); POLYCHROMASIA 1+; SEGMENTED NEUTROPHILS % (MAN) 88 % (42-78); TOTAL CELLS COUNTED 100
[2018-05-18 07:00] LABS: PLATELET COMMENT ADEQUATE
[2018-05-18] MEDS: DOFETILIDE 125 MCG CAPSULE PO SCH ×2 (10:15→21:56)
[2018-05-18] MEDS: DABIGATRAN ETEXILATE 150 MG CAPSULE PO SCH ×2 (10:15→17:51)
[2018-05-18] MEDS: ASPIRIN 81 MG TABLET, ENT COATED PO SCH (10:16)
[2018-05-18] MEDS: FAMOTIDINE 20 MG TABLET PO SCH ×2 (10:16→21:54)
[2018-05-18] MEDS: LEVOFLOXACIN 500 MG TABLET PO SCH (10:16)
[2018-05-18] MEDS: FUROSEMIDE 40 MG TABLET PO SCH (10:16)
[2018-05-18] MEDS: METOPROLOL SUCCINATE 50 MG TAB.SR.24H PO SCH ×2 (10:16→21:55)
[2018-05-18] MEDS: DIGOXIN 0.125 MG TABLET PO SCH (10:17)
[2018-05-18] MEDS: FLUTICASONE NASAL SPRAY 50 MCG/SPRY 120 SPRAY/16 GM NASL SCH (10:20)
[2018-05-18] MEDS: BUDESONIDE/FORMOTEROL 160-4.5 MCG 60 PUFF/6 GM MDI IH SCH ×2 (10:21→21:55)
[2018-05-18] MEDS: LISINOPRIL 5 MG TABLET PO SCH (10:25)
[2018-05-18] MEDS: LOSARTAN POTASSIUM 25 MG TABLET PO SCH (13:06)
[2018-05-18] MEDS: NICOTINE 21 MG/24 HR PATCH.TD24 TD SCH (17:51)
--- NOTE | 2018-05-18 18:58 | PDOC PROGRESS REPORT ---
Subjective Progress Note for:: 05/18/18 Subjective:: EARNEST CASTELLANO is a 82 year old male past medical history of hypertension, COPD, CHF, CAD status post remote CABG and stent placement, obstructive sleep apnea who presented to ED complaining of painful vesicular rash on the left side of his torso for the last 3 days. Start on the left posterior torso extending to anterior chest. Denies any recent acute illness,, travel or sick contacts. Does not recall if he had chickenpox as a child or if he had shingles vaccine. Denies any headache, fever, neck pain, sore throat, chest pain, palpitation, syncope abdominal pain, nausea, vomiting, diarrhea or any urinary symptoms 05/14/2018. No acute events overnight. Patient has been having nonproductive cough chronically which has been worsened since admission. On my encounter patient is comfortably resting in his bed in no apparent distress. He is stating that his left thoracic pain is controlled with gabapentin. Denies having any fever, chills, nausea, vomiting, diarrhea, constipation, chest pain or any urinary symptoms. 05/15/2018. No acute events overnight. Patient has had significant improvement of his persistent cough since being started on IV steroids. His rash is also improving and crusting over. Patient has been afebrile and his pain is managed with gabapentin. Denies any fever, chills, nausea, vomiting, diarrhea, constipation, shortness of breath or any urinary symptoms. PT is still waiting for his pacemaker to be interrogated. 05/16/2018. No acute events overnight. Patient's cough has improved. His rash is improving and he is having minimal pain. Pacemaker was interrogated yesterday and was reported to the nurse that it was functioning normally. Patient is denying any fever, chills, nausea, vomiting, diarrhea, constipation or any urinary symptoms. 05/18/2018. Patient is still having persistent cough with increased oxygen demand. Patient is doing better. His shingles rash has crusted over. Getting that he has minimal pain. Patient was going to be discharged home however due to his increased oxygen demand was kept for another day. Reason For Visit: COPD EXACERBATION, SHINGLES Physical Exam Vital Signs: Temp Pulse Resp BP Pulse Ox 97.5 F 60 20 150/90 H 91 L 05/18/18 15:49 05/18/18 15:49 05/18/18 15:49 05/18/18 15:49 05/18/18 15:49 Intake & Output 05/17/18 05/18/18 05/19/18 06:59 06:59 06:59 Intake Total 1154 1322 1088 Balance 1154 1322 1088 Weight 82.6 kg 81.6 kg Results Laboratory Results: 05/18/18 05:37 05/18/18 05:37 05/18/18 05/18/18 05:37 05:37 WBC 19.9 H RBC 5.24 Hgb 16.7 Hct 48.3 MCV 92 MCH 31.9 MCHC 34.7 RDW 14.3 H Plt Count 238 Seg Neutrophils % Not Reportable Lymphocytes % Not Reportable Monocytes % Not Reportable Eosinophils % Not Reportable Basophils % Not Reportable Absolute Neutrophils Not Reportable Absolute Lymphocytes Not Reportable Absolute Monocytes Not Reportable Absolute Eosinophils Not Reportable Absolute Basophils Not Reportable Sodium 134.8 L Potassium 4.2 Chloride 101 Carbon Dioxide 21 L Anion Gap 13 BUN 40 H Creatinine 1.29 H Est GFR ( Amer) > 60 Est GFR (Non-Af Amer) 53 L Glucose 161 H Calcium 8.8 Total Bilirubin 0.8 AST 60 H ALT 66 Alkaline Phosphatase 64 Total Protein 5.9 L Albumin 3.6 05/13/18 15:54 Blood Blood Culture - Final NO GROWTH IN 5 DAYS 05/13/18 11:01 Blood Blood Culture - Final NO GROWTH IN 5 DAYS 05/13/18 11:01 Troponin I 0.061 NT-Pro-B Natriuret Pep 13844 H Impressions: Chest X-Ray 05/13/18 09:53 IMPRESSION: NO ACUTE RADIOGRAPHIC FINDING IN THE CHEST. Assessment & Plan - Diagnosis (1) Shingles Qualifiers: Herpes zoster complications: without complications Qualified Code(s): B02.9 - Zoster without complications Is this a current diagnosis for this admission?: Yes Plan: Improving. Continue contact precaution, valacyclovir 1 g 3 times daily. Day 5/7 of valacyclovir. Follow-up PCP for possible shingles vaccine. Gabapentin for pain management. Titrate dosage up as tolerated. (2) Acute on chronic systolic and diastolic heart failure, NYHA class 3 Is this a current diagnosis for this admission?: Yes Plan: Does seem not to be on acute exacerbation. Monitor volume status. Restart home meds. (3) COPD exacerbation Is this a current diagnosis for this admission?: Yes Plan: Improving. BiPAP, DuoNeb. Had a conversation with Dr. Frank ORTEGA specialist from [facility]. Continue IV steroids, BiPAP, DuoNeb and antibiotics. (4) Atrial fibrillation Qualifiers: Atrial fibrillation type: unspecified Qualified Code(s): I48.91 - Unspecified atrial fibrillation Is this a current diagnosis for this admission?: No Plan: Rate controlled and anticoagulated. Continue current meds (5) HLD (hyperlipidemia) Qualifiers: Hyperlipidemia type: unspecified Qualified Code(s): E78.5 - Hyperlipidemia, unspecified Is this a current diagnosis for this admission?: Yes Plan: Restart home meds. (6) HECTOR (obstructive sleep apnea) Is this a current diagnosis for this admission?: Yes Plan: Nocturnal CPAP. (7) Hyponatremia Is this a current diagnosis for this admission?: Yes Plan: Improving. Patient not adherent with fluid restriction. As per nurse patient gets upset when his fluid restricted. Was advised on fluid restriction. CMP tomorrow. (8) Hyperkalemia Is this a current diagnosis for this admission?: Yes Plan: Resolved. BMP tomorrow. Digitalis level within normal limits.
[2018-05-18] MEDS: SIMVASTATIN 40 MG TABLET PO SCH (21:55)
[2018-05-19] MEDS: GUAIFENESIN SYRP 200 MG/10 ML UDC PO SCH ×4 (01:27→17:56)
[2018-05-19] MEDS: IPRATROPIUM/ALBUTEROL 0.5-2.5 MG/3 ML AMPUL NEB SCH ×4 (02:34→21:01)
[2018-05-19] MEDS: METHYLPREDNISOLONE INJ 125 MG/2 ML SDV IV SCH ×3 (02:37→17:55)
[2018-05-19] MEDS: VALACYCLOVIR HCL 500 MG TABLET PO SCH ×3 (05:56→21:27)
[2018-05-19] MEDS: GABAPENTIN 100 MG CAPSULE PO SCH ×3 (05:56→21:26)
[2018-05-19 08:56] LABS: HEMATOCRIT 51.9 % (37.9-51.0); HEMOGLOBIN 17.7 g/dL (13.5-17.0); MEAN CORPUSCULAR HEMOGLOBIN 31.7 pg (27.0-33.4); MEAN CORPUSCULAR HGB CONC 34.1 g/dL (32.0-36.0); MEAN CORPUSCULAR VOLUME 93 fl (80-97); PLATELET COUNT 302 10^3/uL (150-450); RED BLOOD COUNT 5.59 10^6/uL (4.35-5.55); RED CELL DISTRIBUTION WIDTH 14.7 % (11.5-14.0); WHITE BLOOD COUNT 22.5 10^3/uL (4.0-10.5)
[2018-05-19 09:09] LABS: ALANINE AMINOTRANSFERASE 69 U/L (21-72); ALBUMIN 3.8 g/dL (3.5-5.0); ALKALINE PHOSPHATASE 60 U/L (38-126); ANION GAP 14 (5-19); ASPARTATE AMINO TRANSFERASE 51 U/L (17-59); BILIRUBIN,DIRECT 0.4 mg/dL (0.0-0.4); BILIRUBIN,TOTAL 0.9 mg/dL (0.2-1.3); BLOOD UREA NITROGEN 40 mg/dL (7-20); CALCIUM 9.1 mg/dL (8.4-10.2); CARBON DIOXIDE 22 mmol/L (22-30); CHLORIDE 100 mmol/L (98-107); GLUCOSE 161 mg/dL (75-110); POTASSIUM 4.1 mmol/L (3.6-5.0); SODIUM 136.4 mmol/L (137-145); TOTAL PROTEIN 6.2 g/dL (6.3-8.2)
[2018-05-19] MEDS ORDERED: VANCOMYCIN HCL 0 MG in DEXTROSE 5%-WATER 250 ML IV NR (09:30)
[2018-05-19] MEDS: FUROSEMIDE 40 MG TABLET PO SCH (10:05)
[2018-05-19] MEDS: FAMOTIDINE 20 MG TABLET PO SCH ×2 (10:06→21:26)
[2018-05-19] MEDS: LOSARTAN POTASSIUM 25 MG TABLET PO SCH (10:06)
[2018-05-19] MEDS: METOPROLOL SUCCINATE 50 MG TAB.SR.24H PO SCH ×2 (10:07→21:27)
[2018-05-19] MEDS: DIGOXIN 0.125 MG TABLET PO SCH (10:07)
[2018-05-19] MEDS: ASPIRIN 81 MG TABLET, ENT COATED PO SCH (10:07)
--- NOTE | 2018-05-19 10:08 | RADIOLOGY REPORT (SQ) ---
EXAM DESCRIPTION: CHEST SINGLE VIEW COMPLETED DATE/TIME: 05/19/2018 9:50 am REASON FOR STUDY: Hypoxia, Cough COMPARISON: None 07/08/2018 EXAM PARAMETERS: NUMBER OF VIEWS: One view. TECHNIQUE: Single frontal radiographic view of the chest acquired. RADIATION DOSE: NA LIMITATIONS: None. FINDINGS: LUNGS AND PLEURA: Worsening in hazy opacification at the right lung base compared to prior . No additional airspace disease. No pleural effusion or pneumothorax. MEDIASTINUM AND HILAR STRUCTURES: Stable. No discrete masses. Central hilar prominence, unchanged. HEART AND VASCULAR STRUCTURES: Enlarged cardiac silhouette. Atherosclerotic tortuous aorta. BONES: Median sternotomy changes. No acute abnormalities. Degenerative changes at the shoulders, ri ght greater than left. HARDWARE: Left-sided cardiac pacer with leads overlying right atrium and right ventricle. OTHER: No other significant finding. IMPRESSION: Increased hazy right basilar opacification possibly atelectasis or infection. TECHNICAL DOCUMENTATION: JOB ID: [id number] [employer]- All Rights Reserved Reading location - IP/workstation name: [email or web address]
[2018-05-19 10:32] LABS: ABSOLUTE LYMPHOCYTES# (MANUAL) 1.1 10^3/uL (0.5-4.7); ABSOLUTE MONOCYTES # (MANUAL) 0.7 10^3/uL (0.1-1.4); ABSOLUTE NEUTROPHILS# (MANUAL) 20.7 10^3/uL (1.7-8.2); ANISOCYTOSIS SLIGHT; BAND NEUTROPHILS % (MANUAL) 4 % (3-5); BASOPHILS % (MANUAL) 0 % (0-2); EOSINOPHILS % (MANUAL) 0 % (0-6); LYMPHOCYTES % (MANUAL) 5 % (13-45); MONOCYTES % (MANUAL) 3 % (3-13); PLATELET CLUMPS PRESENT; PLATELET COMMENT ADEQUATE; SEGMENTED NEUTROPHILS % (MAN) 88 % (42-78); TOTAL CELLS COUNTED 100
[2018-05-19] MEDS: DABIGATRAN ETEXILATE 150 MG CAPSULE PO SCH ×2 (10:59→18:06)
[2018-05-19] MEDS: CEFTRIAXONE 1 GM/D5W RTU 1 GM/50 ML RTUPB IV SCH (10:59)
[2018-05-19] MEDS: DOFETILIDE 125 MCG CAPSULE PO SCH ×2 (11:00→21:29)
[2018-05-19] MEDS: FLUTICASONE NASAL SPRAY 50 MCG/SPRY 120 SPRAY/16 GM NASL SCH (11:00)
[2018-05-19] MEDS: BUDESONIDE/FORMOTEROL 160-4.5 MCG 60 PUFF/6 GM MDI IH SCH ×2 (11:00→21:26)
--- NOTE | 2018-05-19 15:48 | PDOC PROGRESS REPORT ---
Subjective Progress Note for:: 05/19/18 Subjective:: EARNEST CASTELLANO is a 82 year old male past medical history of hypertension, COPD, CHF, CAD status post remote CABG and stent placement, obstructive sleep apnea who presented to ED complaining of painful vesicular rash on the left side of his torso for the last 3 days. Start on the left posterior torso extending to anterior chest. Denies any recent acute illness,, travel or sick contacts. Does not recall if he had chickenpox as a child or if he had shingles vaccine. Denies any headache, fever, neck pain, sore throat, chest pain, palpitation, syncope abdominal pain, nausea, vomiting, diarrhea or any urinary symptoms 05/14/2018. No acute events overnight. Patient has been having nonproductive cough chronically which has been worsened since admission. On my encounter patient is comfortably resting in his bed in no apparent distress. He is stating that his left thoracic pain is controlled with gabapentin. Denies having any fever, chills, nausea, vomiting, diarrhea, constipation, chest pain or any urinary symptoms. 05/15/2018. No acute events overnight. Patient has had significant improvement of his persistent cough since being started on IV steroids. His rash is also improving and crusting over. Patient has been afebrile and his pain is managed with gabapentin. Denies any fever, chills, nausea, vomiting, diarrhea, constipation, shortness of breath or any urinary symptoms. PT is still waiting for his pacemaker to be interrogated. 05/16/2018. No acute events overnight. Patient's cough has improved. His rash is improving and he is having minimal pain. Pacemaker was interrogated yesterday and was reported to the nurse that it was functioning normally. Patient is denying any fever, chills, nausea, vomiting, diarrhea, constipation or any urinary symptoms. 05/18/2018. Patient is still having persistent cough with increased oxygen demand. Patient is doing better. His shingles rash has crusted over. Getting that he has minimal pain. Patient was going to be discharged home however due to his increased oxygen demand was kept for another day. 05/19/2018. No acute events overnight. Patient is still requiring 4 L of oxygen to keep his SPO2 above 90. He still having worsening leukocytosis. Today white blood cells 22.5 up from 19.9. His blood culture has been negative and repeat chest x-ray positive for increased hazy right basilar opacification possibly atelectasis or infection. Patient's sodium is improving and kidney function stable. We will switch levofloxacin to ceftriaxone and will add vancomycin. Will obtain a sputum culture and repeat blood culture. Patient is stating that his cough is improving however still short of breath but denies any chest pain, chills, fever, nausea, vomiting, diarrhea, constipation or any urinary symptoms. Reason For Visit: COPD EXACERBATION, SHINGLES Physical Exam Vital Signs: Temp Pulse Resp BP Pulse Ox 97.4 F 116 H 22 H 116/72 94 05/19/18 12:16 05/19/18 14:21 05/19/18 14:21 05/19/18 12:16 05/19/18 14:21 Intake & Output 05/18/18 05/19/18 05/20/18 06:59 06:59 06:59 Intake Total 1322 1238 490 Balance 1322 1238 490 Weight 81.6 kg 81 kg General appearance: PRESENT: no acute distress, well-developed, well-nourished Head exam: PRESENT: atraumatic, normocephalic Respiratory exam: PRESENT: crackles, prolonged expiratory phas, wheezes. ABSENT: rales, rhonchi Cardiovascular exam: PRESENT: irregular rhythm, tachycardia GI/Abdominal exam: PRESENT: normal bowel sounds, soft. ABSENT: distended, guarding, mass, organolmegaly, rebound, tenderness Neurological exam: PRESENT: alert, awake, oriented to person, oriented to place, oriented to time, oriented to situation, CN II-XII grossly intact. ABSENT: motor sensory deficit Skin exam: PRESENT: other - Left T5-T6 dermatome rash has crusted over. Results Laboratory Results: 05/19/18 07:41 05/19/18 07:41 05/19/18 05/19/18 07:41 07:41 WBC 22.5 H RBC 5.59 H Hgb 17.7 H Hct 51.9 H MCV 93 MCH 31.7 MCHC 34.1 RDW 14.7 H Plt Count 302 Seg Neutrophils % Not Reportable Lymphocytes % Not Reportable Monocytes % Not Reportable Eosinophils % Not Reportable Basophils % Not Reportable Absolute Neutrophils Not Reportable Absolute Lymphocytes Not Reportable Absolute Monocytes Not Reportable Absolute Eosinophils Not Reportable Absolute Basophils Not Reportable Sodium 136.4 L Potassium 4.1 Chloride 100 Carbon Dioxide 22 Anion Gap 14 BUN 40 H Creatinine 1.37 H Est GFR ( Amer) > 60 Est GFR (Non-Af Amer) 50 L Glucose 161 H Calcium 9.1 Magnesium 2.6 H Total Bilirubin 0.9 AST 51 ALT 69 Alkaline Phosphatase 60 Total Protein 6.2 L Albumin 3.8 05/13/18 15:54 Blood Blood Culture - Final NO GROWTH IN 5 DAYS 05/13/18 11:01 Blood Blood Culture - Final NO GROWTH IN 5 DAYS 05/13/18 11:01 Troponin I 0.061 NT-Pro-B Natriuret Pep 42914 H Impressions: Chest X-Ray 05/19/18 00:00 IMPRESSION: Increased hazy right basilar opacification possibly atelectasis or infection. Assessment & Plan - Diagnosis (1) COPD exacerbation Is this a current diagnosis for this admission?: Yes Plan: Still needs 4 L to keep O2 sat above 90%. His wheezing has not improved. Still having persistent leukocytosis. His blood culture has been negative and repeat chest x-ray positive for incre ased hazy right basilar opacification possibly atelectasis or infection. We will switch levofloxacin to ceftriaxone and will add vancomycin. Will obtain a sputum culture and repeat blood culture. Continue IV steroids, BiPAP, DuoNeb. (2) Chronic cough Is this a current diagnosis for this admission?: No Plan: Likely due to ongoing tobacco abuse or side effect of lisinopril. Lisinopril was switched to losartan yesterday and patient had mild improvement. We will continue treatment for underlying COPD exacerbation. Continue an titussives. (3) Shingles Qualifiers: Herpes zoster complications: without complications Qualified Code(s): B02.9 - Zoster without complications Is this a current diagnosis for this admission?: Yes Plan: Improving. Continue contact precaution, valacyclovir 1 g 3 times daily. Day 6/7 of valacyclovir. Follow-up PCP for possible shingles vaccine. Gabapentin for pain management. Titrate dosage up as tolerated. (4) Acute on chronic systolic and diastolic heart failure, NYHA class 3 Is this a current diagnosis for this admission?: Yes Plan: Does seem not to be on acute exacerbation. Monitor volume status. Restart home meds. (5) Atrial fibrillation Qualifiers: Atrial fibrillation type: unspecified Qualified Code(s): I48.91 - Unspecified atrial fibrillation Is this a current diagnosis for this admission?: No Plan: Continue current meds. Adjust meds as needed. Anticoagulated. (6) HLD (hyperlipidemia) Qualifiers: Hyperlipidemia type: unspecified Qualified Code(s): E78.5 - Hyperlipidemia, unspecified Is this a current diagnosis for this admission?: Yes Plan: Restart home meds. (7) HECTOR (obstructive sleep apnea) Is this a current diagnosis for this admission?: Yes Plan: Nocturnal CPAP. (8) Hyponatremia Is this a current diagnosis for this admission?: Yes Plan: Improving. Patient not adherent with fluid restriction. As per nurse patient gets upset when his fluid restricted. Was advised on fluid restriction. CMP tomorrow.
[2018-05-19] MEDS: NICOTINE 21 MG/24 HR PATCH.TD24 TD SCH (17:56)
[2018-05-19] MEDS ORDERED: VANCOMYCIN HCL 1,500 MG in DEXTROSE 5%-WATER 250 ML IV SCH (18:00)
[2018-05-19] MEDS: SIMVASTATIN 40 MG TABLET PO SCH (21:27)
[2018-05-20] MEDS: METHYLPREDNISOLONE INJ 125 MG/2 ML SDV IV SCH ×2 (01:53→10:50)
[2018-05-20] MEDS: GUAIFENESIN SYRP 200 MG/10 ML UDC PO SCH ×3 (01:54→15:05)
[2018-05-20] MEDS: IPRATROPIUM/ALBUTEROL 0.5-2.5 MG/3 ML AMPUL NEB SCH ×3 (02:33→14:03)
[2018-05-20] MEDS: GABAPENTIN 100 MG CAPSULE PO SCH ×2 (06:13→15:05)
[2018-05-20 07:23] LABS: ABSOLUTE LYMPHOCYTES (AUTO) 0.7 10^3/uL (0.5-4.7); ABSOLUTE MONOCYTES (AUTO) 0.5 10^3/uL (0.1-1.4); ABSOLUTE NEUT (AUTO) 18.3 10^3/uL (1.7-8.2); BASOPHILS % (AUTO) 0.1 % (0-2); EOSINOPHILS % (AUTO) 0.1 % (0-6); HEMATOCRIT 48.6 % (37.9-51.0); HEMOGLOBIN 16.8 g/dL (13.5-17.0); LYMPHOCYTES % (AUTO) 3.7 % (13-45); MEAN CORPUSCULAR HEMOGLOBIN 32.1 pg (27.0-33.4); MEAN CORPUSCULAR HGB CONC 34.5 g/dL (32.0-36.0); MEAN CORPUSCULAR VOLUME 93 fl (80-97); MONOCYTES % (AUTO) 2.8 % (3-13); PLATELET COUNT 277 10^3/uL (150-450); RED BLOOD COUNT 5.23 10^6/uL (4.35-5.55); RED CELL DISTRIBUTION WIDTH 14.3 % (11.5-14.0); SEGMENTED NEUTROPHILS % (AUTO) 93.3 % (42-78); TOTAL CELLS COUNTED % (AUTO) 100 %; WHITE BLOOD COUNT 19.6 10^3/uL (4.0-10.5)
[2018-05-20 07:40] LABS: ALANINE AMINOTRANSFERASE 63 U/L (21-72); ALBUMIN 3.3 g/dL (3.5-5.0); ALKALINE PHOSPHATASE 53 U/L (38-126); ANION GAP 10 (5-19); ASPARTATE AMINO TRANSFERASE 41 U/L (17-59); BILIRUBIN,DIRECT 0.4 mg/dL (0.0-0.4); BLOOD UREA NITROGEN 41 mg/dL (7-20); CALCIUM 8.6 mg/dL (8.4-10.2); CARBON DIOXIDE 23 mmol/L (22-30); CHLORIDE 103 mmol/L (98-107); GLUCOSE 163 mg/dL (75-110); POTASSIUM 4.2 mmol/L (3.6-5.0); SODIUM 135.6 mmol/L (137-145); TOTAL PROTEIN 5.6 g/dL (6.3-8.2)
[2018-05-20] MEDS: DOFETILIDE 125 MCG CAPSULE PO SCH (10:46)
[2018-05-20] MEDS: METOPROLOL SUCCINATE 50 MG TAB.SR.24H PO SCH (10:47)
[2018-05-20] MEDS: DABIGATRAN ETEXILATE 150 MG CAPSULE PO SCH (10:47)
[2018-05-20] MEDS: FAMOTIDINE 20 MG TABLET PO SCH (10:47)
[2018-05-20] MEDS: ASPIRIN 81 MG TABLET, ENT COATED PO SCH (10:47)
[2018-05-20] MEDS: VALACYCLOVIR HCL 500 MG TABLET PO SCH (10:47)
[2018-05-20] MEDS: LOSARTAN POTASSIUM 25 MG TABLET PO SCH (10:48)
[2018-05-20] MEDS: DIGOXIN 0.125 MG TABLET PO SCH (10:48)
[2018-05-20] MEDS: FUROSEMIDE 40 MG TABLET PO SCH (10:50)
[2018-05-20] MEDS: CEFTRIAXONE 1 GM/D5W RTU 1 GM/50 ML RTUPB IV SCH (10:51)
[2018-05-20 16:07] VITALS: BP 127/74
--- NOTE | 2018-05-20 16:12 | PDOC DISCHARGE SUMMARY ---
General - Admit/Disc Date/PCP Admission Date/Primary Care Provider: 05/13/18 15:29 AMARA MOCK MD Discharge Date: 05/20/18 - Discharge Diagnosis (1) COPD exacerbation Is this a current diagnosis for this admission?: Yes (2) Chronic cough Is this a current diagnosis for this admission?: No (3) Shingles Is this a current diagnosis for this admission?: Yes (4) Acute on chronic systolic and diastolic heart failure, NYHA class 3 Is this a current diagnosis for this admission?: Yes (5) Atrial fibrillation Is this a current diagnosis for this admission?: No (6) HLD (hyperlipidemia) Is this a current diagnosis for this admission?: Yes (7) HECTOR (obstructive sleep apnea) Is this a current diagnosis for this admission?: Yes (8) Hyponatremia Is this a current diagnosis for this admission?: Yes - Additional Information Resuscitation Status: Full Code Discharge Diet: Cardiac Discharge Activity: Activity As Tolerated, Balance Activity w/Rest, Weigh Daily Prescriptions: Losartan Potassium [Cozaar 25 mg Tablet] 12.5 mg PO DAILY 30 Days #30 tablet Home Medications: Aspirin [Ecotrin 81 mg EC Tablet] 81 mg PO DAILY 05/20/18 Budesonide/Formoterol Fumarate [Symbicort HFA 160-4.5 mcg Inhaler 6 gm] 2 puff IH Q12 05/20/18 Cholecalciferol (Vitamin D3) [Vitamin D3] 2,000 unit PO DAILY 05/20/18 Cyanocobalamin (Vitamin B-12) [Vitamin B-12 1000 mcg Tablet] 1,000 mcg PO DAILY 05/20/18 Dabigatran Etexilate Mesylate [Pradaxa 150 mg Capsule] 150 mg PO Q12 05/20/18 Digoxin [Lanoxin 0.125 mg Tablet] 0.125 mg PO DAILY 05/20/18 Dofetilide [Tikosyn 125 Mcg Capsule] 250 mcg PO Q12 05/20/18 Fluticasone Propionate [Flonase Nasal Colon 50 Mcg/Colon 16 gm] 1 spray NASL BID 05/20/18 Furosemide [Lasix 40 mg Tablet] 40 mg PO DAILY 05/20/18 Levalbuterol HCl [Levalbuterol Concentrate] 0.5 ml NEB BID 05/20/18 Losartan Potassium [Cozaar 25 mg Tablet] 12.5 mg PO DAILY 30 Days #30 tablet 05/20/18 Metoprolol Succinate [Toprol Xl 50 mg Tab.sr] 50 mg PO Q12 05/20/18 Montelukast Sodium [Singulair 10 mg Tablet] 10 mg PO QPM 05/20/18 Multivitamin [Tab-A-Nain (Multiple Vitamin) Tablet] 1 tab PO DAILY 05/20/18 Simvastatin [Zocor 20 mg Tablet] 20 mg PO DAILY 05/20/18 Tiotropium [place] [Spiriva Respimat] 2 puff IH Q12HP PRN 05/20/18 History of Present Illness History of Present Illness: EARNEST CASTELLANO is a 82 year old male past medical history of hypertension, COPD, CHF, CAD status post remote CABG and stent placement, obstructive sleep apnea who presented to ED complaining of painful vesicular rash on the left side of his torso for the last 3 days. Start on the left posterior torso extending to anterior chest. Denies any recent acute illness,, travel or sick contacts. Does not recall if he had chickenpox as a child or if he had shingles vaccine. Denies any headache, fever, neck pain, sore throat, chest pain, palpitation, syncope abdominal pain, nausea, vomiting, diarrhea or any urinary symptoms. Hospital Course Hospital Course: (1) COPD exacerbation Improved, Pt saturating in 90s on 2 L. Uses home O2. Wheezing improved signficatly. Persistent leukocytosis likely due to steroids, no fever, cultures negative. I would have liked to keep the patient another day until leukocytosis improves, but he is very persistent on leaving. DC antibioitcs. All cultures Negative. Pt is an active heavy smoker. Counseling on quitting provided. (2) Chronic cough Multifcatorial. Likely due to ongoing tobacco abuse or side effect of lisinopril. Had some improvent after Lisinopril was switched to losartan. Continued treatment for underlying COPD exacerbation. Continue antitussives. (3) Shingles Much improvement since admssion, all lesions crusted over and no sign of vesicular lesions. Valacyclovir 1 g 3 times daily. Day 7/7 of valacyclovir. Follow-up PCP for possible shingles vaccine. Gabapentin for pain management. Titrate dosage up as tolerated. (4) Acute on chronic systolic and diastolic heart failure, NYHA class 3 Does seem not to be on acute exacerbation. Monitor volume status. Restart home meds. (5) Atrial fibrillation Continue current meds. Adjust meds as needed. Anticoagulated. (6) HLD (hyperlipidemia) Restart home meds. (7) HECTOR (obstructive sleep apnea) Nocturnal CPAP. (8) Hyponatremia Improved. Patient not adherent with fluid restriction. As per nurse patient gets upset when his fluid restricted. Was advised on fluid restriction. Physical Exam Vital Signs: Temp Pulse Resp BP Pulse Ox 97.8 F 120 H 20 127/74 H 90 L 05/20/18 16:00 05/20/18 16:00 05/20/18 16:00 05/20/18 16:00 05/20/18 16:00 Intake & Output 05/19/18 05/20/18 05/21/18 06:59 06:59 06:59 Intake Total 1238 920 Balance 1238 920 Weight 81 kg 80.5 kg General appearance: PRESENT: no acute distress, well-developed, well-nourished Head exam: PRESENT: atraumatic, normocephalic Respiratory exam: PRESENT: clear to auscultation bruna. ABSENT: rales, rhonchi, wheezes GI/Abdominal exam: PRESENT: normal bowel sounds, soft. ABSENT: distended, guarding, mass, organolmegaly, rebound, tenderness Extremities exam: PRESENT: full ROM. ABSENT: calf tenderness, clubbing, pedal edema Neurological exam: PRESENT: alert, awake, oriented to person, oriented to place, oriented to time, oriented to situation, CN II-XII grossly intact. ABSENT: motor sensory deficit Skin exam: PRESENT: dry, intact, warm, other - crusted shingles lesions, no discharge. ABSENT: cyanosis, rash Results Laboratory Results: 05/20/18 06:42 05/20/18 06:42 05/20/18 05/20/18 06:42 06:42 WBC 19.6 H RBC 5.23 Hgb 16.8 Hct 48.6 MCV 93 MCH 32.1 MCHC 34.5 RDW 14.3 H Plt Count 277 Seg Neutrophils % 93.3 H Lymphocytes % 3.7 L Monocytes % 2.8 L Eosinophils % 0.1 Basophils % 0.1 Absolute Neutrophils 18.3 H Absolute Lymphocytes 0.7 Absolute Monocytes 0.5 Absolute Eosinophils 0.0 Absolute Basophils 0.0 Sodium 135.6 L Potassium 4.2 Chloride 103 Carbon Dioxide 23 Anion Gap 10 BUN 41 H Creatinine 1.28 H Est GFR ( Amer) > 60 Est GFR (Non-Af Amer) 54 L Glucose 163 H Calcium 8.6 Total Bilirubin 1.0 AST 41 ALT 63 Alkaline Phosphatase 53 Total Protein 5.6 L Albumin 3.3 L 05/19/18 11:31 Sputum Gram Stain - Final 05/19/18 11:31 Sputum Sputum Culture - Final 05/13/18 11:01 Troponin I 0.061 NT-Pro-B Natriuret Pep [id number] H Impressions: Chest X-Ray 05/19/18 00:00 IMPRESSION: Increased hazy right basilar opacification possibly atelectasis or infection. Qualifiers - * PATIENT BEING DISCHARGED WITH ANY OF THE FOLLOWING DIAGNOSIS: No VTE patient discharged on overlapping Therapy?: Yes
== END 2018-05-20 18:40 | disposition home or self-care (01) | DRG 190 ==
LOC: ER 08:25 → EH 14:45 → INTOOBSV 14:45 → OBSVTOIN 15:29 → 4S 21:09
PROVIDERS: ADMIT Internal Medicine; ATTEND Internal Medicine
PROC: 5A09457 Assistance with Respiratory Ventilation, 24-96 Consecutive Hours, Continuous Positive Airway Pressure (ICD-10-PCS; principal; 2018-05-13)
PROC: 3E0F73Z Introduction of Anti-inflammatory into Respiratory Tract, Via Natural or Artificial Opening (ICD-10-PCS; 2018-05-13)
DX: J44.1 Chronic obstructive pulmonary disease with (acute) exacerbation (principal); I50.43 Acute on chronic combined systolic (congestive) and diastolic (congestive) heart failure; E87.1 Hypo-osmolality and hyponatremia; B02.9 Zoster without complications; R05 Cough; I48.91 Unspecified atrial fibrillation; E78.00 Pure hypercholesterolemia, unspecified; G47.33 Obstructive sleep apnea (adult) (pediatric); I11.0 Hypertensive heart disease with heart failure; I25.10 Atherosclerotic heart disease of native coronary artery without angina pectoris; Z79.899 Other long term (current) drug therapy; Z95.1 Presence of aortocoronary bypass graft; Z95.5 Presence of coronary angioplasty implant and graft; Z90.49 Acquired absence of other specified parts of digestive tract; Z79.82 Long term (current) use of aspirin; Z95.810 Presence of automatic (implantable) cardiac defibrillator; Z99.81 Dependence on supplemental oxygen; Z83.6 Family history of other diseases of the respiratory system
CPT/HCPCS: 36415; 71045; 80048; 80053; 80162; 82803; 83605; 83735; 83880; 84484; 85025; 87040; 87070; 87205; 93005; 93010; 94640; 94660; 94668; 96374; 96375; 99285; J0610; J0696; J2930; J3370; J3475; J3490; J7030; J7060; J7620

== ENCOUNTER → 2018-07-01 | Outpatient (CLI) | payer MEDICARE, OTHER ==
[2018-07-01 08:59] LABS: ABSOLUTE BASOPHILS # (AUTO) 0.1 10^3/uL (0.0-0.2); ABSOLUTE EOSINOPHILS # (AUTO) 0.2 10^3/uL (0.0-0.6); ABSOLUTE LYMPHOCYTES (AUTO) 2.4 10^3/uL (0.5-4.7); ABSOLUTE NEUT (AUTO) 7.2 10^3/uL (1.7-8.2); BASOPHILS % (AUTO) 0.6 % (0-2); EOSINOPHILS % (AUTO) 1.4 % (0-6); HEMATOCRIT 48.9 % (37.9-51.0); HEMOGLOBIN 16.9 g/dL (13.5-17.0); LYMPHOCYTES % (AUTO) 21.9 % (13-45); MEAN CORPUSCULAR HEMOGLOBIN 32.5 pg (27.0-33.4); MEAN CORPUSCULAR HGB CONC 34.6 g/dL (32.0-36.0); MEAN CORPUSCULAR VOLUME 94 fl (80-97); MONOCYTES % (AUTO) 9.6 % (3-13); PLATELET COUNT 223 10^3/uL (150-450); RED CELL DISTRIBUTION WIDTH 15.2 % (11.5-14.0); SEGMENTED NEUTROPHILS % (AUTO) 66.5 % (42-78); TOTAL CELLS COUNTED % (AUTO) 100 %; WHITE BLOOD COUNT 10.8 10^3/uL (4.0-10.5)
[2018-07-01 09:22] LABS: ALBUMIN 4.2 g/dL (3.5-5.0); ANION GAP 7 (5-19); BLOOD UREA NITROGEN 10 mg/dL (7-20); CALCIUM 9.7 mg/dL (8.4-10.2); CARBON DIOXIDE 30 mmol/L (22-30); CHLORIDE 103 mmol/L (98-107); GLUCOSE 114 mg/dL (75-110); PHOSPHORUS 3.9 mg/dL (2.5-4.5); POTASSIUM 4.5 mmol/L (3.6-5.0)
[2018-07-01 09:43] LABS: APPEARANCE,URINE CLEAR; BILIRUBIN,URINE NEGATIVE (NEGATIVE); COLOR,URINE YELLOW; GLUCOSE, URINE NEGATIVE (NEGATIVE); KETONES,URINE NEGATIVE (NEGATIVE); LEUKOCYTE ESTERASE,URINE NEGATIVE (NEGATIVE); NITRITE,URINE NEGATIVE (NEGATIVE); PROTEIN,URINE NEGATIVE (NEGATIVE)
[2018-07-02 11:40] LABS: CREATININE URINE 89.4 mg/dL (Not Estab.); MICROALBUMIN URINE 37.5 ug/mL (Not Estab.)
== END ==
LOC: OD 08:29
PROVIDERS: ATTEND Internal Medicine Nephrology
DX: I13.10 Hypertensive heart and chronic kidney disease without heart failure, with stage 1 through stage 4 chronic kidney disease, or unspecified chronic kidney disease (principal); N18.3 Chronic kidney disease, stage 3 (moderate); E55.9 Vitamin D deficiency, unspecified
CPT/HCPCS: 36415; 80048; 81001; 82040; 82043; 82306; 82570; 83970; 84100; 85025

== ENCOUNTER 2018-09-12 00:31 | Inpatient (IN) | payer MEDICARE, OTHER ==
[2018-09-12] MEDS ORDERED: ALBUTEROL SULFATE 0.083% NEB 2.5 MG/3 ML AMPUL NEB ONE ×2 (00:42→02:29)
[2018-09-12] MEDS: MAGNESIUM SULFATE/D5W 1 GM/100 ML RTUPB IV SCH ×2 (01:08→02:17)
[2018-09-12 01:13] LABS: ABSOLUTE EOSINOPHILS # (AUTO) 0.1 10^3/uL (0.0-0.6); ABSOLUTE LYMPHOCYTES (AUTO) 2.1 10^3/uL (0.5-4.7); ABSOLUTE NEUT (AUTO) 8.9 10^3/uL (1.7-8.2); BASOPHILS % (AUTO) 0.4 % (0-2); EOSINOPHILS % (AUTO) 1.1 % (0-6); HEMATOCRIT 51.6 % (37.9-51.0); HEMOGLOBIN 17.2 g/dL (13.5-17.0); LYMPHOCYTES % (AUTO) 17.5 % (13-45); MEAN CORPUSCULAR HGB CONC 33.3 g/dL (32.0-36.0); MEAN CORPUSCULAR VOLUME 93 fl (80-97); MONOCYTES % (AUTO) 8.1 % (3-13); PLATELET COUNT 251 10^3/uL (150-450); RED BLOOD COUNT 5.55 10^6/uL (4.35-5.55); RED CELL DISTRIBUTION WIDTH 14.6 % (11.5-14.0); SEGMENTED NEUTROPHILS % (AUTO) 72.9 % (42-78); TOTAL CELLS COUNTED % (AUTO) 100 %; WHITE BLOOD COUNT 12.2 10^3/uL (4.0-10.5)
[2018-09-12 01:21] LABS: VENOUS BLOOD BASE EXCESS 1.5 mmol/L; VENOUS BLOOD HCO3 26.7 mmol/L (20-32); VENOUS BLOOD PCO2 43.9 mmHg (35-63); VENOUS BLOOD PH 7.4 (7.30-7.42)
--- NOTE | 2018-09-12 01:21 | RADIOLOGY REPORT (SQ) ---
EXAM DESCRIPTION: XR CHEST 1 VIEW COMPLETED DATE/TME: 09/12/2018 00:42 CLINICAL HISTORY: 82 years, Male, dyspnea COMPARISON: None. NUMBER OF VIEWS: TECHNIQUE: LIMITATIONS: None. FINDINGS: There is infiltrate in the right mid and lower lung, and possibly also at the left lung base, compatible with pneumonia. There is possible emphysema. There is cardiomegaly. No evidence of heart failure. There is a left-sided AICD. IMPRESSION: Pneumonia. Possible emphysema. Cardiomegaly. copyright 2010 [employer]- All Rights Reserved
[2018-09-12 01:32] LABS: ALANINE AMINOTRANSFERASE 21 U/L (21-72); ALBUMIN 3.8 g/dL (3.5-5.0); ALKALINE PHOSPHATASE 72 U/L (38-126); ANION GAP 11 (5-19); ASPARTATE AMINO TRANSFERASE 24 U/L (17-59); BILIRUBIN,DIRECT 0.3 mg/dL (0.0-0.4); BILIRUBIN,TOTAL 0.9 mg/dL (0.2-1.3); BLOOD UREA NITROGEN 10 mg/dL (7-20); CALCIUM 9.1 mg/dL (8.4-10.2); CARBON DIOXIDE 25 mmol/L (22-30); CHLORIDE 106 mmol/L (98-107); GLUCOSE 124 mg/dL (75-110); POTASSIUM 3.9 mmol/L (3.6-5.0); SODIUM 141.8 mmol/L (137-145); TOTAL PROTEIN 6.6 g/dL (6.3-8.2)
--- NOTE | 2018-09-12 01:43 | ER Document Report ---
ED General - General Chief Complaint: Shortness Of Breath Stated Complaint: SHORTNESS OF BREATH Time Seen by Provider: 09/12/18 00:36 Primary Care Provider: DENIS ROWLAND MD [Primary Care Provider] - Follow up as needed Notes: Patient is an 82-year-old male presents with complaint of difficulty breathing. He does have a history of COPD and history of CHF. No chest pain. Over the last couple days has had worsening difficulty breathing which became much worse tonight. He has been doing breathing treatments at home. In the ambulance he received Solu-Medrol as well as multiple breathing treatments. No fevers. No vomiting. No chest pain. No other complaints at this time. TRAVEL OUTSIDE OF THE [place] IN LAST 30 DAYS: No - Related Data Allergies/Adverse Reactions: No Known Allergies Allergy (Verified 05/13/18 08:27) Past Medical History - Social History Smoking Status: Current Some Day Smoker Chew tobacco use (# tins/day): No Frequency of alcohol use: None Drug Abuse: None Family History: COPD Patient has suicidal ideation: No Patient has homicidal ideation: No - Past Medical History Cardiac Medical History: Reports: Hx Atrial Fibrillation, Hx Congestive Heart Failure, Hx Coronary Artery Disease, Hx Heart Attack - 1 stent. triple bypass surgery, Hx Hypercholesterolemia, Hx Hypertension Denies: Hx DVT, Hx Peripheral Vascular Disease, Hx Pulmonary Embolism, Hx Heart Murmur Pulmonary Medical History: Reports: Hx COPD, Hx Pneumonia, Hx Sleep Apnea - Uncertain settings for the CPAP. No home oxygen. Denies: Hx Asthma, Hx Bronchitis, Hx Respiratory Failure, Hx Tuberculosis Neurological Medical History: Denies: Hx Cerebrovascular Accident, Hx Seizures Endocrine Medical History: Denies: Hx Diabetes Mellitus Type 1, Hx Diabetes Mellitus Type 2, Hx Graves' Disease, Hx Hyperthyroidism, Hx Hypothyroidism Renal/ Medical History: Denies: Hx Benign Prostatic Hyperplasia, Hx End Stage Renal Disease, Hx Kidney Stones, Hx Peritoneal Dialysis Malignancy Medical History: Denies Hx Leukemia, Denies Hx Lung Cancer GI Medical History: Denies: Hx Cirrhosis, Hx Crohn's Disease, Hx Gastroesophageal Reflux Disease, Hx Hepatitis, Hx Hiatal Hernia, Hx Irritable Bowel, Hx Liver Failure, Hx Pancreatitis, Hx Ulcer Musculoskeletal Medical History: Denies Hx Arthritis, Denies Hx Fibromyalgia, Denies Hx Multiple Sclerosis, Denies Hx Muscular Dystrophy, Denies Hx Systemic Lupus Erythematosus Psychiatric Medical History: Reports: Hx Depression - Mild Denies: Hx Bipolar Disorder, Hx Dementia, Hx Post Traumatic Stress Disorder, Hx Schizophrenia Traumatic Medical History: Denies: Hx Fractures Infectious Medical History: Denies: Hx Hepatitis, Hx HIV Past Surgical History: Reports: Hx Abdominal Surgery - aaa stent, Hx Cardiac Catheterization, Hx Cardiac Surgery - AICD, Hx Cholecystectomy, Hx Coronary Artery Bypass Graft - Three-vessel, Hx Internal Defibrillator, Hx Open Heart Surgery, Hx Pacemaker - Pacemaker defibrillator. Denies: Hx Appendectomy, Hx Bowel Surgery, Hx Colostomy, Hx Gastric Bypass Surgery, Hx Herniorrhaphy, Hx Tonsillectomy - Immunizations Immunizations up to date: Yes Hx Diphtheria, Pertussis, Tetanus Vaccination: Yes Hx Pneumococcal Vaccination: 03/05/11 Review of Systems - Review of Systems Notes: My Normal Review Basic REVIEW OF SYSTEMS: CONSTITUTIONAL : Denies fever, chills, or sweats. Denies recent illness. EENT: Denies eye, ear, throat, or mouth pain or symptoms. Denies nasal or sinus congestion. CARDIOVASCULAR: Denies chest pain. RESPIRATORY: Difficulty breathing GASTROINTESTINAL: Denies abdominal pain. Denies nausea, vomiting, or diarrhea. MUSCULOSKELETAL: Denies neck or back pain or joint pain or swelling. SKIN: Denies rash or skin lesions. NEUROLOGICAL: Denies altered mental status or loss of consciousness. Denies headache. Denies weakness or paralysis or loss of use of either side. Denies problems with gait or speech. Denies sensory or motor loss. ALL OTHER SYSTEMS REVIEWED AND NEGATIVE. Physical Exam - Vital signs Vitals: Resp Pulse Ox 33 H 92 09/12/18 00:42 09/12/18 00:42 - Notes Notes: General Appearance: Well nourished, alert, cooperative, moderate acute distress, no obvious discomfort. Vitals: reviewed, See vital signs table. Eyes: PERRL, EOMI, Conjuctiva clear Mouth: No decreasd moisture Throat: No tonsillar inflammation, No airway obstruction, No lymphadenopathy Neck: Supple, no neck tenderness, No thyromegaly Lungs: Accessory muscle use. Diffuse wheezing. Fair air exchange. Heart: Normal rate, Regular rythm, No murmur, no rub Abdomen: Normal BS, soft, No rigidity, No abdominal tenderness, No guarding, no rebound Extremities: strength 5/5 in all extremities, good pulses in all extremities, no swelling or tenderness in the extremities, no edema. Skin: warm, dry, appropriate color, no rash Neuro: speech clear, oriented x 3, normal affect, responds appropriately to questions. Course - Re-evaluation Re-evalutation: 09/12/18 02:29 On reevaluation patient is work of breathing is much improved. He looks very comfortable now. He still requiring increasing amounts of oxygen. His normal home oxygen is 1 to 2 L via nasal cannula. He is currently on 5 L via nasal cannula. I did re-listened to his lungs. Lung zhang now are much improved. He does not have near as much wheezing. Wheezing is significantly diminished. He has good air movement. He does I am now hearing some rales in the bases therefore we will give him a dose of Lasix. I have ordered a repeat albuterol treatment. 09/12/18 04:38 Patient's lung zhang continues to improve however he continues to require higher than normal amounts of oxygen. His SPO2 is currently 93% on 5 L of oxygen nasal cannula. He did have a short run of V. tach after receiving albuterol treatment. He had approximately 6-7 PVCs. He denies any symptoms associated with this. He just continues to deny any chest pain. I will place him on BiPAP as I feel this will likely help improve him further and also this will help keep him from retaining CO2 being that he is requiring high amounts of oxygen normal. Patient also typically wears CPAP at night. I did speak with the hospitalist, Dr. Linda, who agrees to evaluate the patient for admission. Patient agrees with plan for admission. Dictation of this chart was performed using voice recognition software; therefore, there may be some unintended grammatical errors. - Vital Signs Vital signs: Temp Pulse Resp BP Pulse Ox 97.7 F 77 27 H 151/79 H 90 L 09/12/18 00:44 09/12/18 00:44 09/12/18 04:02 09/12/18 04:02 09/12/18 04:02 - Laboratory Result Diagrams: 09/12/18 00:55 09/12/18 00:55 Laboratory results interpreted by me: 09/12/18 09/12/18 00:55 00:55 WBC 12.2 H Hgb 17.2 H Hct 51.6 H RDW 14.6 H Absolute Neutrophils 8.9 H Glucose 124 H - EKG Interpretation by Me Additional EKG results interpreted by me: 09/12/18 01:43 EKG is reviewed and interpreted by me. EKG shows sinus rhythm with a rate of 80 bpm. Occasional PVCs. NV interval, QRS duration are within normal range. QT interval is slightly prolonged. Discharge - Discharge Clinical Impression: COPD exacerbation, Hypoxemia Condition: Stable Disposition: ADMITTED OBSERVATION Admitting Provider: Alexei (Hospitalist) Unit Admitted: Telemetry Referrals: DENIS ROWLAND MD [Primary Care Provider] - Follow up as needed
[2018-09-12] MEDS ORDERED: FUROSEMIDE INJ/PF 20 MG/2 ML SDV IV ONE (02:27)
[2018-09-12] MEDS ORDERED: ACETAMINOPHEN 325 MG TABLET PO PRN (04:38)
[2018-09-12] MEDS ORDERED: GUAIFENESIN SYRP 200 MG/10 ML UDC PO PRN (04:38)
[2018-09-12] MEDS ORDERED: FAMOTIDINE 20 MG TABLET PO SCH (04:45)
[2018-09-12] MEDS ORDERED: AZITHROMYCIN INJ 500 MG VIAL IV PRN (04:51)
[2018-09-12] MEDS ORDERED: POTASSIUM CHLORIDE 10 MEQ CAPSULE.ER PO SCH ×2 (05:00→18:00)
[2018-09-12] MEDS ORDERED: AZITHROMYCIN INJ 500 MG VIAL IV ONE (05:22)
[2018-09-12] MEDS: AZITHROMYCIN 500 MG in DEXTROSE 5%-WATER 250 ML IV SCH (05:53)
[2018-09-12 06:02] LABS: HEMATOCRIT 51.6 % (37.9-51.0); HEMOGLOBIN 17.4 g/dL (13.5-17.0); MEAN CORPUSCULAR HEMOGLOBIN 31.4 pg (27.0-33.4); MEAN CORPUSCULAR HGB CONC 33.8 g/dL (32.0-36.0); MEAN CORPUSCULAR VOLUME 93 fl (80-97); PLATELET COUNT 215 10^3/uL (150-450); RED BLOOD COUNT 5.56 10^6/uL (4.35-5.55); RED CELL DISTRIBUTION WIDTH 14.4 % (11.5-14.0); WHITE BLOOD COUNT 11.4 10^3/uL (4.0-10.5)
[2018-09-12 06:12] LABS: CREATINE KINASE MB 1.9 ng/mL (<4.55)
[2018-09-12 06:20] LABS: ABSOLUTE LYMPHOCYTES# (MANUAL) 0.5 10^3/uL (0.5-4.7); ABSOLUTE NEUTROPHILS# (MANUAL) 10.9 10^3/uL (1.7-8.2); ANISOCYTOSIS SLIGHT; BASOPHILS % (MANUAL) 0 % (0-2); EOSINOPHILS % (MANUAL) 0 % (0-6); LYMPHOCYTES % (MANUAL) 4 % (13-45); MONOCYTES % (MANUAL) 0 % (3-13); PLATELET COMMENT ADEQUATE; SEGMENTED NEUTROPHILS % (MAN) 96 % (42-78); TOTAL CELLS COUNTED 100
[2018-09-12 06:34] LABS: CREATINE KINASE MB 1.88 ng/mL (<4.55)
--- NOTE | 2018-09-12 06:34 | PDOC H&P ---
History of Present Illness Admission Date/PCP: 09/12/18 04:52 DENIS ROWLAND MD Patient complains of: Shortness of breath History of Present Illness: EARNEST CASTELLANO is a 82 year old male with a past medical history of hypertension, COPD, coronary artery disease status post remote coronary artery bypass grafting and stent placement, obstructive sleep apnea, congestive heart failure with pacemaker AICD and persistent tobacco dependence. He presents with 2 days of worsening shortness of breath despite his unchanged aggressive outpatient medical regiment hampered by persistent tobacco dependence and intermittent BiPAP use. He denies chest pain nausea or vomiting but admits constant palpitations. In the emergency room he is found to have nonsustained V. tach, bigeminy and PVCs without electrolyte derangement. He is placed on BiPAP receiving albuterol denying chest pain and endorses feeling better. Past Medical History Cardiac Medical History: Reports: Atrial Fibrillation, Congestive Heart Failure, Coronary Artery Disease, Myocardial Infarction - 1 stent. triple bypass surgery, Hyperlipidema, Hypertension Denies: DVT, Peripheral Vascular Disease, Pulmonary Embolism, Heart Murmur Pulmonary Medical History: Reports: Chronic Obstructive Pulmonary Disease (COPD), Pneumonia, Sleep Apnea - Uncertain settings for the CPAP. No home oxygen. Denies: Asthma, Bronchitis, Respiratory Failure, Tuberculosis Neurological Medical History: Reports: Other - Hard of hearing Denies: Seizures Endocrine Medical History: Denies: Diabetes Mellitus Type 1, Diabetes Mellitus Type 2, Hyperthyroidism, Hypothyroidism Renal/ Medical History: Denies: End Stage Renal Disease Malignancy Medical History: Denies: Breast Cancer, Cervical Cancer, Leukemia, Lung Cancer, Ovarian Cancer GI Medical History: Denies: Cirrhosis, Crohn's Disease, Gastroesophageal Reflux Disease, Hepatitis, Hiatal Hernia Musculoskeltal Medical History: Denies: Arthritis, Fibromyalgia Psychiatric Medical History: Reports: Depression - Mild, Tobacco Dependency Denies: Bipolar Disorder, Dementia, Post Traumatic Stress Disorder Hematology: Denies: Anemia, Hemophilia, Sickle Cell Disease, Bleeding Tendencies Infectious Medical History: Denies: HIV Past Surgical History Past Surgical History: Reports: Cardiac Catheterization, Cholecystectomy, Coronary Artery Bypass Graft - Three-vessel, Internal Defibrillator, Pacemaker - Pacemaker defibrillator Denies: Appendectomy, Colostomy, Gastric Bypass Surgery, Herniorrhaphy, Tonsillectomy Social History Information Source: Patient, [facility] Records Smoking Status: Current Some Day Smoker Frequency of Alcohol Use: None Hx Recreational Drug Use: No Drugs: None Hx Prescription Drug Abuse: No - Advance Directive Resuscitation Status: Full Code Family History Family History: COPD Parental Family History Reviewed: Yes Children Family History Reviewed: Yes Sibling(s) Family History Reviewed.: Yes Medication/Allergy Home Medications: Aspirin [Ecotrin 81 mg EC Tablet] 81 mg PO DAILY 05/20/18 Budesonide/Formoterol Fumarate [Symbicort HFA 160-4.5 mcg Inhaler 6 gm] 2 puff IH Q12 05/20/18 Cholecalciferol (Vitamin D3) [Vitamin D3] 2,000 unit PO DAILY 05/20/18 Cyanocobalamin (Vitamin B-12) [Vitamin B-12 1000 mcg Tablet] 1,000 mcg PO DAILY 05/20/18 Dabigatran Etexilate Mesylate [Pradaxa 150 mg Capsule] 150 mg PO Q12 05/20/18 Digoxin [Lanoxin 0.125 mg Tablet] 0.125 mg PO DAILY 05/20/18 Dofetilide [Tikosyn 125 Mcg Capsule] 250 mcg PO Q12 05/20/18 Fluticasone Propionate [Flonase Nasal [place] 50 Mcg/M[place]er[place] 16 gm] 1 spray NASL BID 05/20/18 Furosemide [Lasix 40 mg Tablet] 40 mg PO DAILY 05/20/18 Levalbuterol HCl [Levalbuterol Concentrate] 0.5 ml NEB BID 05/20/18 Losartan Potassium [Cozaar 25 mg Tablet] 12.5 mg PO DAILY 30 Days #30 tablet 05/20/18 Metoprolol Succinate [Toprol Xl 50 mg Tab.sr] 50 mg PO Q12 05/20/18 Montelukast Sodium [Singulair 10 mg Tablet] 10 mg PO QPM 05/20/18 Multivitamin [Tab-A-Nain (Multiple Vitamin) Tablet] 1 tab PO DAILY 05/20/18 Simvastatin [Zocor 20 mg Tablet] 20 mg PO DAILY 05/20/18 Tiotropium [place] [Spiriva Respimat] 2 puff IH Q12HP PRN 05/20/18 Allergies/Adverse Reactions: No Known Allergies Allergy (Verified 05/13/18 08:27) Review of Systems Constitutional: ABSENT: chills, fever(s), headache(s), weight gain, weight loss Eyes: ABSENT: visual disturbances Ears: ABSENT: hearing changes Cardiovascular: ABSENT: chest pain, dyspnea on exertion, edema, orthropnea, palpitations Respiratory: ABSENT: cough, hemoptysis Gastrointestinal: ABSENT: abdominal pain, constipation, diarrhea, hematemesis, hematochezia, nausea, vomiting Genitourinary: ABSENT: dysuria, hematuria Musculoskeletal: ABSENT: joint swelling Integumentary: ABSENT: rash, wounds Neurological: ABSENT: abnormal gait, abnormal speech, confusion, dizziness, focal weakness, syncope Psychiatric: ABSENT: anxiety, depression, homidical ideation, suicidal ideation Endocrine: ABSENT: cold intolerance, heat intolerance, polydipsia, polyuria Hematologic/Lymphatic: ABSENT: easy bleeding, easy bruising Physical Exam Vital Signs: Temp Pulse Resp BP Pulse Ox 97.7 F 77 26 H 142/83 H 94 09/12/18 00:44 09/12/18 00:44 09/12/18 05:02 09/12/18 05:02 09/12/18 05:02 Intake & Output 09/10/18 09/11/18 09/12/18 11:59 11:59 11:59 Intake Total 200 Balance 200 Weight 99.79 kg General appearance: PRESENT: cooperative, mild distress, thin, well-developed, well-nourished. ABSENT: disheveled Head exam: PRESENT: atraumatic, normocephalic Eye exam: PRESENT: conjunctiva pink, EOMI, PERRLA. ABSENT: scleral icterus Ear exam: PRESENT: normal external ear exam Mouth exam: PRESENT: moist, tongue midline Neck exam: ABSENT: carotid bruit, JVD, lymphadenopathy, thyromegaly Respiratory exam: PRESENT: accessory muscle use, crackles, prolonged expiratory phas, symmetrical, tachypnea. ABSENT: rhonchi, stridor Cardiovascular exam: PRESENT: gallop, irregular rhythm, +S1, +S2, tachycardia Pulses: PRESENT: normal carotid pulses Vascular exam: PRESENT: normal capillary refill GI/Abdominal exam: PRESENT: normal bowel sounds, soft. ABSENT: distended, guarding, mass, organolmegaly, rebound, tenderness Rectal exam: PRESENT: deferred Extremities exam: PRESENT: full ROM. ABSENT: calf tenderness, clubbing, pedal edema Neurological exam: PRESENT: alert, awake, oriented to person, oriented to place, oriented to time, oriented to situation, CN II-XII grossly intact. ABSENT: motor sensory deficit Psychiatric exam: PRESENT: appropriate affect, normal mood. ABSENT: homicidal ideation, suicidal ideation Skin exam: PRESENT: dry, intact, warm. ABSENT: cyanosis, rash Results Laboratory Results: 09/12/18 05:50 09/12/18 00:55 09/12/18 09/12/18 09/12/18 00:55 00:55 00:55 WBC 12.2 H RBC 5.55 Hgb 17.2 H Hct 51.6 H MCV 93 MCH 31.0 MCHC 33.3 RDW 14.6 H Plt Count 251 Seg Neutrophils % 72.9 Lymphocytes % 17.5 Monocytes % 8.1 Eosinophils % 1.1 Basophils % 0.4 Absolute Neutrophils 8.9 H Absolute Lymphocytes 2.1 Absolute Monocytes 1.0 Absolute Eosinophils 0.1 Absolute Basophils 0.0 VBG pH 7.40 VBG pCO2 43.9 VBG HCO3 26.7 VBG Base Excess 1.5 Sodium 141.8 Potassium 3.9 Chloride 106 Carbon Dioxide 25 Anion Gap 11 BUN 10 Creatinine 1.04 Est GFR ( Amer) > 60 Est GFR (Non-Af Amer) > 60 Glucose 124 H Calcium 9.1 Magnesium Total Bilirubin 0.9 AST 24 ALT 21 Alkaline Phosphatase 72 Total Protein 6.6 Albumin 3.8 09/12/18 09/12/18 00:55 05:50 WBC 11.4 H RBC 5.56 H Hgb 17.4 H Hct 51.6 H MCV 93 MCH 31.4 MCHC 33.8 RDW 14.4 H Plt Count 215 Seg Neutrophils % Not Reportable Lymphocytes % Not Reportable Monocytes % Not Reportable Eosinophils % Not Reportable Basophils % Not Reportable Absolute Neutrophils Not Reportable Absolute Lymphocytes Not Reportable Absolute Monocytes Not Reportable Absolute Eosinophils Not Reportable Absolute Basophils Not Reportable VBG pH VBG pCO2 VBG HCO3 VBG Base Excess Sodium Potassium Chloride Carbon Dioxide Anion Gap BUN Creatinine Est GFR ( Amer) Est GFR (Non-Af Amer) Glucose Calcium Magnesium 2.2 Total Bilirubin AST ALT Alkaline Phosphatase Total Protein Albumin 09/12/18 00:55 Creatine Kinase 80 Impressions: Chest X-Ray 09/12/18 00:42 IMPRESSION: Pneumonia. Possible emphysema. Cardiomegaly. copyright 2010 [employer]- All Rights Reserved Assessment and Plan - Diagnosis (1) COPD exacerbation Is this a current diagnosis for this admission?: Yes Plan: Prednisone, Flonase, incentive spirometry, flutter valve and BiPAP. (2) Acute bronchitis Is this a current diagnosis for this admission?: Yes Plan: Prednisone, empiric antibiotics, nicotine avoidance (3) Coronary artery disease Is this a current diagnosis for this admission?: Yes Plan: Follow-up cardiac enzymes - Time Time Spent with patient: 35 or more minutes - Inpatient Certification Medical Necessity: Need Close Monitoring Due to Risk of Patient Decompensation
[2018-09-12 06:38] LABS: TROPONIN I 0.03 ng/mL
[2018-09-12] MEDS: CHLORPHENIRAMINE MALEATE 4 MG TABLET PO SCH ×3 (06:44→16:45)
[2018-09-12] MEDS: FLUTICASONE NASAL SPRAY 50 MCG/SPRY 120 SPRAY/16 GM NASL SCH ×3 (06:44→21:57)
[2018-09-12 06:45] LABS: TROPONIN I 0.037 ng/mL
[2018-09-12] MEDS ORDERED: POTASSIUM CHLORIDE 10 MEQ CAPSULE.ER PO ONE (08:00)
[2018-09-12] MEDS: IPRATROPIUM/ALBUTEROL 0.5-2.5 MG/3 ML AMPUL NEB SCH ×5 (08:06→19:47)
[2018-09-12] MEDS: PREDNISONE 20 MG TABLET PO SCH ×3 (08:40→17:30)
[2018-09-12] MEDS: LOSARTAN POTASSIUM 25 MG TABLET PO SCH (09:30)
[2018-09-12] MEDS: FAMOTIDINE 20 MG TABLET PO SCH ×2 (09:32→17:31)
[2018-09-12] MEDS: DIGOXIN 0.125 MG TABLET PO SCH (09:32)
[2018-09-12] MEDS: ASPIRIN 81 MG TABLET, ENT COATED PO SCH (09:32)
[2018-09-12] MEDS: DABIGATRAN ETEXILATE 150 MG CAPSULE PO SCH ×2 (09:33→21:58)
[2018-09-12] MEDS: DOFETILIDE 125 MCG CAPSULE PO SCH ×2 (09:33→21:57)
[2018-09-12] MEDS: METOPROLOL SUCCINATE 50 MG TAB.SR.24H PO SCH ×2 (09:33→21:58)
[2018-09-12] MEDS ORDERED: PREDNISONE 20 MG TABLET PO SCH (10:00)
[2018-09-12 12:12] LABS: CREATINE KINASE MB 2.08 ng/mL (<4.55); TROPONIN I 0.024 ng/mL
--- NOTE | 2018-09-12 12:42 | EKG REPORT ---
SEVERITY:- ABNORMAL ECG - SINUS RHYTHM INCOMPLETE LEFT BUNDLE BRANCH BLOCK PROBABLE LVH WITH SECONDARY REPOL ABNRM ANTERIOR Q WAVES, POSSIBLY DUE TO LVH : Confirmed by: Major Encarnacion 12-Sep-2018 12:41:59
--- NOTE | 2018-09-12 12:43 | EKG REPORT ---
SEVERITY:- ABNORMAL ECG - SINUS RHYTHM VENTRICULAR BIGEMINY INCOMPLETE LEFT BUNDLE BRANCH BLOCK ANTERIOR Q WAVES, POSSIBLY DUE TO ILBBB ELIEL : Confirmed by: Major Encarnacion 12-Sep-2018 12:42:27
[2018-09-12] MEDS: MONTELUKAST SODIUM 10 MG TABLET PO SCH (17:31)
[2018-09-12 17:36] LABS: CREATINE KINASE MB 2.92 ng/mL (<4.55); TROPONIN I 0.029 ng/mL
[2018-09-12] MEDS ORDERED: CEFTRIAXONE 1 GM/D5W RTU 1 GM/50 ML RTUPB IV SCH (18:00)
--- NOTE | 2018-09-12 18:07 | PDOC PROGRESS REPORT ---
Subjective Progress Note for:: 09/12/18 Subjective:: This is an 82 year old male with a past medical history of hypertension, COPD, paroxysmal A. fib on dabigatran, coronary artery disease with prior CABG and stent placement, obstructive sleep apnea, CHF with known EF of 35% with prior pacemaker AICD and persistent tobacco dependence who presented with worsening shortness of breath. He did have significant bilateral wheezing on presentation was admitted for COPD exacerbation early this morning. On encounter, patient is saturating well and is comfortable on BiPAP. Denies worsening SOB. Denies chest pain. Will wean off BiPAP. Reason For Visit: COPD EXACERBATION CHF BRONCHTIS Physical Exam Vital Signs: Temp Pulse Resp BP Pulse Ox 98.2 F 71 14 139/50 H 90 L 09/12/18 15:38 09/12/18 15:38 09/12/18 15:38 09/12/18 15:38 09/12/18 15:38 Intake & Output 09/11/18 09/12/18 09/13/18 06:59 06:59 06:59 Intake Total 450 586 Output Total 300 Balance 450 286 Weight 220 lb General appearance: PRESENT: no acute distress, well-developed, well-nourished Head exam: PRESENT: atraumatic, normocephalic Eye exam: PRESENT: conjunctiva pink, EOMI, PERRLA. ABSENT: scleral icterus Ear exam: PRESENT: normal external ear exam Mouth exam: PRESENT: moist, tongue midline Neck exam: ABSENT: carotid bruit, JVD, lymphadenopathy, thyromegaly Respiratory exam: PRESENT: rales, wheezes - minimal wheezes. ABSENT: rhonchi Cardiovascular exam: PRESENT: RRR. ABSENT: rubs GI/Abdominal exam: PRESENT: normal bowel sounds, soft. ABSENT: distended, guarding, mass, organolmegaly, rebound, tenderness Rectal exam: PRESENT: deferred Neurological exam: PRESENT: alert, awake, oriented to person, CN II-XII grossly intact. ABSENT: motor sensory deficit Results Laboratory Results: 09/12/18 05:50 09/12/18 00:55 09/12/18 09/12/18 09/12/18 00:55 00:55 00:55 WBC 12.2 H RBC 5.55 Hgb 17.2 H Hct 51.6 H MCV 93 MCH 31.0 MCHC 33.3 RDW 14.6 H Plt Count 251 Seg Neutrophils % 72.9 Lymphocytes % 17.5 Monocytes % 8.1 Eosinophils % 1.1 Basophils % 0.4 Absolute Neutrophils 8.9 H Absolute Lymphocytes 2.1 Absolute Monocytes 1.0 Absolute Eosinophils 0.1 Absolute Basophils 0.0 VBG pH 7.40 VBG pCO2 43.9 VBG HCO3 26.7 VBG Base Excess 1.5 Sodium 141.8 Potassium 3.9 Chloride 106 Carbon Dioxide 25 Anion Gap 11 BUN 10 Creatinine 1.04 Est GFR ( Amer) > 60 Est GFR (Non-Af Amer) > 60 Glucose 124 H Calcium 9.1 Magnesium Total Bilirubin 0.9 AST 24 ALT 21 Alkaline Phosphatase 72 Total Protein 6.6 Albumin 3.8 09/12/18 09/12/18 00:55 05:50 WBC 11.4 H RBC 5.56 H Hgb 17.4 H Hct 51.6 H MCV 93 MCH 31.4 MCHC 33.8 RDW 14.4 H Plt Count 215 Seg Neutrophils % Not Reportable Lymphocytes % Not Reportable Monocytes % Not Reportable Eosinophils % Not Reportable Basophils % Not Reportable Absolute Neutrophils Not Reportable Absolute Lymphocytes Not Reportable Absolute Monocytes Not Reportable Absolute Eosinophils Not Reportable Absolute Basophils Not Reportable VBG pH VBG pCO2 VBG HCO3 VBG Base Excess Sodium Potassium Chloride Carbon Dioxide Anion Gap BUN Creatinine Est GFR ( Amer) Est GFR (Non-Af Amer) Glucose Calcium Magnesium 2.2 Total Bilirubin AST ALT Alkaline Phosphatase Total Protein Albumin 09/12/18 09/12/18 09/12/18 00:55 00:55 05:55 Creatine Kinase 80 CK-MB (CK-2) 1.90 1.88 Troponin I 0.037 0.030 NT-Pro-B Natriuret Pep 4660 H 5960 H 09/12/18 09/12/18 09/12/18 11:10 11:10 16:52 Creatine Kinase 61 80 CK-MB (CK-2) 2.08 Troponin I 0.024 NT-Pro-B Natriuret Pep 09/12/18 16:52 Creatine Kinase CK-MB (CK-2) 2.92 Troponin I 0.029 NT-Pro-B Natriuret Pep Impressions: Chest X-Ray 09/12/18 00:42 IMPRESSION: Pneumonia. Possible emphysema. Cardiomegaly. copyright 2011 [employer]- All Rights Reserved Assessment and Plan - Diagnosis (1) Acute on chronic respiratory failure with hypoxemia Is this a current diagnosis for this admission?: Yes Plan: Secondary to COPD exacerbation and community or pneumonia. Will wean off BiPAP. (2) CAP (community acquired pneumonia) Is this a current diagnosis for this admission?: Yes Plan: Chest x-ray does show pneumonia. On azithromycin. Will add Rocephin. Will order for sputum culture. (3) COPD exacerbation Is this a current diagnosis for this admission?: Yes Plan: Switch prednisone to solumedrol for now. Continue scheduled breathing treatment s. Continue antibiotics. (4) Coronary artery disease Is this a current diagnosis for this admission?: Yes Plan: Continue home meds. (5) Paroxysmal atrial fibrillation Is this a current diagnosis for this admission?: Yes Plan: Currently in sinus rhythm with occasional PVCs and NSVT. Continue Lopressor and dabigatran. - Time Time Spent with patient: 25-34 minutes
[2018-09-12] MEDS ORDERED: CEFTRIAXONE 1 GM/D5W RTU 1 GM/50 ML RTUPB IV ONE (18:46)
[2018-09-12] MEDS: METHYLPREDNISOLONE INJ 40 MG/1 ML SDV IV SCH (21:58)
[2018-09-12] MEDS: SIMVASTATIN 10 MG TABLET PO SCH (21:58)
[2018-09-13] MEDS: IPRATROPIUM/ALBUTEROL 0.5-2.5 MG/3 ML AMPUL NEB SCH ×5 (01:44→20:34)
[2018-09-13 05:30] LABS: HEMOGLOBIN 15.4 g/dL (13.5-17.0); MEAN CORPUSCULAR HEMOGLOBIN 31.2 pg (27.0-33.4); MEAN CORPUSCULAR HGB CONC 33.5 g/dL (32.0-36.0); MEAN CORPUSCULAR VOLUME 93 fl (80-97); PLATELET COUNT 221 10^3/uL (150-450); RED BLOOD COUNT 4.95 10^6/uL (4.35-5.55); RED CELL DISTRIBUTION WIDTH 14.3 % (11.5-14.0)
[2018-09-13] MEDS: AZITHROMYCIN 500 MG in DEXTROSE 5%-WATER 250 ML IV SCH (05:36)
[2018-09-13 05:37] LABS: WHITE BLOOD COUNT 23.1 10^3/uL (4.0-10.5)
[2018-09-13 05:49] LABS: ANION GAP 13 (5-19); BLOOD UREA NITROGEN 20 mg/dL (7-20); CALCIUM 8.8 mg/dL (8.4-10.2); CARBON DIOXIDE 23 mmol/L (22-30); CHLORIDE 94 mmol/L (98-107); GLUCOSE 153 mg/dL (75-110); POTASSIUM 4.4 mmol/L (3.6-5.0); SODIUM 129.9 mmol/L (137-145)
[2018-09-13 05:57] LABS: ABSOLUTE LYMPHOCYTES# (MANUAL) 0.9 10^3/uL (0.5-4.7); ABSOLUTE MONOCYTES # (MANUAL) 0.2 10^3/uL (0.1-1.4); ABSOLUTE NEUTROPHILS# (MANUAL) 21.9 10^3/uL (1.7-8.2); BAND NEUTROPHILS % (MANUAL) 2 % (3-5); BASOPHILS % (MANUAL) 0 % (0-2); EOSINOPHILS % (MANUAL) 0 % (0-6); LYMPHOCYTES % (MANUAL) 4 % (13-45); MONOCYTES % (MANUAL) 1 % (3-13); PLATELET COMMENT ADEQUATE; SEGMENTED NEUTROPHILS % (MAN) 93 % (42-78); TOTAL CELLS COUNTED 100
[2018-09-13 05:58] LABS: ANISOCYTOSIS SLIGHT; POIKILOCYTOSIS SLIGHT
[2018-09-13] MEDS: METHYLPREDNISOLONE INJ 40 MG/1 ML SDV IV SCH ×2 (10:01→22:24)
[2018-09-13] MEDS: DIGOXIN 0.125 MG TABLET PO SCH (10:01)
[2018-09-13] MEDS: METOPROLOL SUCCINATE 50 MG TAB.SR.24H PO SCH ×2 (10:01→22:25)
[2018-09-13] MEDS: FAMOTIDINE 20 MG TABLET PO SCH ×2 (10:01→18:56)
[2018-09-13] MEDS: FLUTICASONE NASAL SPRAY 50 MCG/SPRY 120 SPRAY/16 GM NASL SCH ×2 (10:01→22:24)
[2018-09-13] MEDS: LOSARTAN POTASSIUM 25 MG TABLET PO SCH (10:01)
[2018-09-13] MEDS: DOFETILIDE 125 MCG CAPSULE PO SCH ×2 (10:01→22:24)
[2018-09-13] MEDS: ASPIRIN 81 MG TABLET, ENT COATED PO SCH (10:01)
[2018-09-13] MEDS: DABIGATRAN ETEXILATE 150 MG CAPSULE PO SCH ×2 (10:01→22:24)
[2018-09-13 10:41] LABS: ARTERIAL BLOOD BASE EXCESS -2.9 mmol/L; ARTERIAL BLOOD H2CO3 1.03 mmol/L (1.05-1.35); ARTERIAL BLOOD HCO3 20.8 mmol/L (20-24); ARTERIAL BLOOD O2 SATURATION 89.3 % (94-98); ARTERIAL BLOOD PCO2 34.1 mmHg (35-45); ARTERIAL BLOOD PO2 55.4 mmHg (80-100); ARTERIAL BLOOD TOTAL CO2 21.8 mmol/L (23-27)
[2018-09-13 10:42] LABS: ARTERIAL BLOOD FIO2 21%
[2018-09-13] MEDS: HALOPERIDOL LACTATE INJ 5 MG/1 ML VIAL IV PRN ×2 (13:18→20:38)
--- NOTE | 2018-09-13 13:33 | PDOC PROGRESS REPORT ---
Subjective Progress Note for:: 09/13/18 Subjective:: This is an 82 year old male with a past medical history of hypertension, COPD, paroxysmal A. fib on dabigatran, coronary artery disease with prior CABG and stent placement, obstructive sleep apnea, CHF with known EF of 35% with prior pacemaker AICD and persistent tobacco dependence who presented with worsening shortness of breath. He did have significant bilateral wheezing on presentation was admitted for COPD exacerbation early this morning. On encounter, patient is saturating well and is comfortable on BiPAP. Denies worsening SOB. Denies chest pain. Will wean off BiPAP. 09/13: Patient has not been compliant with BIPAP or nasal cannula. He has episodic confusion suggestive of sundowning. He is oriented to person and place. He does say his SOB is better today. Reason For Visit: COPD EXACERBATION CHF BRONCHTIS Physical Exam Vital Signs: Temp Pulse Resp BP Pulse Ox 97.8 F 73 19 133/79 H 94 09/13/18 11:38 09/13/18 11:38 09/13/18 11:38 09/13/18 11:38 09/13/18 11:38 Intake & Output 09/12/18 09/13/18 09/14/18 06:59 06:59 06:59 Intake Total 450 1414 250 Output Total 800 Balance 450 614 250 Weight 220 lb 180 lb 15.992 oz General appearance: PRESENT: no acute distress, well-developed, well-nourished Head exam: PRESENT: atraumatic, normocephalic Eye exam: PRESENT: conjunctiva pink, EOMI, PERRLA. ABSENT: scleral icterus Ear exam: PRESENT: normal external ear exam Mouth exam: PRESENT: moist, tongue midline Neck exam: ABSENT: carotid bruit, JVD, lymphadenopathy, thyromegaly Respiratory exam: PRESENT: rales, rhonchi. ABSENT: wheezes Cardiovascular exam: PRESENT: RRR. ABSENT: diastolic murmur, rubs, systolic murmur Pulses: PRESENT: normal dorsalis pedis pul GI/Abdominal exam: PRESENT: normal bowel sounds, soft. ABSENT: distended, guarding, mass, organolmegaly, rebound, tenderness Rectal exam: PRESENT: deferred Neurological exam: PRESENT: alert, awake, oriented to person, oriented to place, CN II-XII grossly intact. ABSENT: motor sensory deficit Results Laboratory Results: 09/13/18 04:32 09/13/18 04:32 09/13/18 09/13/18 09/13/18 04:32 04:32 10:20 WBC 23.1 H D RBC 4.95 Hgb 15.4 Hct 46.0 MCV 93 MCH 31.2 MCHC 33.5 RDW 14.3 H Plt Count 221 Seg Neutrophils % Not Reportable Lymphocytes % Not Reportable Monocytes % Not Reportable Eosinophils % Not Reportable Basophils % Not Reportable Absolute Neutrophils Not Reportable Absolute Lymphocytes Not Reportable Absolute Monocytes Not Reportable Absolute Eosinophils Not Reportable Absolute Basophils Not Reportable Carbonic Acid 1.03 L HCO3/H2CO3 Ratio 20:1 ABG pH 7.40 ABG pCO2 34.1 L ABG pO2 55.4 L ABG HCO3 20.8 ABG O2 Saturation 89.3 L ABG Base Excess -2.9 FiO2 21% Sodium 129.9 L Potassium 4.4 Chloride 94 L Carbon Dioxide 23 Anion Gap 13 BUN 20 Creatinine 1.11 Est GFR ( Amer) > 60 Est GFR (Non-Af Amer) > 60 Glucose 153 H Calcium 8.8 09/12/18 09/12/18 09/12/18 00:55 00:55 05:55 Creatine Kinase 80 CK-MB (CK-2) 1.90 1.88 Troponin I 0.037 0.030 NT-Pro-B Natriuret Pep 4660 H 5960 H 09/12/18 09/12/18 09/12/18 11:10 11:10 16:52 Creatine Kinase 61 80 CK-MB (CK-2) 2.08 Troponin I 0.024 NT-Pro-B Natriuret Pep 09/12/18 16:52 Creatine Kinase CK-MB (CK-2) 2.92 Troponin I 0.029 NT-Pro-B Natriuret Pep Impressions: Chest X-Ray 09/12/18 00:42 IMPRESSION: Pneumonia. Possible emphysema. Cardiomegaly. copyright 2011 [employer]- All Rights Reserved Assessment and Plan - Diagnosis (1) Acute on chronic respiratory failure with hypoxemia Is this a current diagnosis for this admission?: Yes Plan: Secondary to COPD exacerbation and community or pneumonia. He has not been noncompliant to BIPAP or nasal cannula and has been trying to walk around and restless. (2) CAP (community acquired pneumonia) Is this a current diagnosis for this admission?: Yes Plan: Chest x-ray does show pneumonia. Will order for sputum culture. 09/13: Continue IV antibiotics. (3) COPD exacerbation Is this a current diagnosis for this admission?: Yes Plan: Continue solumedrol and scheduled breathing treatments. Continue antibiotics. (4) Coronary artery disease Is this a current diagnosis for this admission?: Yes Plan: Continue home meds. (5) Paroxysmal atrial fibrillation Is this a current diagnosis for this admission?: Yes Plan: Currently in sinus rhythm with occasional PVCs and NSVT. Continue Lopressor and dabigatran. - Time Time Spent with patient: 25-34 minutes
--- NOTE | 2018-09-13 13:35 | ADVANCED CARE ---
- Diagnosis (1) Acute on chronic respiratory failure with hypoxemia Diagnosis Current: Yes (2) CAP (community acquired pneumonia) Diagnosis Current: Yes (3) COPD exacerbation Diagnosis Current: Yes (4) Coronary artery disease Diagnosis Current: Yes (5) Paroxysmal atrial fibrillation Diagnosis Current: Yes Resuscitation Status: Full Code Discussion: Discussed with and family on bedside. PAtient is a Full Code. But did express he does not want fpc ventilation.
[2018-09-13] MEDS: ACETYLCYSTEINE 10% NEB 400 MG/4 ML VIAL NEB SCH ×2 (14:38→20:34)
[2018-09-13] MEDS ORDERED: LORAZEPAM INJ 2 MG/1 ML VIAL ONE (14:45)
--- NOTE | 2018-09-13 16:05 | RADIOLOGY REPORT (SQ) ---
EXAM DESCRIPTION: CT CHEST WITHOUT COMPLETED DATE/TIME: 09/13/2018 1:12 pm REASON FOR STUDY: hypoxia COMPARISON: None. TECHNIQUE: CT scan performed of the chest without intravenous contrast. Images reviewed with lung, soft tissue and bone windows. Reconstructed coronal and sagittal MPR images reviewed. All images st ored on PACS. All CT scanners at this facility use dose modulation, iterative reconstruction, and/or weight based d osing when appropriate to reduce radiation dose to as low as reasonably achievable (ALARA). [facility]: Dose Right [facility]: CareDose [facility]: Dose Right [facility]: Teradose 4D [facility]: [employer] RADIATION DOSE: CT Rad equipment meets quality standard of care and radiation dose reduction techniq ues were employed. CTDIvol: 10.1 mGy. DLP: 409 mGy-cm. mGy. LIMITATIONS: No technical limitations. FINDINGS: LUNGS AND PLEURA: Centrilobular emphysema. Prominent bilateral pleural effusions with bib asilar atelectasis not excluded. Thickening interlobular septi suggesting interstitial edema. Valles es consistent with interfissural fluid. Large bilateral pleural effusions. Fibrocalcific scarring i n the upper lobes. Focal consolidation in right middle lobe and lingula. HILAR AND MEDIASTINAL STRUCTURES: No identified masses or abnormal nodes. No obvious aneurysm. HEART AND VASCULAR STRUCTURES: Atherosclerotic coronary artery calcification. Atherosclerotic change thoracic aorta. Findings suggestive of aortic valve calcification. UPPER ABDOMEN: Status post cholecystectomy. Findings consistent with pneumobilia left lobe of liver. THYROID AND OTHER SOFT TISSUES: Nodular thyroid gland. BONES: No significant finding. HARDWARE: Status post median sternotomy. Findings consistent with prior CABG. Left trans venous pac emaker wires in place. Aortic stent graft noted. OTHER: Left trans venous pacemaker wires in place. Small anterior mediastinal nodes, small pretrache al nodes. Small AP window nodes. IMPRESSION: Status post CABG. Changes of centrilobular emphysema. Changes of interstitial edema wi th bilateral pleural effusions. Bibasilar atelectasis. TECHNICAL DOCUMENTATION: JOB ID: [id number] Quality ID # [id number]: Final reports with documentation of one or more dose reduction techniques (e.g., Au tomated exposure control, adjustment of the mA and/or kV according to patient size, use of iterative reconstruction technique) 2010 [employer]- All Rights Reserved Reading location - IP/workstation name: [email or web address]
[2018-09-13] MEDS: FUROSEMIDE INJ/PF 40 MG/4 ML SDV IV SCH (17:54)
[2018-09-13] MEDS ORDERED: CEFTRIAXONE SODIUM 1,000 MG in DEXTROSE 5%-WATER 50 ML IV SCH (18:00)
[2018-09-13] MEDS ORDERED: IPRATROPIUM/ALBUTEROL 0.5-2.5 MG/3 ML AMPUL NEB PRN (18:30)
[2018-09-13] MEDS ORDERED: OLANZAPINE INJ/PF 10 MG SDV IM ONE (18:35)
[2018-09-13] MEDS ORDERED: QUETIAPINE FUMARATE 25 MG TABLET PO ONE (18:40)
[2018-09-13] MEDS: MONTELUKAST SODIUM 10 MG TABLET PO SCH (18:56)
[2018-09-13] MEDS ORDERED: LORAZEPAM INJ 2 MG/1 ML VIAL IV ONE (19:00)
[2018-09-13] MEDS: SIMVASTATIN 10 MG TABLET PO SCH (22:25)
[2018-09-13] MEDS: LORAZEPAM INJ 2 MG/1 ML VIAL IV PRN (23:32)
[2018-09-14] MEDS: ACETYLCYSTEINE 10% NEB 400 MG/4 ML VIAL NEB SCH ×4 (02:32→19:29)
[2018-09-14] MEDS: IPRATROPIUM/ALBUTEROL 0.5-2.5 MG/3 ML AMPUL NEB SCH ×4 (02:32→19:29)
[2018-09-14] MEDS: LORAZEPAM INJ 2 MG/1 ML VIAL IV PRN ×3 (05:47→22:02)
[2018-09-14 06:09] LABS: ANION GAP 12 (5-19); BLOOD UREA NITROGEN 33 mg/dL (7-20); CALCIUM 8.9 mg/dL (8.4-10.2); CARBON DIOXIDE 25 mmol/L (22-30); CHLORIDE 95 mmol/L (98-107); GLUCOSE 133 mg/dL (75-110); POTASSIUM 5.2 mmol/L (3.6-5.0); SODIUM 132.4 mmol/L (137-145)
[2018-09-14] MEDS: FUROSEMIDE INJ/PF 40 MG/4 ML SDV IV SCH ×3 (07:52→22:02)
[2018-09-14] MEDS: DABIGATRAN ETEXILATE 150 MG CAPSULE PO SCH ×2 (09:56→22:03)
[2018-09-14] MEDS: METOPROLOL SUCCINATE 50 MG TAB.SR.24H PO SCH ×2 (09:56→22:03)
[2018-09-14] MEDS: ASPIRIN 81 MG TABLET, ENT COATED PO SCH (09:57)
[2018-09-14] MEDS: DOFETILIDE 125 MCG CAPSULE PO SCH ×2 (09:57→22:02)
[2018-09-14] MEDS: FAMOTIDINE 20 MG TABLET PO SCH ×2 (09:57→17:10)
[2018-09-14] MEDS: DIGOXIN 0.125 MG TABLET PO SCH (09:57)
[2018-09-14] MEDS: LOSARTAN POTASSIUM 25 MG TABLET PO SCH (09:58)
[2018-09-14] MEDS: FLUTICASONE NASAL SPRAY 50 MCG/SPRY 120 SPRAY/16 GM NASL SCH ×2 (09:58→22:02)
[2018-09-14 10:00] LABS: HEMATOCRIT 49.8 % (37.9-51.0); HEMOGLOBIN 16.7 g/dL (13.5-17.0); MEAN CORPUSCULAR HEMOGLOBIN 30.9 pg (27.0-33.4); MEAN CORPUSCULAR HGB CONC 33.5 g/dL (32.0-36.0); MEAN CORPUSCULAR VOLUME 92 fl (80-97); PLATELET COUNT 251 10^3/uL (150-450); RED CELL DISTRIBUTION WIDTH 14.8 % (11.5-14.0); WHITE BLOOD COUNT 23.4 10^3/uL (4.0-10.5)
[2018-09-14] MEDS ORDERED: PREDNISONE 20 MG TABLET PO SCH (10:00)
--- NOTE | 2018-09-14 10:13 | RADIOLOGY REPORT (SQ) ---
EXAM DESCRIPTION: CHEST SINGLE VIEW COMPLETED DATE/TIME: 09/14/2018 9:45 am REASON FOR STUDY: reassess infiltrates COMPARISON: CT chest 12/30/2016, 09/13/2018 EXAM PARAMETERS: NUMBER OF VIEWS: One view. TECHNIQUE: Single frontal radiographic view of the chest acquired. RADIATION DOSE: NA LIMITATIONS: None. FINDINGS: LUNGS AND PLEURA: Persistent bilateral airspace disease, edema versus pneumonia. This is similar compared to 09/12/2018. Trace bilateral pleural effusions are present. No pneumothorax MEDIASTINUM AND HILAR STRUCTURES: No masses. Contour normal. HEART AND VASCULAR STRUCTURES: Old sternotomy for CABG. Stable mild cardiomegaly BONES: No acute findings. HARDWARE: Left-sided pacemaker OTHER: No other significant finding. IMPRESSION: Airspace disease in the mid and lower lungs edema versus pneumonia. Trace bilateral ple ural effusions. TECHNICAL DOCUMENTATION: JOB ID: [id number] [employer]- All Rights Reserved Reading location - IP/workstation name: [email or web address]
[2018-09-14] MEDS ORDERED: NICOTINE 21 MG/24 HR PATCH.TD24 TD PRN (10:19)
[2018-09-14 10:21] LABS: ABSOLUTE LYMPHOCYTES# (MANUAL) 0.9 10^3/uL (0.5-4.7); ABSOLUTE MONOCYTES # (MANUAL) 0.9 10^3/uL (0.1-1.4); ABSOLUTE NEUTROPHILS# (MANUAL) 21.5 10^3/uL (1.7-8.2); BASOPHILS % (MANUAL) 0 % (0-2); EOSINOPHILS % (MANUAL) 0 % (0-6); LYMPHOCYTES % (MANUAL) 4 % (13-45); MONOCYTES % (MANUAL) 4 % (3-13); SEGMENTED NEUTROPHILS % (MAN) 92 % (42-78); TOTAL CELLS COUNTED 100
[2018-09-14 10:22] LABS: ANISOCYTOSIS SLIGHT; PLATELET COMMENT ADEQUATE; POLYCHROMASIA SLIGHT
[2018-09-14] MEDS: HALOPERIDOL LACTATE INJ 5 MG/1 ML VIAL IV PRN (12:55)
--- NOTE | 2018-09-14 14:41 | PDOC PROGRESS REPORT ---
Subjective Progress Note for:: 09/14/18 Subjective:: This is an 82 year old male with a past medical history of hypertension, COPD, paroxysmal A. fib on dabigatran, coronary artery disease with prior CABG and stent placement, obstructive sleep apnea, CHF with known EF of 35% with prior pacemaker AICD and persistent tobacco dependence who presented with worsening shortness of breath. He did have significant bilateral wheezing on presentation was admitted for COPD exacerbation early this morning. On encounter, patient is saturating well and is comfortable on BiPAP. Denies worsening SOB. Denies chest pain. Will wean off BiPAP. 09/13: Patient has not been compliant with BIPAP or nasal cannula. He has episodic confusion suggestive of sundowning. He is oriented to person and place. He does say his SOB is better today. 09/14: Last night, patient became restless and wanted to leave the room. He was given Haldol with no relief. He did respond to Ativan. CT chest shows pneumonia as well as congestion. Currently saturating well on BIPAP. He is diuresing well with IV Lasix. Rocephin switched to Zosyn. Reason For Visit: COPD EXACERBATION CHF BRONCHTIS Physical Exam Vital Signs: Temp Pulse Resp BP Pulse Ox 98.1 F 74 18 133/73 H 97 09/14/18 04:23 09/14/18 07:00 09/14/18 04:23 09/14/18 04:23 09/14/18 04:23 Intake & Output 09/13/18 09/14/18 09/15/18 06:59 06:59 06:59 Intake Total 1414 300 Output Total 800 Balance 614 300 Weight 180 lb 15.992 oz 167 lb 12.348 oz General appearance: PRESENT: no acute distress Head exam: PRESENT: atraumatic, normocephalic Eye exam: PRESENT: conjunctiva pink, EOMI, PERRLA. ABSENT: scleral icterus Ear exam: PRESENT: normal external ear exam Mouth exam: PRESENT: moist, tongue midline Neck exam: ABSENT: carotid bruit, JVD, lymphadenopathy, thyromegaly Respiratory exam: PRESENT: rales, rhonchi. ABSENT: wheezes Cardiovascular exam: PRESENT: RRR. ABSENT: diastolic murmur, rubs, systolic murmur Pulses: PRESENT: normal dorsalis pedis pul GI/Abdominal exam: PRESENT: normal bowel sounds, soft. ABSENT: distended, guarding, mass, organolmegaly, rebound, tenderness Rectal exam: PRESENT: deferred Neurological exam: PRESENT: awake, CN II-XII grossly intact. ABSENT: motor sensory deficit Results Laboratory Results: 09/13/18 04:32 09/14/18 04:51 09/13/18 09/14/18 10:20 04:51 Carbonic Acid 1.03 L HCO3/H2CO3 Ratio 20:1 ABG pH 7.40 ABG pCO2 34.1 L ABG pO2 55.4 L ABG HCO3 20.8 ABG O2 Saturation 89.3 L ABG Base Excess -2.9 FiO2 21% Sodium 132.4 L Potassium 5.2 H Chloride 95 L Carbon Dioxide 25 Anion Gap 12 BUN 33 H Creatinine 1.06 Est GFR ( Amer) > 60 Est GFR (Non-Af Amer) > 60 Glucose 133 H Calcium 8.9 Magnesium 2.6 H 09/12/18 09/12/18 09/12/18 00:55 00:55 05:55 Creatine Kinase 80 CK-MB (CK-2) 1.90 1.88 Troponin I 0.037 0.030 NT-Pro-B Natriuret Pep 4660 H 5960 H 09/12/18 09/12/18 09/12/18 11:10 11:10 16:52 Creatine Kinase 61 80 CK-MB (CK-2) 2.08 Troponin I 0.024 NT-Pro-B Natriuret Pep 09/12/18 16:52 Creatine Kinase CK-MB (CK-2) 2.92 Troponin I 0.029 NT-Pro-B Natriuret Pep Impressions: Chest X-Ray 09/12/18 00:42 IMPRESSION: Pneumonia. Possible emphysema. Cardiomegaly. copyright 2010 [employer]- All Rights Reserved Chest CT 09/13/18 11:18 IMPRESSION: Status post CABG. Changes of centrilobular emphysema. Changes of interstitial edema with bilateral pleural effusions. Bibasilar atelectasis. Assessment and Plan - Diagnosis (1) Acute on chronic respiratory failure with hypoxemia Is this a current diagnosis for this admission?: Yes Plan: Secondary to COPD exacerbation and community or pneumonia. 09/13: He has not been noncompliant to BIPAP or nasal cannula and has been trying to walk around and has been restless. 09/14: Last night, patient became restless and wanted to leave the room. He was given Haldol with no relief. He did respond to Ativan. CT chest shows pneumonia as well as congestion. Currently saturating well on BIPAP. He is diuresing well with IV Lasix. Rocephin switched to Zosyn. (2) CAP (community acquired pneumonia) Is this a current diagnosis for this admission?: Yes Plan: Chest x-ray does show pneumonia. Continue IV antibiotics. Sputum culture pending. (3) COPD exacerbation Is this a current diagnosis for this admission?: Yes Plan: Continue solumedrol and scheduled breathing treatments. Continue antibiotics. (4) Coronary artery disease Is this a current diagnosis for this admission?: Yes Plan: Stable. Continue home meds. (5) Paroxysmal atrial fibrillation Is this a current diagnosis for this admission?: Yes Plan: Currently in sinus rhythm. Continue Lopressor and dabigatran. - Time Time Spent with patient: 25-34 minutes
[2018-09-14] MEDS: PIPERACILLIN SODIUM/TAZOBACTAM 3.375 GM in NORMAL SALINE 100 ML IV SCH ×2 (15:51→22:04)
[2018-09-14] MEDS ORDERED: QUETIAPINE FUMARATE 25 MG TABLET PO ONE (17:00)
[2018-09-14] MEDS: MONTELUKAST SODIUM 10 MG TABLET PO SCH (17:10)
[2018-09-14] MEDS: SIMVASTATIN 10 MG TABLET PO SCH (22:03)
[2018-09-15] MEDS: HALOPERIDOL LACTATE INJ 5 MG/1 ML VIAL IV PRN ×3 (01:31→21:27)
[2018-09-15] MEDS: IPRATROPIUM/ALBUTEROL 0.5-2.5 MG/3 ML AMPUL NEB SCH ×4 (02:36→19:08)
[2018-09-15] MEDS: ACETYLCYSTEINE 10% NEB 400 MG/4 ML VIAL NEB SCH ×4 (02:36→19:08)
[2018-09-15] MEDS: PIPERACILLIN SODIUM/TAZOBACTAM 3.375 GM in NORMAL SALINE 100 ML IV SCH ×3 (03:50→15:06)
[2018-09-15] MEDS: LORAZEPAM INJ 2 MG/1 ML VIAL IV PRN ×4 (04:32→22:33)
--- NOTE | 2018-09-15 08:45 | RADIOLOGY REPORT (SQ) ---
EXAM DESCRIPTION: CHEST SINGLE VIEW COMPLETED DATE/TIME: 09/15/2018 8:29 am REASON FOR STUDY: reassess congestion, infiltrates COMPARISON: Chest films 05/19/2018, 09/12/2018, 09/14/2018 CT chest 09/13/2018 EXAM PARAMETERS: NUMBER OF VIEWS: One view. TECHNIQUE: Single frontal radiographic view of the chest acquired. RADIATION DOSE: NA LIMITATIONS: None. FINDINGS: LUNGS AND PLEURA: Improvement in the pulmonary edema pattern and pulmonary vascular conges tion. On today's study, minimal interstitial edema and trace pleural fluid persists. There is left retrocardiac consolidation atelectasis versus pneumonia. No pneumothorax MEDIASTINUM AND HILAR STRUCTURES: No masses. Contour normal. HEART AND VASCULAR STRUCTURES: Stable mild cardiomegaly, old sternotomy. Abdominal aortic stent jas t at the bottom edge of the field of view BONES: No acute findings. HARDWARE: Left-sided pacemaker/defibrillator OTHER: No other significant finding. IMPRESSION: Significant improvement in the pulmonary edema/ fluid overload pattern compared to 2018 and 09/12/2018 TECHNICAL DOCUMENTATION: JOB ID: [id number] [employer]- All Rights Reserved Reading location - IP/workstation name: [email or web address]
[2018-09-15] MEDS: FUROSEMIDE INJ/PF 40 MG/4 ML SDV IV SCH (09:13)
[2018-09-15] MEDS: LOSARTAN POTASSIUM 25 MG TABLET PO SCH (09:21)
[2018-09-15] MEDS: FLUTICASONE NASAL SPRAY 50 MCG/SPRY 120 SPRAY/16 GM NASL SCH (09:22)
[2018-09-15] MEDS: DOFETILIDE 125 MCG CAPSULE PO SCH (09:22)
[2018-09-15] MEDS: DABIGATRAN ETEXILATE 150 MG CAPSULE PO SCH (09:22)
[2018-09-15] MEDS: FAMOTIDINE 20 MG TABLET PO SCH ×2 (09:22→17:13)
[2018-09-15] MEDS: ASPIRIN 81 MG TABLET, ENT COATED PO SCH (09:22)
[2018-09-15] MEDS: METOPROLOL SUCCINATE 50 MG TAB.SR.24H PO SCH (09:22)
[2018-09-15] MEDS: DIGOXIN 0.125 MG TABLET PO SCH (09:22)
[2018-09-15] MEDS ORDERED: METHYLPREDNISOLONE INJ 40 MG/1 ML SDV IV SCH (10:00)
[2018-09-15 13:56] LABS: ARTERIAL BLOOD BASE EXCESS 4.3 mmol/L; ARTERIAL BLOOD H2CO3 1.53 mmol/L (1.05-1.35); ARTERIAL BLOOD HCO3 30.8 mmol/L (20-24); ARTERIAL BLOOD O2 SATURATION 98.8 % (94-98); ARTERIAL BLOOD PCO2 50.9 mmHg (35-45); ARTERIAL BLOOD PO2 141.7 mmHg (80-100); ARTERIAL BLOOD TOTAL CO2 32.3 mmol/L (23-27)
[2018-09-15 13:57] LABS: ARTERIAL BLOOD FIO2 3L
[2018-09-15] MEDS: MONTELUKAST SODIUM 10 MG TABLET PO SCH (17:13)
[2018-09-15 17:27] LABS: APPEARANCE,URINE CLEAR; BILIRUBIN,URINE NEGATIVE (NEGATIVE); COLOR,URINE STRAW; GLUCOSE, URINE NEGATIVE (NEGATIVE); KETONES,URINE NEGATIVE (NEGATIVE); LEUKOCYTE ESTERASE,URINE NEGATIVE (NEGATIVE); NITRITE,URINE NEGATIVE (NEGATIVE); PROTEIN,URINE NEGATIVE (NEGATIVE); URINE SPECIFIC GRAVITY 1.011; UROBILINOGEN,URINE NEGATIVE mg/dL (<2.0)
[2018-09-15 18:37] LABS: HEMOGLOBIN 18.6 g/dL (13.5-17.0); MEAN CORPUSCULAR HEMOGLOBIN 30.4 pg (27.0-33.4); MEAN CORPUSCULAR HGB CONC 32.6 g/dL (32.0-36.0); MEAN CORPUSCULAR VOLUME 93 fl (80-97); PLATELET COUNT 320 10^3/uL (150-450); RED BLOOD COUNT 6.12 10^6/uL (4.35-5.55); WHITE BLOOD COUNT 21.8 10^3/uL (4.0-10.5)
[2018-09-15] MEDS ORDERED: VANCOMYCIN HCL INJ 1000 MG VIAL IV SCH (18:45)
[2018-09-15 19:00] LABS: ANION GAP 14 (5-19); BLOOD UREA NITROGEN 44 mg/dL (7-20); CALCIUM 10.1 mg/dL (8.4-10.2); CARBON DIOXIDE 27 mmol/L (22-30); CHLORIDE 103 mmol/L (98-107); DIGOXIN 0.99 ng/mL (0.8-2.0); GLUCOSE 150 mg/dL (75-110); POTASSIUM 5.2 mmol/L (3.6-5.0); SODIUM 144.3 mmol/L (137-145)
[2018-09-15] MEDS ORDERED: FUROSEMIDE INJ/PF 20 MG/2 ML SDV ONE (19:38)
[2018-09-15] MEDS ORDERED: DILTIAZEM HCL/D5W 125 MG/125 ML RTUINJ IV ONE (19:41)
[2018-09-15 20:07] LABS: ARTERIAL BLOOD BASE EXCESS 3.1 mmol/L; ARTERIAL BLOOD FIO2 40%; ARTERIAL BLOOD O2 SATURATION 95.2 % (94-98); ARTERIAL BLOOD PCO2 43.1 mmHg (35-45); ARTERIAL BLOOD PH 7.43 (7.35-7.45); ARTERIAL BLOOD PO2 74.1 mmHg (80-100); ARTERIAL BLOOD TOTAL CO2 29.3 mmol/L (23-27)
--- NOTE | 2018-09-15 20:14 | RADIOLOGY REPORT (SQ) ---
EXAM DESCRIPTION: CHEST SINGLE VIEW COMPLETED DATE/TIME: 09/15/2018 7:30 pm REASON FOR STUDY: resp distress COMPARISON: 09/15/2018 EXAM PARAMETERS: NUMBER OF VIEWS: One view. TECHNIQUE: Single frontal radiographic view of the chest acquired. RADIATION DOSE: NA LIMITATIONS: None. FINDINGS: LUNGS AND PLEURA: No opacities, masses or pneumothorax. No pleural effusion. MEDIASTINUM AND HILAR STRUCTURES: No masses. Contour normal. HEART AND VASCULAR STRUCTURES: Cardiomegaly. No roque pulmonary edema. BONES: No acute findings. HARDWARE: Pacemaker/defibrillator. Sternotomy wires. OTHER: No other significant finding. IMPRESSION: Cardiomegaly with no roque pulmonary edema. TECHNICAL DOCUMENTATION: JOB ID: [id number] [employer]- All Rights Reserved Reading location - IP/workstation name: [email or web address]
[2018-09-15] MEDS ORDERED: DEXTROSE 5%-1/2 NORMAL SALINE 1,000 ML IV PRN (22:00)
[2018-09-15] MEDS: VANCOMYCIN HCL 750 MG in DEXTROSE 5%-WATER 250 ML IV SCH (22:39)
--- NOTE | 2018-09-15 22:41 | PDOC PROGRESS REPORT ---
Subjective Progress Note for:: 09/15/18 Subjective:: This is an 82 year old male with a past medical history of hypertension, COPD, paroxysmal A. fib on dabigatran, coronary artery disease with prior CABG and stent placement, obstructive sleep apnea, CHF with known EF of 35% with prior pacemaker AICD and persistent tobacco dependence who presented with worsening shortness of breath. Initially admitted for COPD exacerbation on BIPAP, found to have PNA on CT. The patient was seen on rounds this afternoon, he is restrained in bed on BIPAP. Nursing staff reports increased agitation. Family expressed concerns regarding the patient's worsening confusion. Speech therapy planned to carry out swallow evaluation today but could not due to patient's agitation and mental status. Plan to check ABG and UA this afternoon to evaluate for possible causes of AMS. Will need to address patient's nutritional status. He is currently high risk for aspiration due to mental status. If unable to see improvements with BIPAP tootie nges or infection treatment, will need to consider NG/enteral feeding. The patient will remain inpatient due to his encephalopathy and dependency on BIPAP. Reason For Visit: COPD EXACERBATION CHF BRONCHTIS Physical Exam Vital Signs: Temp Pulse Resp BP Pulse Ox 100.0 F 120 H 33 H 146/72 H 96 09/15/18 21:38 09/15/18 19:55 09/15/18 19:08 09/15/18 12:00 09/15/18 19:08 Intake & Output 09/14/18 09/15/18 09/16/18 06:59 06:59 06:59 Intake Total 300 540 212 Output Total 410 Balance 300 540 -198 Weight 76.1 kg 73.1 kg General appearance: PRESENT: well-developed, well-nourished Eye exam: PRESENT: conjunctiva pink, PERRLA Teeth exam: PRESENT: poor dentation Neck exam: PRESENT: full ROM Respiratory exam: PRESENT: clear to auscultation bruna, symmetrical, unlabored, other - requiring use of BIPAP. ABSENT: rhonchi, wheezes Cardiovascular exam: PRESENT: RRR Pulses: PRESENT: normal radial pulses, normal dorsalis pedis pul Vascular exam: PRESENT: normal capillary refill GI/Abdominal exam: PRESENT: soft. ABSENT: distended, tenderness Rectal exam: PRESENT: deferred Extremities exam: ABSENT: full ROM Musculoskeletal exam: ABSENT: ambulatory, full ROM Neurological exam: PRESENT: awake. ABSENT: alert, oriented to person, oriented to place, oriented to time, oriented to situation Psychiatric exam: ABSENT: appropriate affect Skin exam: PRESENT: dry, intact Results Laboratory Results: 09/15/18 18:08 09/15/18 18:08 09/15/18 09/15/18 09/15/18 13:45 14:50 18:08 WBC 21.8 H RBC 6.12 H Hgb 18.6 H Hct 57.0 H MCV 93 MCH 30.4 MCHC 32.6 RDW 15.0 H Plt Count 320 Carbonic Acid 1.53 H HCO3/H2CO3 Ratio 20:1 ABG pH 7.40 ABG pCO2 50.9 H ABG pO2 141.7 H ABG HCO3 30.8 H ABG O2 Saturation 98.8 H ABG Base Excess 4.3 FiO2 3L Sodium Potassium Chloride Carbon Dioxide Anion Gap BUN Creatinine Est GFR ( Amer) Est GFR (Non-Af Amer) Glucose Calcium Magnesium Urine Color STRAW Urine Appearance CLEAR Urine pH 6.0 Ur Specific [place] 1.011 Urine Protein NEGATIVE Urine Glucose (UA) NEGATIVE Urine Ketones NEGATIVE Urine Blood SMALL H Urine Nitrite NEGATIVE Ur Leukocyte Esterase NEGATIVE Urine RBC (Auto) 1 09/15/18 09/15/18 18:08 19:55 WBC RBC Hgb Hct MCV MCH MCHC RDW Plt Count Carbonic Acid 1.30 HCO3/H2CO3 Ratio 21:1 ABG pH 7.43 ABG pCO2 43.1 ABG pO2 74.1 L ABG HCO3 28.0 H ABG O2 Saturation 95.2 ABG Base Excess 3.1 FiO2 40% Sodium 144.3 Potassium 5.2 H Chloride 103 Carbon Dioxide 27 Anion Gap 14 BUN 44 H Creatinine 1.43 H Est GFR ( Amer) 57 L Est GFR (Non-Af Amer) 47 L Glucose 150 H Calcium 10.1 Magnesium 2.6 H Urine Color Urine Appearance Urine pH Ur Specific [place] Urine Protein Urine Glucose (UA) Urine Ketones Urine Blood Urine Nitrite Ur Leukocyte Esterase Urine RBC (Auto) 09/12/18 09/12/18 09/12/18 00:55 00:55 05:55 Creatine Kinase 80 CK-MB (CK-2) 1.90 1.88 Troponin I 0.037 0.030 NT-Pro-B Natriuret Pep 4660 H 5960 H 09/12/18 09/12/1819 11:10 11:10 16:52 Creatine Kinase 61 80 CK-MB (CK-2) 2.08 Troponin I 0.024 NT-Pro-B Natriuret Pep 09/12/18 16:52 Creatine Kinase CK-MB (CK-2) 2.92 Troponin I 0.029 NT-Pro-B Natriuret Pep Impressions: Chest CT 09/13/18 11:18 IMPRESSION: Status post CABG. Changes of centrilobular emphysema. Changes of interstitial edema with bilateral pleural effusions. Bibasilar atelectasis. Chest X-Ray 09/15/18 07:00 IMPRESSION: Significant improvement in the pulmonary edema/ fluid overload pattern compared to 09/14/2018 and 09/12/2018 Status: Imported from PACS Assessment and Plan - Diagnosis (1) Acute on chronic respiratory failure with hypoxemia Is this a current diagnosis for this admission?: Yes Plan: Secondary to COPD exacerbation and community acquired pneumonia. CT chest shows pneumonia as well as congestion. CXR shows interval improvement of b/l airspace opacities - PNA versus effusion. (+) pulmonary vascular congestion on CXR treated with IV lasix Initially treated with Azithromycin and Rocephin. Rocephin switched to Zosyn yesterday (2) CAP (community acquired pneumonia) Is this a current diagnosis for this admission?: Yes Plan: Improving CXR shows bilateral airspace disease, improving. CT shows b/l effusions and PNA Initially treated with Azithromycin and Rocephin. Rocephin switched to Zosyn yesterday in the setting of severe COPD exacerbation Sputum culture ordered, has not been collected (3) COPD exacerbation Is this a current diagnosis for this admission?: Yes Plan: Stemming from PNA Continue IV antibiotics, BIPAP, no need for steroids at this time No wheezing on exam, scheduled and PRN nebulizer treatments (4) Coronary artery disease Is this a current diagnosis for this admission?: Yes Plan: Hx CAD Continue aspirin (5) Paroxysmal atrial fibrillation Is this a current diagnosis for this admission?: Yes Plan: Currently in sinus rhythm. Continue Lopressor, digoxin and dabigatran. (6) Malnutrition Qualifiers: Malnutrition type: protein-calorie malnutrition Protein-calorie malnutrition severity: moderate Qualified Code(s): E44.0 - Moderate protein- calorie malnutrition Is this a current diagnosis for this admission?: Yes Plan: Secondary to poor mental status, aspiration risk and current NPO status Will approach topic of NG tomorrow with family if unable to determine cause of encephalopathy today - Time Time Spent with patient: 25-34 minutes Medications reviewed and adjusted accordingly: Yes Anticipated discharge: SNF Within: Other - when medically stable - Inpatient Certification Based on my medical assessment, after consideration of the patient's comorbidities, presenting symptoms, or acuity I expect that the services needed warrant INPATIENT care.: Yes I certify that my determination is in accordance with my understanding of Medicare's requirements for reasonable and necessary INPATIENT services [42 CFR 412.3e].: Yes Medical Necessity: Need for Nebulizer Therapy and Monitoring of Response, Need for IV Antibiotics, Risk of Complication if Not Cared For in Hospital
[2018-09-15] MEDS ORDERED: RINGERS SOLUTION,LACTATED 1,000 ML IV PRN (23:04)
[2018-09-15] MEDS ORDERED: RINGERS SOLUTION,LACTATED 1,000 ML IV ONE (23:05)
[2018-09-15 23:31] LABS: ARTERIAL BLOOD BASE EXCESS 3.4 mmol/L; ARTERIAL BLOOD H2CO3 1.33 mmol/L (1.05-1.35); ARTERIAL BLOOD HCO3 28.5 mmol/L (20-24); ARTERIAL BLOOD O2 SATURATION 95.8 % (94-98); ARTERIAL BLOOD PCO2 44.1 mmHg (35-45); ARTERIAL BLOOD PH 7.43 (7.35-7.45); ARTERIAL BLOOD PO2 77.8 mmHg (80-100); ARTERIAL BLOOD TOTAL CO2 29.8 mmol/L (23-27)
[2018-09-15 23:33] LABS: ARTERIAL BLOOD FIO2 40%
--- NOTE | 2018-09-15 23:41 | PDOC CONSULTATION ---
Consultation-Blank Consultation: CARDIOLOGY CONSULTATION by Dr. Jennifer Shepard on 09/16/2018
[2018-09-16 04:51] LABS: ALANINE AMINOTRANSFERASE 64 U/L (21-72); ALBUMIN 4.5 g/dL (3.5-5.0); ALKALINE PHOSPHATASE 94 U/L (38-126); ANION GAP 15 (5-19); ASPARTATE AMINO TRANSFERASE 96 U/L (17-59); BILIRUBIN,DIRECT 0.6 mg/dL (0.0-0.4); BILIRUBIN,TOTAL 1.3 mg/dL (0.2-1.3); BLOOD UREA NITROGEN 51 mg/dL (7-20); CALCIUM 9.6 mg/dL (8.4-10.2); CARBON DIOXIDE 29 mmol/L (22-30); CHLORIDE 104 mmol/L (98-107); GLUCOSE 170 mg/dL (75-110); PHOSPHORUS 4.6 mg/dL (2.5-4.5); POTASSIUM 4.5 mmol/L (3.6-5.0); SODIUM 147.6 mmol/L (137-145); TOTAL PROTEIN 8.1 g/dL (6.3-8.2)
[2018-09-16] MEDS: HALOPERIDOL LACTATE INJ 5 MG/1 ML VIAL IV PRN ×2 (05:17→22:46)
[2018-09-16] MEDS: VANCOMYCIN HCL 750 MG in DEXTROSE 5%-WATER 250 ML IV SCH (05:18)
[2018-09-16 05:27] LABS: HEMOGLOBIN 18.5 g/dL (13.5-17.0); MEAN CORPUSCULAR HEMOGLOBIN 30.3 pg (27.0-33.4); MEAN CORPUSCULAR HGB CONC 32.4 g/dL (32.0-36.0); MEAN CORPUSCULAR VOLUME 94 fl (80-97); PLATELET COUNT 315 10^3/uL (150-450); RED BLOOD COUNT 6.09 10^6/uL (4.35-5.55); RED CELL DISTRIBUTION WIDTH 14.8 % (11.5-14.0); WHITE BLOOD COUNT 26.2 10^3/uL (4.0-10.5)
[2018-09-16 05:31] LABS: ARTERIAL BLOOD BASE EXCESS 4.3 mmol/L; ARTERIAL BLOOD H2CO3 1.29 mmol/L (1.05-1.35); ARTERIAL BLOOD O2 SATURATION 95.1 % (94-98); ARTERIAL BLOOD PCO2 42.7 mmHg (35-45); ARTERIAL BLOOD PH 7.45 (7.35-7.45); ARTERIAL BLOOD PO2 71.9 mmHg (80-100); ARTERIAL BLOOD TOTAL CO2 30.3 mmol/L (23-27)
[2018-09-16 05:33] LABS: ARTERIAL BLOOD FIO2 40%
[2018-09-16] MEDS: DILTIAZEM HCL/D5W 125 MG/125 ML RTUINJ IV PRN ×3 (06:15→20:38)
[2018-09-16] MEDS ORDERED: PROPOFOL 1,000 MG/100 ML INFUS..BTL IV ONE ×2 (08:46→18:24)
[2018-09-16] MEDS ORDERED: DIGOXIN INJ 0.5 MG/2 ML AMPULE IV ONE (08:55)
[2018-09-16] MEDS ORDERED: METHYLPREDNISOLONE INJ 125 MG/2 ML SDV IV ONE (09:00)
[2018-09-16] MEDS ORDERED: PROPOFOL INJ 200 MG/20 ML VIAL IV ONE (09:06)
[2018-09-16] MEDS ORDERED: PHARMACY COMMUNICATION ORDER MC NR (09:15)
--- NOTE | 2018-09-16 09:54 | RADIOLOGY REPORT (SQ) ---
EXAM DESCRIPTION: CHEST SINGLE VIEW COMPLETED DATE/TIME: 09/16/2018 9:41 am REASON FOR STUDY: intubation, NG tube COMPARISON: 09/15/2018 EXAM PARAMETERS: NUMBER OF VIEWS: One view. TECHNIQUE: Single frontal radiographic view of the chest acquired. RADIATION DOSE: NA LIMITATIONS: None. FINDINGS: LUNGS AND PLEURA: Stable patchy right interstitial opacities. No dense consolidation. St able emphysematous change. No pneumothorax. No significant effusion. MEDIASTINUM AND HILAR STRUCTURES: Stable. HEART AND VASCULAR STRUCTURES: Enlarged, stable. Aortic atherosclerosis. BONES: Median sternotomy changes. No acute findings. HARDWARE: Endotracheal tube tip overlies distal thoracic trachea, likely 1.8 cm above the [place]. En teric tube coiled over upper thoracic esophagus with distal tip directed cephalad. Left-sided cardia c pacer/ defibrillator with leads overlying right atrium and right ventricle. Surgical clips overlie right upper quadrant. Partially visualized aortic stent graft. IMPRESSION: 1. Endotracheal tube tip overlies distal thoracic trachea likely 1.8 cm above the kaylen a. 2. Enteric tube coiled over upper esophagus with tip directed cephalad. Recommend repositioning. 3. Mild right basilar interstitial opacities, possibly edema or atelectasis. TECHNICAL DOCUMENTATION: JOB ID: [id number] [employer]- All Rights Reserved Reading location - IP/workstation name: [email or web address]
[2018-09-16 10:44] LABS: ARTERIAL BLOOD BASE EXCESS 3.1 mmol/L; ARTERIAL BLOOD H2CO3 1.24 mmol/L (1.05-1.35); ARTERIAL BLOOD HCO3 27.5 mmol/L (20-24); ARTERIAL BLOOD O2 SATURATION 96.8 % (94-98); ARTERIAL BLOOD PCO2 41.2 mmHg (35-45); ARTERIAL BLOOD PH 7.44 (7.35-7.45); ARTERIAL BLOOD PO2 85.6 mmHg (80-100); ARTERIAL BLOOD TOTAL CO2 28.8 mmol/L (23-27)
[2018-09-16 10:45] LABS: ARTERIAL BLOOD FIO2 50%
[2018-09-16] MEDS: LEVALBUTEROL HCL NEB 0.63 MG/3 ML AMPUL NEB SCH ×3 (10:59→19:53)
[2018-09-16] MEDS ORDERED: PIPERACILLIN SODIUM/TAZOBACTAM 3.375 GM in NORMAL SALINE 100 ML IV SCH (12:00)
--- NOTE | 2018-09-16 12:14 | PDOC PROGRESS REPORT ---
Subjective Progress Note for:: 09/16/18 Subjective:: The patient is quite tachypneic this morning as well as tachycardic with hypertension. Nursing reports that he has been this way since last night. We will proceed with intubation. Reason For Visit: COPD EXACERBATION CHF BRONCHTIS Physical Exam Vital Signs: Temp Pulse Resp BP Pulse Ox 99.7 F 103 H 29 H 142/93 H 95 09/16/18 08:00 09/16/18 08:00 09/16/18 08:00 09/16/18 08:00 09/16/18 08:00 Intake & Output 09/15/18 09/16/18 09/17/18 06:59 06:59 06:59 Intake Total 540 507 Output Total 1110 150 Balance 540 -603 -150 Weight 73.1 kg 69.3 kg General appearance: PRESENT: severe distress, well-developed Head exam: PRESENT: atraumatic, normocephalic Eye exam: PRESENT: other - Resisted when I tried to open his eyes Ear exam: PRESENT: normal external ear exam Mouth exam: PRESENT: other - BiPAP mask in place Neck exam: ABSENT: carotid bruit, JVD, lymphadenopathy Respiratory exam: PRESENT: accessory muscle use, symmetrical, tachypnea, other - Coarse breath sounds. ABSENT: rales, rhonchi, stridor Cardiovascular exam: PRESENT: +S1, +S2, systolic murmur - Somewhat difficult to appreciate due to tachycardia, tachycardia GI/Abdominal exam: PRESENT: hypoactive bowel sounds, soft. ABSENT: distended, tenderness Rectal exam: PRESENT: deferred Gentrourinary exam: PRESENT: indwelling catheter, other - Concentrated urine Extremities exam: ABSENT: pedal edema Musculoskeletal exam: PRESENT: normal inspection Neurological exam: PRESENT: awake. ABSENT: alert Psychiatric exam: PRESENT: agitated Results Laboratory Results: 09/16/18 03:56 09/16/18 03:56 09/15/18 09/15/18 09/15/18 13:45 14:50 18:08 WBC 21.8 H RBC 6.12 H Hgb 18.6 H Hct 57.0 H MCV 93 MCH 30.4 MCHC 32.6 RDW 15.0 H Plt Count 320 Carbonic Acid 1.53 H HCO3/H2CO3 Ratio 20:1 ABG pH 7.40 ABG pCO2 50.9 H ABG pO2 141.7 H ABG HCO3 30.8 H ABG O2 Saturation 98.8 H ABG Base Excess 4.3 FiO2 3L Sodium Potassium Chloride Carbon Dioxide Anion Gap BUN Creatinine Est GFR ( Amer) Est GFR (Non-Af Amer) Glucose Calcium Phosphorus Magnesium Total Bilirubin AST ALT Alkaline Phosphatase Total Protein Albumin Urine Color STRAW Urine Appearance CLEAR Urine pH 6.0 Ur Specific [place] 1.011 Urine Protein NEGATIVE Urine Glucose (UA) NEGATIVE Urine Ketones NEGATIVE Urine Blood SMALL H Urine Nitrite NEGATIVE Ur Leukocyte Esterase NEGATIVE Urine RBC (Auto) 1 09/15/18 09/15/18 09/15/18 18:08 19:55 23:24 WBC RBC Hgb Hct MCV MCH MCHC RDW Plt Count Carbonic Acid 1.30 1.33 HCO3/H2CO3 Ratio 21:1 21:1 ABG pH 7.43 7.43 ABG pCO2 43.1 44.1 ABG pO2 74.1 L 77.8 L ABG HCO3 28.0 H 28.5 H ABG O2 Saturation 95.2 95.8 ABG Base Excess 3.1 3.4 FiO2 40% 40% Sodium 144.3 Potassium 5.2 H Chloride 103 Carbon Dioxide 27 Anion Gap 14 BUN 44 H Creatinine 1.43 H Est GFR ( Amer) 57 L Est GFR (Non-Af Amer) 47 L Glucose 150 H Calcium 10.1 Phosphorus Magnesium 2.6 H Total Bilirubin AST ALT Alkaline Phosphatase Total Protein Albumin Urine Color Urine Appearance Urine pH Ur Specific [place] Urine Protein Urine Glucose (UA) Urine Ketones Urine Blood Urine Nitrite Ur Leukocyte Esterase Urine RBC (Auto) 09/16/18 09/16/18 09/16/18 03:56 03:56 05:23 WBC 26.2 H RBC 6.09 H Hgb 18.5 H Hct 57.0 H MCV 94 MCH 30.3 MCHC 32.4 RDW 14.8 H Plt Count 315 Carbonic Acid 1.29 HCO3/H2CO3 Ratio 22:1 ABG pH 7.45 ABG pCO2 42.7 ABG pO2 71.9 L ABG HCO3 29.0 H ABG O2 Saturation 95.1 ABG Base Excess 4.3 FiO2 40% Sodium 147.6 H Potassium 4.5 Chloride 104 Carbon Dioxide 29 Anion Gap 15 BUN 51 H Creatinine 1.67 H Est GFR ( Amer) 48 L Est GFR (Non-Af Amer) 40 L Glucose 170 H Calcium 9.6 Phosphorus 4.6 H Magnesium 2.8 H Total Bilirubin 1.3 AST 96 H ALT 64 Alkaline Phosphatase 94 Total Protein 8.1 Albumin 4.5 Urine Color Urine Appearance Urine pH Ur Specific [place] Urine Protein Urine Glucose (UA) Urine Ketones Urine Blood Urine Nitrite Ur Leukocyte Esterase Urine RBC (Auto) 09/12/18 09/12/18 09/12/18 00:55 00:55 05:55 Creatine Kinase 80 CK-MB (CK-2) 1.90 1.88 Troponin I 0.037 0.030 NT-Pro-B Natriuret Pep 4660 H 5960 H 09/12/18 09/12/18 09/12/18 11:10 11:10 16:52 Creatine Kinase 61 80 CK-MB (CK-2) 2.08 Troponin I 0.024 NT-Pro-B Natriuret Pep 09/12/18 16:52 Creatine Kinase CK-MB (CK-2) 2.92 Troponin I 0.029 NT-Pro-B Natriuret Pep Impressions: Chest CT 09/13/18 11:18 IMPRESSION: Status post CABG. Changes of centrilobular emphysema. Changes of interstitial edema with bilateral pleural effusions. Bibasilar atelectasis. Chest X-Ray 09/15/18 07:00 IMPRESSION: Significant improvement in the pulmonary edema/ fluid overload pattern compared to 09/14/2018 and 09/12/2018 Assessment and Plan - Diagnosis (1) Acute on chronic respiratory failure with hypoxemia Is this a current diagnosis for this admission?: Yes Plan: The patient was very tachypneic this morning. His respiratory rate was between 30 and 40 breaths/min. Despite BiPAP he had increased work of breathing. His chest x-ray reveals bilateral lower lobe infiltrates. Due to his declining condition elective intubation by anesthesiology was carried out. The patient will be on SIMV with a rate of 12, PEEP of 5, tidal volume of 500 and we will adjust the FiO2 to keep his oxygen saturation in the 90 to 94% range. (2) CAP (community acquired pneumonia) Qualifiers: Lung location: lower lobe of lung Is this a current diagnosis for this admission?: Yes Plan: X-ray exhibits bilateral lower lobe infiltrates. The patient's white blood cell count has been increasing without intravenous steroids. For this reason I am going to add Zosyn to his vancomycin for broader coverage of the pneumonia. We will continue to monitor his white blood cell count and adjust his medications for his acute kidney injury. (3) COPD exacerbation Is this a current diagnosis for this admission?: Yes Plan: Intravenous steroids as well as more aggressive nebulizer therapy was initiated. Chest x-ray does reveal air trapping and fairly flat diaphragms. Pulmonology is seeing the patient as well. Antibiotics have been broadened as noted above. (4) Coronary artery disease Qualifiers: Coronary Disease-Associated Artery/Lesion type: [place] artery Is this a current diagnosis for this admission?: Yes Plan: The patient does have a history of coronary artery bypass. With his atrial fibrillation and tachycardia his troponins will likely be slightly elevated. There is no evidence of acute cardiac issue. We will control his heart rate from his atrial fibrillation. I will review his home medication regimen as he is likely on antiplatelet therapy as well as statin therapy. (5) Paroxysmal atrial fibrillation Is this a current diagnosis for this admission?: Yes Plan: The patient exhibited rapid ventricular response. He is on a diltiazem drip. At home he is on metoprolol, digoxin and Tikosyn. I will add digoxin in addition to the diltiazem infusion. Once his nasogastric tube is in place we will also add metoprolol. The patient was on Pradaxa for chronic anticoagula tion. We will need to monitor for bleeding. At the insertion of the nasogastric tube there was bright red blood. (6) Malnutrition Qualifiers: Malnutrition type: protein-calorie malnutrition Protein-calorie malnutrition severity: moderate Qualified Code(s): E44.0 - Moderate protein- calorie malnutrition Is this a current diagnosis for this admission?: Yes Plan: Secondary to poor mental status, aspiration risk and current NPO status Will approach topic of NG tomorrow with family if unable to determine cause of encephalopathy today 09/16/2018-nasogastric tube was inserted when the patient was intubated. His dietary intake has been very poor to nonexistent over the last 2 to 3 days. We will initiate tube feeds today or tomorrow. (7) Acute kidney injury Is this a current diagnosis for this admission?: Yes Plan: The patient's GFR has been increasing. His BUN and creatinine are increased in I will change his IV fluids to normal saline with an increased rate. We will continue to monitor his renal function as well as his intake and output. - Time Time Spent with patient: 35 or more minutes Medications reviewed and adjusted accordingly: Yes
--- NOTE | 2018-09-16 12:22 | RADIOLOGY REPORT (SQ) ---
EXAM DESCRIPTION: CHEST SINGLE VIEW COMPLETED DATE/TIME: 09/16/2018 12:04 pm REASON FOR STUDY: Intubated, resp failure COMPARISON: 09/16/2018, 09/15/2018, 09/14/2018 CT chest 09/13/2018 EXAM PARAMETERS: NUMBER OF VIEWS: AP portable chest, 2 films TECHNIQUE: Single frontal radiographic view of the chest acquired. RADIATION DOSE: NA LIMITATIONS: None. FINDINGS: LUNGS AND PLEURA: No opacities, masses or pneumothorax. No pleural effusion. MEDIASTINUM AND HILAR STRUCTURES: No masses. Contour normal. HEART AND VASCULAR STRUCTURES: Mild cardiomegaly. Old sternotomy for CABG. BONES: No acute findings. HARDWARE: The 2nd of the 2 films demonstrates the endotracheal tube 3 cm above the [place]. There is a nasogastric tube looped in the esophagus, doubled back on itself. This report was called to the lisa sanabria's nurse in the ICU, 12 noon 09/16/2018. Left-sided pacemaker/defibrillator unchanged OTHER: No other significant finding. IMPRESSION: Endotracheal tube in good positioning. Nasogastric tube coiled in the upper esophagus, report called to the patient's nurse in ICU Mild cardiomegaly. No acute infiltrate. TECHNICAL DOCUMENTATION: JOB ID: [id number] [email or web address]- All Rights Reserved Reading location - IP/workstation name: [email or web address]
--- NOTE | 2018-09-16 12:51 | RADIOLOGY REPORT (SQ) ---
EXAM DESCRIPTION: KUB/ABDOMEN (SINGLE VIEW) COMPLETED DATE/TIME: 09/16/2018 12:43 pm REASON FOR STUDY: NG tube placement COMPARISON: 08/25/2011 NUMBER OF VIEWS: One view. TECHNIQUE: Supine radiographic image of the abdomen acquired. LIMITATIONS: None. FINDINGS: BOWEL GAS PATTERN: Normal bowel gas pattern. No dilated loops. CALCIFICATIONS: No suspicious calcifications. SOFT TISSUES: No gross mass or suggestion of organomegaly. HARDWARE: An NG tube is present. The tip of the tube there is along the greater curvature in the upp er stomach. An aortic endograft is present. Surgical clips. BONES: No acute fracture. No worrisome bone lesions. OTHER: No other significant finding. IMPRESSION: NG tube placement as described. Nonspecific abdomen. TECHNICAL DOCUMENTATION: JOB ID: [id number] [email or web address]- All Rights Reserved Reading location - IP/workstation name: [email or web address]
[2018-09-16] MEDS: METHYLPREDNISOLONE INJ 125 MG/2 ML SDV IV SCH ×2 (13:15→21:15)
[2018-09-16] MEDS: PIPERACILLIN SODIUM/TAZOBACTAM 2.25 GM in NORMAL SALINE 50 ML IV SCH ×3 (13:16→23:24)
[2018-09-16] MEDS ORDERED: LEVALBUTEROL HCL NEB 0.63 MG/3 ML AMPUL NEB ONE (13:50)
[2018-09-16] MEDS ORDERED: METHYLPREDNISOLONE INJ 40 MG/1 ML SDV IV SCH (14:00)
[2018-09-16] MEDS: LORAZEPAM INJ 2 MG/1 ML VIAL IV PRN (21:16)
[2018-09-16] MEDS: NORMAL SALINE 1000 ML 1,000 ML IV PRN (21:20)
[2018-09-17] MEDS: LEVALBUTEROL HCL NEB 0.63 MG/3 ML AMPUL NEB SCH ×4 (02:04→20:16)
[2018-09-17] MEDS: PROPOFOL 1,000 MG/100 ML INFUS..BTL IV PRN ×4 (03:10→23:30)
[2018-09-17] MEDS: LORAZEPAM INJ 2 MG/1 ML VIAL IV PRN ×2 (03:36→12:05)
[2018-09-17 04:08] LABS: HEMOGLOBIN 18.8 g/dL (13.5-17.0); MEAN CORPUSCULAR HEMOGLOBIN 31.2 pg (27.0-33.4); MEAN CORPUSCULAR VOLUME 95 fl (80-97); PLATELET COUNT 221 10^3/uL (150-450); RED BLOOD COUNT 6.04 10^6/uL (4.35-5.55); RED CELL DISTRIBUTION WIDTH 15.2 % (11.5-14.0); WHITE BLOOD COUNT 19.2 10^3/uL (4.0-10.5)
[2018-09-17 04:12] LABS: HEMATOCRIT 57.1 % (37.9-51.0)
[2018-09-17 04:18] LABS: ANION GAP 11 (5-19); BLOOD UREA NITROGEN 65 mg/dL (7-20); CALCIUM 9.4 mg/dL (8.4-10.2); CARBON DIOXIDE 29 mmol/L (22-30); CHLORIDE 109 mmol/L (98-107); GLUCOSE 196 mg/dL (75-110); POTASSIUM 4.8 mmol/L (3.6-5.0); SODIUM 148.9 mmol/L (137-145)
[2018-09-17 04:24] LABS: ARTERIAL BLOOD BASE EXCESS 2.2 mmol/L; ARTERIAL BLOOD FIO2 50%; ARTERIAL BLOOD H2CO3 1.28 mmol/L (1.05-1.35); ARTERIAL BLOOD HCO3 27.1 mmol/L (20-24); ARTERIAL BLOOD O2 SATURATION 97.3 % (94-98); ARTERIAL BLOOD PCO2 42.6 mmHg (35-45); ARTERIAL BLOOD PH 7.42 (7.35-7.45); ARTERIAL BLOOD PO2 93.7 mmHg (80-100); ARTERIAL BLOOD TOTAL CO2 28.4 mmol/L (23-27)
[2018-09-17 04:29] LABS: ABSOLUTE LYMPHOCYTES# (MANUAL) 0.8 10^3/uL (0.5-4.7); ABSOLUTE MONOCYTES # (MANUAL) 0.4 10^3/uL (0.1-1.4); BASOPHILS % (MANUAL) 0 % (0-2); EOSINOPHILS % (MANUAL) 0 % (0-6); LYMPHOCYTES % (MANUAL) 4 % (13-45); METAMYELOCYTES % (MANUAL) 1 % (0); MONOCYTES % (MANUAL) 2 % (3-13); PLATELET COMMENT ADEQUATE; RBC MORPHOLOGY COMMENT NORMO-CYTIC/CHROMIC; SEGMENTED NEUTROPHILS % (MAN) 93 % (42-78); TOTAL CELLS COUNTED 100
[2018-09-17] MEDS: NORMAL SALINE 1000 ML 1,000 ML IV PRN (04:48)
[2018-09-17] MEDS: DILTIAZEM HCL/D5W 125 MG/125 ML RTUINJ IV PRN ×2 (04:59→17:52)
[2018-09-17] MEDS: METHYLPREDNISOLONE INJ 125 MG/2 ML SDV IV SCH ×3 (04:59→21:22)
[2018-09-17] MEDS: PIPERACILLIN SODIUM/TAZOBACTAM 2.25 GM in NORMAL SALINE 50 ML IV SCH ×4 (04:59→23:30)
[2018-09-17] MEDS: VANCOMYCIN HCL 1,000 MG in DEXTROSE 5%-WATER 250 ML IV SCH (08:05)
[2018-09-17] MEDS ORDERED: 1/2 NORMAL SALINE 1,000 ML IV PRN (11:12)
--- NOTE | 2018-09-17 11:30 | PDOC PROGRESS REPORT ---
Subjective Progress Note for:: 09/17/18 Subjective:: Patient is intubated and currently weaning. He appears comfortable. Reason For Visit: COPD EXACERBATION CHF BRONCHTIS Acute hypoxic respiratory failure Hypernatremia Polycythemia Acute kidney injury Physical Exam Vital Signs: Temp Pulse Resp BP Pulse Ox 98.6 F 76 14 130/79 H 95 09/17/18 08:00 09/17/18 10:00 09/17/18 10:00 09/17/18 10:00 09/17/18 10:00 Intake & Output 09/16/18 09/17/18 09/18/18 06:59 06:59 06:59 Intake Total 507 3918 101 Output Total 1110 925 235 Balance -603 2993 -134 Weight 69.3 kg 68.2 kg General appearance: PRESENT: no acute distress, well-developed Head exam: PRESENT: atraumatic, normocephalic Eye exam: PRESENT: other - Did not assess Mouth exam: PRESENT: other - Endotracheal tube and nasogastric tube in place Respiratory exam: PRESENT: clear to auscultation bruna, symmetrical, unlabored. ABSENT: accessory muscle use, rales, rhonchi, tachypnea, wheezes Cardiovascular exam: PRESENT: irregular rhythm. ABSENT: systolic murmur GI/Abdominal exam: PRESENT: normal bowel sounds, soft. ABSENT: distended, tenderness Rectal exam: PRESENT: deferred Gentrourinary exam: PRESENT: indwelling catheter Extremities exam: ABSENT: pedal edema Musculoskeletal exam: PRESENT: normal inspection Neurological exam: ABSENT: awake Psychiatric exam: ABSENT: agitated Focused psych exam: ABSENT: restlessness Results Laboratory Results: 09/17/18 03:49 09/17/18 03:49 09/17/18 09/17/18 09/17/18 03:49 03:49 03:58 WBC 19.2 H RBC 6.04 H Hgb 18.8 H Hct 57.1 H MCV 95 MCH 31.2 MCHC 33.0 RDW 15.2 H Plt Count 221 Seg Neutrophils % Not Reportable Lymphocytes % Not Reportable Monocytes % Not Reportable Eosinophils % Not Reportable Basophils % Not Reportable Absolute Neutrophils Not Reportable Absolute Lymphocytes Not Reportable Absolute Monocytes Not Reportable Absolute Eosinophils Not Reportable Absolute Basophils Not Reportable Carbonic Acid 1.28 HCO3/H2CO3 Ratio 21:1 ABG pH 7.42 ABG pCO2 42.6 ABG pO2 93.7 ABG HCO3 27.1 H ABG O2 Saturation 97.3 ABG Base Excess 2.2 FiO2 50% Sodium 148.9 H Potassium 4.8 Chloride 109 H Carbon Dioxide 29 Anion Gap 11 BUN 65 H Creatinine 1.78 H Est GFR ( Amer) 45 L Est GFR (Non-Af Amer) 37 L Glucose 196 H Calcium 9.4 09/15/18 14:50 Catheterized Urine Urine Culture - Final NO GROWTH 2 DAYS 09/12/18 09/12/18 09/12/18 00:55 00:55 05:55 Creatine Kinase 80 CK-MB (CK-2) 1.90 1.88 Troponin I 0.037 0.030 NT-Pro-B Natriuret Pep 4660 H 5960 H 09/12/18 09/12/18 09/12/18 11:10 11:10 16:52 Creatine Kinase 61 80 CK-MB (CK-2) 2.08 Troponin I 0.024 NT-Pro-B Natriuret Pep 09/12/18 16:52 Creatine Kinase CK-MB (CK-2) 2.92 Troponin I 0.029 NT-Pro-B Natriuret Pep Impressions: Chest CT 09/13/18 11:18 IMPRESSION: Status post CABG. Changes of centrilobular emphysema. Changes of interstitial edema with bilateral pleural effusions. Bibasilar atelectasis. Chest X-Ray 09/16/18 09:15 IMPRESSION: Endotracheal tube in good positioning. Nasogastric tube coiled in the upper esophagus, report called to the patient's nurse in ICU Mild cardiomegaly. No acute infiltrate. KUB X-Ray 09/16/18 09:16 IMPRESSION: NG tube placement as described. Nonspecific abdomen. Assessment and Plan - Diagnosis (1) Acute on chronic respiratory failure with hypoxemia Is this a current diagnosis for this admission?: Yes Plan: The patient was very tachypneic this morning. His respiratory rate was between 30 and 40 breaths/min. Despite BiPAP he had increased work of breathing. His chest x-ray reveals bilateral lower lobe infiltrates. Due to his declining condition elective intubation by anesthesiology was carried out. The patient will be on SIMV with a rate of 12, PEEP of 5, tidal volume of 500 and we will adjust the FiO2 to keep his oxygen saturation in the 90 to 94% range. 09/17/2018-the patient is currently on a pressure support weaning trial. He is at 12/5 with an FiO2 40% currently saturating at 95%. Continue weaning as tolerated. The goal is extubation. (2) CAP (community acquired pneumonia) Qualifiers: Lung location: lower lobe of lung Is this a current diagnosis for this admission?: Yes Plan: X-ray exhibits bilateral lower lobe infiltrates. The patient's white blood cell count has been increasing without intravenous steroids. For this reason I am going to add Zosyn to his vancomycin for broader coverage of the pneumonia. We will continue to monitor his white blood cell count and adjust his medications for his acute kidney injury. 09/17/2018-continuing dual therapy with vancomycin and Zosyn. White blood cell count is improving. (3) COPD exacerbation Is this a current diagnosis for this admission?: Yes Plan: Intravenous steroids as well as more aggressive nebulizer therapy was initiated. Chest x-ray does reveal air trapping and fairly flat diaphragms. Pulmonology is seeing the patient as well. Antibiotics have been broadened as noted above. 09/17/2018-the patient is on steroids as well as nebulizer treatments and steroids. He is also on antibiotic therapy. Continued weaning. (4) Coronary artery disease Qualifiers: Coronary Disease-Associated Artery/Lesion type: [place] artery Is this a current diagnosis for this admission?: Yes Plan: The patient does have a history of coronary artery bypass. With his atrial fibrillation and tachycardia his troponins will likely be slightly elevated. There is no evidence of acute cardiac issue. We will control his heart rate from his atrial fibrillation. I will review his home medication regimen as he is likely on antiplatelet therapy as well as statin therapy. 09/17/2018-currently appears asymptomatic. We will try and obtain good rate and blood pressure control. He did have bright red blood in the nasogastric tube yesterday. This is not continued. Consider resuming his anticoagulation. (5) Paroxysmal atrial fibrillation Is this a current diagnosis for this admission?: Yes Plan: The patient exhibited rapid ventricular response. He is on a diltiazem drip. At home he is on metoprolol, digoxin and Tikosyn. I will add digoxin in addition to the diltiazem infusion. Once his nasogastric tube is in place we will also add metoprolol. The patient was on Pradaxa for chronic anticoagulation. We will need to monitor for bleeding. At the insertion of the nasogastric tube there was bright red blood. 09/17/2018-the patient is still in fibrillation. His rate fluctuates from 80- 110. With weaning his pulse rate did increase. The majority times his pulse rate and blood pressure are reasonably controlled. Continue same regimen at this time. (6) Malnutrition Qualifiers: Malnutrition type: protein-calorie malnutrition Protein-calorie malnutrition severity: moderate Qualified Code(s): E44.0 - Moderate protein- calorie malnutrition Is this a current diagnosis for this admission?: Yes Plan: Secondary to poor mental status, aspiration risk and current NPO status Will approach topic of NG tomorrow with family if unable to determine cause of encephalopathy today 09/16/2018-nasogastric tube was inserted when the patient was intubated. His dietary intake has been very poor to nonexistent over the last 2 to 3 days. We will initiate tube feeds today or tomorrow. 09/17/2018-appears to be tolerating his tube feeds. (7) Acute kidney injury Is this a current diagnosis for this admission?: Yes Plan: The patient's GFR has been increasing. His BUN and creatinine are increased in I will change his IV fluids to normal saline with an increased rate. We will continue to monitor his renal function as well as his intake and output. 09/17/2018-the BUN and creatinine are increased. I believe this is due to the volume issue as noted below. I will repeat a urinalysis to check specific gravity. If it continues to increase I will check urine studies and ask nephrology for consultation. (8) Hypernatremia Is this a current diagnosis for this admission?: Yes Plan: 09/17/2018-the serum sodium is still elevated. I believe it is from volume contraction. He needs more free water despite a positive fluid balance. I am going to change to half-normal saline. The calculated rate is over 200 mL an hour. I will start at 150 mL an hour and adjust based on this afternoon's blood work. (9) Hypermagnesemia Is this a current diagnosis for this admission?: Yes Plan: The serum magnesium is increased. I believe this is due to volume contraction. He is not on any magnesium supplements. I will monitor his electrolytes new regimen of half-normal saline. 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 I believe it is due to volume contraction. We will continue to monitor as we change to half-normal saline. There is no bright red blood in the nasogastric tube so I will resume the patient's 81 mg aspirin dose daily. - Time Time Spent with patient: 35 or more minutes
[2018-09-17] MEDS: HALOPERIDOL LACTATE INJ 5 MG/1 ML VIAL IV PRN ×2 (12:07→23:58)
[2018-09-17] MEDS: APIXABAN 2.5 MG TABLET NG SCH ×2 (12:08→21:22)
[2018-09-17] MEDS ORDERED: ACETAMINOPHEN SOLN 325 MG/10.15 ML UDCUP ONE (12:41)
[2018-09-17 13:00] LABS: APPEARANCE,URINE CLOUDY; BILIRUBIN,URINE NEGATIVE (NEGATIVE); COLOR,URINE YELLOW; GLUCOSE, URINE NEGATIVE (NEGATIVE); KETONES,URINE NEGATIVE (NEGATIVE); LEUKOCYTE ESTERASE,URINE NEGATIVE (NEGATIVE); NITRITE,URINE NEGATIVE (NEGATIVE); PROTEIN,URINE 30 mg/dL (NEGATIVE); URINE SPECIFIC GRAVITY 1.021; UROBILINOGEN,URINE NEGATIVE mg/dL (<2.0)
[2018-09-17] MEDS: ACETAMINOPHEN SOLN 325 MG/10.15 ML UDCUP NG PRN (13:21)
--- NOTE | 2018-09-17 14:44 | PDOC CONSULTATION ---
Consultation Consult Date: 09/16/18 Attending physician:: SHAD HARDIN Provider Consulted: JASON LIANG Consult reason:: resp failure History of Present Illness Admission Date/PCP: 09/12/18 04:52 DENIS ROWLAND MD History of Present Illness: EARNEST CASTELLANO is a 82 year old male He presents with 2 days of worsening shortness of breath despite his unchanged aggressive outpatient medical regiment hampered by persistent tobacco dependence and hypertension, COPD, coronary artery disease status post remote coronary artery bypass grafting and stent placement, obstructive sleep apnea, congestive heart failure with pacemaker AICD and persistent tobacco dependence.Patient's mental status decline and he became progressively more tachypneic and was subsequently intubated and sedated he is currently in the ICU intubated sedated Past Medical History Cardiac Medical History: Reports: Atrial Fibrillation, Congestive Heart Failure, Coronary Artery Disease, Myocardial Infarction - 1 stent. triple bypass surgery, Hyperlipidema, Hypertension Denies: DVT, Peripheral Vascular Disease, Pulmonary Embolism, Heart Murmur Pulmonary Medical History: Reports: Chronic Obstructive Pulmonary Disease (COPD), Pneumonia, Sleep Apnea - Uncertain settings for the CPAP. No home oxygen. Denies: Asthma, Bronchitis, Respiratory Failure, Tuberculosis Neurological Medical History: Reports: Other - Hard of hearing Denies: Seizures Endocrine Medical History: Denies: Diabetes Mellitus Type 1, Diabetes Mellitus Type 2, Hyperthyroidism, Hypothyroidism Renal/ Medical History: Denies: End Stage Renal Disease Malignancy Medical History: Denies: Breast Cancer, Cervical Cancer, Leukemia, Lung Cancer, Ovarian Cancer GI Medical History: Denies: Cirrhosis, Crohn's Disease, Gastroesophageal Reflux Disease, Hepatitis, Hiatal Hernia Musculoskeltal Medical History: Denies: Arthritis, Fibromyalgia Psychiatric Medical History: Reports: Depression - Mild, Tobacco Dependency Denies: Bipolar Disorder, Dementia, Post Traumatic Stress Disorder Hematology: Denies: Anemia, Hemophilia, Sickle Cell Disease, Bleeding Tendencies Infectious Medical History: Denies: HIV Past Surgical History Past Surgical History: Reports: Cardiac Catheterization, Cholecystectomy, Coronary Artery Bypass Graft - Three-vessel, Internal Defibrillator, Pacemaker - Pacemaker defibrillator Denies: Appendectomy, Colostomy, Gastric Bypass Surgery, Herniorrhaphy, Tonsi llectomy Social History Information Source: [facility] Records Smoking Status: Current Some Day Smoker Cigarettes Packs Per Day: 0.5 Number of Years Smokin Frequency of Alcohol Use: None Hx Recreational Drug Use: No Drugs: None Hx Prescription Drug Abuse: No - Advance Directive Resuscitation Status: Full Code Family History Family History: COPD Parental Family History Reviewed: No Children Family History Reviewed: No Sibling(s) Family History Reviewed.: No Medication/Allergy Home Medications: Aspirin [Ecotrin 81 mg EC Tablet] 81 mg PO DAILY 05/20/18 Dabigatran Etexilate Mesylate [Pradaxa 150 mg Capsule] 150 mg PO Q12 05/20/18 Digoxin [Lanoxin 0.125 mg Tablet] 0.125 mg PO DAILY 05/20/18 Dofetilide [Tikosyn 125 Mcg Capsule] 250 mcg PO Q12 05/20/18 Furosemide [Lasix 40 mg Tablet] 40 mg PO DAILY 05/20/18 Metoprolol Succinate [Toprol Xl 50 mg Tab.sr] 50 mg PO Q12 05/20/18 Montelukast Sodium [Singulair 10 mg Tablet] 10 mg PO QPM 05/20/18 Simvastatin [Zocor 20 mg Tablet] 20 mg PO DAILY 05/20/18 Acetaminophen [Tylenol 325 mg Tablet] 325 mg PO DAILYP PRN 09/12/18 Ipratropium/Albuterol Sulfate [Duoneb 3 ml Ampul] 3 ml NEB RTQ12 09/12/18 Pregabalin [Lyrica 50 Mg Capsule] 50 mg PO TID 09/12/18 Allergies/Adverse Reactions: No Known Allergies Allergy (Verified 05/13/18 08:27) Review of Systems ROS unobtainable: Due to endotracheal tube Physical Exam Vital Signs: Temp Pulse Resp BP Pulse Ox 99.7 F 103 H 29 H 142/93 H 95 09/16/18 08:00 09/16/18 08:00 09/16/18 08:00 09/16/18 08:00 09/16/18 08:00 Intake & Output 09/15/18 09/16/18 09/17/18 06:59 06:59 06:59 Intake Total 540 507 Output Total 1110 150 Balance 540 -603 -150 Weight 73.1 kg 69.3 kg General appearance: PRESENT: no acute distress, disheveled, thin. ABSENT: cooperative Head exam: PRESENT: atraumatic, normocephalic Eye exam: PRESENT: conjunctiva pale. ABSENT: nystagmus, periorbital swelling Mouth exam: PRESENT: dry mucosa, neck supple, tongue midline, other - ET tube Respiratory exam: PRESENT: decreased breath sounds, prolonged expiratory phas, rales, rhonchi, unlabored, wheezes. ABSENT: retraction, stridor Cardiovascular exam: PRESENT: irregular rhythm Pulses: PRESENT: normal radial pulses GI/Abdominal exam: PRESENT: diminished bowel sounds, soft. ABSENT: mass Gentrourinary exam: PRESENT: indwelling catheter Extremities exam: ABSENT: calf tenderness, clubbing, joint swelling Musculoskeletal exam: ABSENT: ambulatory, deformity, dislocation Neurological exam: ABSENT: awake Skin exam: PRESENT: dry, warm Results Laboratory Results: 09/16/18 03:56 09/16/18 03:56 09/15/18 09/15/18 09/15/18 13:45 14:50 18:08 WBC 21.8 H RBC 6.12 H Hgb 18.6 H Hct 57.0 H MCV 93 MCH 30.4 MCHC 32.6 RDW 15.0 H Plt Count 320 Carbonic Acid 1.53 H HCO3/H2CO3 Ratio 20:1 ABG pH 7.40 ABG pCO2 50.9 H ABG pO2 141.7 H ABG HCO3 30.8 H ABG O2 Saturation 98.8 H ABG Base Excess 4.3 FiO2 3L Sodium Potassium Chloride Carbon Dioxide Anion Gap BUN Creatinine Est GFR ( Amer) Est GFR (Non-Af Amer) Glucose Calcium Phosphorus Magnesium Total Bilirubin AST ALT Alkaline Phosphatase Total Protein Albumin Urine Color STRAW Urine Appearance CLEAR Urine pH 6.0 Ur Specific [place] 1.011 Urine Protein NEGATIVE Urine Glucose (UA) NEGATIVE Urine Ketones NEGATIVE Urine Blood SMALL H Urine Nitrite NEGATIVE Ur Leukocyte Esterase NEGATIVE Urine RBC (Auto) 1 09/15/18 09/15/18 09/15/18 18:08 19:55 23:24 WBC RBC Hgb Hct MCV MCH MCHC RDW Plt Count Carbonic Acid 1.30 1.33 HCO3/H2CO3 Ratio 21:1 21:1 ABG pH 7.43 7.43 ABG pCO2 43.1 44.1 ABG pO2 74.1 L 77.8 L ABG HCO3 28.0 H 28.5 H ABG O2 Saturation 95.2 95.8 ABG Base Excess 3.1 3.4 FiO2 40% 40% Sodium 144.3 Potassium 5.2 H Chloride 103 Carbon Dioxide 27 Anion Gap 14 BUN 44 H Creatinine 1.43 H Est GFR ( Amer) 57 L Est GFR (Non-Af Amer) 47 L Glucose 150 H Calcium 10.1 Phosphorus Magnesium 2.6 H Total Bilirubin AST ALT Alkaline Phosphatase Total Protein Albumin Urine Color Urine Appearance Urine pH Ur Specific [place] Urine Protein Urine Glucose (UA) Urine Ketones Urine Blood Urine Nitrite Ur Leukocyte Esterase Urine RBC (Auto) 09/16/18 09/16/18 09/16/18 03:56 03:56 05:23 WBC 26.2 H RBC 6.09 H Hgb 18.5 H Hct 57.0 H MCV 94 MCH 30.3 MCHC 32.4 RDW 14.8 H Plt Count 315 Carbonic Acid 1.29 HCO3/H2CO3 Ratio 22:1 ABG pH 7.45 ABG pCO2 42.7 ABG pO2 71.9 L ABG HCO3 29.0 H ABG O2 Saturation 95.1 ABG Base Excess 4.3 FiO2 40% Sodium 147.6 H Potassium 4.5 Chloride 104 Carbon Dioxide 29 Anion Gap 15 BUN 51 H Creatinine 1.67 H Est GFR ( Amer) 48 L Est GFR (Non-Af Amer) 40 L Glucose 170 H Calcium 9.6 Phosphorus 4.6 H Magnesium 2.8 H Total Bilirubin 1.3 AST 96 H ALT 64 Alkaline Phosphatase 94 Total Protein 8.1 Albumin 4.5 Urine Color Urine Appearance Urine pH Ur Specific [place] Urine Protein Urine Glucose (UA) Urine Ketones Urine Blood Urine Nitrite Ur Leukocyte Esterase Urine RBC (Auto) 09/12/18 09/12/18 09/12/18 00:55 00:55 05:55 Creatine Kinase 80 CK-MB (CK-2) 1.90 1.88 Troponin I 0.037 0.030 NT-Pro-B Natriuret Pep 4660 H 5960 H 09/12/18 09/12/18 09/12/18 11:10 11:10 16:52 Creatine Kinase 61 80 CK-MB (CK-2) 2.08 Troponin I 0.024 NT-Pro-B Natriuret Pep 09/12/18 16:52 Creatine Kinase CK-MB (CK-2) 2.92 Troponin I 0.029 NT-Pro-B Natriuret Pep Impressions: Chest CT 09/13/18 11:18 IMPRESSION: Status post CABG. Changes of centrilobular emphysema. Changes of interstitial edema with bilateral pleural effusions. Bibasilar atelectasis. Chest X-Ray 09/15/18 07:00 IMPRESSION: Significant improvement in the pulmonary edema/ fluid overload pattern compared to 09/14/2018 and 09/12/2018 Assessment & Plan - Diagnosis (1) CAP (community acquired pneumonia) Qualifiers: Lung location: lower lobe of lung Is this a current diagnosis for this admission?: Yes Plan: No organisms identified thus far (2) Acute respiratory failure with hypoxia Is this a current diagnosis for this admission?: Yes Plan: Supplemental ventilation and oxygenation is needed (3) Basal pneumonia of both lungs Is this a current diagnosis for this admission?: Yes Plan: With treatment for community-acquired pneumonia (4) Anticoagulated Is this a current diagnosis for this admission?: Yes Plan: Follow closely (5) Atrial fibrillation Qualifiers: Atrial fibrillation type: unspecified Qualified Code(s): I48.91 - U nspecified atrial fibrillation Is this a current diagnosis for this admission?: Yes Plan: controlled ventricular response and adequate anticoagulation (6) HECTOR (obstructive sleep apnea) Is this a current diagnosis for this admission?: Yes Plan: When we are able to extubate we will extubate CPAP (7) Tobacco dependency Is this a current diagnosis for this admission?: Yes Plan: Transdermal nicotine - Time Total Critical Time (Minutes): 55
--- NOTE | 2018-09-17 15:02 | PDOC PROGRESS REPORT ---
Subjective Progress Note for:: 09/17/18 Subjective:: Intubated and sedated Reason For Visit: COPD EXACERBATION CHF BRONCHTIS Physical Exam Vital Signs: Temp Pulse Resp BP Pulse Ox 100.0 F 85 19 123/83 95 09/17/18 12:00 09/17/18 14:21 09/17/18 14:21 09/17/18 14:00 09/17/18 14:21 Intake & Output 09/16/18 09/17/18 09/18/18 06:59 06:59 06:59 Intake Total 507 3918 470 Output Total 1110 925 460 Balance -603 2993 10 Weight 69.3 kg 68.2 kg General appearance: PRESENT: no acute distress, thin, well-developed, well- nourished Head exam: PRESENT: atraumatic, normocephalic Eye exam: PRESENT: conjunctiva pink, EOMI, PERRLA. ABSENT: scleral icterus Ear exam: PRESENT: normal external ear exam Mouth exam: PRESENT: moist, tongue midline Neck exam: ABSENT: carotid bruit, JVD, lymphadenopathy, thyromegaly Respiratory exam: PRESENT: decreased breath sounds, prolonged expiratory phas, rales, rhonchi. ABSENT: wheezes Cardiovascular exam: PRESENT: irregular rhythm. ABSENT: diastolic murmur, rubs, systolic murmur Pulses: PRESENT: normal radial pulses Vascular exam: PRESENT: normal capillary refill GI/Abdominal exam: PRESENT: normal bowel sounds, soft. ABSENT: distended, guarding, mass, organolmegaly, rebound, tenderness Rectal exam: PRESENT: deferred Extremities exam: PRESENT: full ROM. ABSENT: calf tenderness, clubbing, pedal edema Neurological exam: ABSENT: awake, motor sensory deficit Psychiatric exam: PRESENT: appropriate affect, normal mood. ABSENT: homicidal ideation, suicidal ideation Skin exam: PRESENT: dry, intact, warm. ABSENT: cyanosis, rash Results Laboratory Results: 09/17/18 03:49 09/17/18 03:49 09/17/18 09/17/18 09/17/18 03:49 03:49 03:58 WBC 19.2 H RBC 6.04 H Hgb 18.8 H Hct 57.1 H MCV 95 MCH 31.2 MCHC 33.0 RDW 15.2 H Plt Count 221 Seg Neutrophils % Not Reportable Lymphocytes % Not Reportable Monocytes % Not Reportable Eosinophils % Not Reportable Basophils % Not Reportable Absolute Neutrophils Not Reportable Absolute Lymphocytes Not Reportable Absolute Monocytes Not Reportable Absolute Eosinophils Not Reportable Absolute Basophils Not Reportable Carbonic Acid 1.28 HCO3/H2CO3 Ratio 21:1 ABG pH 7.42 ABG pCO2 42.6 ABG pO2 93.7 ABG HCO3 27.1 H ABG O2 Saturation 97.3 ABG Base Excess 2.2 FiO2 50% Sodium 148.9 H Potassium 4.8 Chloride 109 H Carbon Dioxide 29 Anion Gap 11 BUN 65 H Creatinine 1.78 H Est GFR ( Amer) 45 L Est GFR (Non-Af Amer) 37 L Glucose 196 H Lactic Acid Calcium 9.4 Urine Color Urine Appearance Urine pH Ur Specific [place] Urine Protein Urine Glucose (UA) Urine Ketones Urine Blood Urine Nitrite Ur Leukocyte Esterase Urine WBC (Auto) Urine RBC (Auto) 09/17/18 09/17/18 11:30 12:10 WBC RBC Hgb Hct MCV MCH MCHC RDW Plt Count Seg Neutrophils % Lymphocytes % Monocytes % Eosinophils % Basophils % Absolute Neutrophils Absolute Lymphocytes Absolute Monocytes Absolute Eosinophils Absolute Basophils Carbonic Acid HCO3/H2CO3 Ratio ABG pH ABG pCO2 ABG pO2 ABG HCO3 ABG O2 Saturation ABG Base Excess FiO2 Sodium Potassium Chloride Carbon Dioxide Anion Gap BUN Creatinine Est GFR ( Amer) Est GFR (Non-Af Amer) Glucose Lactic Acid 2.1 Calcium Urine Color YELLOW Urine Appearance CLOUDY Urine pH 5.0 Ur Specific [place] 1.021 Urine Protein 30 H Urine Glucose (UA) NEGATIVE Urine Ketones NEGATIVE Urine Blood LARGE H Urine Nitrite NEGATIVE Ur Leukocyte Esterase NEGATIVE Urine WBC (Auto) 21 Urine RBC (Auto) >182 09/15/18 14:50 Catheterized Urine Urine Culture - Final NO GROWTH 2 DAYS 09/12/18 09/12/18 09/12/18 00:55 00:55 05:55 Creatine Kinase 80 CK-MB (CK-2) 1.90 1.88 Troponin I 0.037 0.030 NT-Pro-B Natriuret Pep 4660 H 5960 H 09/12/18 09/12/18 09/12/18 11:10 11:10 16:52 Creatine Kinase 61 80 CK-MB (CK-2) 2.08 Troponin I 0.024 NT-Pro-B Natriuret Pep 09/12/18 16:52 Creatine Kinase CK-MB (CK-2) 2.92 Troponin I 0.029 NT-Pro-B Natriuret Pep Impressions: Chest CT 09/13/18 11:18 IMPRESSION: Status post CABG. Changes of centrilobular emphysema. Changes of interstitial edema with bilateral pleural effusions. Bibasilar atelectasis. Chest X-Ray 09/16/18 09:15 IMPRESSION: Endotracheal tube in good positioning. Nasogastric tube coiled in the upper esophagus, report called to the patient's nurse in ICU Mild cardiomegaly. No acute infiltrate. KUB X-Ray 09/16/18 09:16 IMPRESSION: NG tube placement as described. Nonspecific abdomen. Assessment & Plan - Diagnosis (1) CAP (community acquired pneumonia) Qualifiers: Lung location: lower lobe of lung Is this a current diagnosis for this admission?: Yes Plan: No organisms identified thus far continue current antibiotic regimen (2) Acute respiratory failure with hypoxia Is this a current diagnosis for this admission?: Yes Plan: Currently on mechanical ventilation (3) Basal pneumonia of both lungs Is this a current diagnosis for this admission?: Yes Plan: With treatment for community-acquired pneumonia (4) HECTOR (obstructive sleep apnea) Is this a current diagnosis for this admission?: Yes Plan: When we are able to extubate we will use CPAP (5) Tobacco dependency Is this a current diagnosis for this admission?: Yes Plan: Plan for tobacco abuse counseling upon awakening - Time Total Critical Time (Minutes): 50 Inpatient Scribe Statement - . Entered by Sissy Glass, acting as scribe for Dr. Batista.
[2018-09-17 16:05] LABS: HEMATOCRIT 53.2 % (37.9-51.0); HEMOGLOBIN 17.2 g/dL (13.5-17.0); MEAN CORPUSCULAR HEMOGLOBIN 30.4 pg (27.0-33.4); MEAN CORPUSCULAR HGB CONC 32.4 g/dL (32.0-36.0); MEAN CORPUSCULAR VOLUME 94 fl (80-97); PLATELET COUNT 226 10^3/uL (150-450); RED BLOOD COUNT 5.66 10^6/uL (4.35-5.55); RED CELL DISTRIBUTION WIDTH 15.1 % (11.5-14.0); WHITE BLOOD COUNT 20.3 10^3/uL (4.0-10.5)
[2018-09-17 16:23] LABS: ANION GAP 10 (5-19); BLOOD UREA NITROGEN 62 mg/dL (7-20); CALCIUM 9.3 mg/dL (8.4-10.2); CARBON DIOXIDE 28 mmol/L (22-30); CHLORIDE 110 mmol/L (98-107); GLUCOSE 189 mg/dL (75-110); POTASSIUM 4.2 mmol/L (3.6-5.0)
--- NOTE | 2018-09-17 20:35 | Progress Note ---
Provider Note Provider Note: CARDIOLOGY PROGRESS NOTE by Dr. Jennifer Bunn on 09/17/2018. SUBJECTIVE: Earlier the patient had respiratory difficulty and was electively intubated due to the patient's increased heart rate and increased respiratory rate. At present the patient is atrial fibrillation on a Cardizem drip. He will used to be on Pradaxa, but on incision of the NG tube there was bright red blood. Hence it has been held. There is no ventricular arrhythmia seen on the monitor. The patient at present is intubated and sedated. OBJECTIVE: The patient is intubated and sedated. Selected Entries 09/17/18 09/17/18 09/17/18 07:48 08:00 09:04 Temperature 98.6 F Temperature Core Source Pulse Rate 73 Respiratory 22 H Rate Blood Pressure 100/61 [Right Upper Arm] Blood Pressure 74 Mean [Right Upper Arm] O2 Sat by Pulse 96 Oximetry Oxygen Delivery Mechanical Method ( Ventilator includes room air) Fraction of 50 40 Inspired Oxygen (FIO2) HEAD: Is atraumatic normocephalic. EYES: Pupils are regular reactive to light. ENT is negative. NECK: Is supple. There is no JVD. Carotids equal there is no bruit. LUNGS: There is diminished air entry and prolonged expiration. There is a few scattered rhonchi. There is no wheezing. There is no dry crackles or wet rales of CHF. ABDOMEN: S1-S2 is heard S1 is of variable intensity. There is no S3 gallop. There is no S4 gallop. ABDOMEN: Soft. There is no hepatosplenomegaly. Bowel sounds are heard. EXTREMITIES: Femorals are diminished. Leg pulses are diminished. There is no pedal edema. ASSEMBLY PERSON and psychiatric: Not examined since the patient is intubated and sedated. 12/17/11 09/17/18 09/17/18 07:15 03:49 03:58 WBC 19.2 H RBC 4.59 6.04 H Hgb 18.8 H Hct 57.1 H MCV 95 MCH 31.2 MCHC 33.0 RDW 15.2 H Plt Count 221 Total Counted 100 Seg Neutrophils % Not Reportable Seg Neuts % (Manual) 93 H Lymphocytes % Not Reportable Lymphocytes % (Manual) 4 L Monocytes % Not Reportable Monocytes % (Manual) 2 L Eosinophils % Not Reportable Eosinophils % (Manual) 0 Basophils % Not Reportable Basophils % (Manual) 0 Metamyelocytes % 1 H Absolute Neutrophils Not Reportable Abs Neuts (Manual) 18.0 H Absolute Lymphocytes Not Reportable Abs Lymphs (Manual) 0.8 Absolute Monocytes Not Reportable Abs Monocytes (Manual) 0.4 Absolute Eosinophils Not Reportable Absolute Eos (Manual) 0.0 Absolute Basophils Not Reportable Abs Basophils (Manual) 0.0 Platelet Comment ADEQUATE Carbonic Acid 1.28 HCO3/H2CO3 Ratio 21:1 ABG pH 7.42 ABG pCO2 42.6 ABG pO2 93.7 ABG HCO3 27.1 H ABG Total CO2 28.4 H ABG O2 Saturation 97.3 ABG Base Excess 2.2 FiO2 50% Sodium Potassium Chloride Carbon Dioxide Anion Gap BUN Creatinine Est GFR (Non-Af Amer) Glucose Lactic Acid Calcium 09/17/18 09/17/18 15:50 15:50 WBC RBC Hgb Hct MCV MCH MCHC RDW Plt Count Total Counted Seg Neutrophils % Seg Neuts % (Manual) Lymphocytes % Lymphocytes % (Manual) Monocytes % Monocytes % (Manual) Eosinophils % Eosinophils % (Manual) Basophils % Basophils % (Manual) Metamyelocytes % Absolute Neutrophils Abs Neuts (Manual) Absolute Lymphocytes Abs Lymphs (Manual) Absolute Monocytes Abs Monocytes (Manual) Absolute Eosinophils Absolute Eos (Manual) Absolute Basophils Abs Basophils (Manual) Platelet Comment Carbonic Acid HCO3/H2CO3 Ratio ABG pH ABG pCO2 ABG pO2 ABG HCO3 ABG Total CO2 ABG O2 Saturation ABG Base Excess FiO2 Sodium 148.0 H Potassium 4.2 Chloride 110 H Carbon Dioxide 28 Anion Gap 10 BUN 62 H Creatinine 1.72 H Est GFR (Non-Af Amer) 38 L Glucose 189 H Lactic Acid 1.6 Calcium 9.3 IMPRESSION/RECOMMENDATION: 1. Acute on chronic respiratory failure. Continue ventilatory support and respiratory treatments and antibiotics. 2. Acute exacerbation of COPD. Continue respiratory treatments nasal oxygen and ventilator support. 3. Bibasilar pneumonia: Continue antibiotics. 4. Atrial fibrillation. Patient with a history of proximal atrial fibrillation patient back in atrial fibrillation. Continue Cardizem drip. Note that the patient is on Tikosyn and digoxin. 5. Coronary artery disease: No evidence of [place]. 6. Hypertension: Blood pressure well controlled. 7. Acute renal failure: Avoid nephrotoxic drugs. 7. 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 Medications reviewed. Management plan discussed with attending physician on the case medical decision making is of moderate complexity. 40 minutes spent on this patient more than 50% of time spent under patient care. Will follow.
[2018-09-17] MEDS: 1/2 NORMAL SALINE 1,000 ML IV PRN (21:22)
[2018-09-17] MEDS: PANTOPRAZOLE SODIUM 40 MG VIAL IV SCH (21:22)
[2018-09-18] MEDS: LEVALBUTEROL HCL NEB 0.63 MG/3 ML AMPUL NEB SCH ×4 (02:07→20:39)
[2018-09-18 03:26] LABS: ARTERIAL BLOOD BASE EXCESS -0.5 mmol/L; ARTERIAL BLOOD H2CO3 1.16 mmol/L (1.05-1.35); ARTERIAL BLOOD HCO3 23.8 mmol/L (20-24); ARTERIAL BLOOD O2 SATURATION 95.4 % (94-98); ARTERIAL BLOOD PCO2 38.4 mmHg (35-45); ARTERIAL BLOOD PH 7.41 (7.35-7.45); ARTERIAL BLOOD PO2 75.9 mmHg (80-100)
[2018-09-18 03:27] LABS: ARTERIAL BLOOD FIO2 40%
[2018-09-18] MEDS: 1/2 NORMAL SALINE 1,000 ML IV PRN ×4 (03:49→23:54)
[2018-09-18 04:06] LABS: HEMATOCRIT 50.8 % (37.9-51.0); HEMOGLOBIN 16.8 g/dL (13.5-17.0); MEAN CORPUSCULAR HEMOGLOBIN 30.9 pg (27.0-33.4); MEAN CORPUSCULAR VOLUME 94 fl (80-97); PLATELET COUNT 190 10^3/uL (150-450); RED BLOOD COUNT 5.42 10^6/uL (4.35-5.55); RED CELL DISTRIBUTION WIDTH 14.7 % (11.5-14.0); WHITE BLOOD COUNT 17.3 10^3/uL (4.0-10.5)
[2018-09-18 04:19] LABS: ANION GAP 9 (5-19); BLOOD UREA NITROGEN 57 mg/dL (7-20); CALCIUM 9.1 mg/dL (8.4-10.2); CARBON DIOXIDE 25 mmol/L (22-30); CHLORIDE 111 mmol/L (98-107); GLUCOSE 179 mg/dL (75-110); PHOSPHORUS 4.1 mg/dL (2.5-4.5); SODIUM 145.4 mmol/L (137-145)
[2018-09-18 04:31] LABS: ABSOLUTE LYMPHOCYTES# (MANUAL) 0.7 10^3/uL (0.5-4.7); ABSOLUTE MONOCYTES # (MANUAL) 0.5 10^3/uL (0.1-1.4); ABSOLUTE NEUTROPHILS# (MANUAL) 16.1 10^3/uL (1.7-8.2); BASOPHILS % (MANUAL) 0 % (0-2); EOSINOPHILS % (MANUAL) 0 % (0-6); LYMPHOCYTES % (MANUAL) 4 % (13-45); MONOCYTES % (MANUAL) 3 % (3-13); PLATELET COMMENT ADEQUATE; SEGMENTED NEUTROPHILS % (MAN) 93 % (42-78); STOMATOCYTES SLIGHT; TOTAL CELLS COUNTED 100
[2018-09-18] MEDS: PROPOFOL 1,000 MG/100 ML INFUS..BTL IV PRN ×3 (05:05→16:25)
[2018-09-18] MEDS: METHYLPREDNISOLONE INJ 125 MG/2 ML SDV IV SCH ×3 (05:06→21:32)
[2018-09-18] MEDS: PIPERACILLIN SODIUM/TAZOBACTAM 2.25 GM in NORMAL SALINE 50 ML IV SCH ×4 (05:06→23:55)
[2018-09-18] MEDS: DILTIAZEM HCL/D5W 125 MG/125 ML RTUINJ IV PRN ×2 (05:06→16:43)
[2018-09-18] MEDS: VANCOMYCIN HCL 1,000 MG in DEXTROSE 5%-WATER 250 ML IV SCH (09:05)
[2018-09-18] MEDS: PANTOPRAZOLE SODIUM 40 MG VIAL IV SCH ×2 (10:21→21:32)
[2018-09-18] MEDS: APIXABAN 2.5 MG TABLET NG SCH (10:22)
[2018-09-18] MEDS: ASPIRIN 81 MG TABLET, CHEWABLE NG SCH (10:22)
[2018-09-18 11:32] LABS: APPEARANCE,URINE CLEAR; BILIRUBIN,URINE NEGATIVE (NEGATIVE); COLOR,URINE AMBER; GLUCOSE, URINE 50 mg/dL (NEGATIVE); KETONES,URINE NEGATIVE (NEGATIVE); LEUKOCYTE ESTERASE,URINE NEGATIVE (NEGATIVE); NITRITE,URINE NEGATIVE (NEGATIVE); PROTEIN,URINE 100 mg/dL (NEGATIVE); URINE SPECIFIC GRAVITY 1.024; UROBILINOGEN,URINE NEGATIVE mg/dL (<2.0)
--- NOTE | 2018-09-18 12:07 | PDOC PROGRESS REPORT ---
Subjective Progress Note for:: 09/18/18 Subjective:: Patient intubated and sedated, plan to extubate if weaning trials successful Reason For Visit: COPD EXACERBATION CHF BRONCHTIS Physical Exam Vital Signs: Temp Pulse Resp BP Pulse Ox 97.7 F 70 19 119/75 94 09/18/18 08:00 09/18/18 10:00 09/18/18 10:00 09/18/18 10:00 09/18/18 10:00 Intake & Output 09/17/18 09/18/18 09/19/18 06:59 06:59 06:59 Intake Total 3918 4033 Output Total 925 1255 575 Balance 2993 2778 -575 Weight 68.2 kg 70.2 kg General appearance: PRESENT: no acute distress, well-developed, well-nourished Head exam: PRESENT: atraumatic, normocephalic Eye exam: PRESENT: conjunctiva pink, EOMI, PERRLA. ABSENT: scleral icterus Ear exam: PRESENT: normal external ear exam Mouth exam: PRESENT: moist, tongue midline Neck exam: ABSENT: carotid bruit, JVD, lymphadenopathy, thyromegaly Respiratory exam: PRESENT: decreased breath sounds, prolonged expiratory phas, rales, rhonchi. ABSENT: wheezes Cardiovascular exam: PRESENT: irregular rhythm. ABSENT: diastolic murmur, rubs, systolic murmur Pulses: PRESENT: normal radial pulses Vascular exam: PRESENT: normal capillary refill GI/Abdominal exam: PRESENT: normal bowel sounds, soft. ABSENT: distended, guarding, mass, organolmegaly, rebound, tenderness Rectal exam: PRESENT: deferred Extremities exam: PRESENT: full ROM. ABSENT: calf tenderness, clubbing, pedal edema Neurological exam: ABSENT: awake Psychiatric exam: PRESENT: appropriate affect, normal mood. ABSENT: homicidal ideation, suicidal ideation Skin exam: PRESENT: dry, intact, warm. ABSENT: cyanosis, rash Results Laboratory Results: 09/18/18 03:47 09/18/18 03:47 09/17/18 09/17/18 09/17/18 11:30 12:10 15:50 WBC RBC Hgb Hct MCV MCH MCHC RDW Plt Count Seg Neutrophils % Lymphocytes % Monocytes % Eosinophils % Basophils % Absolute Neutrophils Absolute Lymphocytes Absolute Monocytes Absolute Eosinophils Absolute Basophils Carbonic Acid HCO3/H2CO3 Ratio ABG pH ABG pCO2 ABG pO2 ABG HCO3 ABG O2 Saturation ABG Base Excess FiO2 Sodium 148.0 H Potassium 4.2 Chloride 110 H Carbon Dioxide 28 Anion Gap 10 BUN 62 H Creatinine 1.72 H Est GFR ( Amer) 46 L Est GFR (Non-Af Amer) 38 L Glucose 189 H Lactic Acid 2.1 Calcium 9.3 Phosphorus Magnesium Urine Color YELLOW Urine Appearance CLOUDY Urine pH 5.0 Ur Specific [place] 1.021 Urine Protein 30 H Urine Glucose (UA) NEGATIVE Urine Ketones NEGATIVE Urine Blood LARGE H Urine Nitrite NEGATIVE Ur Leukocyte Esterase NEGATIVE Urine WBC (Auto) 21 Urine RBC (Auto) >182 09/17/18 09/17/18 09/18/18 15:50 15:50 03:19 WBC 20.3 H RBC 5.66 H Hgb 17.2 H Hct 53.2 H MCV 94 MCH 30.4 MCHC 32.4 RDW 15.1 H Plt Count 226 Seg Neutrophils % Lymphocytes % Monocytes % Eosinophils % Basophils % Absolute Neutrophils Absolute Lymphocytes Absolute Monocytes Absolute Eosinophils Absolute Basophils Carbonic Acid 1.16 HCO3/H2CO3 Ratio 20:1 ABG pH 7.41 ABG pCO2 38.4 ABG pO2 75.9 L ABG HCO3 23.8 ABG O2 Saturation 95.4 ABG Base Excess -0.5 FiO2 40% Sodium Potassium Chloride Carbon Dioxide Anion Gap BUN Creatinine Est GFR ( Amer) Est GFR (Non-Af Amer) Glucose Lactic Acid 1.6 Calcium Phosphorus Magnesium Urine Color Urine Appearance Urine pH Ur Specific [place] Urine Protein Urine Glucose (UA) Urine Ketones Urine Blood Urine Nitrite Ur Leukocyte Esterase Urine WBC (Auto) Urine RBC (Auto) 09/18/18 09/18/18 09/18/18 03:47 03:47 10:40 WBC 17.3 H RBC 5.42 Hgb 16.8 Hct 50.8 MCV 94 MCH 30.9 MCHC 33.0 RDW 14.7 H Plt Count 190 Seg Neutrophils % Not Reportable Lymphocytes % Not Reportable Monocytes % Not Reportable Eosinophils % Not Reportable Basophils % Not Reportable Absolute Neutrophils Not Reportable Absolute Lymphocytes Not Reportable Absolute Monocytes Not Reportable Absolute Eosinophils Not Reportable Absolute Basophils Not Reportable Carbonic Acid HCO3/H2CO3 Ratio ABG pH ABG pCO2 ABG pO2 ABG HCO3 ABG O2 Saturation ABG Base Excess FiO2 Sodium 145.4 H Potassium 4.0 Chloride 111 H Carbon Dioxide 25 Anion Gap 9 BUN 57 H Creatinine 1.39 H Est GFR ( Amer) 59 L Est GFR (Non-Af Amer) 49 L Glucose 179 H Lactic Acid Calcium 9.1 Phosphorus 4.1 Magnesium 3.1 H Urine Color ADRIANA Urine Appearance CLEAR Urine pH 6.0 Ur Specific [place] 1.024 Urine Protein 100 H Urine Glucose (UA) 50 H Urine Ketones NEGATIVE Urine Blood LARGE H Urine Nitrite NEGATIVE Ur Leukocyte Esterase NEGATIVE Urine WBC (Auto) >182 Urine RBC (Auto) >182 09/15/18 14:50 Catheterized Urine Urine Culture - Final NO GROWTH 2 DAYS 09/12/18 09/12/18 09/12/18 00:55 00:55 05:55 Creatine Kinase 80 CK-MB (CK-2) 1.90 1.88 Troponin I 0.037 0.030 NT-Pro-B Natriuret Pep 4660 H 5960 H 09/12/18 09/12/18 09/12/18 11:10 11:10 16:52 Creatine Kinase 61 80 CK-MB (CK-2) 2.08 Troponin I 0.024 NT-Pro-B Natriuret Pep 09/12/18 16:52 Creatine Kinase CK-MB (CK-2) 2.92 Troponin I 0.029 NT-Pro-B Natriuret Pep Impressions: Chest CT 09/13/18 11:18 IMPRESSION: Status post CABG. Changes of centrilobular emphysema. Changes of interstitial edema with bilateral pleural effusions. Bibasilar atelectasis. Chest X-Ray 09/16/18 09:15 IMPRESSION: Endotracheal tube in good positioning. Nasogastric tube coiled in the upper esophagus, report called to the patient's nurse in ICU Mild cardiomegaly. No acute infiltrate. KUB X-Ray 09/16/18 09:16 IMPRESSION: NG tube placement as described. Nonspecific abdomen. Assessment & Plan - Diagnosis (1) CAP (community acquired pneumonia) Qualifiers: Lung location: lower lobe of lung Is this a current diagnosis for this admission?: Yes Plan: No organisms identified thus far continue current antibiotic regimen (2) Acute respiratory failure with hypoxia Is this a current diagnosis for this admission?: Yes Plan: Currently on mechanical ventilation, will plan for extubation pending successful weaning trials (3) Basal pneumonia of both lungs Is this a current diagnosis for this admission?: Yes Plan: With treatment for community-acquired pneumonia (4) HECTOR (obstructive sleep apnea) Is this a current diagnosis for this admission?: Yes Plan: When we are able to extubate we will use CPAP (5) Tobacco dependency Is this a current diagnosis for this admission?: Yes Plan: Plan for tobacco abuse counseling upon awakening - Time Total Critical Time (Minutes): 45 Inpatient Scribe Statement - . Entered by Sissy Glass, acting as scribe for Dr. Batista.
[2018-09-18] MEDS: FUROSEMIDE INJ/PF 20 MG/2 ML SDV IV SCH (12:14)
--- NOTE | 2018-09-18 15:27 | PDOC CONSULTATION ---
Consultation Consult Date: 09/18/18 Provider Consulted: AMARA MOCK Consult reason:: I was asked to see this patient because of hypermagnesemia. 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 Initial admitting diagnosis was COPD exacerbation with acute bronchitis. He was initially admitted in the floor but 2 days ago went to acute respiratory failure requiring intubation and got transferred here in the ICU. Currently the patient is still intubated and sedated. He also went into atrial fibrillation and is currently on Cardizem drip. In terms of his kidney function he was admitted with a BUN of 20 creatinine of 1.11 and a GFR of greater than 60 which is even better than his usual baseline kidney function. Yesterday his BUN and creatinine were 65 and 1.78 with EGFR of 37. He was started on IV fluids currently still on 0.45 saline running at 175 mL an hour. He was on Lasix for the last few days before yesterday. Today's kidney function include a BUN of 57, creatinine of 1.39 and EGFR 49 which is improved. His magnesium started to be elevated on September 14 at 2.6, yesterday it was 2.9 and today it is 3.1. His calcium is normal at 9.1. His Lasix was just resumed today. In terms of his sodium he started with low sodium at 129.9 which improved with IV fluid hydration and yesterday it went to 148.9 improving to 145.4 today. While intubated he is on tube feedings. He is making approximately 1 L of urine every day but he is positive fluid balance of around 6 L according to the intake and output records. In terms of the elevated magnesium patient has not received any magnesium supplements nor magnesium infusions or enema. Since he is intubated it is difficult to determine if he is really having any symptoms related to hypermagnesemia at this point. Past Medical History Cardiac Medical History: Reports: Abdominal Aortic Aneurysm, Atrial Fibrillation, CHF-Systolic, Coronary Artery Disease, Hyperlipidemia, Hypertension-primary, Myocardial Infarction - 1 stent. triple bypass surgery, Other - Ischemic dilated cardiomyopathy, history of nonsustained V. tach Pulmonary Medical History: Reports: Chronic Obstructive Pulmonary Disease (COPD), Pneumonia, Sleep Apnea - Uncertain settings for the CPAP. No home oxygen. Neurological Medical History: Reports: Other - Hard of hearing Renal/ Medical History: Reports: Chronic Kidney Disease Stage II, Proteinuria Malignancy Medical History: Reports: Other - History of prostate cancer Musculoskeltal Medical History: Reports: Arthritis Psychiatric Medical History: Reports: Depression - Mild, Tobacco Dependency Past Surgical History Past Surgical History: Reports: Cardiac Catheterization, Cholecystectomy, Coronary Artery Bypass Graft - Three-vessel, Internal Defibrillator, Pacemaker - Pacemaker defibrillator, Vascular Surgery - Abdominal aortic aneurysm repair, Other - Cataract extraction, bile duct stone removal with stent Social History Information Source: [facility] Records Lives with: Spouse/Significant other Smoking Status: Current Some Day Smoker Cigarettes Packs Per Day: 0.5 Number of Years Smokin Frequency of Alcohol Use: None Hx Recreational Drug Use: No Drugs: None Hx Prescription Drug Abuse: No - Advance Directive Resuscitation Status: Full Code Family History Family History: CVA - Mother, Malignancy - Sister Parental Family History Reviewed: Yes Children Family History Reviewed: Yes Sibling(s) Family History Reviewed.: Yes Medication/Allergy Home Medications: Aspirin [Ecotrin 81 mg EC Tablet] 81 mg PO DAILY 05/20/18 Dabigatran Etexilate Mesylate [Pradaxa 150 mg Capsule] 150 mg PO Q12 05/20/18 Digoxin [Lanoxin 0.125 mg Tablet] 0.125 mg PO DAILY 05/20/18 Dofetilide [Tikosyn 125 Mcg Capsule] 250 mcg PO Q12 05/20/18 Furosemide [Lasix 40 mg Tablet] 40 mg PO DAILY 05/20/18 Metoprolol Succinate [Toprol Xl 50 mg Tab.sr] 50 mg PO Q12 05/20/18 Montelukast Sodium [Singulair 10 mg Tablet] 10 mg PO QPM 05/20/18 Simvastatin [Zocor 20 mg Tablet] 20 mg PO DAILY 05/20/18 Acetaminophen [Tylenol 325 mg Tablet] 325 mg PO DAILYP PRN 09/12/18 Ipratropium/Albuterol Sulfate [Duoneb 3 ml Ampul] 3 ml NEB RTQ12 09/12/18 Pregabalin [Lyrica 50 Mg Capsule] 50 mg PO TID 09/12/18 Allergies/Adverse Reactions: No Known Allergies Allergy (Verified 05/13/18 08:27) Review of Systems ROS unobtainable: Due to endotracheal tube Physical Exam Vital Signs: Temp Pulse Resp BP Pulse Ox 97.9 F 85 26 H 112/75 96 09/18/18 12:00 09/18/18 14:00 09/18/18 14:00 09/18/18 14:00 09/18/18 14:00 Intake & Output 09/17/18 09/18/18 09/19/18 06:59 06:59 06:59 Intake Total 3918 4033 1400 Output Total 925 1255 900 Balance 2993 2778 500 Weight 68.2 kg 70.2 kg Exam: General appearance: Patient is intubated and sedated Head exam: PRESENT: atraumatic, normocephalic Eye exam: PRESENT: Eyes are closed Mouth exam: PRESENT: moist, neck supple, tongue midline Neck exam: PRESENT: full ROM. ABSENT: carotid bruit, JVD, lymphadenopathy, thyromegaly Respiratory exam: PRESENT: Diminished but coarse to auscultation bilaterally. ABSENT: rales, rhonchi, stridor, wheezes Cardiovascular exam: PRESENT: RRR, +S1, +S2. Grade 2/6 systolic murmur Pulses: PRESENT: normal radial pulses, normal dorsalis pedis pulses GI/Abdominal exam: PRESENT: normal bowel sounds, soft. ABSENT: guarding, mass, tenderness Rectal exam: Deferred Extremities exam: PRESENT: full ROM. ABSENT: calf tenderness, pedal edema Musculoskeletal: PRESENT: full ROM. ABSENT: deformity Neurological exam: [PRESENT: Sedated Psychiatric exam: PRESENT: appropriate affect, normal mood. ABSENT: homicidal ideation, suicidal ideation Skin exam: PRESENT: intact, dry, warm. ABSENT: rash Results Laboratory Results: 09/18/18 03:47 09/18/18 03:47 09/17/18 09/17/18 09/17/18 15:50 15:50 15:50 WBC 20.3 H RBC 5.66 H Hgb 17.2 H Hct 53.2 H MCV 94 MCH 30.4 MCHC 32.4 RDW 15.1 H Plt Count 226 Seg Neutrophils % Lymphocytes % Monocytes % Eosinophils % Basophils % Absolute Neutrophils Absolute Lymphocytes Absolute Monocytes Absolute Eosinophils Absolute Basophils Carbonic Acid HCO3/H2CO3 Ratio ABG pH ABG pCO2 ABG pO2 ABG HCO3 ABG O2 Saturation ABG Base Excess FiO2 Sodium 148.0 H Potassium 4.2 Chloride 110 H Carbon Dioxide 28 Anion Gap 10 BUN 62 H Creatinine 1.72 H Est GFR ( Amer) 46 L Est GFR (Non-Af Amer) 38 L Glucose 189 H Lactic Acid 1.6 Calcium 9.3 Phosphorus Magnesium Urine Color Urine Appearance Urine pH Ur Specific [place] Urine Protein Urine Glucose (UA) Urine Ketones Urine Blood Urine Nitrite Ur Leukocyte Esterase Urine WBC (Auto) Urine RBC (Auto) 09/18/18 09/18/18 09/18/18 03:19 03:47 03:47 WBC 17.3 H RBC 5.42 Hgb 16.8 Hct 50.8 MCV 94 MCH 30.9 MCHC 33.0 RDW 14.7 H Plt Count 190 Seg Neutrophils % Not Reportable Lymphocytes % Not Reportable Monocytes % Not Reportable Eosinophils % Not Reportable Basophils % Not Reportable Absolute Neutrophils Not Reportable Absolute Lymphocytes Not Reportable Absolute Monocytes Not Reportable Absolute Eosinophils Not Reportable Absolute Basophils Not Reportable Carbonic Acid 1.16 HCO3/H2CO3 Ratio 20:1 ABG pH 7.41 ABG pCO2 38.4 ABG pO2 75.9 L ABG HCO3 23.8 ABG O2 Saturation 95.4 ABG Base Excess -0.5 FiO2 40% Sodium 145.4 H Potassium 4.0 Chloride 111 H Carbon Dioxide 25 Anion Gap 9 BUN 57 H Creatinine 1.39 H Est GFR ( Amer) 59 L Est GFR (Non-Af Amer) 49 L Glucose 179 H Lactic Acid Calcium 9.1 Phosphorus 4.1 Magnesium 3.1 H Urine Color Urine Appearance Urine pH Ur Specific [place] Urine Protein Urine Glucose (UA) Urine Ketones Urine Blood Urine Nitrite Ur Leukocyte Esterase Urine WBC (Auto) Urine RBC (Auto) 09/18/18 10:40 WBC RBC Hgb Hct MCV MCH MCHC RDW Plt Count Seg Neutrophils % Lymphocytes % Monocytes % Eosinophils % Basophils % Absolute Neutrophils Absolute Lymphocytes Absolute Monocytes Absolute Eosinophils Absolute Basophils Carbonic Acid HCO3/H2CO3 Ratio ABG pH ABG pCO2 ABG pO2 ABG HCO3 ABG O2 Saturation ABG Base Excess FiO2 Sodium Potassium Chloride Carbon Dioxide Anion Gap BUN Creatinine Est GFR ( Amer) Est GFR (Non-Af Amer) Glucose Lactic Acid Calcium Phosphorus Magnesium Urine Color ADRIANA Urine Appearance CLEAR Urine pH 6.0 Ur Specific [place] 1.024 Urine Protein 100 H Urine Glucose (UA) 50 H Urine Ketones NEGATIVE Urine Blood LARGE H Urine Nitrite NEGATIVE Ur Leukocyte Esterase NEGATIVE Urine WBC (Auto) >182 Urine RBC (Auto) >182 09/12/18 09/12/18 09/12/18 00:55 00:55 05:55 Creatine Kinase 80 CK-MB (CK-2) 1.90 1.88 Troponin I 0.037 0.030 NT-Pro-B Natriuret Pep 4660 H 5960 H 09/12/18 09/12/18 09/12/18 11:10 11:10 16:52 Creatine Kinase 61 80 CK-MB (CK-2) 2.08 Troponin I 0.024 NT-Pro-B Natriuret Pep 09/12/18 16:52 Creatine Kinase CK-MB (CK-2) 2.92 Troponin I 0.029 NT-Pro-B Natriuret Pep Impressions: Chest CT 09/13/18 11:18 IMPRESSION: Status post CABG. Changes of centrilobular emphysema. Changes of interstitial edema with bilateral pleural effusions. Bibasilar atelectasis. Chest X-Ray 09/16/18 09:15 IMPRESSION: Endotracheal tube in good positioning. Nasogastric tube coiled in the upper esophagus, report called to the patient's nurse in ICU Mild cardiomegaly. No acute infiltrate. KUB X-Ray 09/16/18 09:16 IMPRESSION: NG tube placement as described. Nonspecific abdomen. Assessment & Plan - Diagnosis (1) Hypermagnesemia Is this a current diagnosis for this admission?: Yes Plan: The only possible cause of this is due to his acute kidney injury causing decreased excretion of magnesium. The current IV fluids in addition to a dose of Lasix can help decrease the magnesium. At this level it does not warrant any dialysis treatment. But if the magnesium gets elevated to a level of 6-10 then dialysis may be warranted. Avoid any magnesium containing supplements or infusions. I tried to call dietary to ask about the magnesium content of his tube feeding,Vital but was unable to get anybody at this point. (2) Acute kidney injury Is this a current diagnosis for this admission?: Yes Plan: Likely secondary to prerenal azotemia with poor oral intake and concomitant diuretics during the first few days of admission. Currently nonoliguric. Currently improving with IV fluid hydration. Patient does have a big baseline chronic kidney disease stage II. Baseline creatinine is usually between 1.1- 1.5. (3) CAP (community acquired pneumonia) Qualifiers: Lung location: lower lobe of lung Is this a current diagnosis for this admission?: Yes (4) COPD exacerbation Is this a current diagnosis for this admission?: Yes (5) Coronary artery disease Qualifiers: Coronary Disease-Associated Artery/Lesion type: [place] artery Is this a current diagnosis for this admission?: Yes (6) Hypernatremia Is this a current diagnosis for this admission?: Yes Plan: Improving with hypotonic IV fluid hydration. (7) Paroxysmal atrial fibrillation Is this a current diagnosis for this admission?: Yes Plan: On Cardizem drip. - Notes Notes: Thank you very much for this consultation. - Time Time Spent: 50 to 70 Minutes
[2018-09-18 16:21] LABS: ABSOLUTE RETICS # 0.051 10^6/uL (0.028-0.122); RETICULOCYTE COUNT (AUTO) 0.92 % (0.66-2.85)
[2018-09-18 16:37] LABS: CREATINE KINASE 57 U/L (55-170)
[2018-09-18 16:40] LABS: ANION GAP 12 (5-19); BLOOD UREA NITROGEN 51 mg/dL (7-20); CARBON DIOXIDE 25 mmol/L (22-30); CHLORIDE 108 mmol/L (98-107); GLUCOSE 175 mg/dL (75-110); POTASSIUM 3.8 mmol/L (3.6-5.0); SODIUM 144.8 mmol/L (137-145)
[2018-09-18] MEDS: DILTIAZEM HCL 60 MG TABLET NG SCH (21:31)
--- NOTE | 2018-09-18 21:53 | PDOC PROGRESS REPORT ---
Subjective Progress Note for:: 09/18/18 Subjective:: The patient appears comfortable on the vent. Still with altered electrolytes and elevated white blood cell count. Reason For Visit: COPD EXACERBATION CHF BRONCHTIS Physical Exam Vital Signs: Temp Pulse Resp BP Pulse Ox 98.2 F 84 28 H 129/78 H 94 09/18/18 16:00 09/18/18 16:00 09/18/18 16:00 09/18/18 16:00 09/18/18 16:00 Intake & Output 09/17/18 09/18/18 09/19/18 06:59 06:59 06:59 Intake Total 3918 4033 1588 Output Total 925 1255 1325 Balance 2993 2778 263 Weight 68.2 kg 70.2 kg General appearance: PRESENT: no acute distress, well-developed Head exam: PRESENT: atraumatic, normocephalic Mouth exam: PRESENT: other - Endotracheal and nasogastric tubes in place Respiratory exam: PRESENT: clear to auscultation bruna - Anteriorly, symmetrical. ABSENT: rales, rhonchi, tachypnea, wheezes Cardiovascular exam: PRESENT: other - Underlying regular rate and rhythm with PVCs GI/Abdominal exam: PRESENT: normal bowel sounds, soft. ABSENT: distended, tenderness Rectal exam: PRESENT: deferred Gentrourinary exam: PRESENT: indwelling catheter, other - This morning the patient has developed extremely dark urine. Possibly hematuria. Extremities exam: ABSENT: pedal edema Neurological exam: ABSENT: awake Focused psych exam: ABSENT: restlessness Results Laboratory Results: 09/18/18 03:47 09/18/18 16:01 09/18/18 09/18/18 09/18/18 03:19 03:47 03:47 WBC 17.3 H RBC 5.42 Hgb 16.8 Hct 50.8 MCV 94 MCH 30.9 MCHC 33.0 RDW 14.7 H Plt Count 190 Seg Neutrophils % Not Reportable Lymphocytes % Not Reportable Monocytes % Not Reportable Eosinophils % Not Reportable Basophils % Not Reportable Absolute Neutrophils Not Reportable Absolute Lymphocytes Not Reportable Absolute Monocytes Not Reportable Absolute Eosinophils Not Reportable Absolute Basophils Not Reportable Retic Count (auto) Absolute Retic Carbonic Acid 1.16 HCO3/H2CO3 Ratio 20:1 ABG pH 7.41 ABG pCO2 38.4 ABG pO2 75.9 L ABG HCO3 23.8 ABG O2 Saturation 95.4 ABG Base Excess -0.5 FiO2 40% Sodium 145.4 H Potassium 4.0 Chloride 111 H Carbon Dioxide 25 Anion Gap 9 BUN 57 H Creatinine 1.39 H Est GFR ( Amer) 59 L Est GFR (Non-Af Amer) 49 L Glucose 179 H Calcium 9.1 Phosphorus 4.1 Magnesium 3.1 H Urine Color Urine Appearance Urine pH Ur Specific [place] Urine Protein Urine Glucose (UA) Urine Ketones Urine Blood Urine Nitrite Ur Leukocyte Esterase Urine WBC (Auto) Urine RBC (Auto) 09/18/18 09/18/18 09/18/18 10:40 16:01 16:01 WBC RBC Hgb Hct MCV MCH MCHC RDW Plt Count Seg Neutrophils % Lymphocytes % Monocytes % Eosinophils % Basophils % Absolute Neutrophils Absolute Lymphocytes Absolute Monocytes Absolute Eosinophils Absolute Basophils Retic Count (auto) 0.92 Absolute Retic 0.051 Carbonic Acid HCO3/H2CO3 Ratio ABG pH ABG pCO2 ABG pO2 ABG HCO3 ABG O2 Saturation ABG Base Excess FiO2 Sodium 144.8 Potassium 3.8 Chloride 108 H Carbon Dioxide 25 Anion Gap 12 BUN 51 H Creatinine 1.23 Est GFR ( Amer) > 60 Est GFR (Non-Af Amer) 56 L Glucose 175 H Calcium 9.0 Phosphorus Magnesium 2.7 H Urine Color ADRIANA Urine Appearance CLEAR Urine pH 6.0 Ur Specific [place] 1.024 Urine Protein 100 H Urine Glucose (UA) 50 H Urine Ketones NEGATIVE Urine Blood LARGE H Urine Nitrite NEGATIVE Ur Leukocyte Esterase NEGATIVE Urine WBC (Auto) >182 Urine RBC (Auto) >182 09/12/18 09/12/18 09/12/18 00:55 00:55 05:55 Creatine Kinase 80 CK-MB (CK-2) 1.90 1.88 Troponin I 0.037 0.030 NT-Pro-B Natriuret Pep 4660 H 5960 H 09/12/18 09/12/18 09/12/18 11:10 11:10 16:52 Creatine Kinase 61 80 CK-MB (CK-2) 2.08 Troponin I 0.024 NT-Pro-B Natriuret Pep 09/12/18 09/18/18 16:52 16:01 Creatine Kinase 57 CK-MB (CK-2) 2.92 Troponin I 0.029 NT-Pro-B Natriuret Pep Impressions: Chest CT 09/13/18 11:18 IMPRESSION: Status post CABG. Changes of centrilobular emphysema. Changes of interstitial edema with bilateral pleural effusions. Bibasilar atelectasis. Chest X-Ray 09/16/18 09:15 IMPRESSION: Endotracheal tube in good positioning. Nasogastric tube coiled in the upper esophagus, report called to the patient's nurse in ICU Mild cardiomegaly. No acute infiltrate. KUB X-Ray 09/16/18 09:16 IMPRESSION: NG tube placement as described. Nonspecific abdomen. Assessment and Plan - Diagnosis (1) Acute on chronic respiratory failure with hypoxemia Is this a current diagnosis for this admission?: Yes Plan: The patient was very tachypneic this morning. His respiratory rate was between 30 and 40 breaths/min. Despite BiPAP he had increased work of breathing. His chest x-ray reveals bilateral lower lobe infiltrates. Due to his declining condition elective intubation by anesthesiology was carried out. The patient will be on SIMV with a rate of 12, PEEP of 5, tidal volume of 500 and we will adjust the FiO2 to keep his oxygen saturation in the 90 to 94% range. 09/17/2018-the patient is currently on a pressure support weaning trial. He is at 12/5 with an FiO2 40% currently saturating at 95%. Continue weaning as tolerated. The goal is extubation. 09/18/2018-the patient continues to wean. He was in fact quite comfortable on pressure support. If he is stable we will consider extubation later today or possibly tomorrow. (2) CAP (community acquired pneumonia) Qualifiers: Lung location: lower lobe of lung Is this a current diagnosis for this admission?: Yes Plan: X-ray exhibits bilateral lower lobe infiltrates. The patient's white blood cell count has been increasing without intravenous steroids. For this reason I am going to add Zosyn to his vancomycin for broader coverage of the pneumonia. We will continue to monitor his white blood cell count and adjust his medications for his acute kidney injury. 09/17/2018-continuing dual therapy with vancomycin and Zosyn. White blood cell count is improving. 09/18/2018-recent tracheal aspirate is positive for Amina. This is likely colonization. We will continue his current antibiotics as his white blood cell count does seem to be improving. (3) COPD exacerbation Is this a current diagnosis for this admission?: Yes Plan: Intravenous steroids as well as more aggressive nebulizer therapy was initiated. Chest x-ray does reveal air trapping and fairly flat diaphragms. Pulmonology is seeing the patient as well. Antibiotics have been broadened as noted above. 09/17/2018-the patient is on steroids as well as nebulizer treatments and steroids. He is also on antibiotic therapy. Continued weaning. 09/18/2018-no change in the current treatment regimen. Continue weaning as tolerated (4) Coronary artery disease Qualifiers: Coronary Disease-Associated Artery/Lesion type: [place] artery Is this a current diagnosis for this admission?: Yes Plan: The patient does have a history of coronary artery bypass. With his atrial fibrillation and tachycardia his troponins will likely be slightly elevated. There is no evidence of acute cardiac issue. We will control his heart rate from his atrial fibrillation. I will review his home medication regimen as he is likely on antiplatelet therapy as well as statin therapy. 09/17/2018-currently appears asymptomatic. We will try and obtain good rate and blood pressure control. He did have bright red blood in the nasogastric tube yesterday. This is not continued. Consider resuming his anticoagulation. 09/18/2018-the patient is exhibiting some PVCs. He does have elevated magnesium levels. We will obtain a twelve-lead EKG for further assessment. (5) Paroxysmal atrial fibrillation Is this a current diagnosis for this admission?: Yes Plan: The patient exhibited rapid ventricular response. He is on a diltiazem drip. At home he is on metoprolol, digoxin and Tikosyn. I will add digoxin in addition to the diltiazem infusion. Once his nasogastric tube is in place we will also add metoprolol. The patient was on Pradaxa for chronic anticoagula tion. We will need to monitor for bleeding. At the insertion of the nasogastric tube there was bright red blood. 09/17/2018-the patient is still in fibrillation. His rate fluctuates from 80- 110. With weaning his pulse rate did increase. The majority times his pulse rate and blood pressure are reasonably controlled. Continue same regimen at this time. 119-he continues in atrial fibrillation but his rate seems more controlled. He does have as needed metoprolol by intravenous. Anticoagulation is currently on hold. (6) Malnutrition Qualifiers: Malnutrition type: protein-calorie malnutrition Protein-calorie malnutrition severity: moderate Qualified Code(s): E44.0 - Moderate protein- calorie malnutrition Is this a current diagnosis for this admission?: Yes Plan: Secondary to poor mental status, aspiration risk and current NPO status Will approach topic of NG tomorrow with family if unable to determine cause of encephalopathy today 09/16/2018-nasogastric tube was inserted when the patient was intubated. His dietary intake has been very poor to nonexistent over the last 2 to 3 days. We will initiate tube feeds today or tomorrow. 09/17/2018-appears to be tolerating his tube feeds. 09/18/2018-appreciate Dr. Nielsen's input. Vital 1.5 does have 95 mg of magnesium. I will change the tube feeds to Nepro. We will use Nepro 1.8 and start with a low volume. Should try and reach goal as he is critically ill and does have much higher nutritional requirements. (7) Acute kidney injury Is this a current diagnosis for this admission?: Yes Plan: The patient's GFR has been increasing. His BUN and creatinine are increased in I will change his IV fluids to normal saline with an increased rate. We will continue to monitor his renal function as well as his intake and output. 09/17/2018-the BUN and creatinine are increased. I believe this is due to the volume issue as noted below. I will repeat a urinalysis to check specific gravity. If it continues to increase I will check urine studies and ask nephrology for consultation. 09/18/2018-serum creatinine is now normal and his GFR is greater than 60. His BUN is still elevated. Continue current fluid management and monitor closely. Appreciate Dr. Nielsen's input. (8) Hypernatremia Is this a current diagnosis for this admission?: Yes Plan: 09/17/2018-the serum sodium is still elevated. I believe it is from volume contraction. He needs more free water despite a positive fluid balance. I am going to change to half-normal saline. The calculated rate is over 200 mL an hour. I will start at 150 mL an hour and adjust based on this afternoon's blood work. 09/18/2018-with the current regimen of half-normal saline the patient's serum sodium is now in the upper normal range at 144. We will continue half-normal saline with furosemide to try and diurese magnesium. (9) Hypermagnesemia Is this a current diagnosis for this admission?: Yes Plan: The serum magnesium is increased. I believe this is due to volume contraction. He is not on any magnesium supplements. I will monitor his electrolytes new regimen of half-normal saline. 09/18/2018-appreciate Dr. Nielsen's input. Because Gary has no magnesium I have switched the tube feeds. The magnesium did improve to 2.7 today and I believe that we will be able to decrease the half-normal saline rate as the magnesium should regress back to the normal range with the change in tube feeds. 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 I believe it is due to volume contraction. We will continue to monitor as we change to half-normal saline. There is no bright red blood in the nasogastric tube so I will resume the patient's 81 mg aspirin dose daily. 09/18/2018-hemoglobin in fact is beginning to decrease. The patient did develop hematuria and I would expect the hemoglobin to drop back into the normal range. We will monitor so that it does not decrease precipitously. (11) Hematuria Qualifiers: Hematuria type: gross Qualified Code(s): R31.0 - Gross hematuria Is this a current diagnosis for this admission?: Yes Plan: 09/18/2018-earlier this morning the patient's urine was normal in color. He abruptly developed marked hematuria. The blood is not bright red but rather appears old. A urinalysis and culture have been sent. His Eliquis has been suspended at this time. - Time Time Spent with patient: 35 or more minutes Medications reviewed and adjusted accordingly: Yes
[2018-09-19] MEDS: LEVALBUTEROL HCL NEB 0.63 MG/3 ML AMPUL NEB SCH ×4 (01:19→20:09)
[2018-09-19] MEDS: ACETAMINOPHEN SOLN 325 MG/10.15 ML UDCUP NG PRN (03:11)
[2018-09-19] MEDS: PROPOFOL 1,000 MG/100 ML INFUS..BTL IV PRN ×4 (03:12→23:28)
[2018-09-19] MEDS: LORAZEPAM INJ 2 MG/1 ML VIAL IV PRN ×2 (04:06→21:15)
[2018-09-19 04:50] LABS: ARTERIAL BLOOD BASE EXCESS 1.5 mmol/L; ARTERIAL BLOOD HCO3 25.8 mmol/L (20-24); ARTERIAL BLOOD O2 SATURATION 94.3 % (94-98); ARTERIAL BLOOD PCO2 39.9 mmHg (35-45); ARTERIAL BLOOD PH 7.43 (7.35-7.45); ARTERIAL BLOOD PO2 69.2 mmHg (80-100); ARTERIAL BLOOD TOTAL CO2 27.1 mmol/L (23-27)
[2018-09-19 04:51] LABS: ARTERIAL BLOOD FIO2 40%
[2018-09-19] MEDS: DILTIAZEM HCL 60 MG TABLET NG SCH (05:05)
[2018-09-19] MEDS: METHYLPREDNISOLONE INJ 125 MG/2 ML SDV IV SCH ×3 (05:05→21:11)
[2018-09-19] MEDS: PIPERACILLIN SODIUM/TAZOBACTAM 2.25 GM in NORMAL SALINE 50 ML IV SCH (05:06)
[2018-09-19] MEDS: 1/2 NORMAL SALINE 1,000 ML IV PRN ×2 (05:07→13:47)
[2018-09-19 06:01] LABS: HEMOGLOBIN 16.4 g/dL (13.5-17.0); MEAN CORPUSCULAR HEMOGLOBIN 31.3 pg (27.0-33.4); MEAN CORPUSCULAR HGB CONC 33.6 g/dL (32.0-36.0); MEAN CORPUSCULAR VOLUME 93 fl (80-97); PLATELET COUNT 195 10^3/uL (150-450); RED BLOOD COUNT 5.26 10^6/uL (4.35-5.55); RED CELL DISTRIBUTION WIDTH 14.3 % (11.5-14.0); WHITE BLOOD COUNT 14.8 10^3/uL (4.0-10.5)
[2018-09-19 06:20] LABS: ANION GAP 9 (5-19); BLOOD UREA NITROGEN 50 mg/dL (7-20); CALCIUM 8.9 mg/dL (8.4-10.2); CARBON DIOXIDE 25 mmol/L (22-30); CHLORIDE 109 mmol/L (98-107); GLUCOSE 186 mg/dL (75-110); PHOSPHORUS 4.3 mg/dL (2.5-4.5); POTASSIUM 3.9 mmol/L (3.6-5.0); SODIUM 142.6 mmol/L (137-145)
[2018-09-19 06:21] LABS: ABSOLUTE LYMPHOCYTES# (MANUAL) 0.4 10^3/uL (0.5-4.7); ABSOLUTE NEUTROPHILS# (MANUAL) 14.4 10^3/uL (1.7-8.2); BASOPHILS % (MANUAL) 0 % (0-2); EOSINOPHILS % (MANUAL) 0 % (0-6); LYMPHOCYTES % (MANUAL) 3 % (13-45); MONOCYTES % (MANUAL) 0 % (3-13); SEGMENTED NEUTROPHILS % (MAN) 97 % (42-78); TOTAL CELLS COUNTED 100
[2018-09-19 06:22] LABS: PLATELET COMMENT ADEQUATE; RBC MORPHOLOGY COMMENT NORMO-CYTIC/CHROMIC
--- NOTE | 2018-09-19 08:17 | RADIOLOGY REPORT (SQ) ---
EXAM DESCRIPTION: CHEST SINGLE VIEW COMPLETED DATE/TIME: 09/19/2018 6:51 am REASON FOR STUDY: resp. failure COMPARISON: 09/16/2018. FINDINGS: Single-view chest AP portable upright. Endotracheal tube appears to have been pulled back slightly but remains adequate at the level of the aortic arch. Pacer remains intact. Nasogastric tube with tip positioned appropriately within the stomach. Stable cardiomediastinal silhouette. No developing infiltrates. TECHNICAL DOCUMENTATION: JOB ID: [id number] Reading location - IP/workstation name: [email or web address]
[2018-09-19 08:21] LABS: VANCOMYCIN,TROUGH 9.6 ug/mL (5.0-20.0)
[2018-09-19] MEDS: VANCOMYCIN HCL 1,000 MG in DEXTROSE 5%-WATER 250 ML IV SCH (09:06)
[2018-09-19] MEDS: PANTOPRAZOLE SODIUM 40 MG VIAL IV SCH ×2 (09:07→21:19)
[2018-09-19] MEDS: FUROSEMIDE INJ/PF 20 MG/2 ML SDV IV SCH (09:07)
[2018-09-19] MEDS: ASPIRIN 81 MG TABLET, CHEWABLE NG SCH (09:10)
--- NOTE | 2018-09-19 11:02 | PDOC PROGRESS REPORT ---
Subjective Progress Note for:: 09/19/18 Subjective:: The patient is resting comfortably on pressure support. He is exhibiting some spontaneous movements. He did not respond to direct verbal stimulus. Reason For Visit: COPD EXACERBATION CHF BRONCHTIS Physical Exam Vital Signs: Temp Pulse Resp BP Pulse Ox 99.1 F 78 13 100/63 97 09/19/18 07:37 09/19/18 08:30 09/19/18 08:30 09/19/18 07:37 09/19/18 08:30 Intake & Output 09/18/18 09/19/18 09/20/18 06:59 06:59 06:59 Intake Total 4033 4663 Output Total 1255 2785 60 Balance 2778 1878 -60 Weight 70.2 kg 72.4 kg General appearance: PRESENT: no acute distress, well-developed Head exam: PRESENT: atraumatic, normocephalic Ear exam: PRESENT: normal external ear exam Mouth exam: PRESENT: other - Endotracheal and nasogastric tubes in place Respiratory exam: PRESENT: clear to auscultation bruna, symmetrical, unlabored. ABSENT: accessory muscle use, rales, rhonchi, tachypnea, wheezes Cardiovascular exam: PRESENT: irregular rhythm, +S1, +S2, other - Intermittent ectopic beats. GI/Abdominal exam: PRESENT: hypoactive bowel sounds, soft. ABSENT: distended, tenderness Rectal exam: PRESENT: deferred Gentrourinary exam: PRESENT: indwelling catheter, other - Gross hematuria has cleared Extremities exam: ABSENT: calf tenderness, pedal edema Musculoskeletal exam: PRESENT: other - Generalized decreased muscle mass. ABSENT: ambulatory Neurological exam: PRESENT: awake - He is exhibiting some spontaneous movements. He does not respond to any verbal commands.. ABSENT: alert Psychiatric exam: ABSENT: agitated Focused psych exam: ABSENT: restlessness Skin exam: PRESENT: dry, warm. ABSENT: mottled Results Laboratory Results: 09/19/18 05:48 09/19/18 05:48 09/18/18 09/18/18 09/18/18 10:40 16:01 16:01 WBC RBC Hgb Hct MCV MCH MCHC RDW Plt Count Seg Neutrophils % Lymphocytes % Monocytes % Eosinophils % Basophils % Absolute Neutrophils Absolute Lymphocytes Absolute Monocytes Absolute Eosinophils Absolute Basophils Retic Count (auto) 0.92 Absolute Retic 0.051 Carbonic Acid HCO3/H2CO3 Ratio ABG pH ABG pCO2 ABG pO2 ABG HCO3 ABG O2 Saturation ABG Base Excess FiO2 Sodium 144.8 Potassium 3.8 Chloride 108 H Carbon Dioxide 25 Anion Gap 12 BUN 51 H Creatinine 1.23 Est GFR ( Amer) > 60 Est GFR (Non-Af Amer) 56 L Glucose 175 H Calcium 9.0 Phosphorus Magnesium 2.7 H Urine Color ADRIANA Urine Appearance CLEAR Urine pH 6.0 Ur Specific [place] 1.024 Urine Protein 100 H Urine Glucose (UA) 50 H Urine Ketones NEGATIVE Urine Blood LARGE H Urine Nitrite NEGATIVE Ur Leukocyte Esterase NEGATIVE Urine WBC (Auto) >182 Urine RBC (Auto) >182 09/19/18 09/19/18 09/19/18 04:30 05:48 05:48 WBC 14.8 H RBC 5.26 Hgb 16.4 Hct 49.0 MCV 93 MCH 31.3 MCHC 33.6 RDW 14.3 H Plt Count 195 Seg Neutrophils % Not Reportable Lymphocytes % Not Reportable Monocytes % Not Reportable Eosinophils % Not Reportable Basophils % Not Reportable Absolute Neutrophils Not Reportable Absolute Lymphocytes Not Reportable Absolute Monocytes Not Reportable Absolute Eosinophils Not Reportable Absolute Basophils Not Reportable Retic Count (auto) Absolute Retic Carbonic Acid 1.20 HCO3/H2CO3 Ratio 21:1 ABG pH 7.43 ABG pCO2 39.9 ABG pO2 69.2 L ABG HCO3 25.8 H ABG O2 Saturation 94.3 ABG Base Excess 1.5 FiO2 40% Sodium 142.6 Potassium 3.9 Chloride 109 H Carbon Dioxide 25 Anion Gap 9 BUN 50 H Creatinine 1.22 Est GFR ( Amer) > 60 Est GFR (Non-Af Amer) 57 L Glucose 186 H Calcium 8.9 Phosphorus 4.3 Magnesium 2.6 H Urine Color Urine Appearance Urine pH Ur Specific [place] Urine Protein Urine Glucose (UA) Urine Ketones Urine Blood Urine Nitrite Ur Leukocyte Esterase Urine WBC (Auto) Urine RBC (Auto) 09/12/18 09/12/18 09/12/18 00:55 00:55 05:55 Creatine Kinase 80 CK-MB (CK-2) 1.90 1.88 Troponin I 0.037 0.030 NT-Pro-B Natriuret Pep 4660 H 5960 H 09/12/18 09/12/18 09/12/18 11:10 11:10 16:52 Creatine Kinase 61 80 CK-MB (CK-2) 2.08 Troponin I 0.024 NT-Pro-B Natriuret Pep 09/12/18 09/18/18 16:52 16:01 Creatine Kinase 57 CK-MB (CK-2) 2.92 Troponin I 0.029 NT-Pro-B Natriuret Pep Impressions: Chest CT 09/13/18 11:18 IMPRESSION: Status post CABG. Changes of centrilobular emphysema. Changes of interstitial edema with bilateral pleural effusions. Bibasilar atelectasis. KUB X-Ray 09/16/18 09:16 IMPRESSION: NG tube placement as described. Nonspecific abdomen. Assessment and Plan - Diagnosis (1) Acute on chronic respiratory failure with hypoxemia Is this a current diagnosis for this admission?: Yes Plan: The patient was very tachypneic this morning. His respiratory rate was between 30 and 40 breaths/min. Despite BiPAP he had increased work of breathing. His chest x-ray reveals bilateral lower lobe infiltrates. Due to his declining condition elective intubation by anesthesiology was carried out. The patient will be on SIMV with a rate of 12, PEEP of 5, tidal volume of 500 and we will adjust the FiO2 to keep his oxygen saturation in the 90 to 94% range. 09/17/2018-the patient is currently on a pressure support weaning trial. He is at 12/5 with an FiO2 40% currently saturating at 95%. Continue weaning as tolerated. The goal is extubation. 09/18/2018-the patient continues to wean. He was in fact quite comfortable on pressure support. If he is stable we will consider extubation later today or possibly tomorrow. 09/19/2018-the patient is resting comfortably on pressure support. We may likely extubate today. We will continue oxygen supplementation as required. (2) CAP (community acquired pneumonia) Qualifiers: Lung location: lower lobe of lung Is this a current diagnosis for this admission?: Yes Plan: X-ray exhibits bilateral lower lobe infiltrates. The patient's white blood cell count has been increasing without intravenous steroids. For this reason I am going to add Zosyn to his vancomycin for broader coverage of the pneumonia. We will continue to monitor his white blood cell count and adjust his medications for his acute kidney injury. 09/17/2018-continuing dual therapy with vancomycin and Zosyn. White blood cell count is improving. 09/18/2018-recent tracheal aspirate is positive for Amina. This is likely colonization. We will continue his current antibiotics as his white blood cell count does seem to be improving. 09/19/2018-currently on vancomycin and Zosyn. Tracheal aspirate did reveal Amina species. If this is consistently present we will add an antifungal. The culture report did reveal 3+ growth. White blood cell count does continue to slowly improve. (3) COPD exacerbation Is this a current diagnosis for this admission?: Yes Plan: Intravenous steroids as well as more aggressive nebulizer therapy was initiated. Chest x-ray does reveal air trapping and fairly flat diaphragms. Pulmonology is seeing the patient as well. Antibiotics have been broadened as noted above. 09/17/2018-the patient is on steroids as well as nebulizer treatments and steroids. He is also on antibiotic therapy. Continued weaning. 09/18/2018-no change in the current treatment regimen. Continue weaning as tolerated 09/19/2018-continued use of nebulizers and steroids. (4) Coronary artery disease Qualifiers: Coronary Disease-Associated Artery/Lesion type: redding artery Is this a current diagnosis for this admission?: Yes Plan: The patient does have a history of coronary artery bypass. With his atrial fibrillation and tachycardia his troponins will likely be slightly elevated. There is no evidence of acute cardiac issue. We will control his heart rate from his atrial fibrillation. I will review his home medication regimen as he is likely on antiplatelet therapy as well as statin therapy. 09/17/2018-currently appears asymptomatic. We will try and obtain good rate and blood pressure control. He did have bright red blood in the nasogastric tube yesterday. This is not continued. Consider resuming his anticoagulation. 09/18/2018-the patient is exhibiting some PVCs. He does have elevated magnesium levels. We will obtain a twelve-lead EKG for further assessment. 09/19/2018-still exhibiting PVCs. With underlying A. fib. No reports of chest pain. (5) Paroxysmal atrial fibrillation Is this a current diagnosis for this admission?: Yes Plan: The patient exhibited rapid ventricular response. He is on a diltiazem drip. At home he is on metoprolol, digoxin and Tikosyn. I will add digoxin in addition to the diltiazem infusion. Once his nasogastric tube is in place we will also add metoprolol. The patient was on Pradaxa for chronic anticoagulation. We will need to monitor for bleeding. At the insertion of the nasogastric tube there was bright red blood. 09/17/2018-the patient is still in fibrillation. His rate fluctuates from 80- 110. With weaning his pulse rate did increase. The majority times his pulse rate and blood pressure are reasonably controlled. Continue same regimen at this time. 09/18/2018--he continues in atrial fibrillation but his rate seems more controlled. He does have as needed metoprolol by intravenous. Anticoagulation is currently on hold. 09/19/2018-the patient exhibits good rate control but is having PVCs. The QT intervals slightly prolonged. I will review medications and consider discontinuing contributing meds. (6) Malnutrition Qualifiers: Malnutrition type: protein-calorie malnutrition Protein-calorie malnutrition severity: moderate Qualified Code(s): E44.0 - Moderate protein- calorie malnutrition Is this a current diagnosis for this admission?: Yes Plan: Secondary to poor mental status, aspiration risk and current NPO status Will approach topic of NG tomorrow with family if unable to determine cause of encephalopathy today 09/16/2018-nasogastric tube was inserted when the patient was intubated. His dietary intake has been very poor to nonexistent over the last 2 to 3 days. We will initiate tube feeds today or tomorrow. 09/17/2018-appears to be tolerating his tube feeds. 09/18/2018-appreciate Dr. Nielsen's input. Vital 1.5 does have 95 mg of magnesium. I will change the tube feeds to Nepro. We will use Nepro 1.8 and start with a low volume. Should try and reach goal as he is critically ill and does have much higher nutritional requirements. 09/19/2018-we will check laboratory studies. If he is tolerating the current tube feeds (switched to Nepro) I will increase the rate to meet his caloric needs. (7) Acute kidney injury Is this a current diagnosis for this admission?: Yes Plan: The patient's GFR has been increasing. His BUN and creatinine are increased in I will change his IV fluids to normal saline with an increased rate. We will continue to monitor his renal function as well as his intake and output. 09/17/2018-the BUN and creatinine are increased. I believe this is due to the volume issue as noted below. I will repeat a urinalysis to check specific gravity. If it continues to increase I will check urine studies and ask nephrology for consultation. 09/18/2018-serum creatinine is now normal and his GFR is greater than 60. His BUN is still elevated. Continue current fluid management and monitor closely. Appreciate Dr. Nielsen's input. 09/19/2018- (8) Hypernatremia Is this a current diagnosis for this admission?: Yes Plan: 09/17/2018-the serum sodium is still elevated. I believe it is from volume contraction. He needs more free water despite a positive fluid balance. I am going to change to half-normal saline. The calculated rate is over 200 mL an hour. I will start at 150 mL an hour and adjust based on this afternoon's blood work. 09/18/2018-with the current regimen of half-normal saline the patient's serum sodium is now in the upper normal range at 144. We will continue half-normal saline with furosemide to try and diurese magnesium. 09/19/2018-serum sodium is now normal. Continue to monitor. (9) Hypermagnesemia Is this a current diagnosis for this admission?: Yes Plan: The serum magnesium is increased. I believe this is due to volume contraction. He is not on any magnesium supplements. I will monitor his electrolytes new regimen of half-normal saline. 09/18/2018-appreciate Dr. Nielsen's input. Because Nepro has no magnesium I have switched the tube feeds. The magnesium did improve to 2.7 today and I believe that we will be able to decrease the half-normal saline rate as the magnesium should regress back to the normal range with the change in tube feeds. 09/19/2018-tube feeds were changed to Nepro which has no magnesium. Still with half-normal saline and so we will continue to monitor magnesium level and avoid magnesium-containing agents. The magnesium level is only slightly elevated and therefore should not be contributing to PVCs. 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 I believe it is due to volume contraction. We will continue to monitor as we change to half-normal saline. There is no bright red blood in the nasogastric tube so I will resume the patient's 81 mg aspirin dose daily. 09/18/2018-hemoglobin in fact is beginning to decrease. The patient did develop hematuria and I would expect the hemoglobin to drop back into the normal range. We will monitor so that it does not decrease precipitously. 10/07-hemoglobin is now normal. The transient hematuria likely helped. Continue to monitor. (11) Hematuria Qualifiers: Hematuria type: gross Qualified Code(s): R31.0 - Gross hematuria Is this a current diagnosis for this admission?: Yes Plan: 09/18/2018-earlier this morning the patient's urine was normal in color. He abruptly developed marked hematuria. The blood is not bright red but rather appears old. A urinalysis and culture have been sent. His Eliquis has been suspended at this time. 09/19/2018-the urine has no gross hematuria at this time. Urine culture is no growth so far. We will hold anticoagulation for another day or 2 and then consider resuming. - Time Time Spent with patient: 35 or more minutes Medications reviewed and adjusted accordingly: Yes
[2018-09-19] MEDS: PIPERACILLIN SODIUM/TAZOBACTAM 3.375 GM in NORMAL SALINE 100 ML IV SCH ×2 (11:36→17:35)
[2018-09-19] MEDS: LISINOPRIL 5 MG TABLET NG SCH ×2 (13:47→21:10)
--- NOTE | 2018-09-19 19:32 | Progress Note ---
Provider Note Provider Note: CARDIOLOGY PROGRESS NOTE by Dr. Jennifer Bunn on 09/19/2018. SUBJECTIVE: The patient continues to be intubated and sedated. He continues to be in atrial fibrillation with controlled ventricular response. There is no firing of his AICD. There is no ventricular arrhythmia seen on the monitor. Selected Entries 09/19/18 16:00 Temperature 99.1 F Temperature Core Source Pulse Rate 82 Respiratory 21 H Rate Blood Pressure 120/67 [Right Upper Arm] Blood Pressure 84 Mean [Right Upper Arm] Blood Pressure Supine Position [Right Upper Arm] Blood Pressure 120 Systolic [Right Upper Arm] O2 Sat by Pulse 90 L Oximetry Oxygen Delivery Mechanical Method ( Ventilator includes room air) Percent of 40 Oxygen HEAD: Is atraumatic normocephalic. EYES: Pupils are regular reactive to light. ENT is negative. NECK: Is supple. There is no JVD. Carotids equal there is no bruit. LUNGS: There is diminished air entry and prolonged expiration. There is a few scattered rhonchi. There is no wheezing. There is no dry crackles or wet rales of CHF. ABDOMEN: S1-S2 is heard S1 is of variable intensity. There is no S3 gallop. There is no S4 gallop. ABDOMEN: Soft. There is no hepatosplenomegaly. Bowel sounds are heard. EXTREMITIES: Femorals are diminished. Leg pulses are diminished. There is no pedal edema. COMM[employer] and psychiatric: Not examined since the patient is intubated and sedated. Labs- All tests 24 hr 09/19/18 09/19/18 09/19/18 04:30 05:48 05:48 WBC 14.8 H RBC 5.26 Hgb 16.4 Hct 49.0 MCV 93 MCH 31.3 MCHC 33.6 RDW 14.3 H Plt Count 195 Total Counted 100 Seg Neutrophils % Not Reportable Seg Neuts % (Manual) 97 H Lymphocytes % Not Reportable Lymphocytes % (Manual) 3 L Monocytes % Not Reportable Monocytes % (Manual) 0 L Eosinophils % Not Reportable Eosinophils % (Manual) 0 Basophils % Not Reportable Basophils % (Manual) 0 Absolute Neutrophils Not Reportable Abs Neuts (Manual) 14.4 H Absolute Lymphocytes Not Reportable Abs Lymphs (Manual) 0.4 L Absolute Monocytes Not Reportable Abs Monocytes (Manual) 0.0 L Absolute Eosinophils Not Reportable Absolute Eos (Manual) 0.0 Absolute Basophils Not Reportable Abs Basophils (Manual) 0.0 Platelet Comment ADEQUATE RBC Morph Comment NORMO-CYTIC/CHROMIC Carbonic Acid 1.20 HCO3/H2CO3 Ratio 21:1 ABG pH 7.43 ABG pCO2 39.9 ABG pO2 69.2 L ABG HCO3 25.8 H ABG Total CO2 27.1 H ABG O2 Saturation 94.3 ABG Base Excess 1.5 FiO2 40% Sodium 142.6 Potassium 3.9 Chloride 109 H Carbon Dioxide 25 Anion Gap 9 BUN 50 H Creatinine 1.22 Est GFR ( Amer) > 60 Est GFR (Non-Af Amer) 57 L Glucose 186 H POC Glucose Calcium 8.9 Phosphorus 4.3 Magnesium 2.6 H Time Trough Drawn Vancomycin Trough 09/19/18 09/19/18 06:04 07:50 WBC RBC Hgb Hct MCV MCH MCHC RDW Plt Count Total Counted Seg Neutrophils % Seg Neuts % (Manual) Lymphocytes % Lymphocytes % (Manual) Monocytes % Monocytes % (Manual) Eosinophils % Eosinophils % (Manual) Basophils % Basophils % (Manual) Absolute Neutrophils Abs Neuts (Manual) Absolute Lymphocytes Abs Lymphs (Manual) Absolute Monocytes Abs Monocytes (Manual) Absolute Eosinophils Absolute Eos (Manual) Absolute Basophils Abs Basophils (Manual) Platelet Comment RBC Morph Comment Carbonic Acid HCO3/H2CO3 Ratio ABG pH ABG pCO2 ABG pO2 ABG HCO3 ABG Total CO2 ABG O2 Saturation ABG Base Excess FiO2 Sodium Potassium Chloride Carbon Dioxide Anion Gap BUN Creatinine Est GFR ( Amer) Est GFR (Non-Af Amer) Glucose POC Glucose 169 H Calcium Phosphorus Magnesium Time Trough Drawn 0750 Vancomycin Trough 9.6 Chest X-Ray 09/12/18 00:42 IMPRESSION: Pneumonia. Possible emphysema. Cardiomegaly. copyright 2011 [employer]- All Rights Reserved Chest CT 09/13/18 11:18 IMPRESSION: Status post CABG. Changes of centrilobular emphysema. Changes of interstitial edema with bilateral pleural effusions. Bibasilar atelectasis. Chest X-Ray 09/14/18 08:49 IMPRESSION: Airspace disease in the mid and lower lungs edema versus pneumonia. Trace bilateral pleural effusions. Chest X-Ray 09/15/18 00:00 IMPRESSION: Cardiomegaly with no roque pulmonary edema. Chest X-Ray 09/15/18 07:00 IMPRESSION: Significant improvement in the pulmonary edema/ fluid overload pattern compared to 09/14/2018 and 09/12/2018 Chest X-Ray 09/16/18 00:00 IMPRESSION: 1. Endotracheal tube tip overlies distal thoracic trachea likely 1.8 cm above the [place]. 2. Enteric tube coiled over upper esophagus with tip directed cephalad. Recommend repositioning. 3. Mild right basilar interstitial opacities, possibly edema or atelectasis. Chest X-Ray 09/16/18 09:15 IMPRESSION: Endotracheal tube in good positioning. Nasogastric tube coiled in the upper esophagus, report called to the patient's nurse in ICU Mild cardiomegaly. No acute infiltrate. KUB X-Ray 09/16/18 09:16 IMPRESSION: NG tube placement as described. Nonspecific abdomen. IMPRESSION/RECOMMENDATION: 1. Acute on chronic respiratory failure. Continue ventilatory support and respiratory treatments and antibiotics. 2. Acute exacerbation of COPD. Continue respiratory treatments nasal oxygen and ventilator support. 3. Bibasilar pneumonia: Continue antibiotics. 4. Atrial fibrillation. Patient with a history of proximal atrial fibrillation patient back in atrial fibrillation. Cardizem drip has been discontinued, the patient started on Cardizem. We will stop the patient's Tikosyn since the patient continues to be in atrial fibrillation. Also switch the Cardizem to metoprolol.. Note that the patient 's Tikosyn and digoxin already been stopped. 5. Coronary artery disease: No evidence of NM. 6. CARDIOMYOPATHY: No evidence of acute exacerbation of CHF. 7.hypertension: Blood pressure well controlled. 8. Acute renal failure: Avoid nephrotoxic drugs. 9. AICD in situ. No firing of AICD 10. DIABETES MELLITUS: Continue antidiabetic medication. 12. 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 MEDICATIONS reviewed. Medications adjusted. Medical decision making is of high complexity in view of the need for changing of medications. Management plan discussed with attending physician on the case. 40 minutes spent on this patient with more than 50% of time spent in direct patient care. Will follow
[2018-09-19] MEDS: METOPROLOL TARTRATE 50 MG TABLET PO SCH (21:11)
[2018-09-19] MEDS: HALOPERIDOL LACTATE INJ 5 MG/1 ML VIAL IV PRN (21:48)
--- NOTE | 2018-09-19 23:47 | EKG REPORT ---
SEVERITY:- ABNORMAL ECG - ATRIAL FIBRILLATION, V-RATE 70-106 VENTRICULAR PREMATURE COMPLEX INCOMPLETE LEFT BUNDLE BRANCH BLOCK LOW VOLTAGE IN FRONTAL LEADS ANTERIOR Q WAVES, POSSIBLY DUE TO ILBBB PROLONGED QT INTERVAL : Confirmed by: Jennifer Bunn MD 19-Sep-2018 23:46:35
[2018-09-20] MEDS: PIPERACILLIN SODIUM/TAZOBACTAM 3.375 GM in NORMAL SALINE 100 ML IV SCH ×4 (00:28→18:23)
[2018-09-20] MEDS: LEVALBUTEROL HCL NEB 0.63 MG/3 ML AMPUL NEB SCH ×4 (01:38→19:36)
[2018-09-20] MEDS: 1/2 NORMAL SALINE 1,000 ML IV PRN ×2 (03:12→18:23)
[2018-09-20] MEDS: PROPOFOL 1,000 MG/100 ML INFUS..BTL IV PRN (04:56)
[2018-09-20 05:26] LABS: ARTERIAL BLOOD BASE EXCESS -0.4 mmol/L; ARTERIAL BLOOD FIO2 40%; ARTERIAL BLOOD HCO3 23.4 mmol/L (20-24); ARTERIAL BLOOD O2 SATURATION 96.9 % (94-98); ARTERIAL BLOOD PCO2 36.5 mmHg (35-45); ARTERIAL BLOOD PH 7.43 (7.35-7.45); ARTERIAL BLOOD PO2 87.5 mmHg (80-100); ARTERIAL BLOOD TOTAL CO2 24.5 mmol/L (23-27)
[2018-09-20 05:39] LABS: HEMATOCRIT 49.4 % (37.9-51.0); HEMOGLOBIN 16.5 g/dL (13.5-17.0); MEAN CORPUSCULAR HEMOGLOBIN 31.1 pg (27.0-33.4); MEAN CORPUSCULAR HGB CONC 33.4 g/dL (32.0-36.0); MEAN CORPUSCULAR VOLUME 93 fl (80-97); PLATELET COUNT 171 10^3/uL (150-450); RED BLOOD COUNT 5.31 10^6/uL (4.35-5.55); RED CELL DISTRIBUTION WIDTH 14.6 % (11.5-14.0); WHITE BLOOD COUNT 12.6 10^3/uL (4.0-10.5)
[2018-09-20 05:47] LABS: ANION GAP 9 (5-19); BLOOD UREA NITROGEN 48 mg/dL (7-20); CALCIUM 8.9 mg/dL (8.4-10.2); CARBON DIOXIDE 24 mmol/L (22-30); CHLORIDE 109 mmol/L (98-107); GLUCOSE 183 mg/dL (75-110); SODIUM 142.2 mmol/L (137-145)
[2018-09-20 05:54] LABS: PREALBUMIN 38.4 mg/dL (17.6-36.0)
[2018-09-20 05:56] LABS: ABSOLUTE LYMPHOCYTES# (MANUAL) 0.3 10^3/uL (0.5-4.7); ABSOLUTE MONOCYTES # (MANUAL) 0.3 10^3/uL (0.1-1.4); ABSOLUTE NEUTROPHILS# (MANUAL) 12.1 10^3/uL (1.7-8.2); BAND NEUTROPHILS % (MANUAL) 1 % (3-5); BASOPHILS % (MANUAL) 0 % (0-2); EOSINOPHILS % (MANUAL) 0 % (0-6); LYMPHOCYTES % (MANUAL) 2 % (13-45); MONOCYTES % (MANUAL) 2 % (3-13); SEGMENTED NEUTROPHILS % (MAN) 95 % (42-78); TOTAL CELLS COUNTED 100
[2018-09-20 05:58] LABS: PLATELET CLUMPS PRESENT; RBC MORPHOLOGY COMMENT NORMO-CYTIC/CHROMIC
[2018-09-20] MEDS: METHYLPREDNISOLONE INJ 125 MG/2 ML SDV IV SCH ×3 (06:29→22:00)
--- NOTE | 2018-09-20 07:44 | RADIOLOGY REPORT (SQ) ---
EXAM DESCRIPTION: XR CHEST 1 VIEW COMPLETED DATE/TME: 09/20/2018 06:00 CLINICAL HISTORY: 82 years Male, respiratory failure COMPARISON: One day prior. NUMBER OF VIEWS/TECHNIQUE: 1/AP FINDINGS: Mild interstitial markings.Left cardiac stimulator with leads. Sternotomy. Cardiac/mediastinal hardware/clips. Adequate appearing endotracheal tube. Upper abdominal midline graft material.Adequate appearing enteric tube.Normal cardiac silhouette size. No pneumothorax. Stable bony thorax. IMPRESSION: No significant change.
[2018-09-20] MEDS: METOPROLOL TARTRATE 50 MG TABLET PO SCH ×2 (10:48→22:20)
[2018-09-20] MEDS: ASPIRIN 81 MG TABLET, CHEWABLE NG SCH (10:48)
[2018-09-20] MEDS: LISINOPRIL 5 MG TABLET NG SCH ×2 (10:48→22:20)
[2018-09-20] MEDS: VANCOMYCIN HCL 1,500 MG in DEXTROSE 5%-WATER 250 ML IV SCH (12:27)
[2018-09-20] MEDS: FUROSEMIDE INJ/PF 20 MG/2 ML SDV IV SCH (12:27)
[2018-09-20] MEDS: PANTOPRAZOLE SODIUM 40 MG VIAL IV SCH ×2 (12:27→22:00)
--- NOTE | 2018-09-20 14:38 | PDOC PROGRESS REPORT ---
Subjective Progress Note for:: 09/20/18 Subjective:: The patient was successfully extubated earlier this morning. He is resting comfortably on nasal cannula. He does not require BiPAP at this time. Reason For Visit: COPD EXACERBATION CHF BRONCHTIS Physical Exam Vital Signs: Temp Pulse Resp BP Pulse Ox 98.6 F 80 21 H 153/76 H 94 09/20/18 12:00 09/20/18 13:57 09/20/18 14:00 09/20/18 13:46 09/20/18 14:00 Intake & Output 09/19/18 09/20/18 09/21/18 06:59 06:59 06:59 Intake Total 4663 1664 124 Output Total 5065 3695 485 Balance 9252 -0406 -386 Weight 72.4 kg 73.1 kg General appearance: PRESENT: no acute distress, well-developed - Well-developed but frail-appearing 82-year-old patient. Head exam: PRESENT: atraumatic, normocephalic Ear exam: PRESENT: normal external ear exam Mouth exam: PRESENT: dry mucosa Respiratory exam: PRESENT: symmetrical, unlabored. ABSENT: accessory muscle use, rales, rhonchi, tachypnea, wheezes Cardiovascular exam: PRESENT: irregular rhythm GI/Abdominal exam: PRESENT: normal bowel sounds, soft. ABSENT: distended, tenderness Rectal exam: PRESENT: deferred, other - Still having diarrhea Gentrourinary exam: PRESENT: indwelling catheter Extremities exam: ABSENT: joint swelling, pedal edema Neurological exam: ABSENT: awake Psychiatric exam: ABSENT: agitated Focused psych exam: ABSENT: restlessness Results Laboratory Results: 09/20/18 05:09 09/20/18 05:09 09/19/18 09/20/18 09/20/18 22:10 05:00 05:09 WBC 12.6 H RBC 5.31 Hgb 16.5 Hct 49.4 MCV 93 MCH 31.1 MCHC 33.4 RDW 14.6 H Plt Count 171 Seg Neutrophils % Not Reportable Lymphocytes % Not Reportable Monocytes % Not Reportable Eosinophils % Not Reportable Basophils % Not Reportable Absolute Neutrophils Not Reportable Absolute Lymphocytes Not Reportable Absolute Monocytes Not Reportable Absolute Eosinophils Not Reportable Absolute Basophils Not Reportable Carbonic Acid 1.10 HCO3/H2CO3 Ratio 21:1 ABG pH 7.43 ABG pCO2 36.5 ABG pO2 87.5 ABG HCO3 23.4 ABG O2 Saturation 96.9 ABG Base Excess -0.4 FiO2 40% Sodium Potassium Chloride Carbon Dioxide Anion Gap BUN Creatinine Est GFR ( Amer) Est GFR (Non-Af Amer) Glucose Calcium Magnesium Prealbumin Stool Occult Blood POSITIVE 09/20/18 05:09 WBC RBC Hgb Hct MCV MCH MCHC RDW Plt Count Seg Neutrophils % Lymphocytes % Monocytes % Eosinophils % Basophils % Absolute Neutrophils Absolute Lymphocytes Absolute Monocytes Absolute Eosinophils Absolute Basophils Carbonic Acid HCO3/H2CO3 Ratio ABG pH ABG pCO2 ABG pO2 ABG HCO3 ABG O2 Saturation ABG Base Excess FiO2 Sodium 142.2 Potassium 4.0 Chloride 109 H Carbon Dioxide 24 Anion Gap 9 BUN 48 H Creatinine 1.01 Est GFR ( Amer) > 60 Est GFR (Non-Af Amer) > 60 Glucose 183 H Calcium 8.9 Magnesium 2.7 H Prealbumin 38.4 H Stool Occult Blood 09/17/18 09:30 Tracheal Aspirate Gram Stain - Final 09/17/18 12:10 Catheterized Urine Urine Culture - Final NO GROWTH 2 DAYS 09/12/18 09/12/18 09/12/18 00:55 00:55 05:55 Creatine Kinase 80 CK-MB (CK-2) 1.90 1.88 Troponin I 0.037 0.030 NT-Pro-B Natriuret Pep 4660 H 5960 H 09/12/18 09/12/18 09/12/18 11:10 11:10 16:52 Creatine Kinase 61 80 CK-MB (CK-2) 2.08 Troponin I 0.024 NT-Pro-B Natriuret Pep 09/12/18 09/18/18 09/20/18 16:52 16:01 05:09 Creatine Kinase 57 CK-MB (CK-2) 2.92 Troponin I 0.029 NT-Pro-B Natriuret Pep 3110 H Impressions: Chest CT 09/13/18 11:18 IMPRESSION: Status post CABG. Changes of centrilobular emphysema. Changes of interstitial edema with bilateral pleural effusions. Bibasilar atelectasis. KUB X-Ray 09/16/18 09:16 IMPRESSION: NG tube placement as described. Nonspecific abdomen. Chest X-Ray 09/20/18 06:00 IMPRESSION: No significant change. Assessment and Plan - Diagnosis (1) Acute on chronic respiratory failure with hypoxemia Is this a current diagnosis for this admission?: Yes Plan: The patient was very tachypneic this morning. His respiratory rate was between 30 and 40 breaths/min. Despite BiPAP he had increased work of breathing. His chest x-ray reveals bilateral lower lobe infiltrates. Due to his declining condition elective intubation by anesthesiology was carried out. The patient will be on SIMV with a rate of 12, PEEP of 5, tidal volume of 500 and we will adjust the FiO2 to keep his oxygen saturation in the 90 to 94% range. 09/17/2018-the patient is currently on a pressure support weaning trial. He is at 12/5 with an FiO2 40% currently saturating at 95%. Continue weaning as tolerated. The goal is extubation. 09/18/2018-the patient continues to wean. He was in fact quite comfortable on pressure support. If he is stable we will consider extubation later today or possibly tomorrow. 09/19/2018-the patient is resting comfortably on pressure support. We may likely extubate today. We will continue oxygen supplementation as required. September 20, 2018-successfully extubated earlier. Continue nebulizer treatments and oxygen supplementation. He does have obstructive sleep apnea and uses CPAP at night at home therefore we will continue using BiPAP machine at night. (2) CAP (community acquired pneumonia) Qualifiers: Lung location: lower lobe of lung Is this a current diagnosis for this admission?: Yes Plan: X-ray exhibits bilateral lower lobe infiltrates. The patient's white blood cell count has been increasing without intravenous steroids. For this reason I am going to add Zosyn to his vancomycin for broader coverage of the pneumonia. We will continue to monitor his white blood cell count and adjust his medications for his acute kidney injury. 09/17/2018-continuing dual therapy with vancomycin and Zosyn. White blood cell count is improving. 09/18/2018-recent tracheal aspirate is positive for Amina. This is likely colonization. We will continue his current antibiotics as his white blood cell count does seem to be improving. 09/19/2018-currently on vancomycin and Zosyn. Tracheal aspirate did reveal Amina species. If this is consistently present we will add an antifungal. The culture report did reveal 3+ growth. White blood cell count does continue to slowly improve. 09/20/2018-the patient still has 4 to 5 days of IV antibiotics. He continues to do well. His white blood cell count continues to decrease. He has a very weak cough and so he does require suction on occasion. (3) COPD exacerbation Is this a current diagnosis for this admission?: Yes Plan: Intravenous steroids as well as more aggressive nebulizer therapy was initiated. Chest x-ray does reveal air trapping and fairly flat diaphragms. Pulmonology is seeing the patient as well. Antibiotics have been broadened as noted above. 09/17/2018-the patient is on steroids as well as nebulizer treatments and steroids. He is also on antibiotic therapy. Continued weaning. 09/18/2018-no change in the current treatment regimen. Continue weaning as tole rated 09/19/2018-continued use of nebulizers and steroids. September 20, 2018-now the patient is extubated we will continue nebulizer treatments. Consider starting to wean steroids. Eventually change control manager to home inhaler treatments. (4) Coronary artery disease Qualifiers: Coronary Disease-Associated Artery/Lesion type: [place] artery Is this a current diagnosis for this admission?: Yes Plan: The patient does have a history of coronary artery bypass. With his atrial fibrillation and tachycardia his troponins will likely be slightly elevated. There is no evidence of acute cardiac issue. We will control his heart rate from his atrial fibrillation. I will review his home medication regimen as he is likely on antiplatelet therapy as well as statin therapy. 09/17/2018-currently appears asymptomatic. We will try and obtain good rate and blood pressure control. He did have bright red blood in the nasogastric tube yesterday. This is not continued. Consider resuming his anticoagulation. 09/18/2018-the patient is exhibiting some PVCs. He does have elevated magnesium levels. We will obtain a twelve-lead EKG for further assessment. 09/19/2018-still exhibiting PVCs. With underlying A. fib. No reports of chest pain. September 20, 2018-still with PVCs. Magnesium level was correcting. Temporarily h olding aspirin due to occult positive stool. (5) Paroxysmal atrial fibrillation Is this a current diagnosis for this admission?: Yes Plan: The patient exhibited rapid ventricular response. He is on a diltiazem drip. At home he is on metoprolol, digoxin and Tikosyn. I will add digoxin in addition to the diltiazem infusion. Once his nasogastric tube is in place we will also add metoprolol. The patient was on Pradaxa for chronic anticoagulation. We will need to monitor for bleeding. At the insertion of the nasogastric tube there was bright red blood. 09/17/2018-the patient is still in fibrillation. His rate fluctuates from 80- 110. With weaning his pulse rate did increase. The majority times his pulse rate and blood pressure are reasonably controlled. Continue same regimen at this time. 09/18/2018--he continues in atrial fibrillation but his rate seems more controlled. He does have as needed metoprolol by intravenous. Anticoagulation is currently on hold. 09/19/2018-the patient exhibits good rate control but is having PVCs. The QT intervals slightly prolonged. I will review medications and consider discont inuing contributing meds. September 20, 2018-adequate rate control at this time. Holding anticoagulation due to hematuria and Hemoccult positive stool. (6) Malnutrition Qualifiers: Malnutrition type: protein-calorie malnutrition Protein-calorie m alnutrition severity: moderate Qualified Code(s): E44.0 - Moderate protein- calorie malnutrition Is this a current diagnosis for this admission?: Yes Plan: Secondary to poor mental status, aspiration risk and current NPO status Will approach topic of NG tomorrow with family if unable to determine cause of encephalopathy today 09/16/2018-nasogastric tube was inserted when the patient was intubated. His dietary intake has been very poor to nonexistent over the last 2 to 3 days. We will initiate tube feeds today or tomorrow. 09/17/2018-appears to be tolerating his tube feeds. 09/18/2018-appreciate Dr. Nielsen's input. Vital 1.5 does have 95 mg of magnesium. I will change the tube feeds to Nepro. We will use Nepro 1.8 and start with a low volume. Should try and reach goal as he is critically ill and does have much higher nutritional requirements. 09/19/2018-we will check laboratory studies. If he is tolerating the current tube feeds (switched to Nepro) I will increase the rate to meet his caloric needs. September 20, 2018-once the electrolytes correct we will consider changing his tube feeds however with him extubated it would be better if he is able to tolerate an oral diet. The tube feeds certainly could be contributing to his diarrhea. (7) Acute kidney injury Is this a current diagnosis for this admission?: Yes Plan: The patient's GFR has been increasing. His BUN and creatinine are increased in I will change his IV fluids to normal saline with an increased rate. We will continue to monitor his renal function as well as his intake and output. 09/17/2018-the BUN and creatinine are increased. I believe this is due to the volume issue as noted below. I will repeat a urinalysis to check specific gravity. If it continues to increase I will check urine studies and ask nephrology for consultation. 09/18/2018-serum creatinine is now normal and his GFR is greater than 60. His BUN is still elevated. Continue current fluid management and monitor closely. Appreciate Dr. Nielsen's input. 09/19/2018-still with elevated BUN September 20, 2018-the serum creatinine is back to normal and the GFR is greater than 60. BUN is still elevated at 40. Still with a slightly negative fluid balance. Continue monitoring I's and O's. Chest x-ray suggested possible failure. Continue current furosemide dose. (8) Hypernatremia Is this a current diagnosis for this admission?: Yes Plan: 09/17/2018-the serum sodium is still elevated. I believe it is from volume contraction. He needs more free water despite a positive fluid balance. I am going to change to half-normal saline. The calculated rate is over 200 mL an hour. I will start at 150 mL an hour and adjust based on this afternoon's blood work. 09/18/2018-with the current regimen of half-normal saline the patient's serum sodium is now in the upper normal range at 144. We will continue half-normal saline with furosemide to try and diurese magnesium. 09/19/2018-serum sodium is now normal. Continue to monitor. September 20, 2018-resolved. Continue to monitor as patient converts to an oral diet. (9) Hypermagnesemia Is this a current diagnosis for this admission?: Yes Plan: The serum magnesium is increased. I believe this is due to volume contraction. He is not on any magnesium supplements. I will monitor his electrolytes new regimen of half-normal saline. 09/18/2018-appreciate Dr. Nielsen's input. Because Maryro has no magnesium I have switched the tube feeds. The magnesium did improve to 2.7 today and I believe that we will be able to decrease the half-normal saline rate as the magnesium should regress back to the normal range with the change in tube feeds. 09/19/2018-tube feeds were changed to Nepro which has no magnesium. Still with half-normal saline and so we will continue to monitor magnesium level and avoid magnesium-containing agents. The magnesium level is only slightly elevated and therefore should not be contributing to PVCs. September 20, 2018-serum magnesium continues to improve slowly. Between the diarrhea and Nepro tube feeds are expect him to normalize within a day or 2. 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 I believe it is due to volume contraction. We will continue to monitor as we change to half-normal saline. There is no bright red blood in the nasogastric tube so I will resume the patient's 81 mg aspirin dose daily. 09/18/2018-hemoglobin in fact is beginning to decrease. The patient did develop hematuria and I would expect the hemoglobin to drop back into the normal range. We will monitor so that it does not decrease precipitously. 09/19/18-hemoglobin is now normal. The transient hematuria likely helped. Continue to monitor. September 20, 2018-we will continue to monitor hemoglobin. Still balancing fluids and holding anticoagulants and antiplatelet therapy. The patient may have been volume contracted and is now corrected. (11) Hematuria Qualifiers: Hematuria type: gross Qualified Code(s): R31.0 - Gross hematuria Is this a current diagnosis for this admission?: Yes Plan: 09/18/2018-earlier this morning the patient's urine was normal in color. He abruptly developed marked hematuria. The blood is not bright red but rather appears old. A urinalysis and culture have been sent. His Eliquis has been suspended at this time. 09/19/2018-the urine has no gross hematuria at this time. Urine culture is no growth so far. We will hold anticoagulation for another day or 2 and then consider resuming. September 20, 2018-urine is still slightly dark and is probably exhibiting microscopic hematuria. Still with evidence of Hemoccult positive stool. Continue to hold anticoagulants for another day or 2. I did increase the Protonix. - Time Time Spent with patient: 25-34 minutes Medications reviewed and adjusted accordingly: Yes
--- NOTE | 2018-09-20 15:18 | Progress Note ---
Provider Note Provider Note: CARDIOLOGY PROGRESS NOTE by Dr. Jennifer Bunn on 09/20/2018. SUBJECTIVE: The patient has been extubated today. He is very drowsy, but does not appear to be in any acute distress. He continues to be in atrial fibrillation. His Eliquis was stopped since the patient had hematuria. There is no further hematuria. There is no firing of the AICD. There is no ventricular arrhythmia seen on the monitor. PHYSICAL EXAMINATION: The patient appears to be a frail build and chronically ill. At present in no acute distress. He is extubated. Selected Entries 09/20/18 09/20/18 12:00 13:46 Temperature 98.6 F Temperature Core Source Core 98.4 F Temperature Pulse Rate 94 Heart Rate ( 93 Monitors) Respiratory 29 H 22 H Rate Blood Pressure 153/76 H Blood Pressure 150/87 H [Right Upper Arm] Blood Pressure 101 Mean O2 Sat by Pulse 96 Oximetry Oxygen Flow 10 Rate Percent of 40 Oxygen Premature 13 Ventricular Counted Beats Ectopic Status Pair EAD: Is atraumatic normocephalic. EYES: Pupils are regular reactive to light. ENT is negative. NECK: Is supple. There is no JVD. Carotids equal there is no bruit. LUNGS: There is diminished air entry and prolonged expiration. There is a few scattered rhonchi. There is no wheezing. There is no dry crackles or wet rales of CHF. ABDOMEN: S1-S2 is heard S1 is of variable intensity. There is no S3 gallop. There is no S4 gallop. ABDOMEN: Soft. There is no hepatosplenomegaly. Bowel sounds are heard. EXTREMITIES: Femorals are diminished. Leg pulses are diminished. There is no pedal edema. The patient is awake but very lethargic. And very drowsy. He moves all 4 extremities. PSYCHIATRIC: With the patient mental status this psychiatric examination not done. Labs- All tests 24 hr 09/19/18 09/20/18 09/20/18 22:10 01:23 05:00 WBC RBC Hgb Hct MCV MCH MCHC RDW Plt Count Total Counted Seg Neutrophils % Seg Neuts % (Manual) Band Neutrophils % Lymphocytes % Lymphocytes % (Manual) Monocytes % Monocytes % (Manual) Eosinophils % Eosinophils % (Manual) Basophils % Basophils % (Manual) Absolute Neutrophils Abs Neuts (Manual) Absolute Lymphocytes Abs Lymphs (Manual) Absolute Monocytes Abs Monocytes (Manual) Absolute Eosinophils Absolute Eos (Manual) Absolute Basophils Abs Basophils (Manual) Clumped Platelets Platelet Comment RBC Morph Comment Carbonic Acid 1.10 HCO3/H2CO3 Ratio 21:1 ABG pH 7.43 ABG pCO2 36.5 ABG pO2 87.5 ABG HCO3 23.4 ABG Total CO2 24.5 ABG O2 Saturation 96.9 ABG Base Excess -0.4 FiO2 40% Sodium Potassium Chloride Carbon Dioxide Anion Gap BUN Creatinine Est GFR ( Amer) Est GFR (Non-Af Amer) Glucose POC Glucose 161 H Calcium Magnesium NT-Pro-B Natriuret Pep Prealbumin Stool Occult Blood POSITIVE 09/20/18 09/20/18 09/20/18 05:09 05:09 05:09 WBC 12.6 H RBC 5.31 Hgb 16.5 Hct 49.4 MCV 93 MCH 31.1 MCHC 33.4 RDW 14.6 H Plt Count 171 Total Counted 100 Seg Neutrophils % Not Reportable Seg Neuts % (Manual) 95 H Band Neutrophils % 1 L Lymphocytes % Not Reportable Lymphocytes % (Manual) 2 L Monocytes % Not Reportable Monocytes % (Manual) 2 L Eosinophils % Not Reportable Eosinophils % (Manual) 0 Basophils % Not Reportable Basophils % (Manual) 0 Absolute Neutrophils Not Reportable Abs Neuts (Manual) 12.1 H Absolute Lymphocytes Not Reportable Abs Lymphs (Manual) 0.3 L Absolute Monocytes Not Reportable Abs Monocytes (Manual) 0.3 Absolute Eosinophils Not Reportable Absolute Eos (Manual) 0.0 Absolute Basophils Not Reportable Abs Basophils (Manual) 0.0 Clumped Platelets PRESENT Platelet Comment Not Reportable RBC Morph Comment NORMO-CYTIC/CHROMIC Carbonic Acid HCO3/H2CO3 Ratio ABG pH ABG pCO2 ABG pO2 ABG HCO3 ABG Total CO2 ABG O2 Saturation ABG Base Excess FiO2 Sodium 142.2 Potassium 4.0 Chloride 109 H Carbon Dioxide 24 Anion Gap 9 BUN 48 H Creatinine 1.01 Est GFR ( Amer) > 60 Est GFR (Non-Af Amer) > 60 Glucose 183 H POC Glucose Calcium 8.9 Magnesium 2.7 H NT-Pro-B Natriuret Pep 3110 H Prealbumin 38.4 H Stool Occult Blood Chest X-Ray 09/12/18 00:42 IMPRESSION: Pneumonia. Possible emphysema. Cardiomegaly. copyright 2011 [employer]- All Rights Reserved Chest CT 09/13/18 11:18 IMPRESSION: Status post CABG. Changes of centrilobular emphysema. Changes of interstitial edema with bilateral pleural effusions. Bibasilar atelectasis. Chest X-Ray 09/14/18 08:49 IMPRESSION: Airspace disease in the mid and lower lungs edema versus pneumonia. Trace bilateral pleural effusions. Chest X-Ray 09/15/18 00:00 IMPRESSION: Cardiomegaly with no roque pulmonary edema. Chest X-Ray 09/15/18 07:00 IMPRESSION: Significant improvement in the pulmonary edema/ fluid overload pattern compared to 09/14/2018 and 09/12/2018 Chest X-Ray 09/16/18 00:00 IMPRESSION: 1. Endotracheal tube tip overlies distal thoracic trachea likely 1.8 cm above the [place]. 2. Enteric tube coiled over upper esophagus with tip directed cephalad. Recommend repositioning. 3. Mild right basilar interstitial opacities, possibly edema or atelectasis. Chest X-Ray 09/16/18 09:15 IMPRESSION: Endotracheal tube in good positioning. Nasogastric tube coiled in the upper esophagus, report called to the patient's nurse in ICU Mild cardiomegaly. No acute infiltrate. KUB X-Ray 09/16/18 09:16 IMPRESSION: NG tube placement as described. Nonspecific abdomen. Chest X-Ray 09/20/18 06:00 IMPRESSION: No significant change. IMPRESSION/RECOMMENDATION: 1. Acute on chronic respiratory failure. The patient is extubated. 2. Acute exacerbation of COPD. Continue respiratory treatments nasal oxygen and steroids. 3. Bibasilar pneumonia: Continue antibiotics. 4. Atrial fibrillation. Patient with a history of paroxysmal atrial fibrillation patient back in atrial fibrillation. Cardizem drip has been disc ontinued, the patient started on beta-wilbert. We will stop the patient's Tikosyn since the patient continues to be in atrial fibrillation. Also switch the Cardizem to metoprolol.. Note that the patient 's Tikosyn and digoxin already been stopped. Note that the patient's Eliquis has been held due to hematuria 5. Coronary artery disease: No evidence of ID. 6. CARDIOMYOPATHY: No evidence of acute exacerbation of CHF. 7.hypertension: Blood pressure well controlled. 8. Acute renal failure: Avoid nephrotoxic drugs. Renal function much improved. 9. AICD in situ. No firing of AICD 10. DIABETES MELLITUS: Continue antidiabetic medication. 12. 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 MEDICATIONS reviewed. Medications adjusted. Medical decision making is of high complexity in view of the need for changing of medications. Management plan discussed with attending physician on the case. 40 minutes spent on this patient with more than 50% of time spent in direct patient care. Will follow
--- NOTE | 2018-09-20 16:25 | PDOC PROGRESS REPORT ---
Subjective Progress Note for:: 09/20/18 Subjective:: i&s Reason For Visit: COPD EXACERBATION CHF BRONCHTIS Physical Exam Vital Signs: Temp Pulse Resp BP Pulse Ox 98.4 F 98 20 153/76 H 93 09/20/18 14:00 09/20/18 14:00 09/20/18 14:00 09/20/18 14:00 09/20/18 14:00 Intake & Output 09/19/18 09/20/18 09/21/18 06:59 06:59 06:59 Intake Total 4663 1664 124 Output Total 2784 1765 1520 Balance 1240 -5355 -4317 Weight 72.4 kg 73.1 kg Results Laboratory Results: 09/20/18 05:09 09/20/18 05:09 09/19/18 09/20/18 09/20/18 22:10 05:00 05:09 WBC 12.6 H RBC 5.31 Hgb 16.5 Hct 49.4 MCV 93 MCH 31.1 MCHC 33.4 RDW 14.6 H Plt Count 171 Seg Neutrophils % Not Reportable Lymphocytes % Not Reportable Monocytes % Not Reportable Eosinophils % Not Reportable Basophils % Not Reportable Absolute Neutrophils Not Reportable Absolute Lymphocytes Not Reportable Absolute Monocytes Not Reportable Absolute Eosinophils Not Reportable Absolute Basophils Not Reportable Carbonic Acid 1.10 HCO3/H2CO3 Ratio 21:1 ABG pH 7.43 ABG pCO2 36.5 ABG pO2 87.5 ABG HCO3 23.4 ABG O2 Saturation 96.9 ABG Base Excess -0.4 FiO2 40% Sodium Potassium Chloride Carbon Dioxide Anion Gap BUN Creatinine Est GFR ( Amer) Est GFR (Non-Af Amer) Glucose Calcium Magnesium Prealbumin Stool Occult Blood POSITIVE 09/20/18 05:09 WBC RBC Hgb Hct MCV MCH MCHC RDW Plt Count Seg Neutrophils % Lymphocytes % Monocytes % Eosinophils % Basophils % Absolute Neutrophils Absolute Lymphocytes Absolute Monocytes Absolute Eosinophils Absolute Basophils Carbonic Acid HCO3/H2CO3 Ratio ABG pH ABG pCO2 ABG pO2 ABG HCO3 ABG O2 Saturation ABG Base Excess FiO2 Sodium 142.2 Potassium 4.0 Chloride 109 H Carbon Dioxide 24 Anion Gap 9 BUN 48 H Creatinine 1.01 Est GFR ( Amer) > 60 Est GFR (Non-Af Amer) > 60 Glucose 183 H Calcium 8.9 Magnesium 2.7 H Prealbumin 38.4 H Stool Occult Blood 09/17/18 09:30 Tracheal Aspirate Gram Stain - Final 09/17/18 12:10 Catheterized Urine Urine Culture - Final NO GROWTH 2 DAYS 09/12/18 09/12/18 09/12/18 00:55 00:55 05:55 Creatine Kinase 80 CK-MB (CK-2) 1.90 1.88 Troponin I 0.037 0.030 NT-Pro-B Natriuret Pep 4660 H 5960 H 09/12/18 09/12/18 09/12/18 11:10 11:10 16:52 Creatine Kinase 61 80 CK-MB (CK-2) 2.08 Troponin I 0.024 NT-Pro-B Natriuret Pep 09/12/18 09/18/18 09/20/18 16:52 16:01 05:09 Creatine Kinase 57 CK-MB (CK-2) 2.92 Troponin I 0.029 NT-Pro-B Natriuret Pep 3110 H Impressions: Chest CT 09/13/18 11:18 IMPRESSION: Status post CABG. Changes of centrilobular emphysema. Changes of interstitial edema with bilateral pleural effusions. Bibasilar atelectasis. KUB X-Ray 09/16/18 09:16 IMPRESSION: NG tube placement as described. Nonspecific abdomen. Chest X-Ray 09/20/18 06:00 IMPRESSION: No significant change. Assessment & Plan - Diagnosis (1) CAP (community acquired pneumonia) Qualifiers: Lung location: lower lobe of lung Is this a current diagnosis for this admission?: Yes (2) Acute respiratory failure with hypoxia Is this a current diagnosis for this admission?: Yes Plan: extubate (3) Basal pneumonia of both lungs Is this a current diagnosis for this admission?: Yes Plan: improving (4) Anticoagulated Is this a current diagnosis for this admission?: Yes Plan: Follow closely (5) Atrial fibrillation Qualifiers: Atrial fibrillation type: unspecified Qualified Code(s): I48.91 - Unspecified atrial fibrillation Is this a current diagnosis for this admission?: Yes Plan: controlled ventricular response and adequate anticoagulation (6) HECTOR (obstructive sleep apnea) Is this a current diagnosis for this admission?: Yes Plan: When we are able to extubate we will extubate CPAP (7) Tobacco dependency Is this a current diagnosis for this admission?: Yes Plan: Transdermal nicotine - Time Total Critical Time (Minutes): 55
[2018-09-20] MEDS: METOPROLOL TARTRATE PF/INJ 5 MG/5 ML SDV IV PRN (22:02)
[2018-09-21] MEDS: PIPERACILLIN SODIUM/TAZOBACTAM 3.375 GM in NORMAL SALINE 100 ML IV SCH ×5 (01:32→23:56)
[2018-09-21] MEDS: LEVALBUTEROL HCL NEB 0.63 MG/3 ML AMPUL NEB SCH ×4 (01:47→20:37)
[2018-09-21 04:33] LABS: ARTERIAL BLOOD BASE EXCESS 2.6 mmol/L; ARTERIAL BLOOD O2 SATURATION 94.8 % (94-98); ARTERIAL BLOOD PCO2 36.7 mmHg (35-45); ARTERIAL BLOOD PH 7.47 (7.35-7.45); ARTERIAL BLOOD PO2 68.9 mmHg (80-100); ARTERIAL BLOOD TOTAL CO2 27.1 mmol/L (23-27)
[2018-09-21 04:37] LABS: ARTERIAL BLOOD FIO2 3 L
[2018-09-21] MEDS: METOPROLOL TARTRATE PF/INJ 5 MG/5 ML SDV IV PRN ×3 (04:48→09:22)
[2018-09-21 05:24] LABS: HEMATOCRIT 49.2 % (37.9-51.0); HEMOGLOBIN 16.5 g/dL (13.5-17.0); MEAN CORPUSCULAR HEMOGLOBIN 31.1 pg (27.0-33.4); MEAN CORPUSCULAR HGB CONC 33.5 g/dL (32.0-36.0); MEAN CORPUSCULAR VOLUME 93 fl (80-97); PLATELET COUNT 180 10^3/uL (150-450); RED CELL DISTRIBUTION WIDTH 14.1 % (11.5-14.0)
[2018-09-21 05:25] LABS: INTERNATIONAL RATION (INR) 1.08; PROTHROMBIN TIME 14.5 SEC (11.4-15.4)
[2018-09-21 05:26] LABS: PARTIAL THROMBOPLASTIN TIME 26.5 SEC (23.5-35.8)
[2018-09-21] MEDS: METHYLPREDNISOLONE INJ 125 MG/2 ML SDV IV SCH ×3 (05:31→21:18)
[2018-09-21 05:52] LABS: ANION GAP 10 (5-19); BLOOD UREA NITROGEN 46 mg/dL (7-20); CALCIUM 8.8 mg/dL (8.4-10.2); CARBON DIOXIDE 28 mmol/L (22-30); CHLORIDE 109 mmol/L (98-107); GLUCOSE 161 mg/dL (75-110); POTASSIUM 3.1 mmol/L (3.6-5.0); SODIUM 147.1 mmol/L (137-145)
[2018-09-21 06:12] LABS: ABSOLUTE LYMPHOCYTES# (MANUAL) 0.3 10^3/uL (0.5-4.7); ABSOLUTE MONOCYTES # (MANUAL) 0.5 10^3/uL (0.1-1.4); ABSOLUTE NEUTROPHILS# (MANUAL) 14.3 10^3/uL (1.7-8.2); BAND NEUTROPHILS % (MANUAL) 9 % (3-5); BASOPHILS % (MANUAL) 0 % (0-2); EOSINOPHILS % (MANUAL) 0 % (0-6); LYMPHOCYTES % (MANUAL) 2 % (13-45); MONOCYTES % (MANUAL) 3 % (3-13); SEGMENTED NEUTROPHILS % (MAN) 86 % (42-78); TOTAL CELLS COUNTED 100
[2018-09-21 06:13] LABS: PLATELET COMMENT ADEQUATE; RBC MORPHOLOGY COMMENT NORMO-CYTIC/CHROMIC
[2018-09-21] MEDS ORDERED: POTASSI CL 20 MEQ/50 ML RIDER 20 MEQ/50 ML RTUPB IV ONE (06:15)
[2018-09-21] MEDS: POTASSIUM CHLORIDE 20 MEQ/50 ML RTU IV SCH ×2 (06:31→08:10)
[2018-09-21] MEDS: HYDRALAZINE HCL INJ/PF 20 MG/1 ML SDV IV PRN ×2 (08:08→18:26)
[2018-09-21] MEDS: HALOPERIDOL LACTATE INJ 5 MG/1 ML VIAL IV PRN (08:34)
--- NOTE | 2018-09-21 08:34 | RADIOLOGY REPORT (SQ) ---
EXAM DESCRIPTION: CHEST SINGLE VIEW COMPLETED DATE/TIME: 09/21/2018 6:36 am REASON FOR STUDY: respiratory failure COMPARISON: 09/20/2018. EXAM PARAMETERS: NUMBER OF VIEWS: One view. TECHNIQUE: Single frontal radiographic view of the chest acquired. RADIATION DOSE: NA LIMITATIONS: None. FINDINGS: LUNGS AND PLEURA: Mild interstitial prominence. No focal infiltrates, masses or pneumotho rax. No pleural effusion. MEDIASTINUM AND HILAR STRUCTURES: No masses. Contour normal. HEART AND VASCULAR STRUCTURES: Stable cardiac enlargement. BONES: No acute findings. Chronic changes in the spine and shoulders. HARDWARE: Interval removal of the endotracheal tube and nasogastric tube. Sternotomy wires and defib rillator. Abdominal aortic stent visualized at the lower margin of the image. OTHER: No other significant finding. IMPRESSION: INTERVAL REMOVAL OF THE ENDOTRACHEAL TUBE AND NASOGASTRIC TUBE. OTHERWISE NO CHANGE. TECHNICAL DOCUMENTATION: JOB ID: [id number] [employer]- All Rights Reserved Reading location - IP/workstation name: [email or web address]
[2018-09-21] MEDS: 1/2 NORMAL SALINE 1,000 ML IV PRN ×2 (08:39→22:00)
[2018-09-21] MEDS ORDERED: DIGOXIN INJ 0.5 MG/2 ML AMPULE ONE (09:48)
[2018-09-21] MEDS ORDERED: DIGOXIN INJ 0.5 MG/2 ML AMPULE IV ONE (10:15)
[2018-09-21] MEDS: FUROSEMIDE INJ/PF 20 MG/2 ML SDV IV SCH ×2 (11:32→21:22)
[2018-09-21] MEDS: PANTOPRAZOLE SODIUM 40 MG VIAL IV SCH ×2 (11:37→21:24)
[2018-09-21] MEDS: LISINOPRIL 5 MG TABLET NG SCH ×2 (11:38→21:27)
[2018-09-21] MEDS: METOPROLOL TARTRATE 50 MG TABLET PO SCH (11:38)
[2018-09-21] MEDS: VANCOMYCIN HCL 1,500 MG in DEXTROSE 5%-WATER 250 ML IV SCH (11:42)
[2018-09-21] MEDS ORDERED: PHARMACY COMMUNICATION ORDER MC NR (12:30)
[2018-09-21] MEDS ORDERED: DEXTROSE 40% GEL 15 GM TUBE PO PRN ×2 (12:34)
[2018-09-21] MEDS ORDERED: DEXTROSE 50%-WATER 25 GM/50 ML DISP.SYRIN IV PRN ×2 (12:34)
[2018-09-21] MEDS ORDERED: GLUCAGON,HUMAN RECOMB 1 MG INJ SUBCUT PRN (12:34)
[2018-09-21] MEDS ORDERED: DEXTROSE 40% GEL 15 GM TUBE NG PRN ×2 (13:00)
[2018-09-21 13:09] LABS: ANION GAP 13 (5-19); BLOOD UREA NITROGEN 45 mg/dL (7-20); CALCIUM 9.3 mg/dL (8.4-10.2); CARBON DIOXIDE 23 mmol/L (22-30); CHLORIDE 112 mmol/L (98-107); GLUCOSE 199 mg/dL (75-110); POTASSIUM 3.7 mmol/L (3.6-5.0); SODIUM 147.8 mmol/L (137-145)
--- NOTE | 2018-09-21 15:21 | RADIOLOGY REPORT (SQ) ---
EXAM DESCRIPTION: KUB/ABDOMEN (SINGLE VIEW) COMPLETED DATE/TIME: 09/21/2018 1:40 pm REASON FOR STUDY: Check Placement of NG Tube COMPARISON: None. NUMBER OF VIEWS: One view. TECHNIQUE: Supine radiographic image of the abdomen acquired. LIMITATIONS: None. FINDINGS: The tip of the NG tube is in the fundus of the stomach. IMPRESSION: NG tube placement as described. TECHNICAL DOCUMENTATION: JOB ID: [id number] [employer]- All Rights Reserved Reading location - IP/workstation name: [email or web address]
--- NOTE | 2018-09-21 21:19 | Progress Note ---
Provider Note Provider Note: CARDIOLOGY PROGRESS NOTE by Dr. Jennifer Bunn on 09/21/2018. SUBJECTIVE: The patient appears to be drowsy and is confused. He continues to be in atrial fibrillation. The ventricular response slightly elevated. There is no further hematuria. There is no symptoms or CVA. There is no ventricular arrhythmia seen on the monitor. The patient's history is not reliable since the patient is confused. PHYSICAL EXAMINATION: The patient is a frail build. Appears to be chronically ill. But in spite of his confusion is in no acute distress. Selected Entries 09/21/18 08:00 Temperature 99.0 F Temperature Core Source Pulse Rate 115 H Respiratory 24 H Rate Blood Pressure 160/111 H [Right Upper Arm] Blood Pressure 127 Mean [Right Upper Arm] Blood Pressure Supine Position [Right Upper Arm] O2 Sat by Pulse 97 Oximetry Oxygen Delivery Nasal Cannula Method ( includes room air) HEAD: Is atraumatic normocephalic. EYES: Pupils are regular reactive to light. ENT is negative. NECK: Is supple. There is no JVD. Carotids equal there is no bruit. LUNGS: There is diminished air entry and prolonged expiration. There is a few scattered rhonchi. There is no wheezing. There is no dry crackles or wet rales of CHF. ABDOMEN: S1-S2 is heard S1 is of variable intensity. There is no S3 gallop. There is no S4 gallop. ABDOMEN: Soft. There is no hepatosplenomegaly. Bowel sounds are heard. EXTREMITIES: Femorals are diminished. Leg pulses are diminished. There is no pedal edema. The patient is awake but very lethargic. And very drowsy. He moves all 4 extremities. PSYCHIATRIC: With the patient mental status this psychiatric examination not done. Labs- All tests 24 hr 09/21/18 09/21/18 09/21/18 04:01 04:01 04:01 WBC 15.0 H RBC 5.30 Hgb 16.5 Hct 49.2 MCV 93 MCH 31.1 MCHC 33.5 RDW 14.1 H Plt Count 180 Total Counted 100 Seg Neutrophils % Not Reportable Seg Neuts % (Manual) 86 H Band Neutrophils % 9 H Lymphocytes % Not Reportable Lymphocytes % (Manual) 2 L Monocytes % Not Reportable Monocytes % (Manual) 3 Eosinophils % Not Reportable Eosinophils % (Manual) 0 Basophils % Not Reportable Basophils % (Manual) 0 Absolute Neutrophils Not Reportable Abs Neuts (Manual) 14.3 H Absolute Lymphocytes Not Reportable Abs Lymphs (Manual) 0.3 L Absolute Monocytes Not Reportable Abs Monocytes (Manual) 0.5 Absolute Eosinophils Not Reportable Absolute Eos (Manual) 0.0 Absolute Basophils Not Reportable Abs Basophils (Manual) 0.0 Platelet Comment ADEQUATE RBC Morph Comment NORMO-CYTIC/CHROMIC PT 14.5 INR 1.08 APTT 26.5 Carbonic Acid HCO3/H2CO3 Ratio ABG pH ABG pCO2 ABG pO2 ABG HCO3 ABG Total CO2 ABG O2 Saturation ABG Base Excess FiO2 Sodium 147.1 H Potassium 3.1 L Chloride 109 H Carbon Dioxide 28 Anion Gap 10 BUN 46 H Creatinine 1.05 Est GFR ( Amer) > 60 Est GFR (Non-Af Amer) > 60 Glucose 161 H Calcium 8.8 Magnesium 2.7 H 09/21/18 09/21/18 04:24 12:35 WBC RBC Hgb Hct MCV MCH MCHC RDW Plt Count Total Counted Seg Neutrophils % Seg Neuts % (Manual) Band Neutrophils % Lymphocytes % Lymphocytes % (Manual) Monocytes % Monocytes % (Manual) Eosinophils % Eosinophils % (Manual) Basophils % Basophils % (Manual) Absolute Neutrophils Abs Neuts (Manual) Absolute Lymphocytes Abs Lymphs (Manual) Absolute Monocytes Abs Monocytes (Manual) Absolute Eosinophils Absolute Eos (Manual) Absolute Basophils Abs Basophils (Manual) Platelet Comment RBC Morph Comment PT INR APTT Carbonic Acid 1.10 HCO3/H2CO3 Ratio 23:1 ABG pH 7.47 H ABG pCO2 36.7 ABG pO2 68.9 L ABG HCO3 26.0 H ABG Total CO2 27.1 H ABG O2 Saturation 94.8 ABG Base Excess 2.6 FiO2 3 L Sodium 147.8 H Potassium 3.7 Chloride 112 H Carbon Dioxide 23 Anion Gap 13 BUN 45 H Creatinine 1.02 Est GFR ( Amer) > 60 Est GFR (Non-Af Amer) > 60 Glucose 199 H Calcium 9.3 Magnesium Chest X-Ray 09/12/18 00:42 IMPRESSION: Pneumonia. Possible emphysema. Cardiomegaly. copyright 2010 [email or web address]- All Rights Reserved Chest CT 09/13/18 11:18 IMPRESSION: Status post CABG. Changes of centrilobular emphysema. Changes of interstitial edema with bilateral pleural effusions. Bibasilar atelectasis. Chest X-Ray 09/14/18 08:49 IMPRESSION: Airspace disease in the mid and lower lungs edema versus pneumonia. Trace bilateral pleural effusions. Chest X-Ray 09/15/18 00:00 IMPRESSION: Cardiomegaly with no roque pulmonary edema. Chest X-Ray 09/15/18 07:00 IMPRESSION: Significant improvement in the pulmonary edema/ fluid overload pattern compared to 09/14/2018 and 09/12/2018 Chest X-Ray 09/16/18 00:00 IMPRESSION: 1. Endotracheal tube tip overlies distal thoracic trachea likely 1.8 cm above the [place]. 2. Enteric tube coiled over upper esophagus with tip directed cephalad. Recommend repositioning. 3. Mild right basilar interstitial opacities, possibly edema or atelectasis. Chest X-Ray 09/16/18 09:15 IMPRESSION: Endotracheal tube in good positioning. Nasogastric tube coiled in the upper esophagus, report called to the patient's nurse in ICU Mild cardiomegaly. No acute infiltrate. KUB X-Ray 09/16/18 09:16 IMPRESSION: NG tube placement as described. Nonspecific abdomen. Chest X-Ray 09/20/18 06:00 IMPRESSION: No significant change. Chest X-Ray 09/21/18 06:00 IMPRESSION: INTERVAL REMOVAL OF THE ENDOTRACHEAL TUBE AND NASOGASTRIC TUBE. OTHERWISE NO CHANGE. KUB X-Ray 09/21/18 12:27 IMPRESSION: NG tube placement as described. IMPRESSION/RECOMMENDATION: 1. Acute on chronic respiratory failure. The patient is extubated. 2. Acute exacerbation of COPD. Continue respiratory treatments nasal oxygen and steroids. 3. Bibasilar pneumonia: Continue antibiotics. 4. Atrial fibrillation. Patient with a history of paroxysmal atrial fibrillation patient back in atrial fibrillation. Cardizem drip has been discontinued, the patient started on beta-wilbert. We will stop the patient's Tikosyn since the patient continues to be in atrial fibrillation. Also switch the Cardizem to metoprolol.. Note that the patient 's Tikosyn and digoxin already been stopped. Note that the patient's Eliquis has been held due to hematuria noted digoxin has been added/restarted. The patient metoprolol has been increased to 100 mg by the NG tube every 12 hours. 5. Coronary artery disease: No evidence of [place]. 6. CARDIOMYOPATHY: No evidence of acute exacerbation of CHF. 7.hypertension: Blood pressure well controlled. 8. Acute renal failure: Avoid nephrotoxic drugs. Renal function much improved. 9. AICD in situ. No firing of AICD 10. DIABETES MELLITUS: Continue antidiabetic medication. 12. 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 MEDICATIONS reviewed. Medications adjusted. Medical decision making is of high complexity in view of the need for changing of medications. Management plan discussed with attending physician on the case. 40 minutes spent on this patient with more than 50% of time spent in direct patient care. Will follow
[2018-09-21] MEDS: POTASSIUM CHLORIDE 20 MEQ PACKET NG SCH (21:27)
[2018-09-21] MEDS: METOPROLOL TARTRATE 100 MG TABLET NG SCH (21:27)
[2018-09-22] MEDS: METOPROLOL TARTRATE PF/INJ 5 MG/5 ML SDV IV PRN (01:24)
[2018-09-22] MEDS: LEVALBUTEROL HCL NEB 0.63 MG/3 ML AMPUL NEB SCH ×4 (02:50→21:26)
[2018-09-22] MEDS: HYDRALAZINE HCL INJ/PF 20 MG/1 ML SDV IV PRN (03:05)
[2018-09-22 04:27] LABS: HEMATOCRIT 53.6 % (37.9-51.0); HEMOGLOBIN 17.9 g/dL (13.5-17.0); MEAN CORPUSCULAR HGB CONC 33.4 g/dL (32.0-36.0); MEAN CORPUSCULAR VOLUME 93 fl (80-97); PLATELET COUNT 173 10^3/uL (150-450); RED BLOOD COUNT 5.78 10^6/uL (4.35-5.55); RED CELL DISTRIBUTION WIDTH 14.5 % (11.5-14.0); WHITE BLOOD COUNT 23.5 10^3/uL (4.0-10.5)
[2018-09-22 04:43] LABS: ALANINE AMINOTRANSFERASE 79 U/L (21-72); ALBUMIN 3.4 g/dL (3.5-5.0); ALKALINE PHOSPHATASE 67 U/L (38-126); ANION GAP 13 (5-19); ASPARTATE AMINO TRANSFERASE 53 U/L (17-59); BILIRUBIN,TOTAL 1.7 mg/dL (0.2-1.3); BLOOD UREA NITROGEN 47 mg/dL (7-20); CALCIUM 8.9 mg/dL (8.4-10.2); CARBON DIOXIDE 24 mmol/L (22-30); CHLORIDE 113 mmol/L (98-107); GLUCOSE 198 mg/dL (75-110); PHOSPHORUS 3.7 mg/dL (2.5-4.5); POTASSIUM 3.3 mmol/L (3.6-5.0); TOTAL PROTEIN 5.5 g/dL (6.3-8.2)
[2018-09-22 05:14] LABS: ARTERIAL BLOOD BASE EXCESS 1.9 mmol/L; ARTERIAL BLOOD H2CO3 0.93 mmol/L (1.05-1.35); ARTERIAL BLOOD HCO3 23.8 mmol/L (20-24); ARTERIAL BLOOD O2 SATURATION 96.7 % (94-98); ARTERIAL BLOOD PCO2 30.9 mmHg (35-45); ARTERIAL BLOOD PO2 79.1 mmHg (80-100); ARTERIAL BLOOD TOTAL CO2 24.7 mmol/L (23-27)
[2018-09-22 05:15] LABS: ARTERIAL BLOOD FIO2 3L
[2018-09-22] MEDS: PIPERACILLIN SODIUM/TAZOBACTAM 3.375 GM in NORMAL SALINE 100 ML IV SCH ×3 (05:16→17:12)
[2018-09-22] MEDS: METHYLPREDNISOLONE INJ 125 MG/2 ML SDV IV SCH ×2 (05:17→14:22)
[2018-09-22 06:17] LABS: ABSOLUTE LYMPHOCYTES# (MANUAL) 0.2 10^3/uL (0.5-4.7); ABSOLUTE MONOCYTES # (MANUAL) 0.9 10^3/uL (0.1-1.4); ABSOLUTE NEUTROPHILS# (MANUAL) 22.3 10^3/uL (1.7-8.2); BASOPHILS % (MANUAL) 0 % (0-2); EOSINOPHILS % (MANUAL) 0 % (0-6); LYMPHOCYTES % (MANUAL) 1 % (13-45); MONOCYTES % (MANUAL) 4 % (3-13); SEGMENTED NEUTROPHILS % (MAN) 95 % (42-78); TOTAL CELLS COUNTED 100
[2018-09-22 06:18] LABS: PLATELET COMMENT ADEQUATE; RBC MORPHOLOGY COMMENT NORMO-CYTIC/CHROMIC
--- NOTE | 2018-09-22 09:19 | RADIOLOGY REPORT (SQ) ---
EXAM DESCRIPTION: CHEST SINGLE VIEW COMPLETED DATE/TIME: 09/22/2018 8:58 am REASON FOR STUDY: reassess infiltrates/congestion COMPARISON: 09/21/2018. NUMBER OF VIEWS: One view. TECHNIQUE: Single frontal radiographic image of the chest acquired. LIMITATIONS: None. FINDINGS: LUNGS AND PLEURA: COPD. No pneumothorax. No infiltrate. MEDIASTINUM AND HEART: Stable heart size and mediastinal structures. SUPPORT DEVICES: Unchanged position of defibrillator. Interval placement of nasogastric tube with ti p overlying the stomach. BONY STRUCTURES: No acute findings. HARDWARE: None. OTHER: No other significant finding. IMPRESSION: Stable chest. Satisfactory position of nasogastric tube. Reading location - IP/workstation name: [email or web address]
[2018-09-22] MEDS ORDERED: DIGOXIN INJ 0.5 MG/2 ML AMPULE IV ONE (09:30)
[2018-09-22] MEDS ORDERED: POTASSIUM CHLORIDE 20 MEQ PACKET PO ONE (09:30)
[2018-09-22] MEDS: FUROSEMIDE INJ/PF 20 MG/2 ML SDV IV SCH ×2 (10:02→22:52)
[2018-09-22] MEDS: METOPROLOL TARTRATE 100 MG TABLET NG SCH ×2 (10:02→22:54)
[2018-09-22] MEDS: LISINOPRIL 5 MG TABLET NG SCH ×2 (10:03→22:51)
[2018-09-22] MEDS: PANTOPRAZOLE SODIUM 40 MG VIAL IV SCH (10:03)
[2018-09-22] MEDS: POTASSIUM CHLORIDE 20 MEQ PACKET NG SCH ×2 (10:03→22:50)
[2018-09-22] MEDS: DIGOXIN 0.25 MG TABLET NG SCH (10:13)
[2018-09-22] MEDS: VANCOMYCIN HCL 1,500 MG in DEXTROSE 5%-WATER 250 ML IV SCH (10:13)
--- NOTE | 2018-09-22 10:33 | PDOC PROGRESS REPORT ---
Subjective Progress Note for:: 09/21/18 Subjective:: The patient exhibits some facial flushing today. He is still somnolent. Reason For Visit: COPD EXACERBATION CHF BRONCHTIS Physical Exam Vital Signs: Temp Pulse Resp BP Pulse Ox 99.0 F 131 H 27 H 164/101 H 93 09/21/18 08:00 09/21/18 10:00 09/21/18 10:00 09/21/18 10:00 09/21/18 10:00 Intake & Output 09/20/18 09/21/18 09/22/18 06:59 06:59 06:59 Intake Total 1664 1774 1000 Output Total 2865 2945 310 Balance -1201 -1171 690 Weight 73.1 kg 70.5 kg General appearance: PRESENT: mild distress, thin, well-developed Head exam: PRESENT: atraumatic, normocephalic Ear exam: PRESENT: normal external ear exam Mouth exam: PRESENT: other - Nasogastric tube back in place Respiratory exam: PRESENT: rhonchi - Rhonchi at the right base, tachypnea. ABSENT: accessory muscle use, rales, wheezes Cardiovascular exam: PRESENT: irregular rhythm GI/Abdominal exam: PRESENT: normal bowel sounds, soft. ABSENT: distended, tenderness Rectal exam: PRESENT: deferred Gentrourinary exam: PRESENT: indwelling catheter Extremities exam: ABSENT: pedal edema Neurological exam: PRESENT: alert, awake, oriented to person - Intermittently oriented. ABSENT: oriented to place Psychiatric exam: PRESENT: agitated - Slightly agitated Skin exam: PRESENT: other - Facial flushing Results Laboratory Results: 09/21/18 04:01 09/21/18 04:01 09/21/18 09/21/18 09/21/18 04:01 04:01 04:24 WBC 15.0 H RBC 5.30 Hgb 16.5 Hct 49.2 MCV 93 MCH 31.1 MCHC 33.5 RDW 14.1 H Plt Count 180 Seg Neutrophils % Not Reportable Lymphocytes % Not Reportable Monocytes % Not Reportable Eosinophils % Not Reportable Basophils % Not Reportable Absolute Neutrophils Not Reportable Absolute Lymphocytes Not Reportable Absolute Monocytes Not Reportable Absolute Eosinophils Not Reportable Absolute Basophils Not Reportable Carbonic Acid 1.10 HCO3/H2CO3 Ratio 23:1 ABG pH 7.47 H ABG pCO2 36.7 ABG pO2 68.9 L ABG HCO3 26.0 H ABG O2 Saturation 94.8 ABG Base Excess 2.6 FiO2 3 L Sodium 147.1 H Potassium 3.1 L Chloride 109 H Carbon Dioxide 28 Anion Gap 10 BUN 46 H Creatinine 1.05 Est GFR ( Amer) > 60 Est GFR (Non-Af Amer) > 60 Glucose 161 H Calcium 8.8 Magnesium 2.7 H 09/17/18 09:30 Tracheal Aspirate Gram Stain - Final 09/17/18 09:30 Tracheal Aspirate Sputum Culture - Final C.albicans/C.dubliniensis Yeast, Not Amina Albicans Staphylococcus Aureus Normal Mojgan Absent 09/15/18 19:10 Blood Blood Culture - Final NO GROWTH IN 5 DAYS 09/15/18 18:50 Blood Blood Culture - Final NO GROWTH IN 5 DAYS 09/12/18 09/12/18 09/12/18 00:55 00:55 05:55 Creatine Kinase 80 CK-MB (CK-2) 1.90 1.88 Troponin I 0.037 0.030 NT-Pro-B Natriuret Pep 4660 H 5960 H 09/12/18 09/12/18 09/12/18 11:10 11:10 16:52 Creatine Kinase 61 80 CK-MB (CK-2) 2.08 Troponin I 0.024 NT-Pro-B Natriuret Pep 09/12/18 09/18/18 09/20/18 16:52 16:01 05:09 Creatine Kinase 57 CK-MB (CK-2) 2.92 Troponin I 0.029 NT-Pro-B Natriuret Pep 3110 H Impressions: Chest CT 09/13/18 11:18 IMPRESSION: Status post CABG. Changes of centrilobular emphysema. Changes of interstitial edema with bilateral pleural effusions. Bibasilar atelectasis. KUB X-Ray 09/16/18 09:16 IMPRESSION: NG tube placement as described. Nonspecific abdomen. Chest X-Ray 09/21/18 06:00 IMPRESSION: INTERVAL REMOVAL OF THE ENDOTRACHEAL TUBE AND NASOGASTRIC TUBE. OTHERWISE NO CHANGE. Assessment and Plan - Diagnosis (1) Acute on chronic respiratory failure with hypoxemia Is this a current diagnosis for this admission?: Yes Plan: The patient was very tachypneic this morning. His respiratory rate was between 30 and 40 breaths/min. Despite BiPAP he had increased work of breathing. His chest x-ray reveals bilateral lower lobe infiltrates. Due to his declining condition elective intubation by anesthesiology was carried out. The patient will be on SIMV with a rate of 12, PEEP of 5, tidal volume of 500 and we will adjust the FiO2 to keep his oxygen saturation in the 90 to 94% range. 09/17/2018-the patient is currently on a pressure support weaning trial. He is at 12/5 with an FiO2 40% currently saturating at 95%. Continue weaning as tolerated. The goal is extubation. 09/18/2018-the patient continues to wean. He was in fact quite comfortable on pressure support. If he is stable we will consider extubation later today or possibly tomorrow. 09/19/2018-the patient is resting comfortably on pressure support. We may likely extubate today. We will continue oxygen supplementation as required. September 20, 2018-successfully extubated earlier. Continue nebulizer treatments and oxygen supplementation. He does have obstructive sleep apnea and uses CPAP at night at home therefore we will continue using BiPAP machine at night. 09/21/2018-successfully extubated yesterday. Breathing has been stable. Continue oxygen supplementation. (2) CAP (community acquired pneumonia) Qualifiers: Lung location: lower lobe of lung Is this a current diagnosis for this admission?: Yes Plan: X-ray exhibits bilateral lower lobe infiltrates. The patient's white blood cell count has been increasing without intravenous steroids. For this reason I am going to add Zosyn to his vancomycin for broader coverage of the pneumonia. We will continue to monitor his white blood cell count and adjust his medications for his acute kidney injury. 09/17/2018-continuing dual therapy with vancomycin and Zosyn. White blood cell count is improving. 09/18/2018-recent tracheal aspirate is positive for Amina. This is likely colonization. We will continue his current antibiotics as his white blood cell count does seem to be improving. 09/19/2018-currently on vancomycin and Zosyn. Tracheal aspirate did reveal Amina species. If this is consistently present we will add an antifungal. The culture report did reveal 3+ growth. White blood cell count does continue to slowly improve. 09/20/2018-the patient still has 4 to 5 days of IV antibiotics. He continues to do well. His white blood cell count continues to decrease. He has a very weak cough and so he does require suction on occasion. 09/21/2018-still with vancomycin and Zosyn. The patient did fail his bedside swallow exam. I have asked that a nasogastric tube be placed again for nutrition and medication administration. Speech therapy consult would be appropriate. (3) COPD exacerbation Is this a current diagnosis for this admission?: Yes Plan: Intravenous steroids as well as more aggressive nebulizer therapy was initiated. Chest x-ray does reveal air trapping and fairly flat diaphragms. Pulmonology is seeing the patient as well. Antibiotics have been broadened as noted above. 09/17/2018-the patient is on steroids as well as nebulizer treatments and jose roids. He is also on antibiotic therapy. Continued weaning. 09/18/2018-no change in the current treatment regimen. Continue weaning as tolerated 09/19/2018-continued use of nebulizers and steroids. September 20, 2018-now the patient is extubated we will continue nebulizer treatments. Consider starting to wean steroids. 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 09/21/2018-currently stable post extubation. Consider weaning steroids. The goal would be to switch to combination inhalers however at this level of weakness ongoing nebulizer treatments would be more appropriate. 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 With his atrial fibrillation and tachycardia his troponins will likely be slightly elevated. There is no evidence of acute cardiac issue. We will control his heart rate from his atrial fibrillation. I will review his home medication regimen as he is likely on antiplatelet therapy as well as statin therapy. 09/17/2018-currently appears asymptomatic. We will try and obtain good rate and blood pressure control. He did have bright red blood in the nasogastric tube yesterday. This is not continued. Consider resuming his anticoagulation. 09/18/2018-the patient is exhibiting some PVCs. He does have elevated magnesium levels. We will obtain a twelve-lead EKG for further assessment. 09/19/2018-still exhibiting PVCs. With underlying A. fib. No reports of chest pain. September 20, 2018-still with PVCs. Magnesium level was correcting. Temporarily holding aspirin due to occult positive stool. 09/21/2018-magnesium level is still slightly elevated but other electrolytes are stable. He still having PVCs. No evidence of acute coronary syndrome however. Continue current regimen. (5) Paroxysmal atrial fibrillation Is this a current diagnosis for this admission?: Yes Plan: The patient exhibited rapid ventricular response. He is on a diltiazem drip. At home he is on metoprolol, digoxin and Tikosyn. I will add digoxin in addition to the diltiazem infusion. Once his nasogastric tube is in place we will also add metoprolol. The patient was on Pradaxa for chronic anticoagulation. We will need to monitor for bleeding. At the insertion of the nasogastric tube there was bright red blood. 09/17/2018-the patient is still in fibrillation. His rate fluctuates from 80- 110. With weaning his pulse rate did increase. The majority times his pulse rate and blood pressure are reasonably controlled. Continue same regimen at this time. 09/18/2018--he continues in atrial fibrillation but his rate seems more controlled. He does have as needed metoprolol by intravenous. Anticoagulation is currently on hold. 09/19/2018-the patient exhibits good rate control but is having PVCs. The QT intervals slightly prolonged. I will review medications and consider discontinuing contributing meds. September 20, 2018-adequate rate control at this time. Holding anticoagulation due to hematuria and Hemoccult positive stool. 09/21/2018-the patient is quite tachycardic this morning. He has received several as needed doses of IV medication. Digoxin has been added. I have also increased his scheduled metoprolol. Once the nasogastric tube is replaced his medication administration will be more consistent. Now that his roque hematuria is resolved consider resuming anticoagulation. (6) Malnutrition Qualifiers: Malnutrition type: protein-calorie malnutrition Protein-calorie malnutrition severity: moderate Qualified Code(s): E44.0 - Moderate protein- calorie malnutrition Is this a current diagnosis for this admission?: Yes Plan: Secondary to poor mental status, aspiration risk and current NPO status Will approach topic of NG tomorrow with family if unable to determine cause of encephalopathy today 09/16/2018-nasogastric tube was inserted when the patient was intubated. His dietary intake has been very poor to nonexistent over the last 2 to 3 days. We will initiate tube feeds today or tomorrow. 09/17/2018-appears to be tolerating his tube feeds. 09/18/2018-appreciate Dr. Nielsen's input. Vital 1.5 does have 95 mg of magnesium. I will change the tube feeds to Nepro. We will use Nepro 1.8 and start with a low volume. Should try and reach goal as he is critically ill and does have much higher nutritional requirements. 09/19/2018-we will check laboratory studies. If he is tolerating the current tube feeds (switched to Nepro) I will increase the rate to meet his caloric needs. September 20, 2018-once the electrolytes correct we will consider changing his tube feeds however with him extubated it would be better if he is able to tolerate an oral diet. The tube feeds certainly could be contributing to his diarrhea. 09/21/2018-because of a failed swallow study the nasogastric tube is been replaced and tube feeds have been reinitiated. (7) Acute kidney injury Is this a current diagnosis for this admission?: Yes Plan: The patient's GFR has been increasing. His BUN and creatinine are increased in I will change his IV fluids to normal saline with an increased rate. We will continue to monitor his renal function as well as his intake and output. 09/17/2018-the BUN and creatinine are increased. I believe this is due to the volume issue as noted below. I will repeat a urinalysis to check specific gravity. If it continues to increase I will check urine studies and ask nephrology for consultation. 09/18/2018-serum creatinine is now normal and his GFR is greater than 60. His BUN is still elevated. Continue current fluid management and monitor closely. Appreciate Dr. Nielsen's input. 09/19/2018-still with elevated BUN September 20, 2018-the serum creatinine is back to normal and the GFR is greater than 60. BUN is still elevated at 40. Still with a slightly negative fluid balance. Continue monitoring I's and O's. Chest x-ray suggested possible failure. Continue current furosemide dose. 09/21/2018-GFR still greater than 60. BUN is still elevated. With the serum sodium being slightly high and the serum magnesium also remaining elevated, the patient may need increased free water. Likely combination of intravenous and free water through the nasogastric tube. (8) Hypernatremia Is this a current diagnosis for this admission?: Yes Plan: 09/17/2018-the serum sodium is still elevated. I believe it is from volume co ntraction. He needs more free water despite a positive fluid balance. I am going to change to half-normal saline. The calculated rate is over 200 mL an hour. I will start at 150 mL an hour and adjust based on this afternoon's blood work. 09/18/2018-with the current regimen of half-normal saline the patient's serum sodium is now in the upper normal range at 144. We will continue half-normal saline with furosemide to try and diurese magnesium. 09/19/2018-serum sodium is now normal. Continue to monitor. September 20, 2018-resolved. Continue to monitor as patient converts to an oral diet. 09/21/2018-the serum sodium is up slightly. We may likely return to half-normal saline as well as increasing free water through the nasogastric tube. (9) Hypermagnesemia Is this a current diagnosis for this admission?: Yes Plan: The serum magnesium is increased. I believe this is due to volume contraction. He is not on any magnesium supplements. I will monitor his electrolytes new regimen of half-normal saline. 09/18/2018-appreciate Dr. Nielsen's input. Because Nepro has no magnesium I have switched the tube feeds. The magnesium did improve to 2.7 today and I believe that we will be able to decrease the half-normal saline rate as the magnesium should regress back to the normal range with the change in tube feeds. 09/19/2018-tube feeds were changed to Nepro which has no magnesium. Still with half-normal saline and so we will continue to monitor magnesium level and avoid magnesium-containing agents. The magnesium level is only slightly elevated and therefore should not be contributing to PVCs. September 20, 2018-serum magnesium continues to improve slowly. Between the diarrhea and Nepro tube feeds are expect him to normalize within a day or 2. 09/21/2018-despite changing to Nepro tube feeds the patient's serum magnesium is still elevated. I will look for other sources of magnesium such as laxatives and try and eliminate all magnesium intake. 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 I believe it is due to volume contraction. We will continue to monitor as we change to half-normal saline. There is no bright red blood in the nasogastric tube so I will resume the patient's 81 mg aspirin dose daily. 09/18/2018-hemoglobin in fact is beginning to decrease. The patient did develop hematuria and I would expect the hemoglobin to drop back into the normal range. We will monitor so that it does not decrease precipitously. 09/19/18-hemoglobin is now normal. The transient hematuria likely helped. Continue to monitor. September 20, 2018-we will continue to monitor hemoglobin. Still balancing fluids and holding anticoagulants and antiplatelet therapy. The patient may have been volume contracted and is now corrected. 09/21/2018-resolved. Will need to continue to monitor. (11) Hematuria Qualifiers: Hematuria type: gross Qualified Code(s): R31.0 - Gross hematuria Is this a current diagnosis for this admission?: Yes Plan: 09/18/2018-earlier this morning the patient's urine was normal in color. He abruptly developed marked hematuria. The blood is not bright red but rather appears old. A urinalysis and culture have been sent. His Eliquis has been suspended at this time. 09/19/2018-the urine has no gross hematuria at this time. Urine culture is no growth so far. We will hold anticoagulation for another day or 2 and then consider resuming. September 20, 2018-urine is still slightly dark and is probably exhibiting microscopic hematuria. Still with evidence of Hemoccult positive stool. Continue to hold anticoagulants for another day or 2. I did increase the Protonix. 09/21/2018-resolved. - Time Time Spent with patient: 25-34 minutes Medications reviewed and adjusted accordingly: Yes
[2018-09-22] MEDS: 1/2 NORMAL SALINE 1,000 ML IV PRN (14:30)
--- NOTE | 2018-09-22 14:40 | PDOC PROGRESS REPORT ---
Subjective Progress Note for:: 09/22/18 Subjective:: Assumed care today. ICU course and chart reviewed. This is an 82 year old male with a past medical history of hypertension, COPD, paroxysmal A. fib on dabigatran, coronary artery disease with prior CABG and stent placement, obstructive sleep apnea, CHF with known EF of 35% with prior pacemaker AICD and persistent tobacco dependence who presented with worsening s hortness of breath and was admitted for COPD exacerbation. He had a chest CT which showed pulmonary congestion and pneumonia. IV antibiotics, IV Lasix, steroids and breathing treatments. He did have episodes of sundowning on the floor. He was initially BiPAP dependent but subsequently required mechanical intubation due to increasing tachypnea and confusion. He was intubated on 09/16. He did develop acute kidney injury deemed to be likely related to diuresis. He he has paroxysmal atrial fibrillation and was on anticoagulation but this was after he developed hematuria and some bloody output from the NG. He was successfully extubated on 09/20. No acute event overnight. Patient is currently saturating well and is currently comfortable nasal cannula. He is awake and alert and is oriented to person and place. Heart rate running in the high 90s to low 100s. Speech therapy has just evaluated patient and has recommended ice chips for today. He will be reevaluated by speech tomorrow. He hss clear urine on the Ramirez. No recurrence of hematuria so far. No recurrence of bloody output from the NG. Will resume aspirin today. Reason For Visit: COPD EXACERBATION CHF BRONCHTIS Physical Exam Vital Signs: Temp Pulse Resp BP Pulse Ox 100.2 F 101 H 28 H 162/87 H 95 09/22/18 12:00 09/22/18 12:00 09/22/18 12:00 09/22/18 12:00 09/22/18 12:00 Intake & Output 09/21/18 09/22/18 09/23/18 06:59 06:59 06:59 Intake Total 1774 2875 Output Total 2945 3100 500 Balance -1171 -225 -500 Weight 155 lb 6.814 oz 151 lb 7.321 oz General appearance: PRESENT: no acute distress, well-developed, well-nourished Head exam: PRESENT: atraumatic, normocephalic Eye exam: PRESENT: conjunctiva pink, EOMI, PERRLA. ABSENT: scleral icterus Ear exam: PRESENT: normal external ear exam Mouth exam: PRESENT: moist, tongue midline Neck exam: ABSENT: carotid bruit, JVD, lymphadenopathy, thyromegaly Respiratory exam: PRESENT: clear to auscultation bruna, rhonchi - [id number]. ABSENT: rales, wheezes Cardiovascular exam: PRESENT: irregular rhythm, tachycardia. ABSENT: diastolic murmur, rubs, systolic murmur Pulses: PRESENT: normal dorsalis pedis pul GI/Abdominal exam: PRESENT: normal bowel sounds, soft. ABSENT: distended, guarding, mass, organolmegaly, rebound, tenderness Rectal exam: PRESENT: deferred - [id number] Neurological exam: PRESENT: alert, awake, oriented to person, oriented to place, CN II-XII grossly intact. ABSENT: oriented to time, motor sensory deficit Results Laboratory Results: 09/22/18 04:00 09/22/18 04:00 09/21/18 09/22/18 09/22/18 12:35 04:00 04:00 WBC 23.5 H RBC 5.78 H Hgb 17.9 H Hct 53.6 H MCV 93 MCH 31.0 MCHC 33.4 RDW 14.5 H Plt Count 173 Seg Neutrophils % Not Reportable Lymphocytes % Not Reportable Monocytes % Not Reportable Eosinophils % Not Reportable Basophils % Not Reportable Absolute Neutrophils Not Reportable Absolute Lymphocytes Not Reportable Absolute Monocytes Not Reportable Absolute Eosinophils Not Reportable Absolute Basophils Not Reportable Carbonic Acid HCO3/H2CO3 Ratio ABG pH ABG pCO2 ABG pO2 ABG HCO3 ABG O2 Saturation ABG Base Excess FiO2 Sodium 147.8 H 150.0 H Potassium 3.7 3.3 L Chloride 112 H 113 H Carbon Dioxide 23 24 Anion Gap 13 13 BUN 45 H 47 H Creatinine 1.02 1.03 Est GFR ( Amer) > 60 > 60 Est GFR (Non-Af Amer) > 60 > 60 Glucose 199 H 198 H Calcium 9.3 8.9 Phosphorus 3.7 Magnesium 2.7 H Total Bilirubin 1.7 H AST 53 ALT 79 H Alkaline Phosphatase 67 Total Protein 5.5 L Albumin 3.4 L 09/22/18 05:05 WBC RBC Hgb Hct MCV MCH MCHC RDW Plt Count Seg Neutrophils % Lymphocytes % Monocytes % Eosinophils % Basophils % Absolute Neutrophils Absolute Lymphocytes Absolute Monocytes Absolute Eosinophils Absolute Basophils Carbonic Acid 0.93 L HCO3/H2CO3 Ratio 25:1 ABG pH 7.50 H ABG pCO2 30.9 L ABG pO2 79.1 L ABG HCO3 23.8 ABG O2 Saturation 96.7 ABG Base Excess 1.9 FiO2 3L Sodium Potassium Chloride Carbon Dioxide Anion Gap BUN Creatinine Est GFR ( Amer) Est GFR (Non-Af Amer) Glucose Calcium Phosphorus Magnesium Total Bilirubin AST ALT Alkaline Phosphatase Total Protein Albumin 09/17/18 09:30 Tracheal Aspirate Gram Stain - Final 09/17/18 09:30 Tracheal Aspirate Sputum Culture - Final C.albicans/C.dubliniensis Yeast, Not Amina Albicans Staphylococcus Aureus Normal Mojgan Absent 09/12/18 09/12/18 09/12/18 00:55 00:55 05:55 Creatine Kinase 80 CK-MB (CK-2) 1.90 1.88 Troponin I 0.037 0.030 NT-Pro-B Natriuret Pep 4660 H 5960 H 09/12/18 09/12/18 09/12/18 11:10 11:10 16:52 Creatine Kinase 61 80 CK-MB (CK-2) 2.08 Troponin I 0.024 NT-Pro-B Natriuret Pep 09/12/18 09/18/18 09/20/18 16:52 16:01 05:09 Creatine Kinase 57 CK-MB (CK-2) 2.92 Troponin I 0.029 NT-Pro-B Natriuret Pep 3110 H Impressions: Chest CT 09/13/18 11:18 IMPRESSION: Status post CABG. Changes of centrilobular emphysema. Changes of interstitial edema with bilateral pleural effusions. Bibasilar atelectasis. KUB X-Ray 09/21/18 12:27 IMPRESSION: NG tube placement as described. Chest X-Ray 09/22/18 08:29 IMPRESSION: Stable chest. Satisfactory position of nasogastric tube. Assessment and Plan - Diagnosis (1) Acute on chronic respiratory failure with hypoxemia Is this a current diagnosis for this admission?: Yes Plan: Resolved. Multifactorial from COPD exacerbation, pneumonia and CHF exacerbation. Successfully extubated on 09/20/18. (2) CAP (community acquired pneumonia) Qualifiers: Lung location: lower lobe of lung Is this a current diagnosis for this admission?: Yes Plan: Currently on day 5 of vancomycin and Zosyn. (3) COPD exacerbation Is this a current diagnosis for this admission?: Yes Plan: Currently on Solu-Medrol 60 mg every 8hrs IV. Decrease Solu-Medrol to 40 mg daily. Continue breathing treatments. (4) Coronary artery disease Qualifiers: Coronary Disease-Associated Artery/Lesion type: [place] artery Is this a current diagnosis for this admission?: Yes Plan: Stable. Appears hematuria has resolved. No recurrence of blood in the office from the NG. Will resume aspirin today. (5) Paroxysmal atrial fibrillation Is this a current diagnosis for this admission?: Yes Plan: His anticoagulation was held due to hematuria and bloody output from the NG in the ICU. Heart rate running in the 90s to low 100s. Continue p.o. Lanoxin and Lopressor. Appreciate cardiology input. (6) Hypernatremia Is this a current diagnosis for this admission?: Yes Plan: Likely related to volume contraction. His fluids has been switched to half- normal saline. He continues to receive low-dose diuretics for hypermagnesemia while getting IV fluids per nephrology recommendations. Repeat BMP. (7) Hypermagnesemia Is this a current diagnosis for this admission?: Yes Plan: Deemed to be related to his GIORGI. - Time Time Spent with patient: 25-34 minutes
[2018-09-22 19:26] LABS: ANION GAP 9 (5-19); BLOOD UREA NITROGEN 51 mg/dL (7-20); CALCIUM 9.1 mg/dL (8.4-10.2); CARBON DIOXIDE 27 mmol/L (22-30); CHLORIDE 115 mmol/L (98-107); GLUCOSE 191 mg/dL (75-110); POTASSIUM 3.9 mmol/L (3.6-5.0); SODIUM 150.8 mmol/L (137-145)
[2018-09-22] MEDS: ACETAMINOPHEN SOLN 325 MG/10.15 ML UDCUP NG PRN (23:15)
[2018-09-23] MEDS: PIPERACILLIN SODIUM/TAZOBACTAM 3.375 GM in NORMAL SALINE 100 ML IV SCH ×3 (01:31→21:26)
[2018-09-23] MEDS: LEVALBUTEROL HCL NEB 0.63 MG/3 ML AMPUL NEB SCH ×4 (01:46→21:01)
[2018-09-23] MEDS: 1/2 NORMAL SALINE 1,000 ML IV PRN (05:15)
[2018-09-23 06:27] LABS: HEMATOCRIT 51.1 % (37.9-51.0); HEMOGLOBIN 16.9 g/dL (13.5-17.0); MEAN CORPUSCULAR HEMOGLOBIN 30.9 pg (27.0-33.4); MEAN CORPUSCULAR VOLUME 94 fl (80-97); PLATELET COUNT 132 10^3/uL (150-450); RED BLOOD COUNT 5.46 10^6/uL (4.35-5.55); RED CELL DISTRIBUTION WIDTH 15.1 % (11.5-14.0); WHITE BLOOD COUNT 25.7 10^3/uL (4.0-10.5)
[2018-09-23] MEDS ORDERED: METHYLPREDNISOLONE INJ 40 MG/1 ML SDV IV SCH (10:00)
[2018-09-23] MEDS: POTASSIUM CHLORIDE 20 MEQ PACKET NG SCH ×2 (10:39→20:40)
[2018-09-23] MEDS: DIGOXIN 0.25 MG TABLET NG SCH (10:39)
[2018-09-23] MEDS: VANCOMYCIN HCL 1,500 MG in DEXTROSE 5%-WATER 250 ML IV SCH (10:40)
[2018-09-23] MEDS: PANTOPRAZOLE SODIUM 40 MG VIAL IV SCH (10:40)
[2018-09-23] MEDS: METOPROLOL TARTRATE 100 MG TABLET NG SCH ×2 (10:40→20:40)
[2018-09-23] MEDS: LISINOPRIL 5 MG TABLET NG SCH ×2 (10:40→21:25)
[2018-09-23 10:49] LABS: VANCOMYCIN,TROUGH 9.5 ug/mL (5.0-20.0)
[2018-09-23] MEDS: FUROSEMIDE INJ/PF 20 MG/2 ML SDV IV SCH (10:50)
--- NOTE | 2018-09-23 14:23 | PDOC PROGRESS REPORT ---
Subjective Progress Note for:: 09/23/18 Subjective:: 09/22: Assumed care today. ICU course and chart reviewed. This is an 82 year old male with a past medical history of hypertension, COPD, paroxysmal A. fib on dabigatran, coronary artery disease with prior CABG and stent placement, obstructive sleep apnea, CHF with known EF of 35% with prior pacemaker AICD and persistent tobacco dependence who presented with worsening shortness of breath and was admitted for COPD exacerbation. He had a chest CT which showed pulmonary congestion and pneumonia. IV antibiotics, IV Lasix, steroids and breathing treatments. He did have episodes of sundowning on the floor. He was initially BiPAP dependent but subsequently required mechanical intubation due to increasing tachypnea and confusion. He was intubated on 09/16. He did develop acute kidney injury deemed to be likely related to diuresis. He he has paroxysmal atrial fibrillation and was on anticoagulation but this was after he developed hematuria and some bloody output from the NG. He was successfully extubated on 09/20. No acute event overnight. Patient is currently saturating well and is currently comfortable nasal cannula. He is awake and alert and is oriented to person and place. Heart rate running in the high 90s to low 100s. Speech therapy has just evaluated patient and has recommended ice chips for today. He will be reevaluated by speech tomorrow. He has clear urine on the Ramirez. No recurrence of hematuria so far. No recurrence of bloody output from the NG. Will resume aspirin today. 09/23: No acute event overnight. He continues to do well. Currently comfortable and saturating well on nasal cannula. He remains awake and alert and oriented to person and place. Denies chest pain or shortness of breath. He was reevaluated by speech therapy and his diet will be advanced accordingly to pured diet. Downgraded to IMCU. Reason For Visit: COPD EXACERBATION CHF BRONCHTIS Physical Exam Vital Signs: Temp Pulse Resp BP Pulse Ox 99.3 F 118 H 24 H 130/80 H 98 09/23/18 08:00 09/23/18 10:00 09/23/18 11:50 09/23/18 11:50 09/23/18 11:50 Intake & Output 09/22/18 09/23/18 09/24/18 06:59 06:59 06:59 Intake Total 2875 2845 Output Total 3100 1450 260 Balance -225 1395 -260 Weight 151 lb 7.321 oz 150 lb 2.157 oz General appearance: PRESENT: no acute distress, well-developed, well-nourished Head exam: PRESENT: atraumatic, normocephalic Eye exam: PRESENT: conjunctiva pink, EOMI, PERRLA. ABSENT: scleral icterus Ear exam: PRESENT: normal external ear exam Mouth exam: PRESENT: moist, tongue midline Neck exam: ABSENT: carotid bruit, JVD, lymphadenopathy, thyromegaly Respiratory exam: PRESENT: rhonchi. ABSENT: rales, wheezes Cardiovascular exam: PRESENT: RRR. ABSENT: diastolic murmur, rubs, systolic mur [place] Pulses: PRESENT: normal dorsalis pedis pul GI/Abdominal exam: PRESENT: normal bowel sounds, soft. ABSENT: distended, guarding, mass, organolmegaly, rebound, tenderness Rectal exam: PRESENT: deferred Neurological exam: PRESENT: alert, awake, oriented to person, oriented to place, CN II-XII grossly intact. ABSENT: motor sensory deficit Results Laboratory Results: 09/23/18 06:16 09/22/18 18:40 09/22/18 09/22/18 09/22/18 04:00 15:16 15:16 WBC RBC Hgb Hct MCV MCH MCHC RDW Plt Count Sodium Cancelled Potassium Cancelled 4.1 Chloride Cancelled Carbon Dioxide Cancelled Anion Gap Cancelled BUN Cancelled Creatinine Cancelled Est GFR ( Amer) Cancelled Est GFR (Non-Af Amer) Cancelled Glucose Cancelled Serum Osmolality 326 H Calcium Cancelled Stool Occult Blood 09/22/18 09/23/18 09/23/18 18:40 03:45 06:16 WBC 25.7 H RBC 5.46 Hgb 16.9 Hct 51.1 H MCV 94 MCH 30.9 MCHC 33.0 RDW 15.1 H Plt Count 132 L Sodium 150.8 H Potassium 3.9 Chloride 115 H Carbon Dioxide 27 Anion Gap 9 BUN 51 H Creatinine 1.23 Est GFR ( Amer) > 60 Est GFR (Non-Af Amer) 56 L Glucose 191 H Serum Osmolality Calcium 9.1 Stool Occult Blood POSITIVE 09/12/18 09/12/18 09/12/18 00:55 00:55 05:55 Creatine Kinase 80 CK-MB (CK-2) 1.90 1.88 Troponin I 0.037 0.030 NT-Pro-B Natriuret Pep 4660 H 5960 H 09/12/18 09/12/18 09/12/18 11:10 11:10 16:52 Creatine Kinase 61 80 CK-MB (CK-2) 2.08 Troponin I 0.024 NT-Pro-B Natriuret Pep 09/12/18 09/18/18 09/20/18 16:52 16:01 05:09 Creatine Kinase 57 CK-MB (CK-2) 2.92 Troponin I 0.029 NT-Pro-B Natriuret Pep 3110 H Impressions: Chest CT 09/13/18 11:18 IMPRESSION: Status post CABG. Changes of centrilobular emphysema. Changes of interstitial edema with bilateral pleural effusions. Bibasilar atelectasis. KUB X-Ray 09/21/18 12:27 IMPRESSION: NG tube placement as described. Chest X-Ray 09/22/18 08:29 IMPRESSION: Stable chest. Satisfactory position of nasogastric tube. Assessment and Plan - Diagnosis (1) Acute on chronic respiratory failure with hypoxemia Is this a current diagnosis for this admission?: Yes Plan: Resolved. Multifactorial from COPD exacerbation, pneumonia and CHF exacerbation. Successfully extubated on 09/20/18. (2) CAP (community acquired pneumonia) Qualifiers: Lung location: lower lobe of lung Is this a current diagnosis for this admission?: Yes Plan: Currently on day 6 of vancomycin and Zosyn. Switch to p.o. levofloxacin. (3) COPD exacerbation Is this a current diagnosis for this admission?: Yes Plan: 09/22: Currently on Solu-Medrol 60 mg every 8hrs IV. Decrease Solu-Medrol to 40 mg daily. Continue breathing treatments. 09/23: Switch Solu-Medrol to prednisone. (4) Coronary artery disease Qualifiers: Coronary Disease-Associated Artery/Lesion type: [place] artery Is this a current diagnosis for this admission?: Yes Plan: 09/22: Stable. Appears hematuria has resolved. No recurrence of blood in the office from the NG. Will resume aspirin today. (5) Paroxysmal atrial fibrillation Is this a current diagnosis for this admission?: Yes Plan: His anticoagulation was held due to hematuria and bloody output from the NG in the ICU. Heart rate running in the 90s to low 100s. Continue p.o. Lanoxin and Lopressor. Appreciate cardiology input. 09/23: Aspirin resumed. Consider resuming anticoagulation if there is no r ecurrence of hematuria or bleeding episode. (6) Hypernatremia Is this a current diagnosis for this admission?: Yes Plan: Likely related to volume contraction. His fluids has been switched to half- normal saline. He continues to receive low-dose diuretics for hypermagnesemia while getting IV fluids per nephrology recommendations. 09/23: Repeat BMP today. (7) Hypermagnesemia Is this a current diagnosis for this admission?: Yes Plan: Deemed to be related to his GIORGI. - Time Time Spent with patient: 25-34 minutes
[2018-09-23 15:22] LABS: ANION GAP 11 (5-19); BLOOD UREA NITROGEN 49 mg/dL (7-20); CALCIUM 9.1 mg/dL (8.4-10.2); CARBON DIOXIDE 27 mmol/L (22-30); CHLORIDE 115 mmol/L (98-107); GLUCOSE 242 mg/dL (75-110); POTASSIUM 3.9 mmol/L (3.6-5.0)
[2018-09-23] MEDS: METOPROLOL TARTRATE PF/INJ 5 MG/5 ML SDV IV PRN (18:48)
[2018-09-23] MEDS: PREDNISONE 20 MG TABLET PO SCH (18:49)
--- NOTE | 2018-09-23 19:48 | Progress Note ---
Provider Note Provider Note: CARDIOLOGY PROGRESS NOTE by Dr. Jennifer Bunn on 09/23/2018. SUBJECTIVE: The patient is more awake and less drowsy today. He continues to be in atrial fibrillation with some spurts of heart rate in the 110s. He denies any chest pain or discomfort. He does have orthopnea but no PND. There is no firing of AICD. There is no pedal edema. The patient states that shortness of breath is much improved. There is no TIA CVA symptoms. Patient has no further hematuria. Physical EXAMINATION: The patient appears to be chronically ill and malnourished. But at present in no acute distress. Selected Entries 09/23/18 09/23/18 09/23/18 12:48 13:00 13:35 Core 100.0 F Temperature Heart Rate ( 105 Monitors) Respiratory 24 H Rate Blood Pressure 150/127 H O2 Sat by Pulse 96 Oximetry Oxygen Flow 2 Rate HEAD: Is atraumatic normocephalic. EYES: Pupils are regular reactive to light. ENT is negative. NECK: Is supple. There is no JVD. Carotids equal there is no bruit. LUNGS: There is diminished air entry and prolonged expiration. There is a few scattered rhonchi. There is no wheezing. There is no dry crackles or wet rales of CHF. ABDOMEN: S1-S2 is heard S1 is of variable intensity. There is no S3 gallop. There is no S4 gallop. ABDOMEN: Soft. There is no hepatosplenomegaly. Bowel sounds are heard. EXTREMITIES: Femorals are diminished. Leg pulses are diminished. There is no pedal edema. The patient is awake but very lethargic. And very drowsy. He moves all 4 extremities. PSYCHIATRIC: With the patient mental status this psychiatric examination not done. He is not agitated or anxious. Labs- All tests 24 hr 09/23/18 09/23/18 09/23/18 01:56 03:45 06:16 WBC 25.7 H RBC 5.46 Hgb 16.9 Hct 51.1 H MCV 94 MCH 30.9 MCHC 33.0 RDW 15.1 H Plt Count 132 L Sodium Potassium Chloride Carbon Dioxide Anion Gap BUN Creatinine Est GFR ( Amer) Est GFR (Non-Af Amer) Glucose POC Glucose 144 H Calcium Magnesium Stool Occult Blood POSITIVE Time Trough Drawn Vancomycin Trough 06/09/0609/23/18 09/23/18 07:06 10:02 12:45 WBC RBC Hgb Hct MCV MCH MCHC RDW Plt Count Sodium Potassium Chloride Carbon Dioxide Anion Gap BUN Creatinine Est GFR ( Amer) Est GFR (Non-Af Amer) Glucose POC Glucose 139 H Calcium Magnesium Stool Occult Blood POSITIVE Time Trough Drawn 1002 Vancomycin Trough 9.5 09/23/18 09/23/18 13:43 14:38 WBC RBC Hgb Hct MCV MCH MCHC RDW Plt Count Sodium 153.0 H Potassium 3.9 Chloride 115 H Carbon Dioxide 27 Anion Gap 11 BUN 49 H Creatinine 1.11 Est GFR ( Amer) > 60 Est GFR (Non-Af Amer) > 60 Glucose 242 H POC Glucose 211 H Calcium 9.1 Magnesium 2.6 H Stool Occult Blood Time Trough Drawn Vancomycin Trough Chest X-Ray 09/12/18 00:42 IMPRESSION: Pneumonia. Possible emphysema. Cardiomegaly. copyright 2010 [employer]- All Rights Reserved Chest CT 09/13/18 11:18 IMPRESSION: Status post CABG. Changes of centrilobular emphysema. Changes of interstitial edema with bilateral pleural effusions. Bibasilar atelectasis. Chest X-Ray 09/14/18 08:49 IMPRESSION: Airspace disease in the mid and lower lungs edema versus pneumonia. Trace bilateral pleural effusions. Chest X-Ray 09/15/18 00:00 IMPRESSION: Cardiomegaly with no roque pulmonary edema. Chest X-Ray 09/15/18 07:00 IMPRESSION: Significant improvement in the pulmonary edema/ fluid overload pattern compared to 09/14/2018 and 09/12/2018 Chest X-Ray 09/16/18 00:00 IMPRESSION: 1. Endotracheal tube tip overlies distal thoracic trachea likely 1 .8 cm above the [place]. 2. Enteric tube coiled over upper esophagus with tip directed cephalad. Recommend repositioning. 3. Mild right basilar interstitial opacities, possibly edema or atelectasis. Chest X-Ray 09/16/18 09:15 IMPRESSION: Endotracheal tube in good positioning. Nasogastric tube coiled in the upper esophagus, report called to the patient's nurse in ICU Mild cardiomegaly. No acute infiltrate. KUB X-Ray 09/16/18 09:16 IMPRESSION: NG tube placement as described. Nonspecific abdomen. Chest X-Ray 09/20/18 06:00 IMPRESSION: No significant change. Chest X-Ray 09/21/18 06:00 IMPRESSION: INTERVAL REMOVAL OF THE ENDOTRACHEAL TUBE AND NASOGASTRIC TUBE. OTHERWISE NO CHANGE. KUB X-Ray 09/21/18 12:27 IMPRESSION: NG tube placement as described. Chest X-Ray 09/22/18 08:29 IMPRESSION: Stable chest. Satisfactory position of nasogastric tube. IMPRESSION/RECOMMENDATION: 1. Acute on chronic respiratory failure. The patient is extubated. 2. Acute exacerbation of COPD. Continue respiratory treatments nasal oxygen and steroids. 3. Bibasilar pneumonia: Continue antibiotics. 4. Atrial fibrillation. Patient with a history of paroxysmal atrial fibrillation patient back in atrial fibrillation. Cardizem drip has been discontinued, the patient started on beta-wilbert. We will stop the patient's Tikosyn since the patient continues to be in atrial fibrillation. Also switch the Cardizem to metoprolol.. Note that the patient 's Tikosyn and digoxin already been stopped. Note that the patient's Eliquis has been held due to hematuria noted digoxin has been added/restarted. The patient metoprolol has been increased to 100 mg by the NG tube every 12 hours. 5. Coronary artery disease: No evidence of NH. 6. CARDIOMYOPATHY: No evidence of acute exacerbation of CHF. 7.hypertension: Blood pressure well controlled. 8. Acute renal failure: Avoid nephrotoxic drugs. Renal function much improved. 9. AICD in situ. No firing of AICD 10. DIABETES MELLITUS: Continue antidiabetic medication. 12. 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 MEDICATIONS reviewed. Medications adjusted. Medical decision making is of high complexity in view of the need for changing of medications. Management plan discussed with attending physician on the case. 40 minutes spent on this patient with more than 50% of time spent in direct patient care. Will follow
[2018-09-24] MEDS: METOPROLOL TARTRATE PF/INJ 5 MG/5 ML SDV IV PRN ×2 (01:34→21:34)
[2018-09-24] MEDS: 1/2 NORMAL SALINE 1,000 ML IV PRN ×2 (01:34→11:46)
[2018-09-24] MEDS: LEVALBUTEROL HCL NEB 0.63 MG/3 ML AMPUL NEB SCH ×4 (02:05→20:09)
[2018-09-24] MEDS: PREDNISONE 20 MG TABLET PO SCH ×2 (09:28→18:00)
[2018-09-24] MEDS: DIGOXIN 0.25 MG TABLET NG SCH (09:28)
[2018-09-24] MEDS: LISINOPRIL 5 MG TABLET NG SCH (09:28)
[2018-09-24] MEDS: POTASSIUM CHLORIDE 20 MEQ PACKET NG SCH (09:29)
[2018-09-24] MEDS: FUROSEMIDE INJ/PF 20 MG/2 ML SDV IV SCH (09:29)
[2018-09-24] MEDS: METOPROLOL TARTRATE 100 MG TABLET NG SCH (09:29)
[2018-09-24] MEDS: PANTOPRAZOLE SODIUM 40 MG VIAL IV SCH (09:30)
[2018-09-24] MEDS: LEVOFLOXACIN 750 MG TABLET PO SCH (11:16)
--- NOTE | 2018-09-24 11:32 | PDOC PROGRESS REPORT ---
Subjective Progress Note for:: 09/24/18 Subjective:: 09/22: Assumed care today. ICU course and chart reviewed. This is an 82 year old male with a past medical history of hypertension, COPD, paroxysmal A. fib on dabigatran, coronary artery disease with prior CABG and stent placement, obstructive sleep apnea, CHF with known EF of 35% with prior pacemaker AICD and persistent tobacco dependence who presented with worsening shortness of breath and was admitted for COPD exacerbation. He had a chest CT which showed pulmonary congestion and pneumonia. IV antibiotics, IV Lasix, steroids and breathing treatments. He did have episodes of sundowning on the floor. He was initially BiPAP dependent but subsequently required mechanical intubation due to increasing tachypnea and confusion. He was intubated on 09/16. He did develop acute kidney injury deemed to be likely related to diuresis. He he has paroxysmal atrial fibrillation and was on anticoagulation but this was after he developed hematuria and some bloody output from the NG. He was successfully extubated on 09/20. No acute event overnight. Patient is currently saturating well and is currently comfortable nasal cannula. He is awake and alert and is oriented to person and place. Heart rate running in the high 90s to low 100s. Speech therapy has just evaluated patient and has recommended ice chips for today. He will be reevaluated by speech tomorrow. He has clear urine on the Ramirez. No recurrence of hematuria so far. No recurrence of bloody output from the NG. Will resume aspirin today. 09/23: He continues to do well. Currently comfortable and saturating well on nasal cannula. He remains awake and alert and oriented to person and place. Denies chest pain or shortness of breath. He was reevaluated by speech therapy and his diet will be advanced accordingly to pured diet. Downgraded to IMCU. 09/24: No acute event overnight. He continues to improve and do well. He is now much more conversant this morning and is oriented to person and place. Denies SOB or chest pain. HR runs in the 110s. He clinically appears to be on the dry side now. He is tolerating pureed diet well. Consulted discharge planning for SNF/rehab placement. Reason For Visit: COPD EXACERBATION CHF BRONCHTIS Physical Exam Vital Signs: Temp Pulse Resp BP Pulse Ox 99.3 F 119 H 20 141/99 H 100 09/24/18 08:00 09/24/18 08:19 09/24/18 09:00 09/24/18 08:48 09/24/18 08:00 Intake & Output 09/23/18 09/24/18 09/25/18 06:59 06:59 06:59 Intake Total 2845 1350 Output Total 1450 1835 Balance 1395 -485 Weight 150 lb 2.157 oz 148 lb 9.465 oz General appearance: PRESENT: no acute distress, well-developed, well-nourished Head exam: PRESENT: atraumatic, normocephalic Eye exam: PRESENT: conjunctiva pink, EOMI, PERRLA. ABSENT: scleral icterus Ear exam: PRESENT: normal external ear exam Mouth exam: PRESENT: moist, tongue midline Neck exam: ABSENT: carotid bruit, JVD, lymphadenopathy, thyromegaly Respiratory exam: PRESENT: rhonchi. ABSENT: rales, wheezes Cardiovascular exam: PRESENT: irregular rhythm, tachycardia. ABSENT: diastolic murmur, rubs, systolic murmur Pulses: PRESENT: normal dorsalis pedis pul GI/Abdominal exam: PRESENT: normal bowel sounds, soft. ABSENT: distended, guarding, mass, organolmegaly, rebound, tenderness Rectal exam: PRESENT: deferred Neurological exam: PRESENT: alert, awake, oriented to person, oriented to place, CN II-XII grossly intact. ABSENT: motor sensory deficit Results Laboratory Results: 09/23/18 06:16 09/23/18 14:38 09/23/18 09/23/18 12:45 14:38 Sodium 153.0 H Potassium 3.9 Chloride 115 H Carbon Dioxide 27 Anion Gap 11 BUN 49 H Creatinine 1.11 Est GFR ( Amer) > 60 Est GFR (Non-Af Amer) > 60 Glucose 242 H Calcium 9.1 Magnesium 2.6 H Stool Occult Blood POSITIVE 09/12/18 09/12/18 09/12/18 00:55 00:55 05:55 Creatine Kinase 80 CK-MB (CK-2) 1.90 1.88 Troponin I 0.037 0.030 NT-Pro-B Natriuret Pep 4660 H 5960 H 09/12/18 09/12/18 09/12/18 11:10 11:10 16:52 Creatine Kinase 61 80 CK-MB (CK-2) 2.08 Troponin I 0.024 NT-Pro-B Natriuret Pep 09/12/18 09/18/18 09/20/18 16:52 16:01 05:09 Creatine Kinase 57 CK-MB (CK-2) 2.92 Troponin I 0.029 NT-Pro-B Natriuret Pep 3110 H Impressions: Chest CT 09/13/18 11:18 IMPRESSION: Status post CABG. Changes of centrilobular emphysema. Changes of interstitial edema with bilateral pleural effusions. Bibasilar atelectasis. KUB X-Ray 09/21/18 12:27 IMPRESSION: NG tube placement as described. Chest X-Ray 09/22/18 08:29 IMPRESSION: Stable chest. Satisfactory position of nasogastric tube. Assessment and Plan - Diagnosis (1) Acute on chronic respiratory failure with hypoxemia Is this a current diagnosis for this admission?: Yes Plan: Resolved. Multifactorial from COPD exacerbation, pneumonia and CHF exacerbation. Successfully extubated on 09/20/18. (2) CAP (community acquired pneumonia) Qualifiers: Lung location: lower lobe of lung Is this a current diagnosis for this admission?: Yes Plan: Currently on day 6 of vancomycin and Zosyn. Switch to p.o. levofloxacin. 09/24: Continue Levaquin for 3 more days. (3) COPD exacerbation Is this a current diagnosis for this admission?: Yes Plan: 09/22: Currently on Solu-Medrol 60 mg every 8hrs IV. Decrease Solu-Medrol to 40 mg daily. Continue breathing treatments. 09/23: Switch Solu-Medrol to prednisone. (4) Coronary artery disease Qualifiers: Coronary Disease-Associated Artery/Lesion type: [place] artery Is this a current diagnosis for this admission?: Yes Plan: 09/22: Stable. Appears hematuria has resolved. No recurrence of blood in the office from the NG. Will resume aspirin today. (5) Paroxysmal atrial fibrillation Is this a current diagnosis for this admission?: Yes Plan: His anticoagulation was held due to hematuria and bloody output from the NG in the ICU. Heart rate running in the 90s to low 100s. Continue p.o. Lanoxin and Lopressor. Appreciate cardiology input. 09/23: Aspirin resumed. Consider resuming anticoagulation if there is no recurrence of hematuria or bleeding episode. 09/24: He continues to run in the 110-120s. Suspect volume depletion is contributing as he appears dry clinically and was getting Lasix. Sodium is also elevated along with serum osmolairty suggestive likely from concentration. Will hold off on Lasix today. (6) Hypernatremia Is this a current diagnosis for this admission?: Yes Plan: Likely related to volume contraction. His fluids has been switched to half- normal saline. He continues to receive low-dose diuretics for hypermagnesemia while getting IV fluids per nephrology recommendations. 09/24: He continues to run in the 110-120s. Suspect volume depletion is contributing as he appears dry clinically and was getting Lasix. Sodium is also elevated along with serum osmolairty suggestive likely from concentration. Will hold off on Lasix today. (7) Hypermagnesemia Is this a current diagnosis for this admission?: Yes Plan: Deemed to be related to his GIORGI. - Time Time Spent with patient: 25-34 minutes
[2018-09-24] MEDS ORDERED: DEXTROSE 40% GEL 15 GM TUBE PO PRN ×2 (12:00)
[2018-09-24] MEDS ORDERED: ACETAMINOPHEN 325 MG TABLET PO PRN (12:00)
--- NOTE | 2018-09-24 12:28 | RADIOLOGY REPORT (SQ) ---
EXAM DESCRIPTION: CHEST SINGLE VIEW COMPLETED DATE/TIME: 09/24/2018 12:11 pm REASON FOR STUDY: assess for infiltrates, congestion COMPARISON: 09/22/2018 EXAM PARAMETERS: NUMBER OF VIEWS: One view. TECHNIQUE: Single frontal radiographic view of the chest acquired. RADIATION DOSE: NA LIMITATIONS: None. FINDINGS: LUNGS AND PLEURA: Mild chronic interstitial changes. No acute infiltrate, effusion, or ma ss. MEDIASTINUM AND HILAR STRUCTURES: No masses. Contour normal. HEART AND VASCULAR STRUCTURES: Cardiomegaly. No roque pulmonary edema. BONES: No acute findings. HARDWARE: Sternotomy wires. Pacemaker/defibrillator. NG tube has been removed. OTHER: No other significant finding. IMPRESSION: Chronic lung changes. Cardiomegaly without roque pulmonary edema. TECHNICAL DOCUMENTATION: JOB ID: [id number] [employer]- All Rights Reserved Reading location - IP/workstation name: [email or web address]
[2018-09-24 15:05] LABS: HEMATOCRIT 51.5 % (37.9-51.0); HEMOGLOBIN 16.8 g/dL (13.5-17.0); MEAN CORPUSCULAR HEMOGLOBIN 30.7 pg (27.0-33.4); MEAN CORPUSCULAR HGB CONC 32.6 g/dL (32.0-36.0); MEAN CORPUSCULAR VOLUME 94 fl (80-97); RED BLOOD COUNT 5.47 10^6/uL (4.35-5.55); RED CELL DISTRIBUTION WIDTH 14.8 % (11.5-14.0); WHITE BLOOD COUNT 24.1 10^3/uL (4.0-10.5)
[2018-09-24 15:19] LABS: ANION GAP 8 (5-19); BLOOD UREA NITROGEN 47 mg/dL (7-20); CALCIUM 9.2 mg/dL (8.4-10.2); CARBON DIOXIDE 26 mmol/L (22-30); CHLORIDE 119 mmol/L (98-107); GLUCOSE 163 mg/dL (75-110); POTASSIUM 4.5 mmol/L (3.6-5.0); SODIUM 152.8 mmol/L (137-145)
[2018-09-24 15:41] LABS: PLATELET COUNT 86 10^3/uL (150-450)
[2018-09-24 15:45] LABS: ABSOLUTE LYMPHOCYTES# (MANUAL) 0.2 10^3/uL (0.5-4.7); ABSOLUTE MONOCYTES # (MANUAL) 0.2 10^3/uL (0.1-1.4); ABSOLUTE NEUTROPHILS# (MANUAL) 23.6 10^3/uL (1.7-8.2); BASOPHILS % (MANUAL) 0 % (0-2); EOSINOPHILS % (MANUAL) 0 % (0-6); LYMPHOCYTES % (MANUAL) 1 % (13-45); MONOCYTES % (MANUAL) 1 % (3-13); SEGMENTED NEUTROPHILS % (MAN) 98 % (42-78); TOTAL CELLS COUNTED 100
[2018-09-24 15:58] LABS: PLATELET COMMENT DECREASED
[2018-09-24 15:59] LABS: HYPOCHROMASIA SLIGHT
[2018-09-24 16:03] LABS: TEAR DROP CELLS SLIGHT
[2018-09-24] MEDS: LISINOPRIL 5 MG TABLET PO SCH (21:28)
[2018-09-24] MEDS: QUETIAPINE FUMARATE 25 MG TABLET PO SCH (21:29)
[2018-09-24] MEDS: METOPROLOL TARTRATE 100 MG TABLET PO SCH (21:29)
[2018-09-24] MEDS: POTASSIUM CHLORIDE 20 MEQ PACKET PO SCH (21:29)
[2018-09-25] MEDS: LEVALBUTEROL HCL NEB 0.63 MG/3 ML AMPUL NEB SCH ×4 (02:23→20:30)
[2018-09-25] MEDS: 1/2 NORMAL SALINE 1,000 ML IV PRN (06:17)
[2018-09-25] MEDS ORDERED: DEXTROSE 5%-WATER 1000 ML 1,000 ML IV PRN (10:05)
[2018-09-25] MEDS: PANTOPRAZOLE SODIUM 40 MG VIAL IV SCH (10:41)
[2018-09-25] MEDS: DEXTROSE 5%-WATER 1000 ML 1,000 ML IV PRN (10:41)
[2018-09-25] MEDS: DIGOXIN 0.25 MG TABLET PO SCH ×2 (10:41→11:23)
[2018-09-25] MEDS: PREDNISONE 20 MG TABLET PO SCH ×2 (10:41→11:23)
[2018-09-25] MEDS: POTASSIUM CHLORIDE 20 MEQ PACKET PO SCH ×3 (10:41→21:34)
[2018-09-25] MEDS: METOPROLOL TARTRATE 100 MG TABLET PO SCH ×3 (10:41→21:35)
[2018-09-25] MEDS: LISINOPRIL 5 MG TABLET PO SCH ×3 (10:41→21:35)
[2018-09-25] MEDS: LEVOFLOXACIN 750 MG TABLET PO SCH ×2 (10:41→11:23)
[2018-09-25] MEDS: HALOPERIDOL LACTATE INJ 5 MG/1 ML VIAL IV PRN ×2 (11:46→21:31)
[2018-09-25] MEDS: METOPROLOL TARTRATE PF/INJ 5 MG/5 ML SDV IV PRN ×2 (11:52→18:08)
--- NOTE | 2018-09-25 14:14 | PDOC PROGRESS REPORT ---
Subjective Progress Note for:: 09/25/18 Subjective:: This is 82 years old male patient with multiple comorbidities including atrial fibrillation, CHF with ejection fraction of 35% and status post AICD placement, coronary artery disease status post carotid bypass grafting and stent placement, hypertension, hyperlipidemia, COPD and obstructive sleep apnea with chief complaints of worsening shortness of breath. Impression of COPD exacerbation. Patient initially managed with bronchodilator, supplemental oxyg en, BiPAP, antibiotics and steroid but patient situation failed to improve he become increasingly tachypneic and confused at this point patient intubated and put on full mechanical ventilation. As patient's condition is improved he is weaned off and extubated 2 days ago. He is downgraded to IMCU. This morning I seen patient propped up in bed. Patient still has intermittent confusion. His blood work shows leukocytosis which is attributed to steroid. He has also mild hyponatremia with sodium of 152. He has been on prednisone 20 mg twice a day now I tapered it to once a day. For his hyponatremia he is started on dextrose at rate of 50 mm/h. Reason For Visit: COPD EXACERBATION CHF BRONCHTIS Physical Exam Vital Signs: Temp Pulse Resp BP Pulse Ox 98.7 F 78 20 141/87 H 94 09/25/18 08:25 09/25/18 13:53 09/25/18 13:53 09/25/18 08:25 09/25/18 13:53 Intake & Output 09/24/18 09/25/18 09/26/18 06:59 06:59 06:59 Intake Total 1350 1684 346 Output Total 1835 2000 Balance -485 -316 346 Weight 67.4 kg 68.2 kg General appearance: PRESENT: no acute distress Eye exam: PRESENT: conjunctiva pink Neck exam: ABSENT: carotid bruit, JVD, lymphadenopathy, thyromegaly Respiratory exam: PRESENT: crackles, decreased breath sounds, wheezes. ABSENT: rales, rhonchi Cardiovascular exam: PRESENT: irregular rhythm GI/Abdominal exam: PRESENT: normal bowel sounds, soft. ABSENT: distended, guarding, mass, organolmegaly, rebound, tenderness Neurological exam: PRESENT: alert, awake Results Laboratory Results: 09/24/18 14:30 09/24/18 14:30 09/24/18 09/24/18 14:30 14:30 WBC 24.1 H RBC 5.47 Hgb 16.8 Hct 51.5 H MCV 94 MCH 30.7 MCHC 32.6 RDW 14.8 H Plt Count 86 L Seg Neutrophils % Not Reportable Lymphocytes % Not Reportable Monocytes % Not Reportable Eosinophils % Not Reportable Basophils % Not Reportable Absolute Neutrophils Not Reportable Absolute Lymphocytes Not Reportable Absolute Monocytes Not Reportable Absolute Eosinophils Not Reportable Absolute Basophils Not Reportable Sodium 152.8 H Potassium 4.5 Chloride 119 H Carbon Dioxide 26 Anion Gap 8 BUN 47 H Creatinine 0.95 Est GFR ( Amer) > 60 Est GFR (Non-Af Amer) > 60 Glucose 163 H Calcium 9.2 Magnesium 2.6 H 09/12/18 09/12/18 09/12/18 00:55 00:55 05:55 Creatine Kinase 80 CK-MB (CK-2) 1.90 1.88 Troponin I 0.037 0.030 NT-Pro-B Natriuret Pep 4660 H 5960 H 09/12/18 09/12/18 09/12/18 11:10 11:10 16:52 Creatine Kinase 61 80 CK-MB (CK-2) 2.08 Troponin I 0.024 NT-Pro-B Natriuret Pep 09/12/18 09/18/18 09/20/18 16:52 16:01 05:09 Creatine Kinase 57 CK-MB (CK-2) 2.92 Troponin I 0.029 NT-Pro-B Natriuret Pep 3110 H Impressions: Chest CT 09/13/18 11:18 IMPRESSION: Status post CABG. Changes of centrilobular emphysema. Changes of interstitial edema with bilateral pleural effusions. Bibasilar atelectasis. KUB X-Ray 09/21/18 12:27 IMPRESSION: NG tube placement as described. Chest X-Ray 09/24/18 11:24 IMPRESSION: Chronic lung changes. Cardiomegaly without roque pulmonary edema. Assessment and Plan - Diagnosis (1) Acute and chronic respiratory failure with hypoxia Is this a current diagnosis for this admission?: Yes Plan: Patient has been on BiPAP later intubated and now extubated. Currently he is on oxygen via nasal cannula. (2) Community acquired pneumonia Is this a current diagnosis for this admission?: Yes Plan: Treated (3) COPD exacerbation Is this a current diagnosis for this admission?: Yes Plan: Patient has been on bronchodilators supplemental oxygen and steroid. (4) Leukocytosis Qualifiers: Leukocytosis type: unspecified Qualified Code(s): D72.829 - Elevated white blood cell count, unspecified Is this a current diagnosis for this admission?: Yes Plan: Attributed to steroid use. I will going to taper his prednisone. (5) Hypernatremia Is this a current diagnosis for this admission?: Yes (6) Hypermagnesemia Is this a current diagnosis for this admission?: Yes Plan: Resolved (7) History of systolic CHF Is this a current diagnosis for this admission?: Yes Plan: Now stable. (8) CAD S/P CABG and stent placement Is this a current diagnosis for this admission?: Yes Plan: No anginal symptoms currently. We will continue his home medications.
--- NOTE | 2018-09-25 15:45 | PSYCHOLOGICAL NOTE ---
Psych Note - Psych Note Date seen by psych provider: 09/25/18 Psych Note: Reason for Consult: medication recommendations/ delirium Chart review conducted: [facility] complaint of difficulty breathing on 09/12/2018. Patient required intubation on 09/16/2018 and was successfully extubated the morning of 09/20/2018. Medication recommendations per [facility]'s contracted psychiatrist, Dr Jacek MENDOZA, are as follows Please discontinue seroquel Please decrease Haldol IM/IV to 2.5mg every morning at 8am and every afternoon at 4pm please add clonidine 0.2mg 24 hour patch Valium 2mg IM/IV every 8 hours as needed for behavioral outbursts Please notified the Behavioral Health team when the patient is willing to take medications orally as recommendation may be adjusted at that time.
[2018-09-25] MEDS: QUETIAPINE FUMARATE 25 MG TABLET PO SCH (21:35)
[2018-09-25] MEDS: HYDRALAZINE HCL INJ/PF 20 MG/1 ML SDV IV PRN (21:39)
--- NOTE | 2018-09-25 22:08 | Progress Note ---
Provider Note Provider Note: CARDIOLOGY PROGRESS NOTE by Dr. Jennifer Shepard on 09/25/2018. SUBJECTIVE: The patient has no further behavioral outbursts and no periods of agitation. There is no further hematuria. The patient denies any chest pain or discomfort. There is no PND orthopnea. He continues to be in atrial fibrillation. There is no firing of his AICD. The patient has no anginal symptoms. There is no pedal edema. There is no TIA CVA symptoms. PHYSICAL EXAMINATION: The patient appears to be chronically ill and malnourished. At present in no acute distress. Selected Entries 09/25/18 08:25 Temperature 98.7 F Temperature Axillary Source Pulse Rate 64 Respiratory 16 Rate Blood Pressure 141/87 H Blood Pressure 105 Mean BP Location Right Arm BP Position Supine O2 Sat by Pulse 96 Oximetry Oxygen Flow 4.00 Rate Oxygen Delivery Nasal Cannula Method HEAD: Is atraumatic normocephalic. EYES: Pupils are regular reactive to light. ENT is negative. NECK: Is supple. There is no JVD. Carotids equal there is no bruit. LUNGS: There is diminished air entry and prolonged expiration. There is a few scattered rhonchi. There is no wheezing. There is no dry crackles or wet rales of CHF. ABDOMEN: S1-S2 is heard S1 is of variable intensity. There is no S3 gallop. There is no S4 gallop. ABDOMEN: Soft. There is no hepatosplenomegaly. Bowel sounds are heard. EXTREMITIES: Femorals are diminished. Leg pulses are diminished. There is no pedal edema. The patient is awake but very lethargic. And very drowsy. He moves all 4 extremities. PSYCHIATRIC: With the patient mental status this psychiatric examination not done. He is not agitated or anxious. Chest X-Ray 09/12/18 00:42 IMPRESSION: Pneumonia. Possible emphysema. Cardiomegaly. copyright 2010 [employer]- All Rights Reserved Chest CT 09/13/18 11:18 IMPRESSION: Status post CABG. Changes of centrilobular emphysema. Changes of interstitial edema with bilateral pleural effusions. Bibasilar atelectasis. Chest X-Ray 09/14/18 08:49 IMPRESSION: Airspace disease in the mid and lower lungs edema versus pneumonia. Trace bilateral pleural effusions. Chest X-Ray 09/15/18 00:00 IMPRESSION: Cardiomegaly with no roque pulmonary edema. Chest X-Ray 09/15/18 07:00 IMPRESSION: Significant improvement in the pulmonary edema/ fluid overload pattern compared to 09/14/2018 and 09/12/2018 Chest X-Ray 09/16/18 00:00 IMPRESSION: 1. Endotracheal tube tip overlies distal thoracic trachea likely 1.8 cm above the qu[place]. 2. Enteric tube coiled over upper esophagus with tip directed cephalad. Recommend repositioning. 3. Mild right basilar interstitial opacities, possibly edema or atelectasis. Chest X-Ray 09/16/18 09:15 IMPRESSION: Endotracheal tube in good positioning. Nasogastric tube coiled in the upper esophagus, report called to the patient's nurse in ICU Mild cardiomegaly. No acute infiltrate. KUB X-Ray 09/16/18 09:16 IMPRESSION: NG tube placement as described. Nonspecific abdomen. Chest X-Ray 09/20/18 06:00 IMPRESSION: No significant change. Chest X-Ray 09/21/18 06:00 IMPRESSION: INTERVAL REMOVAL OF THE ENDOTRACHEAL TUBE AND NASOGASTRIC TUBE. OTHERWISE NO CHANGE. KUB X-Ray 09/21/18 12:27 IMPRESSION: NG tube placement as described. Chest X-Ray 09/22/18 08:29 IMPRESSION: Stable chest. Satisfactory position of nasogastric tube. Chest X-Ray 09/24/18 11:24 IMPRESSION: Chronic lung changes. Cardiomegaly without roque pulmonary edema. IMPRESSION/RECOMMENDATION: 1. Acute on chronic respiratory failure. The patient is extubated. 2. Acute exacerbation of COPD. Continue respiratory treatments nasal oxygen and steroids. 3. Bibasilar pneumonia: Continue antibiotics. 4. Atrial fibrillation. Patient with a history of paroxysmal atrial fibrillation patient back in atrial fibrillation. Cardizem drip has been discontinued, the patient started on beta-wilbert. We will stop the patient's Tikosyn since the patient continues to be in atrial fibrillation. Also switch the Cardizem to metoprolol.. Note that the patient 's Tikosyn and digoxin already been stopped. Note that the patient's Eliquis has been held due to hematuria noted digoxin has been added/restarted. The patient metoprolol has been increased to 100 mg by the NG tube every 12 hours. We will check the patient's this level in the morning. Will restart the patient's Eliquis at this dose of 2.5 mg p.o. every 12 hours, since the patient is very frail build appears chronically ill and malnourished. Will watch for recurrence of hematuria or other bleeding problems. 5. Coronary artery disease: No evidence of CT. 6. CARDIOMYOPATHY: No evidence of acute exacerbation of CHF. 7.hypertension: Blood pressure well controlled. 8. Acute renal failure: Resolved. Patient's GFR is now normal. 9. AICD in situ. No firing of AICD 10. DIABETES MELLITUS: Continue antidiabetic medication. 12. 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 MEDICATIONS reviewed. New medications ordered and dig level also ordered. Discussed with the patient and the patient's . Medications adjusted. Medical decision making is of high complexity in view of the need for changing of medications. Management plan discussed with attending physician on the case. 40 minutes spent on this patient with more than 50% of time spent in direct patient care. Will follow
[2018-09-26] MEDS: LEVALBUTEROL HCL NEB 0.63 MG/3 ML AMPUL NEB SCH ×4 (01:58→19:41)
[2018-09-26 04:57] LABS: ABSOLUTE EOSINOPHILS # (AUTO) 0.1 10^3/uL (0.0-0.6); ABSOLUTE NEUT (AUTO) 16.1 10^3/uL (1.7-8.2); BASOPHILS % (AUTO) 0.1 % (0-2); EOSINOPHILS % (AUTO) 0.4 % (0-6); HEMATOCRIT 50.9 % (37.9-51.0); HEMOGLOBIN 16.8 g/dL (13.5-17.0); LYMPHOCYTES % (AUTO) 5.3 % (13-45); MEAN CORPUSCULAR HGB CONC 32.9 g/dL (32.0-36.0); MEAN CORPUSCULAR VOLUME 94 fl (80-97); MONOCYTES % (AUTO) 5.5 % (3-13); RED BLOOD COUNT 5.41 10^6/uL (4.35-5.55); RED CELL DISTRIBUTION WIDTH 14.3 % (11.5-14.0); SEGMENTED NEUTROPHILS % (AUTO) 88.7 % (42-78); TOTAL CELLS COUNTED % (AUTO) 100 %; WHITE BLOOD COUNT 18.2 10^3/uL (4.0-10.5)
[2018-09-26 05:04] LABS: PLATELET COUNT 89 10^3/uL (150-450)
[2018-09-26 05:13] LABS: ANION GAP 5 (5-19); BLOOD UREA NITROGEN 41 mg/dL (7-20); CALCIUM 9.1 mg/dL (8.4-10.2); CARBON DIOXIDE 32 mmol/L (22-30); CHLORIDE 113 mmol/L (98-107); DIGOXIN 0.89 ng/mL (0.8-2.0); GLUCOSE 127 mg/dL (75-110); POTASSIUM 4.4 mmol/L (3.6-5.0); SODIUM 149.5 mmol/L (137-145)
[2018-09-26] MEDS: DEXTROSE 5%-WATER 1000 ML 1,000 ML IV PRN (06:38)
[2018-09-26] MEDS: DIGOXIN 0.25 MG TABLET PO SCH (09:03)
[2018-09-26] MEDS: LISINOPRIL 5 MG TABLET PO SCH ×2 (09:04→22:55)
[2018-09-26] MEDS: METOPROLOL TARTRATE 100 MG TABLET PO SCH ×2 (09:04→22:54)
[2018-09-26] MEDS: LEVOFLOXACIN 750 MG TABLET PO SCH (09:04)
[2018-09-26] MEDS: POTASSIUM CHLORIDE 20 MEQ PACKET PO SCH ×2 (09:04→22:55)
[2018-09-26] MEDS: APIXABAN 2.5 MG TABLET PO SCH ×2 (09:05→17:22)
[2018-09-26] MEDS: HALOPERIDOL LACTATE INJ 5 MG/1 ML VIAL IV PRN (09:07)
[2018-09-26] MEDS: HALOPERIDOL LACTATE INJ 5 MG/1 ML VIAL IV SCH ×2 (09:43→22:55)
[2018-09-26] MEDS ORDERED: PREDNISONE 20 MG TABLET PO SCH ×2 (10:00)
[2018-09-26] MEDS: PREDNISONE 10 MG TABLET PO SCH (10:03)
[2018-09-26] MEDS: METOPROLOL TARTRATE PF/INJ 5 MG/5 ML SDV IV PRN ×2 (10:38→18:14)
--- NOTE | 2018-09-26 14:30 | PDOC PROGRESS REPORT ---
Subjective Progress Note for:: 09/26/18 Subjective:: Patient seen resting in bed comfortably. He is awake alert he is not in pain or distress. His psych medications are modified as recommended by psychiatrist. Reason For Visit: COPD EXACERBATION CHF BRONCHTIS Physical Exam Vital Signs: Temp Pulse Resp BP Pulse Ox 99.0 F 100 16 136/96 H 92 09/26/18 08:06 09/26/18 14:15 09/26/18 14:15 09/26/18 08:06 09/26/18 14:15 Intake & Output 09/25/18 09/26/18 09/27/18 06:59 06:59 06:59 Intake Total 1684 346 120 Output Total 1999 1360 900 Balance -316 -3915 -794 Weight 68.2 kg 68.2 kg General appearance: PRESENT: no acute distress Neck exam: ABSENT: carotid bruit, JVD, lymphadenopathy, thyromegaly Respiratory exam: PRESENT: clear to auscultation bruna. ABSENT: rales, rhonchi, wheezes Cardiovascular exam: PRESENT: RRR. ABSENT: diastolic murmur, rubs, systolic murmur Neurological exam: PRESENT: alert, awake Results Laboratory Results: 09/26/18 04:25 09/26/18 04:25 09/26/18 09/26/18 04:25 04:25 WBC 18.2 H RBC 5.41 Hgb 16.8 Hct 50.9 MCV 94 MCH 31.0 MCHC 32.9 RDW 14.3 H Plt Count 89 L Seg Neutrophils % 88.7 H Lymphocytes % 5.3 L Monocytes % 5.5 Eosinophils % 0.4 Basophils % 0.1 Absolute Neutrophils 16.1 H Absolute Lymphocytes 1.0 Absolute Monocytes 1.0 Absolute Eosinophils 0.1 Absolute Basophils 0.0 Sodium 149.5 H Potassium 4.4 Chloride 113 H Carbon Dioxide 32 H Anion Gap 5 BUN 41 H Creatinine 1.09 Est GFR ( Amer) > 60 Est GFR (Non-Af Amer) > 60 Glucose 127 H Calcium 9.1 09/12/18 09/12/18 09/12/18 00:55 00:55 05:55 Creatine Kinase 80 CK-MB (CK-2) 1.90 1.88 Troponin I 0.037 0.030 NT-Pro-B Natriuret Pep 4660 H 5960 H 0509/12/18 09/12/18 11:10 11:10 16:52 Creatine Kinase 61 80 CK-MB (CK-2) 2.08 Troponin I 0.024 NT-Pro-B Natriuret Pep 09/12/18 09/18/18 09/20/18 16:52 16:01 05:09 Creatine Kinase 57 CK-MB (CK-2) 2.92 Troponin I 0.029 NT-Pro-B Natriuret Pep 3110 H Impressions: Chest CT 09/13/18 11:18 IMPRESSION: Status post CABG. Changes of centrilobular emphysema. Changes of interstitial edema with bilateral pleural effusions. Bibasilar atelectasis. KUB X-Ray 09/21/18 12:27 IMPRESSION: NG tube placement as described. Chest X-Ray 09/24/18 11:24 IMPRESSION: Chronic lung changes. Cardiomegaly without roque pulmonary edema. Assessment and Plan - Diagnosis (1) Acute and chronic respiratory failure with hypoxia Is this a current diagnosis for this admission?: Yes Plan: Patient has been on BiPAP later intubated and now extubated. Currently he is on oxygen via nasal cannula. (2) Community acquired pneumonia Is this a current diagnosis for this admission?: Yes Plan: Treated (3) COPD exacerbation Is this a current diagnosis for this admission?: Yes Plan: Patient has been on bronchodilators supplemental oxygen and steroid. (4) Leukocytosis Qualifiers: Leukocytosis type: unspecified Qualified Code(s): D72.829 - Elevated white blood cell count, unspecified Is this a current diagnosis for this admission?: Yes Plan: Attributed to steroid use. His white cell count is trending down from 25.7-18.2. (5) Hypernatremia Is this a current diagnosis for this admission?: Yes Plan: Improving his sodium trended from 152.8-149.5 (6) Hypermagnesemia Is this a current diagnosis for this admission?: Yes (7) History of systolic CHF Is this a current diagnosis for this admission?: Yes (8) CAD S/P CABG and stent placement Is this a current diagnosis for this admission?: Yes
--- NOTE | 2018-09-26 22:41 | Progress Note ---
Provider Note Provider Note: CARDIOLOGY PROGRESS NOTE by Dr. Rubio is some on 09/26/2018. SUBJECTIVE the patient is a little more alert than yesterday. He denies any chest pain or discomfort. The patient continues to be in atrial fibrillation. There is no ventricular arrhythmias seen. There is no firing of the AICD. There is no anginal symptoms. There is no PND orthopnea. There is no cough or wheezing or shortness of breath. There is no bleeding on the patient being restarted on Eliquis. PHYSICAL EXAMINATION: The patient appears to be chronically ill and malnourished. Selected Entries 09/26/18 09/26/18 08:06 08:25 Temperature 99.0 F Temperature Axillary Source Pulse Rate 95 Respiratory 20 Rate Blood Pressure 136/96 H Blood Pressure 109 Mean BP Location Right Arm BP Position Supine O2 Sat by Pulse 92 Oximetry Oxygen Delivery Nasal Cannula Method ( includes room air) Oxygen Flow 2 Rate Oxygen Delivery Room Air Method HEAD: Is atraumatic normocephalic. EYES: Pupils are regular reactive to light. ENT is negative. NECK: Is supple. There is no JVD. Carotids equal there is no bruit. LUNGS: There is diminished air entry and prolonged expiration. There is a few scattered rhonchi. There is no wheezing. There is no dry crackles or wet rales of CHF. ABDOMEN: S1-S2 is heard S1 is of variable intensity. There is no S3 gallop. There is no S4 gallop. ABDOMEN: Soft. There is no hepatosplenomegaly. Bowel sounds are heard. EXTREMITIES: Femorals are diminished. Leg pulses are diminished. There is no pedal edema. The patient is awake but very lethargic. And very drowsy. He moves all 4 extremities. PSYCHIATRIC: With the patient mental status this psychiatric examination not done. He is not agitated or anxious. Labs- All tests 24 hr 09/26/18 09/26/18 04:25 04:25 WBC 18.2 H RBC 5.41 Hgb 16.8 Hct 50.9 MCV 94 MCH 31.0 MCHC 32.9 RDW 14.3 H Plt Count 89 L Seg Neutrophils % 88.7 H Lymphocytes % 5.3 L Monocytes % 5.5 Eosinophils % 0.4 Basophils % 0.1 Absolute Neutrophils 16.1 H Absolute Lymphocytes 1.0 Absolute Monocytes 1.0 Absolute Eosinophils 0.1 Absolute Basophils 0.0 Sodium 149.5 H Potassium 4.4 Chloride 113 H Carbon Dioxide 32 H Anion Gap 5 BUN 41 H Creatinine 1.09 Est GFR ( Amer) > 60 Est GFR (Non-Af Amer) > 60 Glucose 127 H Calcium 9.1 Digoxin 0.89 Chest X-Ray 09/12/18 00:42 IMPRESSION: Pneumonia. Possible emphysema. Cardiomegaly. copyright 2010 [email or web address]- All Rights Reserved Chest CT 09/13/18 11:18 IMPRESSION: Status post CABG. Changes of centrilobular emphysema. Changes of interstitial edema with bilateral pleural effusions. Bibasilar atelectasis. Chest X-Ray 09/14/18 08:49 IMPRESSION: Airspace disease in the mid and lower lungs edema versus pneumonia. Trace bilateral pleural effusions. Chest X-Ray 09/15/18 00:00 IMPRESSION: Cardiomegaly with no roque pulmonary edema. Chest X-Ray 09/15/18 07:00 IMPRESSION: Significant improvement in the pulmonary edema/ fluid overload pattern compared to 09/14/2018 and 09/12/2018 Chest X-Ray 09/16/18 00:00 IMPRESSION: 1. Endotracheal tube tip overlies distal thoracic trachea likely 1.8 cm above the [place]. 2. Enteric tube coiled over upper esophagus with tip directed cephalad. Recommend repositioning. 3. Mild right basilar interstitial opacities, possibly edema or atelectasis. Chest X-Ray 09/16/18 09:15 IMPRESSION: Endotracheal tube in good positioning. Nasogastric tube coiled in the upper esophagus, report called to the patient's nurse in ICU Mild cardiomegaly. No acute infiltrate. KUB X-Ray 09/16/18 09:16 IMPRESSION: NG tube placement as described. Nonspecific abdomen. Chest X-Ray 09/20/18 06:00 IMPRESSION: No significant change. Chest X-Ray 09/21/18 06:00 IMPRESSION: INTERVAL REMOVAL OF THE ENDOTRACHEAL TUBE AND NASOGASTRIC TUBE. OTHERWISE NO CHANGE. KUB X-Ray 09/21/18 12:27 IMPRESSION: NG tube placement as described. Chest X-Ray 09/22/18 08:29 IMPRESSION: Stable chest. Satisfactory position of nasogastric tube. Chest X-Ray 09/24/18 11:24 IMPRESSION: Chronic lung changes. Cardiomegaly without roque pulmonary edema. IMPRESSION/RECOMMENDATION: 1. Acute on chronic respiratory failure. The patient is extubated. 2. Acute exacerbation of COPD. Continue respiratory treatments nasal oxygen and steroids. 3. Bibasilar pneumonia: Continue antibiotics. 4. Atrial fibrillation. Patient with a history of paroxysmal atrial fibrillation patient back in atrial fibrillation. Cardizem drip has been discontinued, the patient started on beta-wilbert. We will stop the patient's Tikosyn since the patient continues to be in atrial fibrillation. Also switch the Cardizem to metoprolol.. Note that the patient 's Tikosyn and digoxin already been stopped. Note that the patient's Eliquis has been held due to hematuria noted digoxin has been added/restarted. The patient metoprolol has been increased to 100 mg by the NG tube every 12 hours. We will check the patient's this level in the morning. Will restart the patient's Eliquis at this dose of 2.5 mg p.o. every 12 hours, since the patient is very frail build appears chronically ill and malnourished. Will watch for recurrence of hematuria or other bleeding problems. 5. Coronary artery disease: No evidence of PA. 6. CARDIOMYOPATHY: No evidence of acute exacerbation of CHF. 7.hypertension: Blood pressure well controlled. 8. Acute renal failure: Resolved. Patient's GFR is now normal. 9. AICD in situ. No firing of AICD 10. DIABETES MELLITUS: Continue antidiabetic medication. 12. 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 Medications reviewed. Management plan discussed with the the attending physician on the case. Discussed the restarting of Eliquis with the patient and the patient's , and that the patient will be closely observe for any recurrence of bleeding. Medical decision making is of moderate complexity. 40 minutes spent on this patient with more than 50% time spent direct patient care.
[2018-09-27] MEDS: LEVALBUTEROL HCL NEB 0.63 MG/3 ML AMPUL NEB SCH ×4 (01:39→20:10)
[2018-09-27] MEDS: DEXTROSE 5%-WATER 1000 ML 1,000 ML IV PRN ×2 (02:47→22:35)
[2018-09-27 06:18] LABS: ABSOLUTE EOSINOPHILS # (AUTO) 0.3 10^3/uL (0.0-0.6); ABSOLUTE MONOCYTES (AUTO) 0.9 10^3/uL (0.1-1.4); ABSOLUTE NEUT (AUTO) 17.1 10^3/uL (1.7-8.2); BASOPHILS % (AUTO) 0.1 % (0-2); EOSINOPHILS % (AUTO) 1.3 % (0-6); HEMATOCRIT 46.7 % (37.9-51.0); HEMOGLOBIN 15.4 g/dL (13.5-17.0); LYMPHOCYTES % (AUTO) 5.3 % (13-45); MEAN CORPUSCULAR HEMOGLOBIN 30.6 pg (27.0-33.4); MEAN CORPUSCULAR VOLUME 93 fl (80-97); MONOCYTES % (AUTO) 4.6 % (3-13); RED BLOOD COUNT 5.04 10^6/uL (4.35-5.55); RED CELL DISTRIBUTION WIDTH 14.5 % (11.5-14.0); SEGMENTED NEUTROPHILS % (AUTO) 88.7 % (42-78); TOTAL CELLS COUNTED % (AUTO) 100 %; WHITE BLOOD COUNT 19.3 10^3/uL (4.0-10.5)
[2018-09-27 06:35] LABS: PLATELET COUNT 94 10^3/uL (150-450)
[2018-09-27 06:43] LABS: ANION GAP 8 (5-19); BLOOD UREA NITROGEN 32 mg/dL (7-20); CALCIUM 8.7 mg/dL (8.4-10.2); CARBON DIOXIDE 26 mmol/L (22-30); CHLORIDE 112 mmol/L (98-107); GLUCOSE 114 mg/dL (75-110); SODIUM 145.5 mmol/L (137-145)
[2018-09-27] MEDS: HYDRALAZINE HCL INJ/PF 20 MG/1 ML SDV IV PRN (07:53)
[2018-09-27] MEDS: METOPROLOL TARTRATE PF/INJ 5 MG/5 ML SDV IV PRN (07:53)
[2018-09-27] MEDS ORDERED: PREDNISONE 5 MG TABLET ONE (09:43)
[2018-09-27] MEDS: LISINOPRIL 5 MG TABLET PO SCH ×2 (09:44→22:18)
[2018-09-27] MEDS: HALOPERIDOL LACTATE INJ 5 MG/1 ML VIAL IV SCH (09:44)
[2018-09-27] MEDS: PREDNISONE 10 MG TABLET PO SCH (09:45)
[2018-09-27] MEDS: METOPROLOL TARTRATE 100 MG TABLET PO SCH (09:45)
[2018-09-27] MEDS: LEVOFLOXACIN 750 MG TABLET PO SCH (09:45)
[2018-09-27] MEDS: DIGOXIN 0.25 MG TABLET PO SCH (09:45)
[2018-09-27] MEDS: APIXABAN 2.5 MG TABLET PO SCH ×2 (09:45→17:12)
[2018-09-27] MEDS: POTASSIUM CHLORIDE 20 MEQ PACKET PO SCH ×2 (09:48→22:19)
[2018-09-27] MEDS ORDERED: PREDNISONE 10 MG TABLET PO SCH (10:00)
[2018-09-27 10:23] LABS: ARTERIAL BLOOD BASE EXCESS 1.7 mmol/L; ARTERIAL BLOOD HCO3 23.4 mmol/L (20-24); ARTERIAL BLOOD O2 SATURATION 95.8 % (94-98); ARTERIAL BLOOD PCO2 29.8 mmHg (35-45); ARTERIAL BLOOD PH 7.51 (7.35-7.45); ARTERIAL BLOOD TOTAL CO2 24.3 mmol/L (23-27)
[2018-09-27 10:24] LABS: ARTERIAL BLOOD FIO2 5L
[2018-09-27] MEDS: PREDNISONE 5 MG TABLET PO SCH (11:56)
--- NOTE | 2018-09-27 12:58 | PDOC PROGRESS REPORT ---
Subjective Progress Note for:: 09/27/18 Subjective:: Patient is sleeping quietly. He seems sedated with the Haldol. I discussed his clinical progress with the family members including his and his son. His hypernatremia has improved from 152-1 45. He has a slight increase in his white cell count. His steroid is tapered to the lowest dose of 5 mg p.o. daily hopefully I will discontinue tomorrow. Reason For Visit: COPD EXACERBATION CHF BRONCHTIS Physical Exam Vital Signs: Temp Pulse Resp BP Pulse Ox 98.1 F 96 20 116/66 96 09/27/18 11:31 09/27/18 11:31 09/27/18 11:31 09/27/18 11:31 09/27/18 11:31 Intake & Output 09/26/18 09/27/18 09/28/18 06:59 06:59 06:59 Intake Total 346 320 Output Total 1360 1650 Balance -1014 -1330 Weight 68.2 kg 68.1 kg General appearance: PRESENT: no acute distress Neck exam: ABSENT: carotid bruit, JVD, lymphadenopathy, thyromegaly Respiratory exam: PRESENT: decreased breath sounds. ABSENT: rales, rhonchi, wheezes GI/Abdominal exam: PRESENT: normal bowel sounds, soft. ABSENT: distended, guarding, mass, organolmegaly, rebound, tenderness Results Laboratory Results: 09/27/18 05:46 09/27/18 05:46 09/27/18 09/27/18 09/27/18 05:46 05:46 10:07 WBC 19.3 H RBC 5.04 Hgb 15.4 Hct 46.7 MCV 93 MCH 30.6 MCHC 33.0 RDW 14.5 H Plt Count 94 L Seg Neutrophils % 88.7 H Lymphocytes % 5.3 L Monocytes % 4.6 Eosinophils % 1.3 Basophils % 0.1 Absolute Neutrophils 17.1 H Absolute Lymphocytes 1.0 Absolute Monocytes 0.9 Absolute Eosinophils 0.3 Absolute Basophils 0.0 Carbonic Acid 0.90 L HCO3/H2CO3 Ratio 26:1 ABG pH 7.51 H ABG pCO2 29.8 L ABG pO2 71.0 L ABG HCO3 23.4 ABG O2 Saturation 95.8 ABG Base Excess 1.7 FiO2 5L Sodium 145.5 H Potassium 4.0 Chloride 112 H Carbon Dioxide 26 Anion Gap 8 BUN 32 H Creatinine 1.00 Est GFR ( Amer) > 60 Est GFR (Non-Af Amer) > 60 Glucose 114 H Calcium 8.7 09/12/18 09/12/18 09/12/18 00:55 00:55 05:55 Creatine Kinase 80 CK-MB (CK-2) 1.90 1.88 Troponin I 0.037 0.030 NT-Pro-B Natriuret Pep 4660 H 5960 H 09/12/18 09/12/18 09/12/18 11:10 11:10 16:52 Creatine Kinase 61 80 CK-MB (CK-2) 2.08 Troponin I 0.024 NT-Pro-B Natriuret Pep 09/12/18 09/18/18 09/20/18 16:52 16:01 05:09 Creatine Kinase 57 CK-MB (CK-2) 2.92 Troponin I 0.029 NT-Pro-B Natriuret Pep 3110 H Impressions: Chest CT 09/13/18 11:18 IMPRESSION: Status post CABG. Changes of centrilobular emphysema. Changes of interstitial edema with bilateral pleural effusions. Bibasilar atelectasis. KUB X-Ray 09/21/18 12:27 IMPRESSION: NG tube placement as described. Chest X-Ray 09/24/18 11:24 IMPRESSION: Chronic lung changes. Cardiomegaly without roque pulmonary edema. Assessment and Plan - Diagnosis (1) Acute and chronic respiratory failure with hypoxia Is this a current diagnosis for this admission?: Yes Plan: Patient has been on BiPAP later intubated and now extubated. Currently he is on oxygen via nasal cannula. (2) Community acquired pneumonia Is this a current diagnosis for this admission?: Yes Plan: I will DC his Levaquin tomorrow. (3) COPD exacerbation Is this a current diagnosis for this admission?: Yes Plan: Patient has been on bronchodilators supplemental oxygen and steroid. (4) Leukocytosis Qualifiers: Leukocytosis type: unspecified Qualified Code(s): D72.829 - Elevated white blood cell count, unspecified Is this a current diagnosis for this admission?: Yes Plan: Attributed to steroid use. Today his white cell count slightly worsened. (5) Hypernatremia Is this a current diagnosis for this admission?: Yes Plan: Improving his sodium trended from 152.8-145. (6) Hypermagnesemia Is this a current diagnosis for this admission?: Yes Plan: Resolved (7) History of systolic CHF Is this a current diagnosis for this admission?: Yes Plan: I switch his metoprolol tartrate to succinate. (8) CAD S/P CABG and stent placement Is this a current diagnosis for this admission?: Yes Plan: No anginal symptoms currently. We will continue his home medications.
[2018-09-27] MEDS ORDERED: NICOTINE 21 MG/24 HR PATCH.TD24 ONE (15:43)
[2018-09-27] MEDS: NICOTINE 21 MG/24 HR PATCH.TD24 TD SCH (17:12)
[2018-09-27] MEDS: METOPROLOL SUCCINATE 50 MG TAB.SR.24H PO SCH (22:17)
[2018-09-28] MEDS: LEVALBUTEROL HCL NEB 0.63 MG/3 ML AMPUL NEB SCH ×4 (02:33→19:53)
[2018-09-28 07:02] LABS: BLOOD UREA NITROGEN 28 mg/dL (7-20); CALCIUM 8.5 mg/dL (8.4-10.2); CHLORIDE 113 mmol/L (98-107); GLUCOSE 116 mg/dL (75-110); POTASSIUM 3.9 mmol/L (3.6-5.0)
[2018-09-28 07:09] LABS: ANION GAP 5 (5-19); CARBON DIOXIDE 24 mmol/L (22-30); SODIUM 142.3 mmol/L (137-145)
[2018-09-28] MEDS: METOPROLOL SUCCINATE 50 MG TAB.SR.24H PO SCH ×2 (09:47→21:16)
[2018-09-28] MEDS: APIXABAN 2.5 MG TABLET PO SCH ×2 (09:47→17:38)
[2018-09-28] MEDS: LEVOFLOXACIN 750 MG TABLET PO SCH (09:47)
[2018-09-28] MEDS: LISINOPRIL 5 MG TABLET PO SCH ×2 (09:47→21:16)
[2018-09-28] MEDS: PREDNISONE 5 MG TABLET PO SCH (09:48)
[2018-09-28] MEDS: DIGOXIN 0.25 MG TABLET PO SCH (09:48)
[2018-09-28] MEDS: POTASSIUM CHLORIDE 20 MEQ PACKET PO SCH ×2 (09:48→21:16)
[2018-09-28] MEDS: NICOTINE 21 MG/24 HR PATCH.TD24 TD SCH (09:56)
--- NOTE | 2018-09-28 12:41 | PDOC PROGRESS REPORT ---
Subjective Progress Note for:: 09/28/18 Subjective:: This is 82 years old male patient with multiple comorbidities including atrial fibrillation, CHF with ejection fraction of 35% and status post AICD placement, coronary artery disease status post carotid bypass grafting and stent placement, hypertension, hyperlipidemia, COPD and obstructive sleep apnea with chief complaints of worsening shortness of breath. Impression of COPD exacerbation. Patient initially managed with bronchodilator, supplemental oxyg en, BiPAP, antibiotics and steroid but patient situation failed to improve he become increasingly tachypneic and confused at this point patient intubated and put on full mechanical ventilation. As patient's condition is improved he is weaned off and extubated 2 days ago. He is downgraded to IMCU. This morning I seen patient propped up in bed. Patient still has intermittent confusion. His blood work shows leukocytosis which is attributed to steroid. He has also mild hyponatremia with sodium of 152. He has been on prednisone 20 mg twice a day now I tapered it to once a day. For his hyponatremia he is started on dextrose at rate of 50 mm/h. 08/28/2018: Patient seen lying in bed. Patient arouses to verbal stimuli and completely fall back to sleep. All sedative has been discontinued. His hyponatremia resolved and his leukocytosis is improving at this most probably due to steroid. His prednisone has stopped. Patient is awaiting placement to rehab. Reason For Visit: COPD EXACERBATION CHF BRONCHTIS Physical Exam Vital Signs: Temp Pulse Resp BP Pulse Ox 97.9 F 94 20 107/79 94 09/28/18 07:30 09/28/18 08:05 09/28/18 08:05 09/28/18 07:30 09/28/18 08:05 Intake & Output 09/27/18 09/28/18 09/29/18 06:59 06:59 06:59 Intake Total 320 120 Output Total 1650 1425 Balance -1330 -1305 Weight 68.1 kg 66.1 kg General appearance: PRESENT: no acute distress Head exam: PRESENT: atraumatic Neck exam: ABSENT: carotid bruit, JVD, lymphadenopathy, thyromegaly Respiratory exam: PRESENT: clear to auscultation bruna. ABSENT: rales, rhonchi, wheezes Cardiovascular exam: PRESENT: irregular rhythm Results Laboratory Results: 09/27/18 05:46 09/28/18 06:09/28/18 06:25 Sodium 142.3 Potassium 3.9 Chloride 113 H Carbon Dioxide 24 Anion Gap 5 BUN 28 H Creatinine 0.92 Est GFR ( Amer) > 60 Est GFR (Non-Af Amer) > 60 Glucose 116 H Calcium 8.5 09/12/18 09/12/18 09/12/18 00:55 00:55 05:55 Creatine Kinase 80 CK-MB (CK-2) 1.90 1.88 Troponin I 0.037 0.030 NT-Pro-B Natriuret Pep 4660 H 5960 H 09/12/18 09/12/18 09/12/18 11:10 11:10 16:52 Creatine Kinase 61 80 CK-MB (CK-2) 2.08 Troponin I 0.024 NT-Pro-B Natriuret Pep 09/12/18 09/18/18 09/20/18 16:52 16:01 05:09 Creatine Kinase 57 CK-MB (CK-2) 2.92 Troponin I 0.029 NT-Pro-B Natriuret Pep 3110 H Impressions: Chest CT 09/13/18 11:18 IMPRESSION: Status post CABG. Changes of centrilobular emphysema. Changes of interstitial edema with bilateral pleural effusions. Bibasilar atelectasis. KUB X-Ray 09/21/18 12:27 IMPRESSION: NG tube placement as described. Chest X-Ray 09/24/18 11:24 IMPRESSION: Chronic lung changes. Cardiomegaly without roque pulmonary edema. Assessment and Plan - Diagnosis (1) Acute and chronic respiratory failure with hypoxia Is this a current diagnosis for this admission?: Yes Plan: Patient has been on BiPAP later intubated and now extubated. Currently he is on oxygen via nasal cannula. (2) Community acquired pneumonia Is this a current diagnosis for this admission?: Yes Plan: I will DC his Levaquin tomorrow. (3) COPD exacerbation Is this a current diagnosis for this admission?: Yes Plan: Patient has been on bronchodilators supplemental oxygen and steroid. (4) Leukocytosis Qualifiers: Leukocytosis type: unspecified Qualified Code(s): D72.829 - Elevated white blood cell count, unspecified Is this a current diagnosis for this admission?: Yes Plan: Resolving (5) Hypernatremia Is this a current diagnosis for this admission?: Yes Plan: Resolved (6) Hypermagnesemia Is this a current diagnosis for this admission?: Yes Plan: Resolved (7) History of systolic CHF Is this a current diagnosis for this admission?: Yes Plan: I switch his metoprolol tartrate to succinate. (8) CAD S/P CABG and stent placement Is this a current diagnosis for this admission?: Yes Plan: No anginal symptoms currently. We will continue his home medications.
--- NOTE | 2018-09-28 16:44 | ADVANCED CARE ---
Resuscitation Status: Full Code Discussion: After having extensive discussion with regard to patient's general condition with his son and his patient's CODE STATUS is changed to DNR. Patient's son states they want everything to be done to him including medical treatment and supportive care but no CPR or intubation. Care Planning Goals: DNR/DNI. Agreed for medical treatment and supportive care.
[2018-09-28] MEDS: METOPROLOL TARTRATE PF/INJ 5 MG/5 ML SDV IV PRN (19:48)
[2018-09-29] MEDS: LEVALBUTEROL HCL NEB 0.63 MG/3 ML AMPUL NEB SCH ×4 (01:57→19:56)
[2018-09-29] MEDS: DEXTROSE 5%-WATER 1000 ML 1,000 ML IV PRN ×2 (03:53→20:48)
[2018-09-29 05:32] LABS: ABSOLUTE EOSINOPHILS # (AUTO) 0.2 10^3/uL (0.0-0.6); ABSOLUTE LYMPHOCYTES (AUTO) 1.1 10^3/uL (0.5-4.7); ABSOLUTE MONOCYTES (AUTO) 1.1 10^3/uL (0.1-1.4); ABSOLUTE NEUT (AUTO) 16.4 10^3/uL (1.7-8.2); BASOPHILS % (AUTO) 0.1 % (0-2); EOSINOPHILS % (AUTO) 1.1 % (0-6); HEMATOCRIT 49.2 % (37.9-51.0); HEMOGLOBIN 16.4 g/dL (13.5-17.0); LYMPHOCYTES % (AUTO) 5.9 % (13-45); MEAN CORPUSCULAR HEMOGLOBIN 30.7 pg (27.0-33.4); MEAN CORPUSCULAR HGB CONC 33.2 g/dL (32.0-36.0); MEAN CORPUSCULAR VOLUME 92 fl (80-97); MONOCYTES % (AUTO) 5.7 % (3-13); PLATELET COUNT 127 10^3/uL (150-450); RED BLOOD COUNT 5.33 10^6/uL (4.35-5.55); RED CELL DISTRIBUTION WIDTH 14.4 % (11.5-14.0); SEGMENTED NEUTROPHILS % (AUTO) 87.2 % (42-78); TOTAL CELLS COUNTED % (AUTO) 100 %; WHITE BLOOD COUNT 18.8 10^3/uL (4.0-10.5)
[2018-09-29] MEDS ORDERED: NYSTATIN CREAM 15 GM TP PRN (09:36)
[2018-09-29] MEDS: APIXABAN 2.5 MG TABLET PO SCH ×2 (09:47→20:14)
[2018-09-29] MEDS: DIGOXIN 0.25 MG TABLET PO SCH (09:47)
[2018-09-29] MEDS: NICOTINE 21 MG/24 HR PATCH.TD24 TD SCH (09:47)
[2018-09-29] MEDS: METOPROLOL SUCCINATE 50 MG TAB.SR.24H PO SCH ×2 (09:48→21:31)
[2018-09-29] MEDS: LISINOPRIL 5 MG TABLET PO SCH ×2 (09:48→21:31)
[2018-09-29] MEDS: POTASSIUM CHLORIDE 20 MEQ PACKET PO SCH ×2 (09:48→21:31)
--- NOTE | 2018-09-29 18:00 | RADIOLOGY REPORT (SQ) ---
EXAM DESCRIPTION: CHEST SINGLE VIEW COMPLETED DATE/TIME: 09/29/2018 5:47 pm REASON FOR STUDY: congested cough, ? aspiration COMPARISON: 09/24/2018 TECHNIQUE: Single frontal radiographic view of the chest acquired. NUMBER OF VIEWS: One view. LIMITATIONS: None. FINDINGS: LUNGS AND PLEURA: No pneumothorax. No consolidation or pleural effusion. MEDIASTINUM AND HILAR STRUCTURES: Stable. HEART AND VASCULAR STRUCTURES: Stable. BONES: No acute findings. HARDWARE: CABG. Cardiac defibrillator. OTHER: No other significant finding. IMPRESSION: NO ACUTE FINDINGS. TECHNICAL DOCUMENTATION: JOB ID: [id number] [place]-72 2010 [employer]- All Rights Reserved Reading location - IP/workstation name: [email or web address]
[2018-09-29] MEDS: IPRATROPIUM BROMIDE 0.02% NEB 0.5 MG/2.5 ML AMPUL NEB SCH (19:58)
--- NOTE | 2018-09-29 20:02 | PDOC PROGRESS REPORT ---
Subjective Progress Note for:: 09/29/18 Subjective:: Family reports that the patient still has a very congested cough. He is refusing to eat. Medication administration is a challenge as well. He is also exhibiting altered mental status. Reason For Visit: COPD EXACERBATION CHF BRONCHTIS Physical Exam Vital Signs: Temp Pulse Resp BP Pulse Ox 97.9 F 94 16 103/77 97 09/29/18 14:08 09/29/18 14:08 09/29/18 14:08 09/29/18 14:08 09/29/18 14:08 Intake & Output 09/28/18 09/29/18 09/30/18 06:59 06:59 06:59 Intake Total 120 120 360 Output Total 1425 1600 400 Balance -1305 -1480 -40 Weight 66.1 kg 64.9 kg General appearance: PRESENT: mild distress, well-developed Head exam: PRESENT: atraumatic, normocephalic Ear exam: PRESENT: normal external ear exam Respiratory exam: PRESENT: clear to auscultation bruna - anteriorly, symmetrical, unlabored, other - very congested cough. ABSENT: accessory muscle use, rales, rhonchi, tachypnea, wheezes Cardiovascular exam: PRESENT: irregular rhythm GI/Abdominal exam: PRESENT: normal bowel sounds, soft, other - scaphoid abdomen. ABSENT: tenderness Rectal exam: PRESENT: deferred Extremities exam: ABSENT: pedal edema Musculoskeletal exam: ABSENT: ambulatory, normal inspection - Decreased muscle mass Neurological exam: PRESENT: alert, awake, oriented to person. ABSENT: oriented to place, oriented to time, oriented to situation Psychiatric exam: PRESENT: flat affect. ABSENT: agitated, anxious Focused psych exam: PRESENT: delusional - The patient will try and formulate answers to questions but most of the time that nothing to do with the question. Family states that he has been having these disordered thoughts consistently. Some of the difficulty is in understanding the speech. He will not let his put his dentures in and so he is somewhat dysarthric.. ABSENT: paranoid, restlessness Skin exam: PRESENT: dry, warm. ABSENT: rash Results Laboratory Results: 09/29/18 04:39 09/28/18 06:25 09/29/18 04:39 WBC 18.8 H RBC 5.33 Hgb 16.4 Hct 49.2 MCV 92 MCH 30.7 MCHC 33.2 RDW 14.4 H Plt Count 127 L Seg Neutrophils % 87.2 H Lymphocytes % 5.9 L Monocytes % 5.7 Eosinophils % 1.1 Basophils % 0.1 Absolute Neutrophils 16.4 H Absolute Lymphocytes 1.1 Absolute Monocytes 1.1 Absolute Eosinophils 0.2 Absolute Basophils 0.0 09/12/18 09/12/18 09/12/18 00:55 00:55 05:55 Creatine Kinase 80 CK-MB (CK-2) 1.90 1.88 Troponin I 0.037 0.030 NT-Pro-B Natriuret Pep 4660 H 5960 H 09/12/18 09/12/18 09/12/18 11:10 11:10 16:52 Creatine Kinase 61 80 CK-MB (CK-2) 2.08 Troponin I 0.024 NT-Pro-B Natriuret Pep 09/12/18 09/18/18 09/20/18 16:52 16:01 05:09 Creatine Kinase 57 CK-MB (CK-2) 2.92 Troponin I 0.029 NT-Pro-B Natriuret Pep 3110 H Impressions: Chest CT 09/13/18 11:18 IMPRESSION: Status post CABG. Changes of centrilobular emphysema. Changes of interstitial edema with bilateral pleural effusions. Bibasilar atelectasis. KUB X-Ray 09/21/18 12:27 IMPRESSION: NG tube placement as described. Chest X-Ray 09/24/18 11:24 IMPRESSION: Chronic lung changes. Cardiomegaly without roque pulmonary edema. Assessment and Plan - Diagnosis (1) Acute on chronic respiratory failure with hypoxemia Is this a current diagnosis for this admission?: Yes Plan: Resolved. Multifactorial from COPD exacerbation, pneumonia and CHF exacerbation. Successfully extubated on 09/20/18. 09/29/2018-the patient remained stable on nasal cannula. Acute failure resolved. (2) CAP (community acquired pneumonia) Qualifiers: Lung location: lower lobe of lung Is this a current diagnosis for this admission?: Yes Plan: 09/29/2018-the patient completed antibiotic therapy for his pneumonia. There is a question of aspiration with aspiration pneumonia. His white blood cell count is still high but repeat chest x-ray shows no infiltrate. I will recheck his white blood cell count tomorrow. He still has a very congested cough but is unable to produce mucus as he swallows it as soon as he brings it up. (3) COPD exacerbation Is this a current diagnosis for this admission?: Yes Plan: 09/29/2018-currently stable on Xopenex nebulizers. He does have a congested cough. I am going to add ipratropium. I do not believe he is strong enough yet for combination inhalers or Spiriva. He is currently off of steroid therapy. We will continue to use Xopenex over albuterol due to his intermittent tachycardia. (4) Coronary artery disease Qualifiers: Coronary Disease-Associated Artery/Lesion type: [place] artery Is this a current diagnosis for this admission?: Yes Plan: 09/29/2018-the patient is back on aspirin as well as his metoprolol, simvastatin, digoxin and lisinopril. Currently no complaints of chest pain or discomfort. (5) Paroxysmal atrial fibrillation Is this a current diagnosis for this admission?: Yes Plan: 09/29/2018-currently on metoprolol and digoxin. He was on Tikosyn as an outpatient. Rate still occasionally bumps above 100. Continue current therapy. He is also on anticoagulation. (6) Malnutrition Qualifiers: Malnutrition type: protein-calorie malnutrition Protein-calorie malnutrition severity: moderate Qualified Code(s): E44.0 - Moderate protein- calorie malnutrition Is this a current diagnosis for this admission?: Yes Plan: 09/29/2018-the patient continues to do poorly with his p.o. intake. He often will refuse to eat anything at all. We did have a discussion that if this continues and they want to be aggressive we will need to talk about a PEG tube. I do not believe they wish to go this route and if he does not improve they will probably move towards comfort measures. Right now we will continue to encourage better appetite and off for meals 3 times a day. (7) Acute kidney injury Is this a current diagnosis for this admission?: Yes Plan: 09/29/2018-resolved (8) Hypernatremia Is this a current diagnosis for this admission?: Yes Plan: 09/29/2018-serum sodium yesterday was normal. We will recheck electrolytes tomorrow. (9) Hypermagnesemia Is this a current diagnosis for this admission?: Yes Plan: 09/29/2018-serum magnesium has still been running above normal but just slightly. Recheck magnesium level tomorrow. 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 Continue to monitor. (11) Hematuria Qualifiers: Hematuria type: gross Qualified Code(s): R31.0 - Gross hematuria Is this a current diagnosis for this admission?: Yes Plan: 09/18/2018-earlier this morning the patient's urine was normal in color. He abruptly developed marked hematuria. The blood is not bright red but rather appears old. A urinalysis and culture have been sent. His Eliquis has been suspended at this time. 09/19/2018-the urine has no gross hematuria at this time. Urine culture is no growth so far. We will hold anticoagulation for another day or 2 and then consider resuming. September 20, 2018-urine is still slightly dark and is probably exhibiting microscopic hematuria. Still with evidence of Hemoccult positive stool. Continue to hold anticoagulants for another day or 2. I did increase the Protonix. 09/21/2018-resolved. 09/29/2018-patient is back on aspirin and Eliquis and there is no evidence of roque hematuria. (12) Dysphagia Qualifiers: Dysphagia type: oral phase Qualified Code(s): R13.11 - Dysphagia, oral phase Is this a current diagnosis for this admission?: Yes Plan: 09/29/2018-speech therapy reached out to me this morning. The patient tends to pocket his food. The reports that it is more likely with meats especially if they are not chopped up since he is not wearing his dentures. He is already on nectar thick liquids. He will now be on pured diet. Continue to watch for aspiration. - Time Time Spent with patient: 35 or more minutes Medications reviewed and adjusted accordingly: Yes Anticipated discharge: SNF
--- NOTE | 2018-09-29 20:04 | ADVANCED CARE ---
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 They agreed to a palliative care consult. We also established that the patient is now a DNR. We reviewed in detail what the next steps would be both in terms of diagnostic studies as well as alterations in the treatment plan. He is now refusing food. He does not drink much fluid and he exhibits delirium at times. Although this portends poor prognosis. Palliative care will see them. I did briefly outline the differences between DNR, palliative care and hospice versus comfort measures only. They look forward to their meeting with palliative care. Care Planning Goals: For today the goal was to change to DNR status. This was successful. Document(s) Completed: None Time Spent: 25
[2018-09-29] MEDS: SIMVASTATIN 40 MG TABLET PO SCH (21:31)
[2018-09-30] MEDS: METOPROLOL TARTRATE PF/INJ 5 MG/5 ML SDV IV PRN ×3 (01:44→17:34)
[2018-09-30] MEDS: LEVALBUTEROL HCL NEB 0.63 MG/3 ML AMPUL NEB SCH ×4 (01:52→20:21)
[2018-09-30] MEDS: IPRATROPIUM BROMIDE 0.02% NEB 0.5 MG/2.5 ML AMPUL NEB SCH ×4 (01:52→20:18)
[2018-09-30 04:11] LABS: ABSOLUTE BASOPHILS # (AUTO) 0.1 10^3/uL (0.0-0.2); ABSOLUTE EOSINOPHILS # (AUTO) 0.2 10^3/uL (0.0-0.6); ABSOLUTE LYMPHOCYTES (AUTO) 1.1 10^3/uL (0.5-4.7); ABSOLUTE MONOCYTES (AUTO) 0.7 10^3/uL (0.1-1.4); ABSOLUTE NEUT (AUTO) 13.9 10^3/uL (1.7-8.2); BASOPHILS % (AUTO) 0.4 % (0-2); EOSINOPHILS % (AUTO) 1.1 % (0-6); HEMOGLOBIN 15.5 g/dL (13.5-17.0); MEAN CORPUSCULAR HEMOGLOBIN 30.8 pg (27.0-33.4); MEAN CORPUSCULAR HGB CONC 33.7 g/dL (32.0-36.0); MEAN CORPUSCULAR VOLUME 91 fl (80-97); MONOCYTES % (AUTO) 4.6 % (3-13); PLATELET COUNT 124 10^3/uL (150-450); RED BLOOD COUNT 5.03 10^6/uL (4.35-5.55); RED CELL DISTRIBUTION WIDTH 14.4 % (11.5-14.0); SEGMENTED NEUTROPHILS % (AUTO) 86.9 % (42-78); TOTAL CELLS COUNTED % (AUTO) 100 %
[2018-09-30 04:33] LABS: ALANINE AMINOTRANSFERASE 67 U/L (21-72); ALBUMIN 2.6 g/dL (3.5-5.0); ALKALINE PHOSPHATASE 154 U/L (38-126); ANION GAP 7 (5-19); ASPARTATE AMINO TRANSFERASE 38 U/L (17-59); BILIRUBIN,DIRECT 0.3 mg/dL (0.0-0.4); BILIRUBIN,TOTAL 0.9 mg/dL (0.2-1.3); BLOOD UREA NITROGEN 20 mg/dL (7-20); CALCIUM 8.5 mg/dL (8.4-10.2); CARBON DIOXIDE 25 mmol/L (22-30); CHLORIDE 108 mmol/L (98-107); GLUCOSE 128 mg/dL (75-110); POTASSIUM 3.8 mmol/L (3.6-5.0); SODIUM 139.5 mmol/L (137-145)
[2018-09-30 04:41] LABS: PREALBUMIN 17.4 mg/dL (17.6-36.0)
[2018-09-30] MEDS: POTASSIUM CHLORIDE 20 MEQ PACKET PO SCH ×2 (10:04→22:05)
[2018-09-30] MEDS: NICOTINE 21 MG/24 HR PATCH.TD24 TD SCH (10:25)
[2018-09-30] MEDS: METOPROLOL SUCCINATE 50 MG TAB.SR.24H PO SCH ×2 (10:33→22:05)
[2018-09-30] MEDS: LISINOPRIL 5 MG TABLET PO SCH ×2 (10:33→22:05)
[2018-09-30] MEDS: APIXABAN 2.5 MG TABLET PO SCH ×2 (10:33→17:02)
[2018-09-30] MEDS: DIGOXIN 0.25 MG TABLET PO SCH (10:33)
[2018-09-30 13:58] LABS: APPEARANCE,URINE SLIGHTLY-CLOUDY; BILIRUBIN,URINE NEGATIVE (NEGATIVE); COLOR,URINE YELLOW; GLUCOSE, URINE NEGATIVE (NEGATIVE); KETONES,URINE NEGATIVE (NEGATIVE); LEUKOCYTE ESTERASE,URINE NEGATIVE (NEGATIVE); NITRITE,URINE NEGATIVE (NEGATIVE); PROTEIN,URINE NEGATIVE (NEGATIVE); URINE SPECIFIC GRAVITY 1.014; UROBILINOGEN,URINE NEGATIVE mg/dL (<2.0)
[2018-09-30] MEDS: DEXTROSE 5%-WATER 1000 ML 1,000 ML IV PRN (15:46)
[2018-09-30] MEDS: SIMVASTATIN 40 MG TABLET PO SCH (22:05)
[2018-10-01] MEDS: LEVALBUTEROL HCL NEB 0.63 MG/3 ML AMPUL NEB SCH ×4 (02:06→20:36)
[2018-10-01] MEDS: IPRATROPIUM BROMIDE 0.02% NEB 0.5 MG/2.5 ML AMPUL NEB SCH ×4 (02:06→20:36)
[2018-10-01] MEDS: METOPROLOL TARTRATE PF/INJ 5 MG/5 ML SDV IV PRN (02:37)
[2018-10-01] MEDS: APIXABAN 2.5 MG TABLET PO SCH ×2 (09:09→18:14)
[2018-10-01] MEDS: DIGOXIN 0.25 MG TABLET PO SCH (09:09)
[2018-10-01] MEDS: NICOTINE 21 MG/24 HR PATCH.TD24 TD SCH (09:09)
[2018-10-01] MEDS: METOPROLOL SUCCINATE 50 MG TAB.SR.24H PO SCH ×2 (09:10→21:32)
[2018-10-01] MEDS: LISINOPRIL 5 MG TABLET PO SCH ×2 (09:10→21:31)
[2018-10-01] MEDS: POTASSIUM CHLORIDE 20 MEQ PACKET PO SCH ×2 (09:10→21:31)
--- NOTE | 2018-10-01 13:09 | PDOC TRANSFER SUMMARY ---
General - Admit/Disc Date/PCP Admission Date/Primary Care Provider: 09/12/18 04:52 DENIS ROWLAND MD Discharge Date: 10/01/18 - Discharge Diagnosis (1) Acute on chronic respiratory failure with hypoxemia Is this a current diagnosis for this admission?: Yes Summary: The patient was diagnosed with community acquired pneumonia as well as congestive failure with pleural effusions. He required intubation and mechanical ventilation. He was treated with antibiotics, diuresis and ag gressive nebulizer treatments. He was extubated several days ago but is extremely weak. He has a low ejection fraction. He still requires 4 L oxygen by nasal cannula. The patient has plateaued and failed to improve from his current condition. He is transferring to inpatient hospice. (2) CAP (community acquired pneumonia) Is this a current diagnosis for this admission?: Yes Summary: Patient was admitted with community acquired pneumonia. He received a full course of antibiotics. After the antibiotics were completed his white blood cell count increased again. It was felt that he may have a ventilator associated pneumonia. He was treated with antibiotics again. His chest x-ray is in fact clear at this time. His white blood cell count is still elevated. He is no longer on antibiotic therapy. (3) COPD exacerbation Is this a current diagnosis for this admission?: Yes Summary: The patient was treated with intubation and mechanical ventilation along with aggressive nebulizer treatments. He was successfully extubated. He still has nebulizer treatments and now requires 4 L of oxygen by nasal cannula. This is likely his new baseline. (4) Coronary artery disease Is this a current diagnosis for this admission?: Yes Summary: Patient has a history of coronary artery disease. He is currently on aspirin, statin and beta-wilbert therapy. (5) Paroxysmal atrial fibrillation Is this a current diagnosis for this admission?: Yes Summary: The patient had atrial fibrillation with rapid ventricular response. He was treated with multiple medications including continuous intravenous diltiazem. He is now on metoprolol. His anticoagulation was held due to hematuria. He is now back on oral anticoagulation. He does have a pacemaker and defibrillator in place. I recommend turning off both features. (6) Malnutrition Is this a current diagnosis for this admission?: Yes Summary: The patient did receive tube feeds while in the ICU. His nasogastric tube was removed. Despite being offered meals the patient refuses most meals. He will likely succumb to malnutrition eventually with this pattern of poor intake. (7) Acute kidney injury Is this a current diagnosis for this admission?: Yes Summary: Resolved. (8) Hypernatremia Is this a current diagnosis for this admission?: Yes Summary: The patient exhibited marked hypernatremia in the ICU. Fluids were balanced with diuretics and eventually his serum sodium corrected. (9) Hypermagnesemia Is this a current diagnosis for this admission?: Yes Summary: The patient exhibited hypermagnesemia while in the ICU. All magnesium containing medications were discontinued. With IV fluids and aggressive management his serum magnesium has returned to normal. 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 This was likely secondary to his pulmonary disease. It could have also been related to volume contraction. He was given fluid resuscitation and his hemoglobin is normal. (11) Hematuria Is this a current diagnosis for this admission?: Yes Summary: The patient exhibited hematuria during his stay in the ICU. His anticoagulation was held. When the hematuria cleared his anticoagulant therapy was resumed. There is been no evidence of recurrent gross hematuria. - Additional Information Resuscitation Status: Do Not Resuscitate Discharge Diet: Cardiac - Patient has had a very poor appetite Discharge Activity: Bedrest - Patient is a high fall risk. He has not responded to physical therapy. Home Medications: Aspirin [Ecotrin 81 mg EC Tablet] 81 mg PO DAILY 05/20/18 Acetaminophen [Tylenol 325 mg Tablet] 325 mg PO DAILYP PRN 09/12/18 Ipratropium/Albuterol Sulfate [Duoneb 3 ml Ampul] 3 ml NEB RTQ12 09/12/18 Acetaminophen [Tylenol 325 mg Tablet] 650 mg PO Q4HP PRN tablet 10/01/18 Apixaban [Eliquis 2.5 mg Tablet] 2.5 mg PO BID tablet 10/01/18 Digoxin [Lanoxin 0.25 mg Tablet] 0.25 mg PO DAILY tablet 10/01/18 Ipratropium [place] [Atrovent 0.02% Neb 0.5 mg/2.5 ml Ampul] 0.5 mg NEB RTQ6 vial.neb 10/01/18 Levalbuterol HCl [Xopenex Neb 0.63 mg/3 ml Ampul] 0.63 mg NEB RTQ6 vial.neb 10/01/18 Lisinopril [Prinivil 5 mg Tablet] 5 mg PO Q12 tablet 10/01/18 Metoprolol Succinate [Toprol Xl 50 mg Tab.sr] 50 mg PO Q12 tab.sr.24h 10/01/18 Nicotine [Nicoderm 21 mg/24 Hr Transderm Patch] 1 each TD DAILY patch.td24 10/01/18 Nystatin [Mycostatin Cream 15 gm] 1 applic TP TIDP PRN tube 10/01/18 Potassium Chloride [Potassium Chloride 20 Meq Packet] 20 meq PO Q12 packet 10/01/18 Simvastatin [Zocor 40 mg Tablet] 20 mg PO QHS tablet 10/01/18 History of Present Illness Admission Date/PCP: 09/12/18 04:52 DENIS ROWLAND MD Patient complains of: Shortness of breath History of Present Illness: Please also see the dictated history and physical EARNEST CASTELLANO is a 82 year old male with multiple comorbidities developed increasing shortness of breath over the last several days prior to admission. He has a history of coronary artery disease with low ejection fraction, congestive heart failure and COPD with continued tobacco use. He was found to have pleural effusions, pneumonia and an exacerbation of his COPD. He was admitted to the hospitalist service. Hospital Course Hospital Course: The patient had a prolonged (19-day) hospitalization with multiple complications. The patient decompensated early in the hospitalization. He had bilateral pleur al effusions, congestive heart failure, exacerbation of his COPD and community acquired pneumonia. The patient required mechanical ventilation and was transferred to the ICU after intubation. The patient received 2 separate courses of antibiotics. He received fluid resuscitation and then diuresis. He required diltiazem infusion for his atrial fibrillation. He also required vasopressor therapy. Took a prolonged amount of time before the patient was able to be extubated. Since extubation the patient has failed to improve. It is likely that during the extended critical illness he suffered hypoxic brain injury due to either poor perfusion with low pressure or hypoxia. He is nowhere near his baseline prior to admission. He is quite weak. He is unable to stand. He refuses meals and medications on occasion. He also exhibits confusion. The patient is not a candidate for prison facility as his prognosis shows that he is not likely to improve. Palliative care and hospice were both consulted. The patient has been accepted at inpatient hospice. The family had a long disc ussion and in fact has agreed. The patient will transfer to inpatient hospice. Physical Exam Vital Signs: Temp Pulse Resp BP Pulse Ox 97.7 F 80 16 117/64 96 10/01/18 07:26 10/01/18 07:43 10/01/18 07:43 10/01/18 07:26 10/01/18 07:43 Intake & Output 09/30/18 10/01/18 10/02/18 06:59 06:59 06:59 Intake Total 1447 702 Output Total 1325 750 Balance 122 -48 Weight 64 kg 64.4 kg General appearance: PRESENT: no acute distress, well-developed - But very frail-appearing 82-year-old patient resting in bed Head exam: PRESENT: atraumatic, normocephalic Respiratory exam: PRESENT: clear to auscultation bruna, symmetrical. ABSENT: rales, rhonchi, tachypnea, wheezes Cardiovascular exam: PRESENT: irregular rhythm GI/Abdominal exam: PRESENT: normal bowel sounds, soft. ABSENT: tenderness Extremities exam: ABSENT: pedal edema Musculoskeletal exam: ABSENT: ambulatory Neurological exam: ABSENT: awake Psychiatric exam: ABSENT: agitated - Currently sleeping but he still has periods of agitation. Results Laboratory Results: 09/30/18 03:52 09/30/18 03:52 09/30/18 13:42 Urine Color YELLOW Urine Appearance SLIGHTLY-CLOUDY Urine pH 6.0 Ur Specific [place] 1.014 Urine Protein NEGATIVE Urine Glucose (UA) NEGATIVE Urine Ketones NEGATIVE Urine Blood SMALL H Urine Nitrite NEGATIVE Ur Leukocyte Esterase NEGATIVE Urine WBC (Auto) 2 Urine RBC (Auto) 2 09/12/18 09/12/18 09/12/18 00:55 00:55 05:55 Creatine Kinase 80 CK-MB (CK-2) 1.90 1.88 Troponin I 0.037 0.030 NT-Pro-B Natriuret Pep 4660 H 5960 H 09/12/18 09/12/18 09/12/18 11:10 11:10 16:52 Creatine Kinase 61 80 CK-MB (CK-2) 2.08 Troponin I 0.024 NT-Pro-B Natriuret Pep 09/12/18 09/18/18 09/20/18 16:52 16:01 05:09 Creatine Kinase 57 CK-MB (CK-2) 2.92 Troponin I 0.029 NT-Pro-B Natriuret Pep 3110 H Impressions: Chest CT 09/13/18 11:18 IMPRESSION: Status post CABG. Changes of centrilobular emphysema. Changes of interstitial edema with bilateral pleural effusions. Bibasilar atelectasis. KUB X-Ray 09/21/18 12:27 IMPRESSION: NG tube placement as described. Chest X-Ray 09/29/18 00:00 IMPRESSION: NO ACUTE FINDINGS. Transfer Plan - Disposition Transfer Plan: The patient will transfer to inpatient hospice. - Time Spent with Patient Time spent with patient: Greater than 30 Minutes Qualifiers - * PATIENT BEING DISCHARGED WITH ANY OF THE FOLLOWING DIAGNOSIS: No Plan Discharge Plan: Patient is accepted at inpatient hospice. Transportation is being arranged. Suggest turning off the pacemaker/defibrillator prior to transport. Time Spent: Greater than 30 Minutes
[2018-10-01] MEDS: SIMVASTATIN 40 MG TABLET PO SCH (21:32)
[2018-10-02] MEDS: IPRATROPIUM BROMIDE 0.02% NEB 0.5 MG/2.5 ML AMPUL NEB SCH (02:28)
[2018-10-02] MEDS: LEVALBUTEROL HCL NEB 0.63 MG/3 ML AMPUL NEB SCH (02:28)
[2018-10-02 04:23] VITALS: BP 112/65
--- NOTE | 2018-10-02 20:09 | PDOC PROGRESS REPORT ---
Subjective Progress Note for:: 09/30/18 Subjective:: The patient is verbalizing but it is difficult to comprehend. Family reports that this appears to be his baseline. Reason For Visit: COPD EXACERBATION CHF BRONCHITIS Physical Exam Vital Signs: Temp Pulse Resp BP Pulse Ox 98.3 F 70 26 H 112/65 96 10/02/18 03:10 10/02/18 03:10 10/02/18 03:10 10/02/18 03:10 10/02/18 03:10 Intake & Output 10/01/18 10/02/18 10/03/18 06:59 06:59 06:59 Intake Total 702 0 Output Total 750 700 Balance -48 -700 Weight 64.4 kg 62.5 kg General appearance: PRESENT: no acute distress, well-developed - Well-developed but frail-appearing 82-year-old patient resting in bed Head exam: PRESENT: atraumatic, normocephalic Respiratory exam: PRESENT: clear to auscultation bruna, symmetrical, unlabored. ABSENT: chest wall tenderness, rales, rhonchi, tachypnea, wheezes Cardiovascular exam: PRESENT: irregular rhythm GI/Abdominal exam: PRESENT: normal bowel sounds, soft. ABSENT: tenderness Extremities exam: ABSENT: pedal edema Musculoskeletal exam: PRESENT: other - Decreased muscle mass Neurological exam: PRESENT: alert, awake, oriented to person. ABSENT: oriented to place Psychiatric exam: PRESENT: flat affect. ABSENT: agitated, anxious Results Laboratory Results: 09/30/18 03:52 09/30/18 03:52 09/12/18 09/12/18 09/12/18 00:55 00:55 05:55 Creatine Kinase 80 CK-MB (CK-2) 1.90 1.88 Troponin I 0.037 0.030 NT-Pro-B Natriuret Pep 4660 H 5960 H 09/12/18 09/12/18 09/12/18 11:10 11:10 16:52 Creatine Kinase 61 80 CK-MB (CK-2) 2.08 Troponin I 0.024 NT-Pro-B Natriuret Pep 09/12/18 09/18/18 09/20/18 16:52 16:01 05:09 Creatine Kinase 57 CK-MB (CK-2) 2.92 Troponin I 0.029 NT-Pro-B Natriuret Pep 3110 H Impressions: Chest CT 09/13/18 11:18 IMPRESSION: Status post CABG. Changes of centrilobular emphysema. Changes of interstitial edema with bilateral pleural effusions. Bibasilar atelectasis. KUB X-Ray 09/21/18 12:27 IMPRESSION: NG tube placement as described. Chest X-Ray 09/29/18 00:00 IMPRESSION: NO ACUTE FINDINGS. Assessment and Plan - Diagnosis (1) Acute on chronic respiratory failure with hypoxemia Is this a current diagnosis for this admission?: Yes Plan: Resolved. Multifactorial from COPD exacerbation, pneumonia and CHF exacerbation. Successfully extubated on 09/20/18. 09/29/2018-the patient remained stable on nasal cannula. Acute failure resolved. 09/30/2018-acute portion has resolved but requires oxygen supplementation (2) CAP (community acquired pneumonia) Qualifiers: Lung location: lower lobe of lung Is this a current diagnosis for this admission?: Yes Plan: 09/29/2018-the patient completed antibiotic therapy for his pneumonia. There is a question of aspiration with aspiration pneumonia. His white blood cell count is still high but repeat chest x-ray shows no infiltrate. I will recheck his white blood cell count tomorrow. He still has a very congested cough but is unable to produce mucus as he swallows it as soon as he brings it up. 09/30/2018-antibiotic therapy completed. (3) COPD exacerbation Is this a current diagnosis for this admission?: Yes Plan: 09/29/2018-currently stable on Xopenex nebulizers. He does have a congested cough. I am going to add ipratropium. I do not believe he is strong enough yet for combination inhalers or Spiriva. He is currently off of steroid therapy. We will continue to use Xopenex over albuterol due to his intermittent tachycardia. 09/30/2018-continue Xopenex and ipratropium. Eventually convert to combination inhaler. (4) Coronary artery disease Qualifiers: Coronary Disease-Associated Artery/Lesion type: [place] artery Is this a current diagnosis for this admission?: Yes Plan: 09/29/2018-the patient is back on aspirin as well as his metoprolol, simvastatin, digoxin and lisinopril. Currently no complaints of chest pain or discomfort. 09/30/2018-continue the regimen as noted above. He has not exhibited any symptoms. (5) Paroxysmal atrial fibrillation Is this a current diagnosis for this admission?: Yes Plan: 09/29/2018-currently on metoprolol and digoxin. He was on Tikosyn as an outpatient. Rate still occasionally bumps above 100. Continue current therapy. He is also on anticoagulation. 09/30/2018-good rate control. Continue therapy including anticoagulation. (6) Malnutrition Qualifiers: Malnutrition type: protein-calorie malnutrition Protein-calorie malnutrit ion severity: moderate Qualified Code(s): E44.0 - Moderate protein-calorie malnutrition Is this a current diagnosis for this admission?: Yes Plan: 09/29/2018-the patient continues to do poorly with his p.o. intake. He often will refuse to eat anything at all. We did have a discussion that if this cont inues and they want to be aggressive we will need to talk about a PEG tube. I do not believe they wish to go this route and if he does not improve they will probably move towards comfort measures. Right now we will continue to encourage better appetite and off for meals 3 times a day. 09/30/2018- Appetite has been very poor. I do not believe that the family would want to proceed with a PEG tube and a nasogastric tube would certainly create agitation. (7) Acute kidney injury Is this a current diagnosis for this admission?: Yes Plan: 09/29/2018-resolved (8) Hypernatremia Is this a current diagnosis for this admission?: Yes Plan: 09/29/2018-serum sodium yesterday was normal. We will recheck electrolytes tomorrow. 09/30/2018-normal serum sodium (9) Hypermagnesemia Is this a current diagnosis for this admission?: Yes Plan: Magnesium is back in the normal range. 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 Continue to monitor. (11) Hematuria Qualifiers: Hematuria type: gross Qualified Code(s): R31.0 - Gross hematuria Is this a current diagnosis for this admission?: Yes Plan: 09/18/2018-earlier this morning the patient's urine was normal in color. He abruptly developed marked hematuria. The blood is not bright red but rather appears old. A urinalysis and culture have been sent. His Eliquis has been youngblood spended at this time. 09/19/2018-the urine has no gross hematuria at this time. Urine culture is no g rowth so far. We will hold anticoagulation for another day or 2 and then consider resuming. September 20, 2018-urine is still slightly dark and is probably exhibiting microscopic hematuria. Still with evidence of Hemoccult positive stool. Continue to hold anticoagulants for another day or 2. I did increase the Protonix. 09/21/2018-resolved. 09/29/2018-patient is back on aspirin and Eliquis and there is no evidence of roque hematuria. - Time Time Spent with patient: 15-24 minutes Medications reviewed and adjusted accordingly: Yes Anticipated discharge: Hospice Within: within 48 hours
== END 2018-10-02 08:09 | disposition hospice, inpatient (51) | DRG 207 ==
LOC: ER 00:31 → EH 04:52 → OBSVTOIN 04:52 → 4N 06:22 → ICU 09-15 19:37 → 3W 09-24 09:45
PROVIDERS: ADMIT Internal Medicine; ATTEND Internal Medicine
PROC: 5A1955Z Respiratory Ventilation, Greater than 96 Consecutive Hours (ICD-10-PCS; principal; 2018-09-16)
PROC: 0DH67UZ Insertion of Feeding Device into Stomach, Via Natural or Artificial Opening (ICD-10-PCS; 2018-09-16)
PROC: 0BH17EZ Insertion of Endotracheal Airway into Trachea, Via Natural or Artificial Opening (ICD-10-PCS; 2018-09-16)
DX: J18.9 Pneumonia, unspecified organism (principal); J96.21 Acute and chronic respiratory failure with hypoxia; J44.1 Chronic obstructive pulmonary disease with (acute) exacerbation; E44.0 Moderate protein-calorie malnutrition; N17.9 Acute kidney failure, unspecified; E87.0 Hyperosmolality and hypernatremia; I42.9 Cardiomyopathy, unspecified; Z68.1 Body mass index [BMI] 19.9 or less, adult; I13.0 Hypertensive heart and chronic kidney disease with heart failure and stage 1 through stage 4 chronic kidney disease, or unspecified chronic kidney disease; I50.22 Chronic systolic (congestive) heart failure; J44.0 Chronic obstructive pulmonary disease with (acute) lower respiratory infection; I25.10 Atherosclerotic heart disease of native coronary artery without angina pectoris; I49.3 Ventricular premature depolarization; E78.5 Hyperlipidemia, unspecified; F32.9 Major depressive disorder, single episode, unspecified; I48.0 Paroxysmal atrial fibrillation; I25.5 Ischemic cardiomyopathy; N18.2 Chronic kidney disease, stage 2 (mild); T38.0X5A Adverse effect of glucocorticoids and synthetic analogues, initial encounter; E83.41 Hypermagnesemia; D75.1 Secondary polycythemia; R31.0 Gross hematuria; D72.829 Elevated white blood cell count, unspecified; R13.11 Dysphagia, oral phase; G47.33 Obstructive sleep apnea (adult) (pediatric); F17.210 Nicotine dependence, cigarettes, uncomplicated; Z95.1 Presence of aortocoronary bypass graft; Z95.5 Presence of coronary angioplasty implant and graft; Z95.810 Presence of automatic (implantable) cardiac defibrillator; Z79.02 Long term (current) use of antithrombotics/antiplatelets; Z91.19 Patient's noncompliance with other medical treatment and regimen; Z79.899 Other long term (current) drug therapy; Z79.82 Long term (current) use of aspirin; H91.90 Unspecified hearing loss, unspecified ear; Z90.49 Acquired absence of other specified parts of digestive tract
CPT/HCPCS: 31500; 36415; 36600; 71045; 71250; 74018; 80048; 80053; 80162; 80202; 81001; 82272; 82550; 82553; 82803; 82962; 83010; 83605; 83615; 83735; 83880; 83930; 84100; 84132; 84134; 84484; 85025; 85027; 85045; 85379; 85610; 85730; 87040; 87070; 87077; 87086; 87186; 87205; 93005; 93010; 94002; 94003; 94640; 94660; 94667; 94668; 96365; 96366; 96375; 99285; J0360; J0456; J0696; J1160; J1630; J1940; J2060; J2543; J2704; J2920; J2930; J3370; J3475; J3480; J3490; J7030; J7050; J7060; J7120; J7512; J7614; J7620; S0164